=== PATIENT | male | born 1955 | race African-American/Black ===

== ENCOUNTER 2020-09-04 11:29 | Emergency (ER) | payer MEDICARE, MEDICAID, SELFPAY ==
--- NOTE | 2020-09-04 | XR_ITS ---
EXAMINATION: RIGHT FOOT AND ANKLE X-RAY CLINICAL INFORMATION: Pain and swelling COMPARISON: None TECHNIQUE: 3 views of the right foot and 3 views of the right ankle FINDINGS: Right foot: The bones are osteopenic. No fracture or dislocation is seen. There are mild degenerative changes of the first MTP joint and midfoot. There is soft tissue arterial calcification. There is a small plantar calcaneal spur. Right ankle: The bones are osteopenic. Bone alignment is normal. No fracture or dislocation is seen. The ankle mortise is normal. There is soft tissue arterial calcification. IMPRESSION: Osteopenia. 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 Small plantar calcaneal spur.
[2020-09-04 11:39] VITALS: BP 145/77; PULSE 73; RESP 16; TEMP 36.5; O2SAT 99; BMI 31.4
--- NOTE | 2020-09-04 12:18 | ED_ITS ---
HPI - Extremity Problem General Chief complaint: Extremity Injury, Lower Stated complaint: r ankle pain Time Seen by Provider: 09/04/20 12:12 Related Data Allergies Allergy/AdvReac Type Severity Reaction Status Date / Time oxycodone [OXYCODONE] Allergy Unknown UNKNOWN Unverified 08/18/20 19:40 Phenothiazines Allergy Unknown UNKNOWN Unverified 08/18/20 19:40 [PHENOTHIAZINES] tetracycline Allergy Unknown Unverified 05/11/20 00:00 tigecycline [TIGECYCLINE] Allergy Unknown UNKNOWN Unverified 08/18/20 19:40 Phenothiazine Allergy Unknown Uncoded 05/11/20 00:00 phenothiazine Allergy Unknown Uncoded 04/27/20 00:00 Review of Systems Review of Systems: Yes all other systems are reviewed and are negative Constitutional: Constitutional: Reports no additional constitutional complaints Eyes: Eyes: Reports no additional eye complaints ENT: Reports system reviewed and no additional complaints, except as documented Cardiovascular: Cardiovascular: Reports no additional cardiovascular complaints Respiratory: Respiratory: Reports no additional respiratory complaints Gastrointestinal: Gastrointestinal: Reports no additional gastrointestinal complaints Musculoskeletal: Musculoskeletal: Reports no additional musculoskeletal complaints Neurologic: Reports system reviewed and no additional complaints, except as documented and Reports Abnormal speech present Psychiatric: Psychiatric: Reports no additional psychiatric complaints Endocrine: Endocrine: Reports no additional endocrine complaints [facility]LY [facility], [facility] Past Medical History Medical History (Updated 09/04/20 @ 15:51 by Paul Silva MD) Diabetes mellitus, type 2 Social History Social History Alcohol intake: former Smoking Status: Former smoker Use of substances other than those prescribed or required for medical reasons: No Advance Directives: No Advance Directives Information Provided: No Physical Exam Vital Signs and I&O and Narrative: Vital Signs and I&O: Vital Signs Temp 98.1 F 09/04/20 15:41 Pulse 74 09/04/20 15:41 Resp 18 09/04/20 15:41 BP 128/70 09/04/20 15:41 Pulse Ox 99 09/04/20 11:39 Intake & Output 09/03/20 09/04/20 09/04/20 18:59 06:59 18:59 Weight 96.334 kg Body Mass Index 31.4 Const: General: cooperative Orientation/consciousness: oriented to person, oriented to place and oriented to time HENMT: Head: Yes normal to inspection Eyes: General: appearance normal, both eyes and all related structures Neck: Neck: Yes normal visual inspection Chest: Chest palpation & inspection: normal inspection of the chest and normal palpation of entire chest wall Cardio: Jugular venous distension: no JVD GI: Inspection: Yes normal to inspection Auscultation: normal bowel sounds Rectal Exam - Male: Yes deferred : General: Yes no CVA tenderness Back/Spine/Pelvis: Back: no CVA tenderness Skin: General skin exam: no rashes or lesions noted, elasticity normal and turgor normal Neuro: General: oriented to person, oriented to place and oriented to time Cognition (Neuro): normal cognition Speech: Abnormal speech present Gait exam (Neuro): Normal gait present Extrem: Other: Pre existing left hemiparesis due to old stroke, right ankle with slight swelling and mild tenderness but no deformity, no ecchymosis. Normal neurovascular exam. General: Yes normal to inspection and Yes normal exam except as noted Course Course Hospital Course: 65-year-old male brought in from a skilled nursing with the right foot/ankle pain with no trauma, patient is mostly bed / wheelchair bound secondary to old strokes, physical exam/radiographic exam is not indicated for acute injuries to the right foot / ankle. Patient appear comfortable. As patient's caregiver instructed to use Tylenol/ ibuprofen for pain otherwise follow-up with PCP. Discharge Plan Discharge Clinical Impression: Ankle sprain and strain Instructions: Ankle Sprain (ED) Referrals: Andrei Coulter PA-C [Primary Care Provider] - 2 days
[2020-09-04 15:06] VITALS: BP 160/88; PULSE 70; RESP 16
--- NOTE | 2020-09-04 15:17 | PC.NURSE ---
dispo reviewed w pt and custodial staff by provider. booking transport back to custodial.
[2020-09-04 15:41] VITALS: BP 128/70; PULSE 74; RESP 18; TEMP 36.7
== END 2020-09-04 15:59 ==
PROVIDERS: Emergency Provider Emergency Medicine; PCP Physician Assistant
DX: S93.401A Sprain of unspecified ligament of right ankle, initial encounter (principal); X58.XXXA Exposure to other specified factors, initial encounter; E11.9 Type 2 diabetes mellitus without complications; Y93.9 Activity, unspecified; Y92.129 Unspecified place in nursing home as the place of occurrence of the external cause; Y99.9 Unspecified external cause status
CPT/HCPCS: 73610; 73630; 99283

== ENCOUNTER 2020-09-13 11:25 | Emergency (ER) | payer MEDICARE, MEDICAID, SELFPAY ==
--- NOTE | 2020-09-13 11:32 | ED.PSYCH ---
HPI - Psych General Chief Complaint: Psychiatric Symptoms Stated Complaint: SECTION 12 BY MARSHAL PA Time Seen by Provider: 09/13/20 11:32 Source: patient and EMS Mode of arrival: EMS Limitations: no limitations History of Present Illness MD complaint: other (aggression at prison) Onset (ago): minute(s) Duration: resolved prior to arrival History of same: Yes Relieving factors: none Exacerbating factors: none Context: other (got angry with staff) Associated psychiatric symptoms: none Associated symptoms: denies other symptoms Treatments prior to arrival: placed on mental health hold (section 12 by Bautista) Related Data Previous Rx's Medication Instructions Recorded metformin 500 mg tablet,extended 500 mg PO BID 30 Days #60 tab 09/09/20 release 24 hr Allergies Allergy/AdvReac Type Severity Reaction Status Date / Time oxycodone [OXYCODONE] Allergy Unknown UNKNOWN Verified 09/13/20 11:50 tigecycline [TIGECYCLINE] Allergy Unknown UNKNOWN Verified 09/13/20 11:50 Phenothiazine Allergy Unknown Unknown Uncoded 09/13/20 11:50 Review of Systems Review of Systems: Constitutional : No Fever, No Chills ENT/Mouth : No Ear Pain, No Nasal Congestion, No sore throat Eyes: No Eye Pain, No Swelling, No Redness Cardiovascular : No Chest Pain, No SOB Respiratory : No Cough, No Sputum, No Dyspnea Gastrointestinal : No Nausea, No Vomiting, No Diarrhea, No Hematochezia, No Melena Genitourinary : No Dysuria, No Urinary Frequency, No Hematuria Musculoskeletal : No Myalgias Skin : No Skin Lesions, No rash Neuro : No Weakness, No Numbness, No Paresthesias, No Dizziness, No Headache Psych : positive Anxiety, positive Depression, no SI/HI Heme/Lymph: No Lymphadenopathy Endocrine : No Polyuria, No Polydipsia All other systems reviewed and are negative [facility] Past Medical History Medical History (Updated 09/13/20 @ 15:52 by Brooke Lin DO) CVA (cerebral vascular accident) Diabetes mellitus, type 2 GERD (gastroesophageal reflux disease) HTN (hypertension) Psychotic disorder Seizure Type 2 diabetes mellitus with diabetic polyneuropathy Social History Social History Alcohol intake: former Smoking Status: Former smoker Advance Directives: No Advance Directives Information Provided: No Physical Exam Vital Signs: Vital Signs: Vital Signs Temp Pulse Resp BP Pulse Ox 09/13/20 11:50 97.0 F 77 16 148/88 H 96 Body Mass Index 33.0 Appearance: Alert. Oriented X3. No acute distress. Eyes: Pupils equal, round and reactive to light. ENT: Pharynx normal. Neck: Normal inspection. Neck supple. CVS: Normal heart rate and rhythm. Pulses normal. Respiratory: No respiratory distress. Breath sounds normal. Abdomen: Soft and nontender. Skin: Skin warm and dry. Normal skin color. Normal skin turgor. Extremities: No lower extremity edema. No calf ttp Neuro: Oriented X 3. L sided hemiparesis No sensory deficit. Psych: calm, cooperative, no SI/HI Course Course Course Narrative: signed out to Dr. Lawler pending [facility] MDM - Psych MDM Narrative Medical decision making narrative: patient with aggression at prison, at this time, will need labs, [facility] consult, he is calm now and denies SI/HI Restraints Face to Face Assessment: Face to Face Assessment: Current Situation: After assessment of the patient, a review of the pertinent medical record and a discussion with nursing staff, I feel the patient requires a restrain intervention. Reaction To: [] Medical Condition: [] Behavioral State: [] Continued Need: [] Lab Data Result diagrams: 09/13/20 11:52 09/13/20 11:52 Labs: Lab Results 09/13/20 09/13/20 Range/Units 11:52 11:52 WBC 9.0 (4.8-10.8) X10*3/uL RBC 4.45 L (4.60-5.80) X10*6/uL Hgb 13.6 L (14.0-18.0) g/dl Hct 41.8 L (42-52) % MCV 93.9 (80-98) fL MCH 30.6 (27.0-33.0) pg MCHC 32.5 (31.0-36.0) g/dl RDW 13.2 (11.0-16.0) % Plt Count 237 (160-400) X10*3/uL MPV 9.7 (9.4-12.4) fL Immature Gran % (Auto) 0.6 H (0.0-0.4) % Neut % (Auto) 59.2 (45-73) % Lymph % (Auto) 28.7 (20-40) % [place] % (Auto) 8.3 (2-11) % Eos % (Auto) 2.9 (0-4) % Baso % (Auto) 0.3 (0-2) % Lymph # (Auto) 2.6 (1.2-4.9) X10*3/uL [place] # (Auto) 0.8 (0.1-1.2) X10*3/uL Eos # (Auto) 0.3 (0.0-0.4) X10*3/uL Baso # (Auto) 0.0 (0.0-0.2) X10*3/uL Abs Immat Gran (auto) 0.05 H (0.00-0.03) X10*3/uL Absolute Neuts (auto) 5.3 (2.0-8.3) X10*3/uL Absolute Nucleated RBC 0.000 (0.0-0.012) X10*3/uL Nucleated RBC % (auto) 0.0 (0.0-0.2) /100WBC Sodium 137 (135-145) mmol/L Potassium 4.4 (3.3-5.1) mmol/l Chloride 102 (96-108) mmol/L Carbon Dioxide 28 (22-29) mmol/L Anion Gap 11 L (12-20) BUN 15 (9-16) mg/dL Creatinine 0.67 (0.5-1.4) mg/dL Estim Creat Clear Calc 130.8 Estimated GFR > 60 Random Glucose 159 H (60-115) mg/dL Calcium 9.3 (8.4-10.2) mg/dL Total Bilirubin 0.3 (0.0-1.0) mg/dL Direct Bilirubin 0.2 (0.0-0.5) mg/dL AST 63 H (5-37) U/L ALT 90 H (0-40) U/L Alkaline Phosphatase 94 (39-117) U/L Total Protein 8.0 (6.5-8.0) g/dL Albumin 4.0 (3.5-5.0) g/dL Phenytoin 13.4 (10.0-20.0) ug/mL Discharge Plan Discharge Clinical Impression: Agitation Prescriptions: No Action metformin 500 mg tablet extended release 24 hr 500 mg PO BID 30 Days Qty: 60 RF: 3
[2020-09-13 11:39] VITALS: BP 145/81; PULSE 94; RESP 18; TEMP 36.4; O2SAT 96
[2020-09-13 11:50] VITALS: BP 148/88; PULSE 77; RESP 16; TEMP 36.1; O2SAT 96; BMI 33.0
[2020-09-13 11:55] LABS: MANUAL DIFF FLAG NO
[2020-09-13 11:57] LABS: Basophils Percent Auto 0.3 % (0-2); Eosinophils Absolute Auto 0.3 X10*3/uL (0.0-0.4); Eosinophils Percent Auto 2.9 % (0-4); Hematocrit 41.8 % (42-52); Hemoglobin 13.6 g/dl (14.0-18.0); Imm Gran Abs Auto 0.05 X10*3/uL (0.00-0.03); Imm Gran Pct Auto 0.6 % (0.0-0.4); Lymphocytes Absolute Auto 2.6 X10*3/uL (1.2-4.9); Lymphocytes Percent Auto 28.7 % (20-40); Mean Corpuscular HGB Conc 32.5 g/dl (31.0-36.0); Mean Corpuscular Hemoglobin 30.6 pg (27.0-33.0); Mean Corpuscular Volume 93.9 fL (80-98); Mean Platelet Volume 9.7 fL (9.4-12.4); Monocytes Absolute Auto 0.8 X10*3/uL (0.1-1.2); Monocytes Percent Auto 8.3 % (2-11); Neutrophils Absolute Auto 5.3 X10*3/uL (2.0-8.3); Neutrophils Percent Auto 59.2 % (45-73); Platelet Count 237 X10*3/uL (160-400); Red Blood Count 4.45 X10*6/uL (4.60-5.80); Red Cell Distribution Width 13.2 % (11.0-16.0)
[2020-09-13 12:21] LABS: Alanine Aminotransferase 90 U/L (0-40); Alkaline Phosphatase 94 U/L (39-117); Anion Gap 11 (12-20); Aspartate Amino Transferase 63 U/L (5-37); Bilirubin Direct 0.2 mg/dL (0.0-0.5); Bilirubin Total 0.3 mg/dL (0.0-1.0); Blood Urea Nitrogen 15 mg/dL (9-16); Calcium 9.3 mg/dL (8.4-10.2); Carbon Dioxide 28 mmol/L (22-29); Chloride 102 mmol/L (96-108); Creatinine Clr Calc Pharmacy 130.8; Estimated Glomerular Filt Rate > 60; Glucose Random 159 mg/dL (60-115); Potassium 4.4 mmol/l (3.3-5.1); Sodium 137 mmol/L (135-145)
[2020-09-13 12:57] LABS: Phenytoin Dilantin 13.4 ug/mL (10.0-20.0)
--- NOTE | 2020-09-13 19:47 | PC.NURSE ---
Addendum entered by Anastacia Crespo [facility] 09/13/20 21:01: N called and faxed by this insurance underwriter at 8pm, spoke with Greg to confirm receipt. No ETA at this time, likely that pt will be seen by clinician on third shift. Original Note: no fax was sent to [facility] regarding patient. care team to see patient
[2020-09-13 23:29] VITALS: BP 145/87; PULSE 89; RESP 16; TEMP 37.1; O2SAT 99
--- NOTE | 2020-09-13 23:30 | PC.NURSE ---
pt requested and given sandwich, tea, and gingerale. belongings secured in locker. pt is calm, cooperative, pleasant. denies si/hi. aware of section 12 bedsearch per n. denies complaints. med rec completed and md diallo aware.
[2020-09-14] VITALS (12 sets, daily range): BP systolic 132–162; BP diastolic 65–97; PULSE 60–105; RESP 16–20; TEMP 36–36.7; O2SAT 96–98
[2020-09-14] MEDS: levETIRAcetam 1,000 MG TABLET 1500 MG PO ×2 (10:51→21:00)
[2020-09-14] MEDS: Cyclobenzaprine HCl 5 MG TABLET PO (10:52)
[2020-09-14] MEDS: Spironolactone 25 MG TABLET PO (10:52)
[2020-09-14] MEDS: Milk of Magnesia 30 ML ORAL.SUSP PO (10:52)
[2020-09-14] MEDS: Metoprolol Succinate ER 100 MG TAB.ER.24H PO (10:53)
[2020-09-14] MEDS: lamoTRIgine 100 MG TABLET PO (10:53)
[2020-09-14] MEDS: Gabapentin 600 MG TABLET PO (10:53)
[2020-09-14] MEDS: Folic Acid 1 MG TABLET PO (10:53)
[2020-09-14] MEDS: metFORMIN HCl ER 500 MG TAB.ER.24H PO ×2 (11:01→21:00)
[2020-09-14] MEDS: ARIPiprazole 20 MG TABLET PO (11:02)
--- NOTE | 2020-09-14 14:04 | ECG_ITS ---
Test Reason : PSYCHIATRIC CONSULT Blood Pressure : / mmHG Vent. Rate : 077 BPM Atrial Rate : 077 BPM P-R Int : 228 ms QRS Dur : 076 ms QT Int : 384 ms P-R-T Axes : 058 025 062 degrees QTc Int : 434 ms Sinus rhythm with 1st degree A-V block Nonspecific ST abnormality Inferior leads Abnormal ECG When compared with ECG of 10-MAY-2020 11:42, Nonspecific ST abnormality is new Referred By: Brooke Lin Electronically Signed By:UMER ARVIZU MD
--- NOTE | 2020-09-14 14:04 | XR_ITS ---
EXAMINATION: XR CHEST CLINICAL INFORMATION: Medical clearance COMPARISON: Chest x-ray 03/17/2019 TECHNIQUE: Frontal view of the chest was obtained. Left lung apex is obscured by the patient's overlying hand. FINDINGS: Cardiac silhouette is at the upper limits of normal in size. There is no gross lobar consolidation. No pleural effusion or pneumothorax. Old healed left-sided rib fractures. IMPRESSION: No acute pulmonary pathology.
--- NOTE | 2020-09-14 14:24 | PC.NURSE ---
[facility] CURRENTLY AT BEDSIDE
[2020-09-14] MEDS: Amitriptyline HCl 25 MG TABLET PO (21:00)
[2020-09-15] VITALS: BP 133/74; PULSE 88; RESP 18; O2SAT 97
[2020-09-15 00:15] LABS: SARS COV2 PCR INHOUSE NEGATIVE (Negative)
[2020-09-15 02:00] VITALS: BP 131/84; PULSE 86; RESP 18; O2SAT 97
[2020-09-15 04:00] VITALS: BP 133/78; PULSE 86; RESP 18; O2SAT 97
[2020-09-15 06:39] VITALS: BP 159/86; PULSE 95; RESP 18; O2SAT 96
--- NOTE | 2020-09-15 06:49 | PC.NURSE ---
Pt cleaned up and clean linens applied to bed. pt denies any complaints at this time. Will continue to monitor pt.
--- NOTE | 2020-09-15 08:26 | PC.NURSE ---
This RN spoke w/Petrona from [facility]. Petrona provided fax # for wing for Covid results. Results faxed to attention Madhuri
--- NOTE | 2020-09-15 10:42 | PC.NURSE ---
report given to [facility]
== END 2020-09-15 11:35 ==
PROVIDERS: Physician Assistant; Emergency Provider Emergency Medicine; PCP Physician Assistant
DX: R45.1 Restlessness and agitation (principal); Z20.828 Contact with and (suspected) exposure to other viral communicable diseases; I10 Essential (primary) hypertension; E11.9 Type 2 diabetes mellitus without complications; F41.9 Anxiety disorder, unspecified; F31.9 Bipolar disorder, unspecified; F44.9 Dissociative and conversion disorder, unspecified; Z79.899 Other long term (current) drug therapy; Z79.4 Long term (current) use of insulin; Z79.84 Long term (current) use of oral hypoglycemic drugs
CPT/HCPCS: 36415; 71045; 80048; 80076; 80185; 85025; 87635; 93005; 99285

== ENCOUNTER → 2020-11-04 09:43 | Outpatient (BNVA) | payer MEDICARE, MEDICAID, SELFPAY | PROVIDERS: PCP Physician Assistant; Visit Provider Nurse Practitioner Gerontology | DX: E11.42 Type 2 diabetes mellitus with diabetic polyneuropathy (principal); I10 Essential (primary) hypertension | CPT/HCPCS: 82947; 99212 ==

== ENCOUNTER 2020-12-01 10:02 | Outpatient (REF) | payer MEDICARE, MEDICAID, SELFPAY ==
[2020-12-05 12:31] LABS: Alpha Fetoprotein 16.8 ng/mL (<6.1)
[2020-12-07 08:48] LABS: Hepatitis C Genotype 1a
== END 2020-12-01 10:03 | disposition home or self-care (01) ==
LOC: HO.LAB 10:02
PROVIDERS: PCP Physician Assistant; Visit Provider Internal Medicine Gastroenterology
DX: B18.2 Chronic viral hepatitis C (principal)
CPT/HCPCS: 82105; 87902

== ENCOUNTER 2020-12-17 11:15 | Inpatient (IN) | payer MEDICARE, MEDICAID, SELFPAY ==
[2020-12-17] VITALS (8 sets, daily range): BP systolic 115–159; BP diastolic 69–87; PULSE 90–111; RESP 15–20; TEMP 36.7–37.2; O2SAT 2–98; BMI 32.8
--- NOTE | 2020-12-17 | XR_ITS ---
EXAMINATION: XR CHEST CLINICAL INFORMATION: Check NG tube position. COMPARISON: Chest 12/17/2020 at 5:20 PM TECHNIQUE: Frontal view of the chest was obtained. FINDINGS: Tip of enteric tube is at the level of diaphragm/GE junction. Due to suboptimal exposure the tip of the catheter is not visualized the on the diaphragm. The lungs are expanded with patchy opacity seen in the right midlung similar to previous study. Heart size and pulmonary vascularity is normal. There are old healed left mid rib fractures. XR/XR chest 1V IMPRESSION: Tip of nasogastric tube is is likely at the GE junction. Recommend chest abdomen exam sent to the diaphragm to evaluate the tip. There is focal patchy opacity right midlung question infiltrate, unchanged to previous exam performed earlier at 5:20 PM
--- NOTE | 2020-12-17 | XR_ITS ---
EXAMINATION: XR CHEST CLINICAL INFORMATION: NG tube placement COMPARISON: Earlier exam same day TECHNIQUE: Portable 10:39 PM view of the chest was obtained. FINDINGS: Multifocal infiltrates again noted. NG tube tip overlies multiple leads but the tip appears to have advanced to at least the gastric body. No new findings otherwise. XR/XR chest 1V IMPRESSION: Limited imaging as above.
--- NOTE | 2020-12-17 11:45 | PC.NURSE ---
spoke with patients bottom worker in waiting rooms. he confirmed pt has been having n/v/d that began last night and again this morning. also reports pt abdomen has been increasing in size over past 6 months. pt seen pcp and [place] dr [place] [facility] unsure of pt diagnosis. pt waiting to be seen by ED
--- NOTE | 2020-12-17 12:00 | ED_ITS ---
HPI - Nausea/Vomiting/Diarrhea General Chief complaint: Nausea/Vomiting/Diarrhea Stated complaint: ABD PAIN W/NAUSEA AND VOMITING Time Seen by Provider: 12/17/20 11:48 History of Present Illness HPI Narrative: 65-year-old male with a history of chronic hepatitis, history of hypertension, presents today with having nausea vomiting diarrhea. Symptoms been ongoing for the last 2 days. Diarrhea is yellow in color. Patient also complaining of nausea vomiting unable to keep down fluids. Had had similar symptoms in the past. Would seem be more severe. Had a previous history of cholecystectomy. Had a previous history of colonoscopy. Patient unsure of the results. No cough and no congestion or upper respiratory symptoms. Also history of previous CVA in the past patient has weakness on the left side that is chronic. Arms greater than legs. Positive facial droop which is also chronic per patient. Related Data Home Medications Medication Instructions Recorded Confirmed aripiprazole [Abilify] 20 mg PO DAILY 09/13/20 12/05/20 artificial tears with lanolin 1 applic OPHTHALMIC (EYE) DAILY 09/13/20 12/05/20 [Artificial Tears] eucalyptus-peppermint oil [Ponaris] 1 applic INTRANASAL DAILY 09/13/20 12/05/20 folic acid 1 mg PO DAILY 09/13/20 12/05/20 guanfacine 2 mg PO DAILY 09/13/20 12/05/20 lamotrigine [Lamictal] 100 mg PO BID 09/13/20 12/05/20 levetiracetam 1,500 mg PO BID 09/13/20 12/05/20 phenytoin 200 mg PO BEDTIME 09/13/20 12/05/20 aluminum-mag hydroxide-simethicone 10 ml PO QID PRN 09/22/20 12/05/20 200 mg-200 mg-20 mg/5 mL oral susp lorazepam 2 mg tablet 2 mg PO ONCE PRN tab 09/22/20 12/05/20 metoprolol tartrate 100 mg tablet 100 mg PO BID 11/23/20 12/05/20 aspirin 81 mg tablet,delayed 81 mg PO DAILY 12/12/20 release spironolactone 25 mg tablet 25 mg PO DAILY 12/12/20 Previous Rx's Medication Instructions Recorded cyclobenzaprine 5 mg tablet 5 mg PO Q8H #84 tab 10/17/20 omeprazole 20 mg capsule,delayed 20 mg PO DAILY #28 cap 10/17/20 release blood sugar diagnostic #100 ea 11/04/20 dulaglutide 0.75 mg/0.5 mL 0.75 mg SUBCUT QWEEK #2 ml 11/04/20 subcutaneous pen injector insulin degludec 200 unit/mL (3 56 unit SUBCUT DAILY 30 Days #9 ml 11/04/20 mL) subcutaneous pen lancets 26 gauge #100 ea 11/04/20 metformin 500 mg tablet,extended 500 mg PO BID #60 tab 11/04/20 release 24 hr amitriptyline 25 mg tablet 25 mg PO BEDTIME #28 tab 11/14/20 magnesium oxide 400 mg (241.3 mg 400 mg PO QAM #28 tab 11/14/20 magnesium) tablet valsartan 320 0.5 tab PO DAILY 30 Days #15 tab 11/14/20 mg-hydrochlorothiazide 25 mg tablet aluminum-mag hydroxide-simethicone 15 ml PO Q4H PRN #355 ml 12/05/20 200 mg-200 mg-20 mg/5 mL oral susp gabapentin 600 mg tablet 600 mg PO TID 90 Days #270 tab 12/05/20 magnesium hydroxide 400 mg/5 mL 30 ml PO DAILY 90 Days #3000 ml 12/05/20 oral suspension pen needle, diabetic 32 gauge x #50 ea 12/05/20 phenytoin 50 mg chewable tablet 150 mg PO DAILY 90 Days #270 tab 12/05/20 aspirin 81 mg tablet,delayed 81 mg PO QAM #28 tab 12/12/20 release spironolactone 25 mg tablet 25 mg PO DAILY #28 tab 12/12/20 Allergies Allergy/AdvReac Type Severity Reaction Status Date / Time oxycodone [OXYCODONE] Allergy Unknown UNKNOWN Verified 12/05/20 09:43 Phenothiazines Allergy Unknown Unknown Verified 12/05/20 09:43 tetracycline Allergy Unknown Unknown Verified 12/05/20 09:43 tigecycline [TIGECYCLINE] Allergy Unknown UNKNOWN Verified 12/05/20 09:43 Review of Systems Review of Systems: Constitutional: No Weight loss, No Fever, No Chills, No Night Sweats, No Fatigue, No Malaise ENT/Mouth: No Hearing loss, No Ear Pain, No Nasal Congestion, No Sinus Pain, No Hoarseness, No sore throat, No Rhinorrhea, No Swallowing Difficulty Eyes: No Eye Pain, No Swelling, No Redness, No Foreign Body, No Discharge, No Vision Changes Cardiovascular: No Chest Pain, No SOB, No Dyspnea on Exertion, No Orthopnea, No Edema, No Palpitations Respiratory: No Cough, No Sputum, No Wheezing, No Smoke Exposure, No Dyspnea Gastrointestinal: Positive nausea, vomiting, diarrhea Genitourinary: no irregular bleeding, No Dysuria, No Urinary Frequency, No Hematuria, No Urinary Incontinence, No Urgency, No Flank Pain, No Urinary Flow Changes, No Hesitancy Musculoskeletal: No joint pain, No Myalgias, No Joint Swelling Skin: No Skin Lesions, No rash Neuro: No Weakness, No Numbness, No Paresthesias, No Loss of Consciousness, No Dizziness, No Headache Psych: No Anxiety/Panic, No Depression, No SI/HI/AH/VH, No Social Issues, Heme/Lymph: No Bruising, No Bleeding,No Lymphadenopathy Endocrine: No Polyuria, No Polydipsia, No Temperature Intolerance Yes all other systems are reviewed and are negative [facility] Past Medical History Medical History Abnormal colonoscopy Anxiety Bipolar disorder Conversion disorder CVA (cerebral vascular accident) Essential hypertension GERD (gastroesophageal reflux disease) HTN (hypertension) Psychotic disorder Seizure Type 2 diabetes mellitus with diabetic polyneuropathy Surgical History Hx of cholecystectomy Hx of colonoscopy Hx of surgical biopsy Family History Family History Sister Breast cancer in situ Social History Social History Alcohol intake: unknown Smoking Status: Unknown if ever smoked Smoked in Last 30 Days: No Use of substances other than those prescribed or required for medical reasons: No Advance Directives: No Advance Directives Information Provided: No Physical Exam Vital Signs: Vital Signs: Last Vital Signs Temp 98.3 F 12/17/20 16:00 Pulse 111 H 12/17/20 16:00 Resp 16 12/17/20 16:00 BP 153/83 H 12/17/20 16:00 Pulse Ox 2 L 12/17/20 16:00 Body Mass Index 32.8 Appearance: Alert. Oriented X3. No acute distress. Eyes: Pupils equal, round and reactive to light. ENT: Pharynx normal. Neck: Normal inspection. Neck supple. No lymph nodes noted. No crepitus CVS: Normal heart rate and rhythm. Pulses normal. Normal S1 and S2 Respiratory: No respiratory distress. Breath sounds normal. No Wheezing. No rales Abdomen: Soft and nontender. No rigidity. + distention. good BS x4 Skin: Skin warm and dry. Normal skin color. Normal skin turgor. Extremities: No lower extremity edema. Neurovascular intact to all extremities. No Lacerations. No Rash Neuro: Oriented X 3. No motor deficit. No sensory deficit. Moving all extermities. No slurred speech MDM - Nausea/Vomiting/Diarrhea MDM Narrative Medical decision making narrative: Question cause of patient's abdominal distension. White count was normal. Electrolytes unremarkable. Coronavirus test was negative. CT scan of the abdomen done. Distended loops of bowels all the way down to the colon. Question ileus versus colonic obstruction. Surgical consult was called. Currently in stable condition. Patient given symptomatic support here in the emergency department Lab Data Attestation: I reviewed the patient's lab results. Result diagrams: 12/17/20 12:36 12/17/20 12:32 Labs: Lab Results 12/17/20 12/17/20 12/17/20 Range/Units 12:23 12:32 12:33 WBC (4.8-10.8) X10*3/uL RBC (4.60-5.80) X10*6/uL Hgb (14.0-18.0) g/dl Hct (42-52) % MCV (80-98) fL MCH (27.0-33.0) pg MCHC (31.0-36.0) g/dl RDW (11.0-16.0) % Plt Count (160-400) X10*3/uL MPV (9.4-12.4) fL Immature Gran % (Auto) (0.0-0.4) % Neut % (Auto) (45-73) % Lymph % (Auto) (20-40) % [place] % (Auto) (2-11) % Eos % (Auto) (0-4) % Baso % (Auto) (0-2) % Lymph # (Auto) (1.2-4.9) X10*3/uL [place] # (Auto) (0.1-1.2) X10*3/uL Eos # (Auto) (0.0-0.4) X10*3/uL Baso # (Auto) (0.0-0.2) X10*3/uL Abs Immat Gran (auto) (0.00-0.03) X10*3/uL Absolute Neuts (auto) (2.0-8.3) X10*3/uL Absolute Nucleated RBC (0.0-0.012) X10*3/uL Nucleated RBC % (auto) (0.0-0.2) /100WBC PT 13.6 H (10.8-13.0) SEC INR 1.1 (0.9-1.1) Sodium 136 (135-145) mmol/L Potassium 4.4 (3.3-5.1) mmol/l Chloride 101 (96-108) mmol/L Carbon Dioxide 23 (22-29) mmol/L Anion Gap 16 (12-20) BUN 13 (9-16) mg/dL Creatinine 0.66 (0.5-1.4) mg/dL Estim Creat Clear Calc 132.4 Estimated GFR > 60 Random Glucose 146 H (60-115) mg/dL Calcium 8.5 D (8.4-10.2) mg/dL Total Bilirubin 0.4 (0.0-1.0) mg/dL Direct Bilirubin 0.4 (0.0-0.5) mg/dL AST 44 H (5-37) U/L ALT 54 H (0-40) U/L Alkaline Phosphatase 90 (39-117) U/L Total Protein 7.7 (6.5-8.0) g/dL Albumin 3.7 (3.5-5.0) g/dL Lipase 55 (8-78) U/L Phenytoin (10.0-20.0) ug/mL COVID-19 (SHANW) Negative (Negative) COVID-19 Clin Com See Note 12/17/20 12/17/20 Range/Units 12:35 12:36 WBC 7.9 (4.8-10.8) X10*3/uL RBC 4.60 (4.60-5.80) X10*6/uL Hgb 14.0 (14.0-18.0) g/dl Hct 43.8 (42-52) % MCV 95.2 (80-98) fL MCH 30.4 (27.0-33.0) pg MCHC 32.0 (31.0-36.0) g/dl RDW 12.5 (11.0-16.0) % Plt Count 168 D (160-400) X10*3/uL MPV 11.1 (9.4-12.4) fL Immature Gran % (Auto) 0.4 (0.0-0.4) % Neut % (Auto) 67.9 (45-73) % Lymph % (Auto) 22.3 (20-40) % [place] % (Auto) 7.7 (2-11) % Eos % (Auto) 1.4 (0-4) % Baso % (Auto) 0.3 (0-2) % Lymph # (Auto) 1.8 (1.2-4.9) X10*3/uL [place] # (Auto) 0.6 (0.1-1.2) X10*3/uL Eos # (Auto) 0.1 (0.0-0.4) X10*3/uL Baso # (Auto) 0.0 (0.0-0.2) X10*3/uL Abs Immat Gran (auto) 0.03 (0.00-0.03) X10*3/uL Absolute Neuts (auto) 5.4 (2.0-8.3) X10*3/uL Absolute Nucleated RBC 0.000 (0.0-0.012) X10*3/uL Nucleated RBC % (auto) 0.0 (0.0-0.2) /100WBC PT (10.8-13.0) SEC INR (0.9-1.1) Sodium (135-145) mmol/L Potassium (3.3-5.1) mmol/l Chloride (96-108) mmol/L Carbon Dioxide (22-29) mmol/L Anion Gap (12-20) BUN (9-16) mg/dL Creatinine (0.5-1.4) mg/dL Estim Creat Clear Calc Estimated GFR Random Glucose (60-115) mg/dL Calcium (8.4-10.2) mg/dL Total Bilirubin (0.0-1.0) mg/dL Direct Bilirubin (0.0-0.5) mg/dL AST (5-37) U/L ALT (0-40) U/L Alkaline Phosphatase (39-117) U/L Total Protein (6.5-8.0) g/dL Albumin (3.5-5.0) g/dL Lipase (8-78) U/L Phenytoin 17.1 (10.0-20.0) ug/mL COVID-19 (SHAWN) (Negative) COVID-19 Clin Com Discharge Plan Discharge Prescriptions: No Action cyclobenzaprine 5 mg tablet 5 mg PO Q8H Qty: 84 RF: 3 omeprazole 20 mg capsule,delayed release(DR/EC) 20 mg PO DAILY Qty: 28 RF: 3 valsartan-hydrochlorothiazide 320-25 mg tablet 0.5 tab PO DAILY 30 Days Qty: 15 RF: 6 magnesium oxide 400 mg (241.3 mg magnesium) tablet 400 mg PO QAM Qty: 28 RF: 5 amitriptyline 25 mg tablet 25 mg PO BEDTIME Qty: 28 RF: 5 metoprolol tartrate 100 mg tablet 100 mg PO BID RF: 0 magnesium hydroxide [Milk of Magnesia] 400 mg/5 mL suspension 30 ml PO DAILY 90 Days Qty: 3000 RF: 1 alum-mag hydroxide-simeth [Mi-Acid] 200-200-20 mg/5 mL suspension 15 ml PO Q4H PRN (Reason: for indigestion) Qty: 355 RF: 2 aspirin [Adult Aspirin Regimen] 81 mg tablet,delayed release (DR/EC) 81 mg PO DAILY RF: 0 spironolactone 25 mg tablet 25 mg PO DAILY RF: 0 spironolactone 25 mg tablet 25 mg PO DAILY Qty: 28 RF: 3 aspirin 81 mg tablet,delayed release (DR/EC) 81 mg PO QAM Qty: 28 RF: 3 aripiprazole [Abilify] 20 mg Tablet 20 mg PO DAILY RF: 0 folic acid 1 mg Tablet 1 mg PO DAILY RF: 0 guanfacine 2 mg Tablet 2 mg PO DAILY RF: 0 lamotrigine [Lamictal] 100 mg Tablet 100 mg PO BID RF: 0 Artificial Tears Ointment 1 applic OPHTHALMIC (EYE) DAILY RF: 0 levetiracetam 1,000 mg Tablet 1,500 mg PO BID RF: 0 phenytoin 50 mg Tablet,Chewable 200 mg PO BEDTIME RF: 0 Ponaris Solution 1 applic INTRANASAL DAILY RF: 0 lorazepam [Ativan] 2 mg tablet 2 mg PO ONCE PRN (Reason: Anxiety) RF: 0 alum-mag hydroxide-simeth [Maalox Advanced] 200-200-20 mg/5 mL suspension 10 ml PO QID PRNRF: 0 (DME) pen needle, diabetic [BD Ultra-Fine Helene Pen Needle] 32 gauge x / needle See Rx Instructions .ROUTE .MEDSUPPLY Qty: 50 RF: 3 phenytoin 50 mg tablet,chewable 150 mg PO DAILY 90 Days Qty: 270 RF: 1 gabapentin 600 mg tablet 600 mg PO TID 90 Days Qty: 270 RF: 2 (DME) ReliOn Prime Test Strips Strip See Rx Instructions .ROUTE .MEDSUPPLY Qty: 100 RF: 11 (DME) lancets [Safety Lancets] 26 gauge misc See Rx Instructions .ROUTE .MEDSUPPLY Qty: 100 RF: 11 Trulicity 0.75 mg/0.5 mL pen injector 0.75 mg SUBCUT QWEEK Qty: 2 RF: 3 Tresiba FlexTouch U-200 200 unit/mL (3 mL) insulin pen 56 unit subcut DAILY 30 Days Qty: 9 RF: 3 metformin 500 mg tablet extended release 24 hr 500 mg PO BID Qty: 60 RF: 3
--- NOTE | 2020-12-17 12:02 | XR_ITS ---
EXAMINATION: XR CHEST CLINICAL INFORMATION: Shortness of breath COMPARISON: 09/14/2020 TECHNIQUE: Frontal view of the chest was obtained. FINDINGS: Lungs are adequately expanded and clear. No evidence of pulmonary edema, consolidation or pleural effusion. Cardiac silhouette has normal size and contour. There are a few old, healed left rib fractures. XR/XR chest 1V IMPRESSION: No evidence of pneumonia. No acute abnormality compared to 09/14/2020.
--- NOTE | 2020-12-17 12:03 | CT_ITS ---
EXAMINATION: CT ABDOMEN AND PELVIS WITH CONTRAST CLINICAL INFORMATION: Abdominal pain, nausea vomiting and diarrhea previous CT scan and abdominal MRI December 2019 COMPARISON: None TECHNIQUE: Multidetector volumetric images were obtained from the superior aspect of the liver through the pubic symphysis following administration 85 mL of Omnipaque 350 intravenous contrast. Sagittal and coronal reformatted images were obtained on the technologist's workstation. Oral contrast: Yes This CT examination was performed using dose optimization techniques as appropriate, variously including the following: *Automated exposure control *Adjustment of mA and/or kV according to patient size (this includes techniques or standardized protocols for targeted exams where dose is matched to indication/reason for exam; i.e. extremities or head) *Use of iterative reconstruction technique DLP: 1024 mGy-cm FINDINGS: LUNG BASES: Evaluation of the lung bases is limited due to artifact from respiratory motion. There are small clustered nodules in the visualized right upper lobe seen on the earliest images. There are also small bilateral lower lobe peribronchial nodules or areas increased peribronchial attenuation. LIVER, GALLBLADDER, AND BILIARY TREE: The liver is normal in size, shape, and attenuation. There is a low-attenuation lesion in the medial segment of the left lobe that measures approximately 2.4 cm. This may be smaller than on prior exam December 2020 series 3 measured 2.6 x 3 cm. Portion of this area appears low attenuation and more cystic for example axial image 19 series 3. The liver is otherwise unremarkable. The gallbladder has been removed. PANCREAS: Unremarkable. SPLEEN: Unremarkable. ADRENAL GLANDS: Unremarkable. KIDNEYS AND URETERS: The kidneys are normal in size, shape, and attenuation. No hydronephrosis, hydroureter, or calculi seen. No perinephric stranding. BLADDER: Not optimally distended. GASTROINTESTINAL TRACT: The stomach is distended and filled with fluid. There are dilated fluid-filled loops of small and large bowel. Differential would include ileus and distal large bowel obstruction. The sigmoid colon appears collapsed axial image 84 series 3. No abnormal wall thickening or mass is seen. Long segment sigmoid colon stricture cannot be excluded and imaging follow-up is recommended. There is stool in the rectum. The appendix is unremarkable. ABDOMINAL WALL: There is a small umbilical hernia containing fat. LYMPH NODES: There is periportal and upper abdominal retroperitoneal shotty lymphadenopathy. No enlarged lymph nodes are seen. VASCULAR: Unremarkable. PELVIC VISCERA: Unremarkable. OSSEOUS STRUCTURES: There are degenerative changes of the spine and hip joints. CT/CT abdomen pelvis w con IMPRESSION: Dilated fluid-filled loops of small and large bowel. The stomach is also dilated and fluid-filled. Differential would include ileus and distal obstruction. The sigmoid colon is collapsed and it is difficult to exclude a stricture. No colon wall thickening or mass is seen. X-ray imaging follow-up recommended. Slight interval decrease in size in liver lesion in the left lobe of the liver. New small right upper and bilateral lower lobe peribronchial nodules and bronchial wall thickening. This probably represents an infectious/inflammatory process or airways disease.
[2020-12-17] MEDS: 0.9 % Sodium Chloride 1,000 ML 999 ML IV (12:29)
[2020-12-17] MEDS: ondansetron HCL 4 MG/2 ML VIAL IVPUSH (12:29)
[2020-12-17 12:41] LABS: MANUAL DIFF FLAG NO
[2020-12-17 12:42] LABS: COVID-19 Test Negative (Negative); IDNOW Serial# 9DD0AD1C
[2020-12-17 12:43] LABS: Basophils Percent Auto 0.3 % (0-2); Eosinophils Absolute Auto 0.1 X10*3/uL (0.0-0.4); Eosinophils Percent Auto 1.4 % (0-4); Hematocrit 43.8 % (42-52); Imm Gran Abs Auto 0.03 X10*3/uL (0.00-0.03); Imm Gran Pct Auto 0.4 % (0.0-0.4); Lymphocytes Absolute Auto 1.8 X10*3/uL (1.2-4.9); Lymphocytes Percent Auto 22.3 % (20-40); Mean Corpuscular Hemoglobin 30.4 pg (27.0-33.0); Mean Corpuscular Volume 95.2 fL (80-98); Mean Platelet Volume 11.1 fL (9.4-12.4); Monocytes Absolute Auto 0.6 X10*3/uL (0.1-1.2); Monocytes Percent Auto 7.7 % (2-11); Neutrophils Absolute Auto 5.4 X10*3/uL (2.0-8.3); Neutrophils Percent Auto 67.9 % (45-73); Platelet Count 168 X10*3/uL (160-400); Red Cell Distribution Width 12.5 % (11.0-16.0); White Blood Count 7.9 X10*3/uL (4.8-10.8)
[2020-12-17 12:50] LABS: INTERNATIONAL NORM RATIO 1.1 (0.9-1.1); Prothrombin Time 13.6 SEC (10.8-13.0)
[2020-12-17 13:04] LABS: Alanine Aminotransferase 54 U/L (0-40); Albumin Level 3.7 g/dL (3.5-5.0); Alkaline Phosphatase 90 U/L (39-117); Anion Gap 16 (12-20); Aspartate Amino Transferase 44 U/L (5-37); Bilirubin Direct 0.4 mg/dL (0.0-0.5); Bilirubin Total 0.4 mg/dL (0.0-1.0); Blood Urea Nitrogen 13 mg/dL (9-16); Calcium 8.5 mg/dL (8.4-10.2); Carbon Dioxide 23 mmol/L (22-29); Chloride 101 mmol/L (96-108); Creatinine Clr Calc Pharmacy 132.4; Estimated Glomerular Filt Rate > 60; Glucose Random 146 mg/dL (60-115); Lipase 55 U/L (8-78); Potassium 4.4 mmol/l (3.3-5.1); Sodium 136 mmol/L (135-145); Total Protein 7.7 g/dL (6.5-8.0)
[2020-12-17 13:10] LABS: Phenytoin Dilantin 17.1 ug/mL (10.0-20.0)
[2020-12-17] MEDS: iohexoL 350 MG/ML 100 ML INFUS..BTL IV (14:21)
--- NOTE | 2020-12-17 17:01 | P.HPGS_ITS ---
History of Present Illness History of Present Illness Date of Service: 12/17/20 Chief complaint: ABD PAIN W/NAUSEA AND VOMITING Narrative: Amari Bentley is a 65 year old male with a past medical history of bipolar disorder, CVA, type 2 diabetes mellitus, hypertension, GERD, hepatitis- C, who presented to the emergency room today with a 1 day history of nausea, vomiting and loose stool. He is not aware of having been in contact with anyone who has been ill. He does not report abdominal pain, fever or chills. He has been passing flatus. He reports that his abdomen has been distended for at least several months. CT scan of the abdomen and pelvis was obtained and showed dilated fluid-filled loops of large and small bowel. The stomach also appeared dilated. The sigmoid colon was collapsed, raising the possibility of stricture. There was no thickening of the bowel wall and no evidence of mass. Review of Systems Constitutional: Constitutional: Denies body ache(s), Denies chills and Denies fever(s) Eyes: Eyes: Denies change in vision and Denies requires corrective lenses ENT: Reports Normal hearing present Cardiovascular: Cardiovascular: Denies chest pain, Denies palpitations and Denies dyspnea Respiratory: Respiratory: Denies cough, Denies dyspnea and Denies wheezing Gastrointestinal: Gastrointestinal: Reports as per HPI and Denies hematochezia Genitourinary: Genitourinary: Denies dysuria Musculoskeletal: Comments: Left hemiparesis, left arm contractures Neurologic: Reports Normal hearing present Endocrine: Endocrine: Denies palpitations Hematologic/Lymphatic: Comments: No history of abnormal bleeding or blood clots Allergic/Immunologic: Allergic/Immunologic: Denies wheezing [facility] Past Medical History Medical History Abnormal colonoscopy Anxiety Bipolar disorder Conversion disorder CVA (cerebral vascular accident) Essential hypertension GERD (gastroesophageal reflux disease) HTN (hypertension) Psychotic disorder Seizure Type 2 diabetes mellitus with diabetic polyneuropathy Family History Family History Sister Breast cancer in situ Surgical History Surgical History Hx of cholecystectomy Hx of colonoscopy Hx of surgical biopsy Social History Social History Alcohol intake: unknown Smoking Status: Unknown if ever smoked Smoked in Last 30 Days: No Use of substances other than those prescribed or required for medical reasons: No Advance Directives: No Advance Directives Information Provided: No Meds Allergies Allergy/AdvReac Type Severity Reaction Status Date / Time oxycodone [OXYCODONE] Allergy Unknown UNKNOWN Verified 12/05/20 09:43 Phenothiazines Allergy Unknown Unknown Verified 12/05/20 09:43 tetracycline Allergy Unknown Unknown Verified 12/05/20 09:43 tigecycline [TIGECYCLINE] Allergy Unknown UNKNOWN Verified 12/05/20 09:43 Home Medications Medication Instructions Recorded Confirmed Type aripiprazole [Abilify] 20 mg PO DAILY 09/13/20 12/05/20 History artificial tears with lanolin 1 applic OPHTHALMIC (EYE) DAILY 09/13/20 12/05/20 History [Artificial Tears] eucalyptus-peppermint oil [Ponaris] 1 applic INTRANASAL DAILY 09/13/20 12/05/20 History folic acid 1 mg PO DAILY 09/13/20 12/05/20 History guanfacine 2 mg PO DAILY 09/13/20 12/05/20 History lamotrigine [Lamictal] 100 mg PO BID 09/13/20 12/05/20 History levetiracetam 1,500 mg PO BID 09/13/20 12/05/20 History phenytoin 200 mg PO BEDTIME 09/13/20 12/05/20 History aluminum-mag hydroxide-simethicone 10 ml PO QID PRN 09/22/20 12/05/20 History 200 mg-200 mg-20 mg/5 mL oral susp lorazepam 2 mg tablet 2 mg PO ONCE PRN tab 09/22/20 12/05/20 History metoprolol tartrate 100 mg tablet 100 mg PO BID 11/23/20 12/05/20 History aspirin 81 mg tablet,delayed 81 mg PO DAILY 12/12/20 History release spironolactone 25 mg tablet 25 mg PO DAILY 12/12/20 History Physical Exam Vital Signs: Vital Signs: Last Vital Signs Temp 98.3 F 12/17/20 16:00 Pulse 111 H 12/17/20 16:00 Resp 16 12/17/20 16:00 BP 153/83 H 12/17/20 16:00 Pulse Ox 2 L 12/17/20 16:00 Body Mass Index 32.8 Const: Other: Alert, cooperative, in no apparent distress HENMT: Head: Yes normocephalic and Yes atraumatic Neck: Neck: Yes normal visual inspection Resp: Effort & Inspection: normal respiratory effort Auscultation: clear to auscultation bilaterally Cardio: Rate: regular rate Rhythm: regular rhythm GI: Other: Distended, firm, nontender, bowel sounds active Neuro: Cranial nerves: Yes Normal hearing present Extrem: Other: Left arm contracture, mild chronic edema lower extremities, no tenderness Results Results Labs: Short CBC 12/17/20 Range/Units 12:36 WBC 7.9 (4.8-10.8) X10*3/uL Hgb 14.0 (14.0-18.0) g/dl Hct 43.8 (42-52) % Plt Count 168 D (160-400) X10*3/uL BMP 12/17/20 12:32 Sodium 136 Potassium 4.4 Chloride 101 Carbon Dioxide 23 BUN 13 Creatinine 0.66 Calcium 8.5 D Liver Function 12/17/20 Range/Units 12:32 Total Bilirubin 0.4 (0.0-1.0) mg/dL Direct Bilirubin 0.4 (0.0-0.5) mg/dL AST 44 H (5-37) U/L ALT 54 H (0-40) U/L Alkaline Phosphatase 90 (39-117) U/L Albumin 3.7 (3.5-5.0) g/dL Assessment and Plan (1) Type 2 diabetes mellitus with diabetic polyneuropathy: Qualifiers: Diabetes mellitus residential insulin use: without residential use Qualified Code(s): E11.42 - Type 2 diabetes mellitus with diabetic polyneuropathy Status: Acute Will follow point of care blood sugars and cover with sliding scale insulin. We will request hospitalist consultation for assistance with medical management. (2) Bipolar disorder: Qualifiers: Active/Remission status: currently active Current bipolar episode type: mixed Current episode severity: moderate Qualified Code(s): F31.62 - Bipolar disorder, current episode mixed, moderate Status: Acute He appears stable currently. Usual medications will be continued. (3) Seizure disorder: Status: Acute Continue usual medications. (4) Large bowel obstruction: Status: Acute 65-year-old male presenting with 1 day history of nausea, vomiting and loose stool and also it a few month history of abdominal distension as well as history of diabetes mellitus. CT findings are concerning for an evolving large bowel obstruction, possibly due to sigmoid stricture. The colon does not appear significantly dilated proximal to the area of sigmoid narrowing and it is possible that the CT finding represents active contraction of the bowel rather than a stricture. Findings may also be due to hypomotility of the stomach and small bowel. NG tube will be placed. He will be kept NPO and on IV fluids. Depending upon his clinical progress, further evaluation with Gastrografin enema or flexible sigmoidoscopy may be needed.
[2020-12-17] MEDS: Lactated Ringers 1,000 ML 125 ML IVCONT (17:43)
[2020-12-17 18:14] LABS: Glucose, Whole Blood 138 mg/dL (60-115)
[2020-12-17 20:36] LABS: Glucose, Whole Blood 127 mg/dL (60-115)
--- NOTE | 2020-12-17 21:16 | PC.NURSE ---
wants night meds even though npo status. contact made to pharmacy. anna marie can not be crushed.
[2020-12-17] MEDS: Famotidine/PF 20 MG/2 ML VIAL IVPUSH (21:43)
[2020-12-17] MEDS: Gabapentin 600 MG TABLET PO (21:43)
[2020-12-17] MEDS: Metoprolol Tartrate 100 MG TABLET PO (21:44)
[2020-12-17] MEDS: Phenytoin Chewable 50 MG TAB.CHEW 200 MG PO (21:44)
[2020-12-17] MEDS: lamoTRIgine 100 MG TABLET PO (21:44)
--- NOTE | 2020-12-17 21:57 | PC.NURSE ---
meds given. during bedchange patient removed ng tube.
--- NOTE | 2020-12-17 22:40 | PC.NURSE ---
size 16 fr. NG tube reinserted easily. pt tolerated well.
[2020-12-17] MEDS: Amitriptyline HCl 25 MG TABLET PO (22:58)
[2020-12-17 23:16] LABS: Glucose, Whole Blood 133 mg/dL (60-115)
[2020-12-18] VITALS (11 sets, daily range): BP systolic 120–162; BP diastolic 53–88; PULSE 79–98; RESP 14–20; TEMP 36.4–36.9; O2SAT 94–99
[2020-12-18] MEDS: Lactated Ringers 1,000 ML 125 ML IVCONT ×3 (02:02→16:14)
[2020-12-18 06:07] LABS: Glucose, Whole Blood 115 mg/dL (60-115)
[2020-12-18 06:24] LABS: Hematocrit 39.9 % (42-52); Hemoglobin 12.8 g/dl (14.0-18.0); Mean Corpuscular HGB Conc 32.1 g/dl (31.0-36.0); Mean Corpuscular Hemoglobin 30.5 pg (27.0-33.0); Mean Platelet Volume 11.2 fL (9.4-12.4); Platelet Count 172 X10*3/uL (160-400); Red Cell Distribution Width 12.4 % (11.0-16.0); White Blood Count 21.5 X10*3/uL (4.8-10.8)
[2020-12-18 07:29] LABS: Anion Gap 12 (12-20); Blood Urea Nitrogen 10 mg/dL (9-16); Calcium 8.1 mg/dL (8.4-10.2); Carbon Dioxide 29 mmol/L (22-29); Chloride 102 mmol/L (96-108); Creatinine Clr Calc Pharmacy 150.7; Estimated Glomerular Filt Rate > 60; Glucose Fasting 109 mg/dL (60-99); Potassium 3.5 mmol/l (3.3-5.1); Sodium 139 mmol/L (135-145)
[2020-12-18] MEDS: levETIRAcetam Oral Soln 500 MG/5 ML 1500 MG PO (10:58)
[2020-12-18] MEDS: Valsartan 320 MG TABLET PO (10:59)
[2020-12-18] MEDS: Metoprolol Tartrate 100 MG TABLET PO ×2 (11:02→21:40)
[2020-12-18] MEDS: lamoTRIgine 100 MG TABLET PO ×2 (11:03→21:41)
[2020-12-18] MEDS: Gabapentin 600 MG TABLET PO ×3 (11:03→21:41)
[2020-12-18] MEDS: Famotidine/PF 20 MG/2 ML VIAL IVPUSH ×2 (11:04→21:35)
[2020-12-18] MEDS: Piperacillin Sodium/Tazobactam 3.375 GM in 0.9 % Sodium Chloride 50 ML IV ×3 (11:04→22:08)
[2020-12-18] MEDS: Phenytoin Chewable 50 MG TAB.CHEW 150 MG PO (11:06)
[2020-12-18] MEDS: Artificial Tears 15 ML DROPS 1 DROP EYE-BOTH (11:06)
[2020-12-18 11:33] LABS: Glucose, Whole Blood 71 mg/dL (60-115)
--- NOTE | 2020-12-18 11:35 | PM.IMCN ---
History of Present Illness Data of Consult Service Date: 12/18/20 Requesting physician: Shima Romo Primary Care Provider: Unknown Physician HPI Reason for consult: Medical Management 65 year old man with multiple medical problems including HTN, DM, stroke was admitted by general surgery. Apparently he was given prune juice and he became ill with vomiting. In the ED, he was noted to have an elevated white blood cell count of 21.5, no fever. Abd CT showed, dilated fluid-filled loops of small and large bowel. Also, new small right upper and bilateral lower lobe peribronchial nodules and bronchial wall thickening. NGT was placed and he was started on Zosyn for aspiration pneumonia. Review of Systems Review of Systems: Denies any recent fever chills or decrease in appetite respiratory denies any shortness of breath coverage production cardiovascular is adjustment of any PND or edema gastrointestinal SEE HPI genitourinary denies any dysuria frequency or hematuria neuropsych chronic left sided weakness all other systems reviewed are negative ENT: Reports Normal hearing present Neurologic: Reports Normal hearing present [facility] Medical History Abnormal colonoscopy Anxiety Bipolar disorder Conversion disorder CVA (cerebral vascular accident) Essential hypertension GERD (gastroesophageal reflux disease) HTN (hypertension) Psychotic disorder Seizure Type 2 diabetes mellitus with diabetic polyneuropathy Family History Sister Breast cancer in situ Surgical History Hx of cholecystectomy Hx of colonoscopy Hx of surgical biopsy Social History Alcohol intake: unknown Smoking Status: Unknown if ever smoked Smoked in Last 30 Days: No Use of substances other than those prescribed or required for medical reasons: No Advance Directives: No Advance Directives Information Provided: No Meds Allergies Allergy/AdvReac Type Severity Reaction Status Date / Time oxycodone [OXYCODONE] Allergy Unknown UNKNOWN Verified 12/05/20 09:43 Phenothiazines Allergy Unknown Unknown Verified 12/05/20 09:43 tetracycline Allergy Unknown Unknown Verified 12/05/20 09:43 tigecycline [TIGECYCLINE] Allergy Unknown UNKNOWN Verified 12/05/20 09:43 Home Medications Medication Instructions Recorded Confirmed Type aripiprazole [Abilify] 20 mg PO DAILY 09/13/20 12/05/20 History artificial tears with lanolin 1 applic OPHTHALMIC (EYE) DAILY 09/13/20 12/17/20 History [Artificial Tears] eucalyptus-peppermint oil [Ponaris] 1 applic INTRANASAL DAILY 09/13/20 12/05/20 History folic acid 1 mg PO BEDTIME 09/13/20 12/17/20 History guanfacine 2 mg PO DAILY 09/13/20 12/17/20 History lamotrigine [Lamictal] 100 mg PO BID 09/13/20 12/17/20 History levetiracetam 1,500 mg PO BID 09/13/20 12/17/20 History phenytoin 200 mg PO BEDTIME 09/13/20 12/17/20 History aluminum-mag hydroxide-simethicone 10 ml PO QID PRN 09/22/20 12/05/20 History 200 mg-200 mg-20 mg/5 mL oral susp lorazepam 2 mg tablet 2 mg PO PRN tab 09/22/20 12/05/20 History metoprolol tartrate 100 mg tablet 100 mg PO BID 11/23/20 12/17/20 History aspirin 81 mg tablet,delayed 81 mg PO DAILY 12/12/20 History release spironolactone 25 mg tablet 25 mg PO DAILY 12/12/20 History ketoconazole 1 appl TOPICAL DAILY PRN 12/17/20 12/17/20 History lamotrigine 150 mg PO DAILY 12/17/20 12/17/20 History Physical Exam Vital Signs and Narrative: Vital Signs: Last Vital Signs Temp 98.2 F 12/17/20 22:30 Pulse 96 12/18/20 11:02 Resp 18 12/18/20 07:54 BP 155/81 H 12/18/20 11:02 Pulse Ox 98 12/18/20 07:54 Body Mass Index 32.8 Appearing in no acute distress head is normocephalic atraumatic eyes pupils are PERRLA sclera is anicteric mouth throat mucous membranes are intact and moist lung sounds scattered rhonchi heart regular rate rhythm, clear S1, S2 positive bowel sounds, abdomen is soft, nontender neuro left sided paraplegia Neuro: Cranial nerves: Yes Normal hearing present Results Labs CBC and Chem 7: 12/18/20 05:59 12/18/20 05:59 Labs: Laboratory Results - last 24 hr 12/17/20 12/17/20 12/17/20 12:23 12:32 12:33 MCV MCH MCHC RDW Plt Count MPV Immature Gran % (Auto) Neut % (Auto) Lymph % (Auto) [place] % (Auto) Eos % (Auto) Baso % (Auto) Lymph # (Auto) [place] # (Auto) Eos # (Auto) Baso # (Auto) Abs Immat Gran (auto) Absolute Neuts (auto) Absolute Nucleated RBC Nucleated RBC % (auto) PT 13.6 H INR 1.1 Anion Gap 16 Estim Creat Clear Calc 132.4 Estimated GFR > 60 POC Glucose Random Glucose 146 H Fasting Glucose Calcium 8.5 D Total Bilirubin 0.4 Direct Bilirubin 0.4 AST 44 H ALT 54 H Alkaline Phosphatase 90 Total Protein 7.7 Albumin 3.7 Lipase 55 Phenytoin COVID-19 (SHAWN) Negative COVID-Vyykn Com See Note 12/17/20 12/17/20 12/17/20 12:35 12:36 18:07 MCV 95.2 MCH 30.4 MCHC 32.0 RDW 12.5 Plt Count 168 D MPV 11.1 Immature Gran % (Auto) 0.4 Neut % (Auto) 67.9 Lymph % (Auto) 22.3 [place] % (Auto) 7.7 Eos % (Auto) 1.4 Baso % (Auto) 0.3 Lymph # (Auto) 1.8 [place] # (Auto) 0.6 Eos # (Auto) 0.1 Baso # (Auto) 0.0 Abs Immat Gran (auto) 0.03 Absolute Neuts (auto) 5.4 Absolute Nucleated RBC 0.000 Nucleated RBC % (auto) 0.0 PT INR Anion Gap Estim Creat Clear Calc Estimated GFR POC Glucose 138 H Random Glucose Fasting Glucose Calcium Total Bilirubin Direct Bilirubin AST ALT Alkaline Phosphatase Total Protein Albumin Lipase Phenytoin 17.1 COVID-19 (SHAWN) COVID-Buzz Referrals 12/17/20 12/17/20 12/18/20 20:32 23:11 05:59 MCV 95.0 MCH 30.5 MCHC 32.1 RDW 12.4 Plt Count 172 MPV 11.2 Immature Gran % (Auto) Neut % (Auto) Lymph % (Auto) [place] % (Auto) Eos % (Auto) Baso % (Auto) Lymph # (Auto) [place] # (Auto) Eos # (Auto) Baso # (Auto) Abs Immat Gran (auto) Absolute Neuts (auto) Absolute Nucleated RBC 0.000 Nucleated RBC % (auto) 0.0 PT INR Anion Gap Estim Creat Clear Calc Estimated GFR POC Glucose 127 H 133 H Random Glucose Fasting Glucose Calcium Total Bilirubin Direct Bilirubin AST ALT Alkaline Phosphatase Total Protein Albumin Lipase Phenytoin COVID-19 (SHAWN) COVID-19 Clin Com 12/18/20 12/18/20 12/18/20 05:59 06:04 11:28 MCV MCH MCHC RDW Plt Count MPV Immature Gran % (Auto) Neut % (Auto) Lymph % (Auto) [place] % (Auto) Eos % (Auto) Baso % (Auto) Lymph # (Auto) [place] # (Auto) Eos # (Auto) Baso # (Auto) Abs Immat Gran (auto) Absolute Neuts (auto) Absolute Nucleated RBC Nucleated RBC % (auto) PT INR Anion Gap 12 Estim Creat Clear Calc 150.7 Estimated GFR > 60 POC Glucose 115 71 Random Glucose Fasting Glucose 109 H Calcium 8.1 L Total Bilirubin Direct Bilirubin AST ALT Alkaline Phosphatase Total Protein Albumin Lipase Phenytoin COVID-19 (SHAWN) COVID-19 Clin Com Imaging Radiologist's Impressions: Impressions Chest X-Ray 12/17/20 00:00 IMPRESSION: Tip of nasogastric tube is is likely at the GE junction. Recommend chest abdomen exam sent to the diaphragm to evaluate the tip. There is focal patchy opacity right midlung question infiltrate, unchanged to previous exam performed earlier at 5:20 PM Chest X-Ray 12/17/20 00:00 IMPRESSION: Limited imaging as above. Chest X-Ray 12/17/20 12:02 IMPRESSION: No evidence of pneumonia. No acute abnormality compared to 09/14/2020. Abdomen/Pelvis CT 12/17/20 12:03 IMPRESSION: Dilated fluid-filled loops of small and large bowel. The stomach is also dilated and fluid-filled. Differential would include ileus and distal obstruction. The sigmoid colon is collapsed and it is difficult to exclude a stricture. No colon wall thickening or mass is seen. X-ray imaging follow-up recommended. Slight interval decrease in size in liver lesion in the left lobe of the liver. New small right upper and bilateral lower lobe peribronchial nodules and bronchial wall thickening. This probably represents an infectious/inflammatory process or airways disease. Assessment and Plan (1) Large bowel obstruction: Status: Acute (2) Seizure disorder: Status: Acute (3) Aspiration pneumonia: Status: Acute 65 year old man admitted with SBO. He also has multiple other medical problems. SBO. Management as per general surgical team. NGT, NPO Seizure disorder. Seizure precautions. Continue seizure medications, change Keppra to IV. Diabetes. Sliding scale, NPO HTN. Stable. Bipolar. Continue home medications. DVT prophylaxis with mechanical compression boots Discussed with Dr. Chen Full code
--- NOTE | 2020-12-18 11:56 | P.PNGS_ITS ---
Subjective Subjective Date of Service: 12/18/20 Interval history: Resting quietly. Offers no complaint. Denies shortness of breath or abdominal pain. Does report a new cough. Physical Exam Vital Signs: Vital Signs: Last Vital Signs Temp 98.2 F 12/17/20 22:30 Pulse 96 12/18/20 11:02 Resp 18 12/18/20 07:54 BP 155/81 H 12/18/20 11:02 Pulse Ox 98 12/18/20 07:54 Body Mass Index 32.8 Laboratory Results - last 24 hr 12/17/20 12/17/20 12/17/20 12:23 12:32 12:33 WBC RBC Hgb Hct MCV MCH MCHC RDW Plt Count MPV Immature Gran % (A uto) Neut % (Auto) Lymph % (Auto) [place] % (Auto) Eos % (Auto) Baso % (Auto) Lymph # (Auto) [place] # (Auto) Eos # (Auto) Baso # (Auto) Abs Immat Gran (au to) Absolute Neuts (au to) Absolute Nucleated RBC Nucleated RBC % (a uto) PT 13.6 H INR 1.1 Sodium 136 Potassium 4.4 Chloride 101 Carbon Dioxide 23 Anion Gap 16 BUN 13 Creatinine 0.66 Estim Creat Clear Calc 132.4 Estimated GFR > 60 POC Glucose Random Glucose 146 H Fasting Glucose Calcium 8.5 D Total Bilirubin 0.4 Direct Bilirubin 0.4 AST 44 H ALT 54 H Alkaline Phosphata se 90 Total Protein 7.7 Albumin 3.7 Lipase 55 Phenytoin COVID-19 (SHAWN) Negative COVID-19 Clin Com See Note 12/17/20 12/17/20 12/17/20 12:35 12:36 18:07 WBC 7.9 RBC 4.60 Hgb 14.0 Hct 43.8 MCV 95.2 MCH 30.4 MCHC 32.0 RDW 12.5 Plt Count 168 D MPV 11.1 Immature Gran % (A uto) 0.4 Neut % (Auto) 67.9 Lymph % (Auto) 22.3 [place] % (Auto) 7.7 Eos % (Auto) 1.4 Baso % (Auto) 0.3 Lymph # (Auto) 1.8 [place] # (Auto) 0.6 Eos # (Auto) 0.1 Baso # (Auto) 0.0 Abs Immat Gran (au to) 0.03 Absolute Neuts (au to) 5.4 Absolute Nucleated RBC 0.000 Nucleated RBC % (a uto) 0.0 PT INR Sodium Potassium Chloride Carbon Dioxide Anion Gap BUN Creatinine Estim Creat Clear Calc Estimated GFR POC Glucose 138 H Random Glucose Fasting Glucose Calcium Total Bilirubin Direct Bilirubin AST ALT Alkaline Phosphata se Total Protein Albumin Lipase Phenytoin 17.1 COVID-19 (SHAWN) COVID-19 Clin Com 12/17/20 12/17/20 12/18/20 20:32 23:11 05:59 WBC 21.5 H RBC 4.20 L Hgb 12.8 L Hct 39.9 L MCV 95.0 MCH 30.5 MCHC 32.1 RDW 12.4 Plt Count 172 MPV 11.2 Immature Gran % (A uto) Neut % (Auto) Lymph % (Auto) [place] % (Auto) Eos % (Auto) Baso % (Auto) Lymph # (Auto) [place] # (Auto) Eos # (Auto) Baso # (Auto) Abs Immat Gran (au to) Absolute Neuts (au to) Absolute Nucleated RBC 0.000 Nucleated RBC % (a uto) 0.0 PT INR Sodium Potassium Chloride Carbon Dioxide Anion Gap BUN Creatinine Estim Creat Clear Calc Estimated GFR POC Glucose 127 H 133 H Random Glucose Fasting Glucose Calcium Total Bilirubin Direct Bilirubin AST ALT Alkaline Phosphata se Total Protein Albumin Lipase Phenytoin COVID-19 (SHAWN) COVID-19 Clin Com 12/18/20 12/18/20 12/18/20 05:59 06:04 11:28 WBC RBC Hgb Hct MCV MCH MCHC RDW Plt Count MPV Immature Gran % (A uto) Neut % (Auto) Lymph % (Auto) [place] % (Auto) Eos % (Auto) Baso % (Auto) Lymph # (Auto) [place] # (Auto) Eos # (Auto) Baso # (Auto) Abs Immat Gran (au to) Absolute Neuts (au to) Absolute Nucleated RBC Nucleated RBC % (a uto) PT INR Sodium 139 Potassium 3.5 D Chloride 102 Carbon Dioxide 29 Anion Gap 12 BUN 10 Creatinine 0.58 Estim Creat Clear Calc 150.7 Estimated GFR > 60 POC Glucose 115 71 Random Glucose Fasting Glucose 109 H Calcium 8.1 L Total Bilirubin Direct Bilirubin AST ALT Alkaline Phosphata se Total Protein Albumin Lipase Phenytoin COVID-19 (SHAWN) COVID-19 Clin Com Chest x-ray 12/17/2019 taken to confirm NG tube placement demonstrates patchy infiltrates. NG tube position appears adequate Const: General: cooperative, comfortable and no acute distress Resp: Effort & Inspection: normal respiratory effort Auscultation: clear to auscultation bilaterally Cardio: Rate: regular rate Rhythm: regular rhythm GI: Other: Distended, somewhat firm but slightly improved from yesterday, nontender, hypoactive bowel sounds Skin: Other: Normal color, warm and dry Progress Note: A&P Fall Risk Details Current Medications: Assessment and plan: Large bowel obstruction versus intestinal dysmotility: Combination of history and imaging studies suggest a large bowel obstruction, possibly secondary to stricture. Flexible sigmoidoscopy is planned for further evaluation. I discussed this with him and reviewed the technique of the procedure and risks including but not limited to increased distension, perforation and bleeding. It will not be possible to complete a prep, but the area of the stricture appears to be quite low, involving the sigmoid to the upper rectum. Pneumonia: Patchy infiltrates seen on post NG tube insertion film. The patient is asymptomatic other than a cough, but white blood count is elevated. Zosyn added. Awaiting assessment from hospitalist service. Seizure disorder: On routine medication regimen Diabetes mellitus: Q.6 our blood sugars with sliding scale insulin coverage Bipolar Disorder: Continue usual medication regimen. Current Medications Generic Name Dose Route Start Last Admin Trade Name Freq PRN Reason Stop Dose Admin Acetaminophen 650 mg 12/17/20 18:15 Acetaminophen 325 Mg Tablet PO Q6H PRN Fever Amitriptyline HCl 25 mg 12/17/20 21:00 12/17/20 22:58 Amitriptyline Hcl 25 Mg Tablet PO 25 mg BEDTIME JESSICA Administration Artificial Tears 1 drop 12/18/20 09:00 12/18/20 11:06 Artificial Tears 15 Ml Drops EYE-BOTH 1 drop DAILY JESSICA Administration Famotidine 20 mg 12/17/20 21:00 12/18/20 11:04 Famotidine/Pf 20 Mg/2 Ml Vial IVPUSH 20 mg BID JESSICA Administration Gabapentin 600 mg 12/17/20 21:00 12/18/20 11:03 Gabapentin 600 Mg Tablet PO 600 mg TID JESSICA Administration Lactated Ringer's 1,000 mls @ 125 mls/hr 12/17/20 17:00 12/18/20 10:58 Lr IVCONT 125 mls/hr .Q8H JESSICA Administration Piperacillin Sod/Tazobactam 50 mls @ 100 mls/hr 12/18/20 09:00 12/18/20 11:04 Sod 3.375 gm/ Sodium Chloride IV 100 mls/hr Q6H JESSICA Administration Insulin Human Lispro 0 unit 12/17/20 17:34 12/18/20 06:16 Insulin Lispro 100 Unit/Ml 3 Ml Vial SUBCUT Not Given Q6H [facility] Protocol Lamotrigine 100 mg 12/17/20 21:00 12/18/20 11:03 Lamotrigine 100 Mg Tablet PO 100 mg BID JESSICA Administration Lamotrigine 150 mg 12/18/20 09:00 Lamotrigine 100 Mg Tablet PO DAILY JESSICA Levetiracetam 1,500 mg 12/18/20 09:00 12/18/20 10:58 Levetiracetam Oral Soln 500 Mg/5 Ml PO 1,500 mg BID JESSICA Administration Lorazepam 1 mg 12/17/20 17:34 Lorazepam 2 Mg/Ml Vial IVPUSH BID PRN Anxiety Metoprolol Tartrate 100 mg 12/17/20 21:00 12/18/20 11:02 Metoprolol Tartrate 100 Mg Tablet PO 100 mg BID [facility] Administration Protocol Non-Formulary Medication 2 mg 12/18/20 09:00 Guanfacine PO DAILY [facility] Ondansetron HCl 4 mg 12/17/20 18:15 Ondansetron Hcl 4 Mg/2 Ml Vial IVPUSH Q8H PRN Nausea Phenytoin 200 mg 12/17/20 21:00 12/17/20 21:44 Phenytoin Chewable 50 Mg Tab.Chew PO 200 mg BEDTIME JESSICA Administration Phenytoin 150 mg 12/18/20 09:00 12/18/20 11:06 Phenytoin Chewable 50 Mg Tab.Chew PO 150 mg DAILY JESSICA Administration Valsartan 320 mg 12/18/20 09:00 12/18/20 10:59 Valsartan 320 Mg Tablet PO 320 mg DAILY JESSICA Administration Protocol Time Spent With Patient Time: Total time spent is greater than 50% in coordination of care (as documented) at patient's floor/unit and/or counseling patient: Time with patient: 15 - 24 minutes
--- NOTE | 2020-12-18 15:35 | PM.EVENT ---
Event Note Date of Service: 12/19/20 Event Note: This patient is seen and examined with APC. Lab imaging reviewed. Physical exam and assessment and plan coordinated in APCs consult note, Physical exam: Cvs: rrr, [id number] , no murmur res: clear to auscultation ,no rhonchii or wheezing abd: no rebound or guarding ,nt, bs present. ext pulses present , no cyanosis neuro: axo3 , nonfocal. Agree with the plan in addition: Patient seen and examined: Patient came with ileus/obstruction ? Question of pneumonia on chest x-ray probable aspiration wbc 21k does not meet sepsis criteria Continue Zosyn Will continue to monitor Ileus/obstruction:Large bowel obstruction versus intestinal dysmotility: Management as per surgery Diabetes?: NPO due to above Fingersticks with coverage, avoid coverage below 200 mg/dL
[2020-12-18 16:04] LABS: Alanine Aminotransferase 40 U/L (0-40); Albumin Level 3.3 g/dL (3.5-5.0); Alkaline Phosphatase 81 U/L (39-117); Aspartate Amino Transferase 36 U/L (5-37); Bilirubin Direct 0.6 mg/dL (0.0-0.5); Bilirubin Total 0.6 mg/dL (0.0-1.0); Total Protein 6.8 g/dL (6.5-8.0)
[2020-12-18 16:10] LABS: Estimated Average Glucose 143 mg/dL; Hemoglobin A1c % 6.6 %
[2020-12-18 17:44] LABS: Glucose, Whole Blood 75 mg/dL (60-115)
[2020-12-18 20:45] LABS: Glucose, Whole Blood 82 mg/dL (60-115)
[2020-12-18] MEDS: levETIRAcetam in NaCl (iso-os) 1,500 MG/100 ML PIGGYBACK 400 MG IV (21:32)
[2020-12-18] MEDS: Phenytoin Chewable 50 MG TAB.CHEW 200 MG PO (21:39)
[2020-12-18] MEDS: Amitriptyline HCl 25 MG TABLET PO (21:41)
[2020-12-19] VITALS (12 sets, daily range): BP systolic 123–177; BP diastolic 65–86; PULSE 80–95; RESP 12–20; TEMP 35.8–36.8; O2SAT 97–100; BMI 32.8
--- NOTE | 2020-12-19 | ECG_ITS ---
Test Reason : TWAVE Blood Pressure : / mmHG Vent. Rate : 074 BPM Atrial Rate : 074 BPM P-R Int : 208 ms QRS Dur : 082 ms QT Int : 388 ms P-R-T Axes : 069 038 057 degrees QTc Int : 430 ms Normal sinus rhythm Normal ECG When compared with ECG of 14-SEP-2020 15:52, No significant change was found Referred By: Teddy Mcpherson Electronically Signed By:JUNIOR LI
[2020-12-19 00:18] LABS: Glucose, Whole Blood 87 mg/dL (60-115)
[2020-12-19] MEDS: Lactated Ringers 1,000 ML 125 ML IVCONT ×2 (01:06→09:07)
[2020-12-19] MEDS: Piperacillin Sodium/Tazobactam 3.375 GM in 0.9 % Sodium Chloride 50 ML IV ×3 (03:04→16:26)
[2020-12-19 05:38] LABS: Glucose, Whole Blood 97 mg/dL (60-115)
[2020-12-19] MEDS: Famotidine/PF 20 MG/2 ML VIAL IVPUSH (09:06)
[2020-12-19] MEDS: levETIRAcetam in NaCl (iso-os) 1,500 MG/100 ML PIGGYBACK 400 MG IV ×2 (09:06→23:38)
[2020-12-19] MEDS: Gabapentin 600 MG TABLET PO ×3 (09:06→22:08)
[2020-12-19] MEDS: Phenytoin Chewable 50 MG TAB.CHEW 150 MG PO (09:06)
[2020-12-19] MEDS: Metoprolol Tartrate 100 MG TABLET PO ×2 (09:06→22:01)
[2020-12-19] MEDS: lamoTRIgine 100 MG TABLET PO (09:07)
[2020-12-19] MEDS: Valsartan 320 MG TABLET PO (09:08)
[2020-12-19 09:24] LABS: Basophils Percent Auto 0.1 % (0-2); Eosinophils Absolute Auto 0.2 X10*3/uL (0.0-0.4); Hematocrit 37.9 % (42-52); Hemoglobin 12.5 g/dl (14.0-18.0); Imm Gran Abs Auto 0.04 X10*3/uL (0.00-0.03); Imm Gran Pct Auto 0.3 % (0.0-0.4); Lymphocytes Percent Auto 17.3 % (20-40); MANUAL DIFF FLAG NO; Mean Corpuscular Hemoglobin 31.1 pg (27.0-33.0); Mean Corpuscular Volume 94.3 fL (80-98); Mean Platelet Volume 10.4 fL (9.4-12.4); Monocytes Absolute Auto 1.1 X10*3/uL (0.1-1.2); Monocytes Percent Auto 9.1 % (2-11); Neutrophils Absolute Auto 8.2 X10*3/uL (2.0-8.3); Neutrophils Percent Auto 71.2 % (45-73); Platelet Count 155 X10*3/uL (160-400); Red Blood Count 4.02 X10*6/uL (4.60-5.80); Red Cell Distribution Width 12.3 % (11.0-16.0); White Blood Count 11.5 X10*3/uL (4.8-10.8)
[2020-12-19] MEDS: Artificial Tears 15 ML DROPS 1 DROP EYE-BOTH (09:57)
[2020-12-19 11:29] LABS: Glucose, Whole Blood 68 mg/dL (60-115)
[2020-12-19] MEDS: Sodium Phosphate,Mono-Dibasic 133 ML ENEMA PR (11:32)
[2020-12-19] MEDS: Dextrose 5 % and 0.9 % NaCl 1,000 ML 80 ML IVCONT (11:44)
--- NOTE | 2020-12-19 12:12 | P.CONAN_ITS ---
Documented by User: Emilee Gupta 12/19/20 12:14 [facility] Past Medical History Medical History Abnormal colonoscopy Anxiety Bipolar disorder Conversion disorder CVA (cerebral vascular accident) Essential hypertension GERD (gastroesophageal reflux disease) HTN (hypertension) Psychotic disorder Seizure Type 2 diabetes mellitus with diabetic polyneuropathy Family History Family History Sister Breast cancer in situ Surgical History Surgical History Hx of cholecystectomy Hx of colonoscopy Hx of surgical biopsy Social History Social History Household Members: Other Housing: Other Housing Other:: care home Do you presently have visiting nurse or other home services: Yes Alcohol intake: unknown Smoking Status: Never smoker Smoked in Last 30 Days: No Use of substances other than those prescribed or required for medical reasons: Yes Have you been hit, kicked, punched, or otherwise hurt by someone within the past year? If so, by whom?: No Do you feel safe in your current relationship?: Yes Is there a partner from a previous relationship who is making you feel unsafe now?: No Are you made to feel afraid or neglected: No Advance Directives: No Advance Directives Information Provided: No Do you have thoughts of harming others: None Do you have a plan to hurt others: No Plan Recently lost weight without trying: No service: No Current occupational status: disabled Meds Allergies Allergy/AdvReac Type Severity Reaction Status Date / Time oxycodone [OXYCODONE] Allergy Unknown UNKNOWN Verified 12/05/20 09:43 Phenothiazines Allergy Unknown Unknown Verified 12/05/20 09:43 tetracycline Allergy Unknown Unknown Verified 12/05/20 09:43 tigecycline [TIGECYCLINE] Allergy Unknown UNKNOWN Verified 12/05/20 09:43 Home Medications Medication Instructions Recorded Confirmed Type artificial tears with lanolin 1 applic OPHTHALMIC (EYE) DAILY 09/13/20 12/17/20 History [Artificial Tears] eucalyptus-peppermint oil [Ponaris] 1 applic INTRANASAL BID 09/13/20 12/19/20 History folic acid 1 mg PO BEDTIME 09/13/20 12/17/20 History guanfacine 2 mg PO DAILY 09/13/20 12/17/20 History lamotrigine [Lamictal] 100 mg PO DAILY 09/13/20 12/19/20 History levetiracetam 1,500 mg PO BID 09/13/20 12/17/20 History phenytoin 200 mg PO BEDTIME 09/13/20 12/17/20 History lorazepam 2 mg tablet 2 mg PO DAILY PRN tab 09/22/20 12/19/20 History metoprolol tartrate 100 mg tablet 100 mg PO BID 11/23/20 12/17/20 History aspirin 81 mg tablet,delayed 81 mg PO DAILY 12/12/20 12/19/20 History release ketoconazole 1 appl TOPICAL DAILY PRN 12/17/20 12/17/20 History lamotrigine 150 mg PO BEDTIME 12/17/20 12/19/20 History alum-mag hydroxide-simeth [Maalox] 30 ml PO TID 12/19/20 12/19/20 History naproxen 500 mg PO BID PRN 12/19/20 12/19/20 History risperidone [Risperdal] 1.5 mg PO DAILY 12/19/20 12/19/20 History Exam Exam Date and Time: December 19, 2020 1212 Height,Weight and Vital Signs: Height 5 ft 9 in Weight 101 kg Last Vital Signs Temp 96.6 F L 12/19/20 07:29 Pulse 80 12/19/20 07:29 Resp 18 12/19/20 07:29 BP 177/86 H 12/19/20 07:29 Pulse Ox 98 12/19/20 07:29 Pertinent Lab Results Pertinent Lab Results: Laboratory Tests 12/17/20 12/17/20 12/17/20 12:23 12:32 12:33 WBC RBC Hgb Hct MCV MCH MCHC RDW Plt Count MPV Immature Gran % (Auto) Neut % (Auto) Lymph % (Auto) [place] % (Auto) Eos % (Auto) Baso % (Auto) Lymph # (Auto) [place] # (Auto) Eos # (Auto) Baso # (Auto) Abs Immat Gran (auto) Absolute Neuts (auto) Absolute Nucleated RBC Nucleated RBC % (auto) PT 13.6 H INR 1.1 Sodium 136 Potassium 4.4 Chloride 101 Carbon Dioxide 23 Anion Gap 16 BUN 13 Creatinine 0.66 Estim Creat Clear Calc 132.4 Estimated GFR > 60 POC Glucose Random Glucose 146 H Fasting Glucose Estimat Average Glucose Hemoglobin A1c % Calcium 8.5 D Total Bilirubin 0.4 Direct Bilirubin 0.4 AST 44 H ALT 54 H Alkaline Phosphatase 90 Total Protein 7.7 Albumin 3.7 Lipase 55 Phenytoin COVID-19 (SHAWN) Negative COVID-19 Clin Com See Note 12/17/20 12/17/20 12/17/20 12:35 12:36 18:07 WBC 7.9 RBC 4.60 Hgb 14.0 Hct 43.8 MCV 95.2 MCH 30.4 MCHC 32.0 RDW 12.5 Plt Count 168 D MPV 11.1 Immature Gran % (Auto) 0.4 Neut % (Auto) 67.9 Lymph % (Auto) 22.3 [place] % (Auto) 7.7 Eos % (Auto) 1.4 Baso % (Auto) 0.3 Lymph # (Auto) 1.8 [place] # (Auto) 0.6 Eos # (Auto) 0.1 Baso # (Auto) 0.0 Abs Immat Gran (auto) 0.03 Absolute Neuts (auto) 5.4 Absolute Nucleated RBC 0.000 Nucleated RBC % (auto) 0.0 PT INR Sodium Potassium Chloride Carbon Dioxide Anion Gap BUN Creatinine Estim Creat Clear Calc Estimated GFR POC Glucose 138 H Random Glucose Fasting Glucose Estimat Average Glucose Hemoglobin A1c % Calcium Total Bilirubin Direct Bilirubin AST ALT Alkaline Phosphatase Total Protein Albumin Lipase Phenytoin 17.1 COVID-19 (SHAWN) COVID-19 Clin Com 12/17/20 12/17/20 12/18/20 20:32 23:11 05:59 WBC 21.5 H RBC 4.20 L Hgb 12.8 L Hct 39.9 L MCV 95.0 MCH 30.5 MCHC 32.1 RDW 12.4 Plt Count 172 MPV 11.2 Immature Gran % (Auto) Neut % (Auto) Lymph % (Auto) [place] % (Auto) Eos % (Auto) Baso % (Auto) Lymph # (Auto) [place] # (Auto) Eos # (Auto) Baso # (Auto) Abs Immat Gran (auto) Absolute Neuts (auto) Absolute Nucleated RBC 0.000 Nucleated RBC % (auto) 0.0 PT INR Sodium Potassium Chloride Carbon Dioxide Anion Gap BUN Creatinine Estim Creat Clear Calc Estimated GFR POC Glucose 127 H 133 H Random Glucose Fasting Glucose Estimat Average Glucose Hemoglobin A1c % Calcium Total Bilirubin Direct Bilirubin AST ALT Alkaline Phosphatase Total Protein Albumin Lipase Phenytoin COVID-19 (SHAWN) COVID-19 [employer] 12/18/20 12/18/20 12/18/20 05:59 05:59 06:04 WBC RBC Hgb Hct MCV MCH MCHC RDW Plt Count MPV Immature Gran % (Auto) Neut % (Auto) Lymph % (Auto) [place] % (Auto) Eos % (Auto) Baso % (Auto) Lymph # (Auto) [place] # (Auto) Eos # (Auto) Baso # (Auto) Abs Immat Gran (auto) Absolute Neuts (auto) Absolute Nucleated RBC Nucleated RBC % (auto) PT INR Sodium 139 Potassium 3.5 D Chloride 102 Carbon Dioxide 29 Anion Gap 12 BUN 10 Creatinine 0.58 Estim Creat Clear Calc 150.7 Estimated GFR > 60 POC Glucose 115 Random Glucose Fasting Glucose 109 H Estimat Average Glucose 143 Hemoglobin A1c % 6.6 Calcium 8.1 L Total Bilirubin 0.6 Direct Bilirubin 0.6 H AST 36 ALT 40 Alkaline Phosphatase 81 Total Protein 6.8 Albumin 3.3 L Lipase Phenytoin COVID-19 (SHAWN) COVID-19 [employer] 12/18/20 12/18/20 12/18/20 11:28 17:38 20:41 WBC RBC Hgb Hct MCV MCH MCHC RDW Plt Count MPV Immature Gran % (Auto) Neut % (Auto) Lymph % (Auto) [place] % (Auto) Eos % (Auto) Baso % (Auto) Lymph # (Auto) [place] # (Auto) Eos # (Auto) Baso # (Auto) Abs Immat Gran (auto) Absolute Neuts (auto) Absolute Nucleated RBC Nucleated RBC % (auto) PT INR Sodium Potassium Chloride Carbon Dioxide Anion Gap BUN Creatinine Estim Creat Clear Calc Estimated GFR POC Glucose 71 75 82 Random Glucose Fasting Glucose Estimat Average Glucose Hemoglobin A1c % Calcium Total Bilirubin Direct Bilirubin AST ALT Alkaline Phosphatase Total Protein Albumin Lipase Phenytoin COVID-19 (SHAWN) COVID-19 [facility] 12/19/20 12/19/20 12/19/20 00:14 05:32 09:11 WBC 11.5 H RBC 4.02 L Hgb 12.5 L Hct 37.9 L MCV 94.3 MCH 31.1 MCHC 33.0 RDW 12.3 Plt Count 155 L MPV 10.4 Immature Gran % (Auto) 0.3 Neut % (Auto) 71.2 Lymph % (Auto) 17.3 L [place] % (Auto) 9.1 Eos % (Auto) 2.0 Baso % (Auto) 0.1 Lymph # (Auto) 2.0 [place] # (Auto) 1.1 Eos # (Auto) 0.2 Baso # (Auto) 0.0 Abs Immat Gran (auto) 0.04 H Absolute Neuts (auto) 8.2 Absolute Nucleated RBC 0.000 Nucleated RBC % (auto) 0.0 PT INR Sodium Potassium Chloride Carbon Dioxide Anion Gap BUN Creatinine Estim Creat Clear Calc Estimated GFR POC Glucose 87 97 Random Glucose Fasting Glucose Estimat Average Glucose Hemoglobin A1c % Calcium Total Bilirubin Direct Bilirubin AST ALT Alkaline Phosphatase Total Protein Albumin Lipase Phenytoin COVID-19 (SHAWN) COVID-19 [employer] 12/19/20 11:18 WBC RBC Hgb Hct MCV MCH MCHC RDW Plt Count MPV Immature Gran % (Auto) Neut % (Auto) Lymph % (Auto) [place] % (Auto) Eos % (Auto) Baso % (Auto) Lymph # (Auto) [place] # (Auto) Eos # (Auto) Baso # (Auto) Abs Immat Gran (auto) Absolute Neuts (auto) Absolute Nucleated RBC Nucleated RBC % (auto) PT INR Sodium Potassium Chloride Carbon Dioxide Anion Gap BUN Creatinine Estim Creat Clear Calc Estimated GFR POC Glucose 68 Random Glucose Fasting Glucose Estimat Average Glucose Hemoglobin A1c % Calcium Total Bilirubin Direct Bilirubin AST ALT Alkaline Phosphatase Total Protein Albumin Lipase Phenytoin COVID-19 (SHAWN) COVID-19 [employer] Documented by User: Teddy Mcpherson MD 12/19/20 13:34 HPI - Anesthesia Eval Consult details Narrative: 65 M p/f flex sig; N/V past 48 hours, distended abdomen with dilated bowel loops on imaging PMFSH Past Medical History Medical History Abnormal colonoscopy Anxiety Bipolar disorder Conversion disorder CVA (cerebral vascular accident) Essential hypertension GERD (gastroesophageal reflux disease) HTN (hypertension) Psychotic disorder Seizure Type 2 diabetes mellitus with diabetic polyneuropathy Family History Family History Sister Breast cancer in situ Surgical History Surgical History Hx of cholecystectomy Hx of colonoscopy Hx of surgical biopsy Social History Social History Household Members: Other Housing: Other Housing Other:: care home Do you presently have visiting nurse or other home services: Yes Alcohol intake: unknown Smoking Status: Never smoker Smoked in Last 30 Days: No Use of substances other than those prescribed or required for medical reasons: Yes Have you been hit, kicked, punched, or otherwise hurt by someone within the past year? If so, by whom?: No Do you feel safe in your current relationship?: Yes Is there a partner from a previous relationship who is making you feel unsafe now?: No Are you made to feel afraid or neglected: No Advance Directives: No Advance Directives Information Provided: No Do you have thoughts of harming others: None Do you have a plan to hurt others: No Plan Recently lost weight without trying: No service: No Current occupational status: disabled Meds Allergies Allergy/AdvReac Type Severity Reaction Status Date / Time oxycodone [OXYCODONE] Allergy Unknown UNKNOWN Verified 12/05/20 09:43 Phenothiazines Allergy Unknown Unknown Verified 12/05/20 09:43 tetracycline Allergy Unknown Unknown Verified 12/05/20 09:43 tigecycline [TIGECYCLINE] Allergy Unknown UNKNOWN Verified 12/05/20 09:43 Home Medications Medication Instructions Recorded Confirmed Type artificial tears with lanolin 1 applic OPHTHALMIC (EYE) DAILY 09/13/20 12/17/20 History [Artificial Tears] eucalyptus-peppermint oil [Ponaris] 1 applic INTRANASAL BID 09/13/20 12/19/20 History folic acid 1 mg PO BEDTIME 09/13/20 12/17/20 History guanfacine 2 mg PO DAILY 09/13/20 12/17/20 History lamotrigine [Lamictal] 100 mg PO DAILY 09/13/20 12/19/20 History levetiracetam 1,500 mg PO BID 09/13/20 12/17/20 History phenytoin 200 mg PO BEDTIME 09/13/20 12/17/20 History lorazepam 2 mg tablet 2 mg PO DAILY PRN tab 09/22/20 12/19/20 History metoprolol tartrate 100 mg tablet 100 mg PO BID 11/23/20 12/17/20 History aspirin 81 mg tablet,delayed 81 mg PO DAILY 12/12/20 12/19/20 History release ketoconazole 1 appl TOPICAL DAILY PRN 12/17/20 12/17/20 History lamotrigine 150 mg PO BEDTIME 12/17/20 12/19/20 History alum-mag hydroxide-simeth [Maalox] 30 ml PO TID 12/19/20 12/19/20 History naproxen 500 mg PO BID PRN 12/19/20 12/19/20 History risperidone [Risperdal] 1.5 mg PO DAILY 12/19/20 12/19/20 History Assessment and Plan Assessment Anesthesia Assessment: Anesthesia Plan Discussed (GETA due to risk of aspiration; avoid succs given hx of CVA) and Chart Reviewed Final Anesthetic Review NPO: Yes ASA Class: III Final Preanesthetic Review: No Changes in Pt Med Stat, Meds/Allgs Chart Reviewed, Consent Obtained/Reviewed, Anes Risks/Benef Reviewed and DNR Form (If Appl.) Patient Risk: High Procedure Risk: Low Anesthetic Plan Anesthetic Plan: GA Disposition: Standard PACU
[2020-12-19 12:21] LABS: Glucose, Whole Blood 65 mg/dL (60-115)
--- NOTE | 2020-12-19 12:39 | MHC.SHP ---
Pre-Procedural Eval Section A The patient is an INPATIENT: Yes Section B Chief Complaint: possible large bowel obstruction Allergies: Allergies Allergy/AdvReac Type Severity Reaction Status Date / Time oxycodone [OXYCODONE] Allergy Unknown UNKNOWN Verified 12/05/20 09:43 Phenothiazines Allergy Unknown Unknown Verified 12/05/20 09:43 tetracycline Allergy Unknown Unknown Verified 12/05/20 09:43 tigecycline [TIGECYCLINE] Allergy Unknown UNKNOWN Verified 12/05/20 09:43 Plan I have reviewed the history and physical and performed a pertinent physical examination on my patient. No changes have occurred unless specified.
[2020-12-19 13:00] LABS: Glucose, Whole Blood 73 mg/dL (60-115)
--- NOTE | 2020-12-19 13:11 | PC.NURSE ---
Anesthesia ordered EKG as monitor was showing inverted P & T waves. No newer EKG for comparision. Dr Mcpherson ordered, EKG had and found to be normal sinus rhythm
--- NOTE | 2020-12-19 13:53 | P.OP_ITS ---
Operative Note Operative Note Date of Service: 12/19/20 Narrative: Preoperative diagnosis: Possible sigmoid stricture Postoperative diagnosis: Normal sigmoid colon Procedure: Incomplete colonoscopy Anesthesia: General endotracheal Specimens: None Estimated blood loss: None Indications: This is a 65-year-old male with a six-month history of increasing abdominal distension who presented to the emergency department with a 1 day history of nausea vomiting and loose stool. CT scan of the abdomen and pelvis suggested the possibility of a stricture of the sigmoid colon. Flexible sigmoidoscopy was planned for further evaluation. Because of the abdominal distention and possible stricture, oral prep was not undertaken. Procedure in detail: With the patient in left lateral decubitus position after induction of adequate general anesthesia, time-out procedure was performed. Rectal examination revealed soft brown liquid stool in the rectal ampulla. No abnormalities were noted. The flexible pediatric colonoscope was introduced and was gradually advanced into the proximal descending colon. There was a moderate amount of solid and thick liquid stool present. Adequate visualization could not be obtained to advance the scope beyond the 70 cm level in the descending colon. The scope was slowly withdrawn, visualizing mucosal surfaces as possible. No abnormalities were noted. There was no evidence of stricture up to the 70 cm level, which was well past the areas of possible abnormality identified on CT scan. Because of the ongoing presence of abdominal distension, an NG tube was reinserted. He was transferred to the postanesthesia care unit in stable condi tion.
--- NOTE | 2020-12-19 14:13 | MHC.CM.PN ---
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 hX(ANXIETY BIPOLAR CVA PSYCHOSIS HE HAS A RONI LIFT AT THE [facility], AND AND A W DISCHARGE PLAN -RETURN BACK TO HIS GROUP [facility] FOR QD NURSING FOR INSULIN INJECTION AND [facility]CHI[facility]RIST And thearpist transportation [facility] pcp vicky rodas next of kin is his sister debi and friend danica (both listed under contactsHEECHAIR, HE REQUIRES SOME ASSISTANCE WITH HIS ADLS , HE IS INCONTINENT OF URINE AND STOOL AT TIMES AND WHERE BRIEFS OTHER TIMES HE REQUESTS TO GO TO THE [facility], HE CAN STAND PIVOT IF THE RONI LIFT IS NOT AVAILABLE HE REPORTS HE IS FOLLOWED BY A PSYCHIATRIST AND THERAPIST AT [facility], HE HAS [facility] FOR NURSING QD FOR INSULIN INJECTIONS AND HOME PHYSICAL THERAPY 1-2 X WEEKLY
--- NOTE | 2020-12-19 15:29 | P.PNIM_ITS ---
Subjective Subjective Date of Service: 12/20/20 Interval History: pneumonia , seizure dis , hypoglycemia -not symptomatic. Review of Systems Patient says somewhat abdominal discomfort still present. Denies any and interval seizure episode Says somewhat nauseous but no vomiting Physical Exam Vital Signs: Vital Signs: Last Vital Signs Temp 97.4 F 12/19/20 14:02 Pulse 89 12/19/20 14:32 Resp 18 12/19/20 14:32 BP 126/69 12/19/20 14:32 Pulse Ox 98 12/19/20 14:32 Body Mass Index 32.8 Physical exam: Constitutional: Not in acute distress Cvs: rrr, [id number] , no murmur res: clear to auscultation ,no rhonchii or wheezing abd: no rebound or guarding ,distended , bs -hypoactive. ext pulses present , no cyanosis neuro: axo3 , nonfocal. Objective Data Current Medications Generic Name Dose Route Start Last Admin Trade Name Freq PRN Reason Stop Dose Admin Acetaminophen 650 mg 12/17/20 18:15 Acetaminophen 325 Mg Tablet PO Q6H PRN Fever Amitriptyline HCl 25 mg 12/17/20 21:00 12/18/20 21:41 Amitriptyline Hcl 25 Mg Tablet PO 25 mg BEDTIME JESSICA Administration Artificial Tears 1 drop 12/18/20 09:00 12/19/20 09:57 Artificial Tears 15 Ml Drops EYE-BOTH 1 drop DAILY JESSICA Administration Famotidine 20 mg 12/17/20 21:00 12/19/20 09:06 Famotidine/Pf 20 Mg/2 Ml Vial IVPUSH 20 mg BID JESSICA Administration Gabapentin 600 mg 12/17/20 21:00 12/19/20 09:06 Gabapentin 600 Mg Tablet PO 600 mg TID JESSICA Administration Lactated Ringer's 1,000 mls @ 125 mls/hr 12/17/20 17:00 12/19/20 09:07 Lr IVCONT 125 mls/hr .Q8H JESSICA Administration Piperacillin Sod/Tazobactam 50 mls @ 100 mls/hr 12/18/20 09:00 12/19/20 10:30 Sod 3.375 gm/ Sodium Chloride IV Infused Q6H JESSICA Infusion Levetiracetam 1,500 mg in 100 mls @ 400 mls/hr 12/18/20 21:00 12/19/20 09:25 Keppra IV Infused BID [facility] Infusion Dextrose/Sodium Chloride 1,000 mls @ 80 mls/hr 12/19/20 11:45 12/19/20 11:44 D5ns IVCONT 80 mls/hr .[id number] [facility] Administration Lactated Ringer's 1,000 mls @ 100 mls/hr 12/19/20 12:15 Lr IVCONT .Q10H [facility] Insulin Human Lispro 0 unit 12/17/20 17:34 12/19/20 11:45 Insulin Lispro 100 Unit/Ml 3 Ml Vial SUBCUT Not Given Q6H [facility] Protocol Lamotrigine 150 mg 12/19/20 21:00 Lamotrigine 100 Mg Tablet PO BEDTIME [facility] Lamotrigine 100 mg 12/20/20 09:00 Lamotrigine 100 Mg Tablet PO DAILY [facility] Lorazepam 1 mg 12/17/20 17:34 Lorazepam 2 Mg/Ml Vial IVPUSH BID PRN Anxiety Metoprolol Tartrate 100 mg 12/17/20 21:00 12/19/20 09:06 Metoprolol Tartrate 100 Mg Tablet PO 100 mg BID [facility] Administration Protocol Multi-Ingred Medicated Throat [place] 1 spray 12/18/20 18:45 12/19/20 09:57 Throat [place], Medicated 20 Ml Bottle MUCOUS MEM 1 spray Q2H PRN Administration Sore Throat Non-Formulary Medication 2 mg 12/18/20 09:00 Guanfacine PO DAILY [facility] Ondansetron HCl 4 mg 12/17/20 18:15 Ondansetron Hcl 4 Mg/2 Ml Vial IVPUSH Q8H PRN Nausea Phenytoin 200 mg 12/17/20 21:00 12/18/20 21:39 Phenytoin Chewable 50 Mg Tab.Chew PO 200 mg BEDTIME [facility] Administration Phenytoin 150 mg 12/18/20 09:00 12/19/20 09:06 Phenytoin Chewable 50 Mg Tab.Chew PO 150 mg DAILY [facility] Administration Risperidone 1.5 mg 12/20/20 09:00 Risperidone 0.5 Mg Tablet PO DAILY [facility] Sodium Biphosphate/Sodium Phosphate 133 ml 12/19/20 10:15 12/19/20 11:32 Sodium Phosphate,[place]ennett-Dibasic 133 Ml Enema [place] 133 ml ONCE JESSICA Administration Valsartan 320 mg 12/18/20 09:00 12/19/20 09:08 Valsartan 320 Mg Tablet PO 320 mg DAILY JESSICA Administration Protocol Labs CBC & Chem 7: 12/19/20 09:11 12/18/20 05:59 Assessment and Plan (1) Large bowel obstruction: Status: Acute (2) Aspiration pneumonia: Status: Acute Assessment and Plan: 1.Large bowel obstruction versus intestinal dysmotility: ? secondary to stricture. As per surgery- Flexible sigmoidoscopy is planned for further evaluation. 2.Pneumonia: Patchy infiltrates seen on post NG tube insertion film. The patient is asymptomatic other than a cough, but white blood count is elevated. Continue Zosyn 3.Seizure disorder: On routine medication regimen 4.Diabetes mellitus: fs running low Asymptomatic Will add D5 NS, monitor fingersticks closely Q.6 our blood sugars with sliding scale insulin coverage
--- NOTE | 2020-12-19 16:01 | P.PNGS_ITS ---
Subjective Subjective Date of Service: 12/19/20 Interval history: He pulled his NG tube out earlier today, prior to colonoscopy. No complaints of abdominal pain or nausea. Continues with productive cough. Passing flatus. He reports that he had a bowel movement yesterday. NG tube was reinserted at the time of his procedure, but was not in appropriate position in the PACU and was removed. There was no evidence of sigmoid obstruction on partial colonoscopy. Physical Exam Vital Signs: Vital Signs: Last Vital Signs Temp 96.8 F 12/19/20 15:33 Pulse 82 12/19/20 15:33 Resp 20 12/19/20 15:33 BP 155/67 H 12/19/20 15:33 Pulse Ox 100 12/19/20 15:33 Body Mass Index 32.8 Const: Other: Alert, appears comfortable Resp: Effort & Inspection: normal respiratory effort Auscultation: clear to auscultation bilaterally Cardio: Rate: regular rate Rhythm: regular rhythm GI: Other: Round, semi firm - improved from the time of admission, nontender, bowel sounds active Skin: Other: Normal color, warm and dry Progress Note: A&P Assessment and plan (1) Aspiration pneumonia: Status: Acute Assessment and Plan: On Zosyn. White blood count has improved. (2) Gastrointestinal dysmotility: Status: Acute Assessment and Plan: Admitted with nausea, vomiting and loose stool, which may have been due to gastroenteritis. He has a six-month history of increasing abdominal distension. CT scan on admission suggested the possibility of a stricturing lesion of the sigmoid colon, but a partial colonoscopy through descending colon, done today without prep, revealed no evidence of stricture or mass lesion through descending colon. Etiology of increasing distension is unclear. He has a history of diabetes mellitus and may have some degree of intestinal dysmotility. We will request GI evaluation. Begin clear liquid diet. Fall Risk Details Current Medications: Current Medications Generic Name Dose Route Start Last Admin Trade Name Freq PRN Reason Stop Dose Admin Acetaminophen 650 mg 12/17/20 18:15 Acetaminophen 325 Mg Tablet PO Q6H PRN Fever Amitriptyline HCl 25 mg 12/17/20 21:00 12/18/20 21:41 Amitriptyline Hcl 25 Mg Tablet PO 25 mg BEDTIME JESSICA Administration Artificial Tears 1 drop 12/18/20 09:00 12/19/20 09:57 Artificial Tears 15 Ml Drops EYE-BOTH 1 drop DAILY JESSICA Administration Famotidine 20 mg 12/17/20 21:00 12/19/20 09:06 Famotidine/Pf 20 Mg/2 Ml Vial IVPUSH 20 mg BID JESSICA Administration Gabapentin 600 mg 12/17/20 21:00 12/19/20 09:06 Gabapentin 600 Mg Tablet PO 600 mg TID [facility] Administration Piperacillin Sod/Tazobactam 50 mls @ 100 mls/hr 12/18/20 09:00 12/19/20 10:30 Sod 3.375 gm/ Sodium Chloride IV Infused Q6H JESSICA Infusion Levetiracetam 1,500 mg in 100 mls @ 400 mls/hr 12/18/20 21:00 12/19/20 09:25 Keppra IV Infused BID [facility] Infusion Dextrose/Sodium Chloride 1,000 mls @ 80 mls/hr 12/19/20 11:45 12/19/20 11:44 D5ns IVCONT 80 mls/hr .[id number] [facility] Administration Lactated Ringer's 1,000 mls @ 100 mls/hr 12/19/20 12:15 Lr IVCONT .Q10H [facility] Insulin Human Lispro 0 unit 12/17/20 17:34 12/19/20 11:45 Insulin Lispro 100 Unit/Ml 3 Ml Vial SUBCUT Not Given Q6H [facility] Protocol Lamotrigine 150 mg 12/19/20 21:00 Lamotrigine 100 Mg Tablet PO BEDTIME [facility] Lamotrigine 100 mg 12/20/20 09:00 Lamotrigine 100 Mg Tablet PO DAILY [facility] Lorazepam 1 mg 12/17/20 17:34 Lorazepam 2 Mg/Ml Vial IVPUSH BID PRN Anxiety Metoprolol Tartrate 100 mg 12/17/20 21:00 12/19/20 09:06 Metoprolol Tartrate 100 Mg Tablet PO 100 mg BID [facility] Administration Protocol Multi-Ingred Medicated Throat [place] 1 spray 12/18/20 18:45 12/19/20 09:57 Throat [place], Medicated 20 Ml Bottle MUCOUS MEM 1 spray Q2H PRN Administration Sore Throat Non-Formulary Medication 2 mg 12/18/20 09:00 Guanfacine PO DAILY [facility] Ondansetron HCl 4 mg 12/17/20 18:15 Ondansetron Hcl 4 Mg/2 Ml Vial IVPUSH Q8H PRN Nausea Phenytoin 200 mg 12/17/20 21:00 12/18/20 21:39 Phenytoin Chewable 50 Mg Tab.Chew PO 200 mg BEDTIME JESSICA Administration Phenytoin 150 mg 12/18/20 09:00 12/19/20 09:06 Phenytoin Chewable 50 Mg Tab.Chew PO 150 mg DAILY JESSICA Administration Risperidone 1.5 mg 12/20/20 09:00 Risperidone 0.5 Mg Tablet PO DAILY JESSICA Valsartan 320 mg 12/18/20 09:00 12/19/20 09:08 Valsartan 320 Mg Tablet PO 320 mg DAILY JESSICA Administration Protocol Time Spent With Patient Time: Total time spent is greater than 50% in coordination of care (as documented) at patient's floor/unit and/or counseling patient: Time with patient: 15 - 24 minutes
[2020-12-19 18:21] LABS: Glucose, Whole Blood 118 mg/dL (60-115)
[2020-12-19] MEDS: Amitriptyline HCl 25 MG TABLET PO (22:08)
[2020-12-19] MEDS: lamoTRIgine 100 MG TABLET 150 MG PO (22:08)
[2020-12-19] MEDS: Phenytoin Chewable 50 MG TAB.CHEW 200 MG PO (22:33)
[2020-12-20] VITALS (7 sets, daily range): BP systolic 136–159; BP diastolic 60–82; PULSE 74–85; RESP 16–20; TEMP 36.2–36.9; O2SAT 95–98
--- NOTE | 2020-12-20 | XR_ITS ---
EXAMINATION: XR ABDOMEN KUB CLINICAL INDICATION: FU of gastric and small bowel dilation COMPARISON: CT scan abdomen pelvis 12/17/2020 TECHNIQUE: AP view of the abdomen. FINDINGS: Gas remains present from stomach through the distal rectum but the volume of gas has diminished since exam of 12/17/2020. The distention of small bowel loops and stomach has diminished in particular since the prior exam. The bowel pattern is nonobstructive. Moderate volume of stool in the lower pelvis. No radiopaque urinary calculus. There is no free air. Surgical clips right upper quadrant of abdomen. XR/XR KUB IMPRESSION: Decreased gaseous distention of bowel loops since prior study 12/17/2020. Nonobstructive bowel pattern.
[2020-12-20] MEDS: Piperacillin Sodium/Tazobactam 3.375 GM in 0.9 % Sodium Chloride 50 ML IV ×5 (00:11→22:16)
[2020-12-20 00:15] LABS: Glucose, Whole Blood 203 mg/dL (60-115)
[2020-12-20] MEDS: Insulin Lispro 100 UNIT/ML 3 ML VIAL SUBCUT ×3 (00:24→17:01)
[2020-12-20 06:06] LABS: Glucose, Whole Blood 134 mg/dL (60-115)
[2020-12-20] MEDS: Dextrose 5 % and 0.9 % NaCl 1,000 ML 80 ML IVCONT (06:43)
--- NOTE | 2020-12-20 07:13 | P.CNGI_ITS ---
History of Present Illness Data of Consult Service Date: 12/20/20 Requesting physician: Shima Romo Primary Care Provider: Unknown Physician HPI Reason for consult: Nausea, vomiting and diarrhea with abdominal distension and bloating 65 YM presented to [facility] ED on 12/17/20 with abdominal pain, n, v and diarrhea: 65-year-old male with a history of chronic hepatitis, history of hypertension, presents today with having nausea vomiting diarrhea. Symptoms been ongoing for the last 2 days. Diarrhea is yellow in color. Patient also complaining of nausea vomiting unable to keep down fluids. Had had similar symptoms in the past. Would seem be more severe. Had a previous history of cholecystectomy. Had a previous history of colonoscopy. Patient unsure of the results. No cough and no congestion or upper respiratory symptoms. Pt has a history of previous CVA in the past patient has weakness on the left side that is chronic. Arms greater than legs. 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 The stomach is also dilated and fluid-filled. Differential would include ileus and distal obstruction. The sigmoid colon is collapsed and it is difficult to exclude a stricture. No colon wall thickening or mass is seen. X-ray imaging follow-up recommended. Slight interval decrease in size in liver lesion in the left lobe of the liver. New small right upper and bilateral lower lobe peribronchial nodules and bronchial wall thickening. This probably represents an infectious/inflammatory process or airways disease. TODAY'S VISIT: Pt is known to me from past GI clinic visits for FU of chronic hepatitis C with cirrhosis. He complains of increasing abdominal distension with bloating followed by nausea, vomiting and diarrhea. He is on IV antibiotics for pneumonia. Notes improvement in abdominal pain and bloating. He has been tolerating a clear liquid diet today. he admits to having BMs and passing gas. Denies recent black stools or rectal bleeding. Patient denies known family history of colon polyps, colon cancer or other GI malignancies. Father with terminal cancer (? lungs) at age 67 - was a smoker. PAST EGD/COLONOSCOPY 11/2019 EGD showed gastritis with prominent gastric folds. Biopsies showed reactive gastropathy with mild chronic inactive inflammation and no Helicobacter pylori. Biopsies from distal esophagus showed squamous epithelium with moderate reactive changes suggestive of chronic reflux. 08/2019 patient was scheduled for a colonoscopy which was aborted due to poor prep PAST GI HISTORY BY REVIEW OF MEDICAL RECORDS: Last GI visit in 07/2020 Telemedicine visit for this 65 YM for FU of CONSTIPATION, COLON CANCER SCREENING AND POSITIVE HEPATITIS C ANTIBODY. 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 LABS IN [facility]: 07/18/20 DO WBC 11.8, H&H OF 13.741.9, PLATELET 243, INR 1.1 NORMAL CHEM PANEL, ELEVATED LFTS WITH AST OF 61, ALT 90, ALKALINE PHOSPHATASE 122, ALBUMIN 3.9 HEPATITIS SEROLOGIES WERE CONSISTENT WITH RECOVERY AND IMMUNITY TO HEPATITIS-B HEPATITIS-C ANTIBODY WAS POSITIVE, HEPATITIS-C RNA WAS 610, 000 IU PER ML, HCV RNA PCR LOG 5.79 IU PER ML, GENOTYPE 1a, NEELAM SCREEN WAS NEGATIVE Liver fibrosis score of 0.82, liver fibrosis stage F4, necroinflammatory score 0.54, CRP 1.35 Stool fit test was negative. IMAGING STUDIES: 05/05/20 ABDOMINAL ULTRASOUND SHOWED: Heterogeneous liver echotexture. 2.2 x 1.2 x 2.1 cm focal lesion in the central left lobe of the liver. This was not appreciated on previous ultrasound disc November 2019. Comparison with the CT and MRI is difficult but lesion does not appear appreciably changed in size. Follow-up MRI of the liver is recommended. Limited visualization of the pancreas and aorta. 12/17/19 ABDOMINAL MRI SHOWED: IMPRESSION: 3 cm area of decreased signal in the lateral segment of the left lobe of the liver seen on T1-weighted sequences only corresponding to lesion seen on CT scan. This does not have enhancement characteristic of hepatocellular carcinoma and biopsy is recommended. Distended stomach filled with food. This is similar to previous CT scan 12/08/2019 possible bezoar should be considered. 11/23/19 abdominal ultrasound with elastography showed: 1. There is generalized increase in hepatic echotexture, consistent with fatty infiltration or hepatocellular disease. Please correlate clinically. No focal hepatic mass or intrahepatic biliary dilatation is seen. 2. Elastography: Liver elastography measurements are consistent with a moderate risk for clinically significant liver fibrosis (METAVIR Stage F2-F3). 3. A mildly prominent peripancreatic lymph node could be more fully evaluated with CT, if clinically indicated. The pancreas proper shows an unremarkable ultrasound appearance. 4. The gallbladder is surgically absent Assessments 1. Chronic hepatitis C without hepatic coma - B18.2 (Primary) 2. Cirrhosis of liver without ascites, unspecified hepatic cirrhosis type - K74.60 3. Chronic constipation - K59.09 65 Y AA male with CVAx 4 with residual gait deformity, left emile paresis and contracture, Seizure disodrder, Type 2 diabetes, General anxiety, hypertension, bipolar, fecal and uriniary incontinence, constipation, lactose intolerant seen for FU of positive Hep C antibody. Course and treatment of hepatitis C was reviewed with the patient. He was given patient handout on hepatitis-C from up-to-date during his past visit. Hepatitis C treatment was placed on hold due to detection of liver lesion in the left lobe on abdominal CT scan and confirmed on MRI. Biopsy of the lesion was performed and was negative for malignancy. Chronic hepatitis C complicated by cirrhosis without hepatic coma - liver fibro sis test revealed liver fibrosis score of 0.82 and liver fibrosis stage of F4. Pt finished Hepatitis C treatment with Harvoni x 12 weeks on 04/22/20. Repeat labs revealed recurrent hepatitis C likely due to relapse of previous infection post treatment. I will recheck hepatitis-C genotype, alpha-fetoprotein and abdominal ultrasound prior to retreatment. 08/11/19 Pt had a failed attempt at colonoscopy due to poor prep. Difficult to prep patient due to underlying CVA with decreased mobility. Option of checking a stool FIT tests and scheduling a colonoscopy only if FIT test is positive. Patient prefered to schedule a FIT test which was negative. Treatment 1. Chronic hepatitis C without hepatic coma LAB: ALPHA-FETOPROTEIN,TUMOR MARKER LAB: HEPATITIS C GENOTYPE IMAGING: US ABD Review of Systems Constitutional: Constitutional: Denies fever(s), Denies headache(s), Reports weight gain and Reports weight loss Eyes: Eyes: Denies eye discharge and Denies irritation ENT: Reports Normal hearing present, Denies dysphagia and Denies headache(s) Cardiovascular: Cardiovascular: Denies chest pain, Denies leg edema and Denies dyspnea on exertion Respiratory: Respiratory: Reports chest congestion, Reports cough and Denies dyspnea on exertion Gastrointestinal: Gastrointestinal: Reports abdominal pain, Reports bloating, Denies change in bowel habits, Denies dysphagia, Denies heartburn, Reports diarrhea, Reports nausea and Reports vomiting Genitourinary: Genitourinary: Denies dysuria Musculoskeletal: Musculoskeletal: Denies back pain and Denies arthralgias Integumentary/Breasts: Skin/Breast: Denies pruritus, Denies rash and Denies ja undice Neurologic: Reports Normal hearing present, Denies headache(s) and Reports focal weakness (Left-sided weakness due to past CVA) Psychiatric: Psychiatric: Reports anxiety, Reports depression and Denies panic attacks Endocrine: Endocrine: Denies cold intolerance, Denies flushing and Denies heat intolerance PMFSH Past Medical History Medical History Abnormal colonoscopy Anxiety Bipolar disorder Conversion disorder CVA (cerebral vascular accident) Essential hypertension GERD (gastroesophageal reflux disease) HTN (hypertension) Psychotic disorder Seizure Type 2 diabetes mellitus with diabetic polyneuropathy Family History Family History Sister Breast cancer in situ Surgical History Surgical History Hx of cholecystectomy Hx of colonoscopy Hx of surgical biopsy Social History Social History Household Members: Other Housing: Other Alcohol intake: unknown Smoking Status: Never smoker service: No Current occupational status: disabled Meds Allergies Allergy/AdvReac Type Severity Reaction Status Date / Time oxycodone [OXYCODONE] Allergy Unknown UNKNOWN Verified 12/05/20 09:43 Phenothiazines Allergy Unknown Unknown Verified 12/05/20 09:43 tetracycline Allergy Unknown Unknown Verified 12/05/20 09:43 tigecycline [TIGECYCLINE] Allergy Unknown UNKNOWN Verified 12/05/20 09:43 Home Medications Medication Instructions Recorded Confirmed Type Ponaris 1 applic INTRANASAL BID 09/13/20 12/19/20 History artificial tears with lanolin 1 applic OPHTHALMIC (EYE) DAILY 09/13/20 12/17/20 History folic acid 1 mg PO BEDTIME 09/13/20 12/17/20 History guanfacine 2 mg PO DAILY 09/13/20 12/17/20 History lamotrigine [Lamictal] 100 mg PO DAILY 09/13/20 12/19/20 History levetiracetam 1,500 mg PO BID 09/13/20 12/17/20 History phenytoin 200 mg PO BEDTIME 09/13/20 12/17/20 History lorazepam 2 mg tablet 2 mg PO DAILY PRN tab 09/22/20 12/19/20 History metoprolol tartrate 100 mg tablet 100 mg PO BID 11/23/20 12/17/20 History aspirin 81 mg tablet,delayed 81 mg PO DAILY 12/12/20 12/19/20 History release ketoconazole 1 appl TOPICAL DAILY PRN 12/17/20 12/17/20 History lamotrigine 150 mg PO BEDTIME 12/17/20 12/19/20 History alum-mag hydroxide-simeth 30 ml PO TID 12/19/20 12/19/20 History naproxen 500 mg PO BID PRN 12/19/20 12/19/20 History risperidone [Risperdal] 1.5 mg PO DAILY 12/19/20 12/19/20 History Physical Exam Vital Signs: Vital Signs: Last Vital Signs Temp 98.3 F 12/20/20 04:00 Pulse 83 12/20/20 04:00 Resp 16 12/20/20 04:00 BP 136/74 12/20/20 04:00 Pulse Ox 98 12/20/20 04:00 Body Mass Index 32.8 Const: General: comfortable and no acute distress Nutritional Appearance: average body habitus and obese Orientation/consciousness: patient oriented x3 Limitations: no limitations HENMT: Head: Yes normal to inspection Ears: hearing grossly normal bilaterally Mouth: Normal oral and palatal mucosa present Eyes: Sclerae: sclerae normal Pupils: Equal, round and reactive pupils pres ent Neck: Neck: Yes normal visual inspection Chest: Chest palpation & inspection: normal inspection of the chest Resp: Effort & Inspection: normal respiratory effort Auscultation: clear to auscultation bilaterally Cardio: Palpation: normal PMI Rate: regular rate Rhythm: regular rhythm Heart sounds: S1 normal heart sound present, S2 normal heart sound present and no murmurs GI: Inspection: Yes distended Palpation (GI): Soft to palpation, nontender and No hepatosplenomegaly present Auscultation: normal bowel sounds Rectal Exam - Male: Yes deferred Skin: General skin exam: no rashes or lesions noted Neuro: General: patient oriented x3, gait normal and moves all extremities Cranial nerves: Yes Equal, round and reactive pupils present and Yes Normal hearing present Extrem: General: Yes edema (Bilateral pitting edema over both lower extremities) Psych: Appearance: grossly normal Mental Status: mental status grossly norm al Results Labs CBC & Chem 7: 12/21/20 06:08 12/21/20 06:08 Labs: Short CBC 12/19/20 Range/Units 09:11 WBC 11.5 H (4.8-10.8) X10*3/uL Hgb 12.5 L (14.0-18.0) g/dl Hct 37.9 L (42-52) % Plt Count 155 L (160-400) X10*3/uL Assessment and Plan (1) Nausea and vomiting: Problem details: Admitted with nausea vomiting and diarrhea. Resolved. Status: Acute (2) Abdominal distension (gaseous): Problem details: History of enlarging abdomen, likely secondary to weight gain Status: Acute (3) Chronic active hepatitis C: Status: Acute (4) Constipation: Qualifiers: Constipation type: other constipation type Qualified Code(s): K59.09 - Other constipation Status: Acute 65 Y male with CVAx 4 with residual gait deformity, left emile paresis and contracture, Seizure disodrder, Type 2 diabetes, General anxiety, hypertension, bipolar, fecal and uriniary incontinence, constipation, lactose intolerant hospitalized with nausea, vomiting , diarrhea and abdominal distension. Patient was diagnosed with pneumonia and is being treated with antibiotics. I suspect his GI symptoms are likely associated with pneumonia - legionella pn eumonia can be associated with nausea, vomiting and diarrhea. Nausea and vomiting has resolved and he is tolerating a clear liquid diet which is being advanced. Pt is followed in GI for positive Hep C antibody. Chronic hepatitis C complicated by cirrhosis without hepatic coma - liver fibrosis test revealed liver fibrosis score of 0.82 and liver fibrosis stage of F4. Pt also had a liver lesion in the left lobe on abdominal CT scan and confirmed on MRI. Biopsy of the lesion was performed and was negative for malignancy. Pt finished Hepatitis C treatment with Harvoni x 12 weeks on 04/22/20. Repeat labs revealed recurrent hepatitis C likely due to relapse of previous infection post treatment. He will be retreated in the near future. 08/11/19 Pt had a failed attempt at colonoscopy due to poor prep. Difficult to prep patient due to underlying CVA with decreased mobility. Option of checking a stool FIT tests and scheduling a colonoscopy only if FIT test is positive. Patient prefered to schedule a FIT test which was negative. RECOMMENDATIONS: 1. Repeat KUB today - if it shows improvement, diet can be advanced and if he tolerates it, pt can be discharged once pneumonia is treated. 2. If he develops recurrent nausea, vomiting with abdominal distension, he can be prepped with Dulcolax and Miralax and I will schedule him for an EGD and Colonoscopy. Pt is scheduled for a follow-up appointment on 01/05/2021 for follow-up of hepatitis-C and cirrhosis.
--- NOTE | 2020-12-20 08:06 | PM.PNGS ---
Subjective Subjective Date of Service: 12/20/20 Interval history: Alert. Denies abdominal pain, nausea and vomiting. Tolerating clear liquids. He reports that he is coughing up bloody phlegm. He was intubated for the incomplete colonoscopy yesterday and also had an NG tube inserted during the procedure. Physical Exam Vital Signs: Vital Signs: Last Vital Signs Temp 97.6 F 12/20/20 07:53 Pulse 83 12/20/20 07:53 Resp 18 12/20/20 07:53 BP 136/75 12/20/20 07:53 Pulse Ox 98 12/20/20 07:53 Body Mass Index 32.8 Const: Other: Alert, appears comfortable Resp: Effort & Inspection: normal respiratory effort Auscultation: wheezes (Right apex) Cardio: Rate: regular rate Rhythm: regular rhythm GI: Other: Somewhat more distended, semi firm, nontender, active bowel sounds Skin: Other: Normal color, warm and dry Progress Note: A&P Assessment and plan (1) Gastrointestinal dysmotility: Status: Acute Assessment and Plan: Admitted with six-month history of increasing abdominal distension, new onset of nausea vomiting and loose stool and CT findings suggestive of sigmoid stricture. Incomplete colonoscopy done through left colon yesterday. There was no evidence of stricture or mass lesion. Etiology of nausea vomiting and loose stool may have been a viral gastroenteritis, but he had a distended stomach as well as mildly distended small bowel on his admission CT scan. These findings, along with the history of slowly he worsening abdominal distension over 6 month. Raise question regarding intestinal dysmotility. GI consultation pending. Tolerating clear liquids. Will advance to diabetic diet. Continue sliding scale coverage. Resume metformin once he is tolerating solid diet. (2) Aspiration pneumonia: Status: Acute Assessment and Plan: Initial chest x-ray did not reveal infiltrates, but he gives a history of cough pre dating admission and chest x-rays following NG tube insertion showed patchy infiltrates raising question of aspiration pneumonia. On Zosyn. White blood count has improved. Fall Risk Details Current Medications: Current Medications Generic Name Dose Route Start Last Admin Trade Name Freq PRN Reason Stop Dose Admin Acetaminophen 650 mg 12/17/20 18:15 Acetaminophen 325 Mg Tablet PO Q6H PRN Fever Amitriptyline HCl 25 mg 12/17/20 21:00 12/19/20 22:08 Amitriptyline Hcl 25 Mg Tablet PO 25 mg BEDTIME JESSICA Administration Artificial Tears 1 drop 12/18/20 09:00 12/19/20 09:57 Artificial Tears 15 Ml Drops EYE-BOTH 1 drop DAILY JESSICA Administration Famotidine 20 mg 12/17/20 21:00 12/19/20 23:26 Famotidine/Pf 20 Mg/2 Ml Vial IVPUSH Not Given BID JESSICA Gabapentin 600 mg 12/17/20 21:00 12/19/20 22:08 Gabapentin 600 Mg Tablet PO 600 mg TID JESSICA Administration Levetiracetam 1,500 mg in 100 mls @ 400 mls/hr 12/18/20 21:00 12/20/20 00:12 Keppra IV Infused BID JESSICA Infusion Dextrose/Sodium Chloride 1,000 mls @ 80 mls/hr 12/19/20 11:45 12/20/20 06:43 D5ns IVCONT 80 mls/hr .[id number] JESSICA Administration Lactated Ringer's 1,000 mls @ 100 mls/hr 12/19/20 12:15 12/19/20 23:26 Lr IVCONT Not Given .Q10H JESSICA Piperacillin Sod/Tazobactam 50 mls @ 100 mls/hr 12/20/20 06:00 12/20/20 06:44 Sod 3.375 gm/ Sodium Chloride IV Infused Q6H JESSICA Infusion Insulin Human Lispro 0 unit 12/17/20 17:34 12/20/20 06:29 Insulin Lispro 100 Unit/Ml 3 Ml Vial SUBCUT Not Given Q6H [facility] Protocol Lamotrigine 150 mg 12/19/20 21:00 12/19/20 22:08 Lamotrigine 100 Mg Tablet PO 150 mg BEDTIME JESSICA Administration Lamotrigine 100 mg 12/20/20 09:00 Lamotrigine 100 Mg Tablet PO DAILY JESSICA Lorazepam 1 mg 12/17/20 17:34 Lorazepam 2 Mg/Ml Vial IVPUSH BID PRN Anxiety Metoprolol Tartrate 100 mg 12/17/20 21:00 12/19/20 22:01 Metoprolol Tartrate 100 Mg Tablet PO 100 mg BID JESSICA Administration Protocol Multi-Ingred Medicated Throat [place] 1 spray 12/18/20 18:45 12/19/20 09:57 Throat [place], Medicated 20 Ml Bottle MUCOUS MEM 1 spray Q2H PRN Administration Sore Throat Non-Formulary Medication 2 mg 12/18/20 09:00 Guanfacine PO DAILY JESSICA Ondansetron HCl 4 mg 12/17/20 18:15 Ondansetron Hcl 4 Mg/2 Ml Vial IVPUSH Q8H PRN Nausea Phenytoin 200 mg 12/17/20 21:00 12/19/20 22:33 Phenytoin Chewable 50 Mg Tab.Chew PO 200 mg BEDTIME JESSICA Administration Phenytoin 150 mg 12/18/20 09:00 12/19/20 09:06 Phenytoin Chewable 50 Mg Tab.Chew PO 150 mg DAILY JESSICA Administration Risperidone 1.5 mg 12/20/20 09:00 Risperidone 0.5 Mg Tablet PO DAILY JESSICA Valsartan 320 mg 12/18/20 09:00 12/19/20 09:08 Valsartan 320 Mg Tablet PO 320 mg DAILY JESSICA Administration Protocol Time Spent With Patient Time: Total time spent is greater than 50% in coordination of care (as documented) at patient's floor/unit and/or counseling patient: Time with patient: 15 - 24 minutes
[2020-12-20] MEDS: levETIRAcetam in NaCl (iso-os) 1,500 MG/100 ML PIGGYBACK 400 MG IV (09:50)
[2020-12-20] MEDS: Famotidine/PF 20 MG/2 ML VIAL IVPUSH ×2 (09:51→22:15)
[2020-12-20] MEDS: Gabapentin 600 MG TABLET PO ×3 (09:57→22:12)
[2020-12-20] MEDS: Valsartan 320 MG TABLET PO (09:57)
[2020-12-20] MEDS: Metoprolol Tartrate 100 MG TABLET PO ×2 (09:58→22:12)
[2020-12-20] MEDS: Phenytoin Chewable 50 MG TAB.CHEW 150 MG PO (09:58)
[2020-12-20] MEDS: lamoTRIgine 100 MG TABLET PO (09:58)
[2020-12-20] MEDS: risperiDONE 0.5 MG TABLET 1.5 MG PO (09:58)
[2020-12-20] MEDS: Lactated Ringers 1,000 ML 100 ML IVCONT (09:59)
[2020-12-20] MEDS: Artificial Tears 15 ML DROPS 1 DROP EYE-BOTH (09:59)
[2020-12-20 12:07] LABS: Glucose, Whole Blood 252 mg/dL (60-115)
--- NOTE | 2020-12-20 13:45 | HO.PM.IMPN ---
Subjective Subjective Date of Service: 12/21/20 Interval History: pneumonia Review of Systems Patient denies any shortness of breath or fever or chills or abdominal pain. Says his passing gases Physical Exam Vital Signs: Vital Signs: Last Vital Signs Temp 97.2 F 12/20/20 11:51 Pulse 85 12/20/20 11:51 Resp 18 12/20/20 11:51 BP 159/82 H 12/20/20 11:51 Pulse Ox 96 12/20/20 11:51 Body Mass Index 32.8 Physical exam: Constitutional: Not in acute distress. Cvs: rrr, [id number] , no murmur res: grossly good air entry, no rales or wheezing. abd: no rebound or guarding ,somewhat distended,bs present. ext pulses present , no cyanosis neuro: axo3 , nonfocal. Objective Data Current Medications Generic Name Dose Route Start Last Admin Trade Name Freq PRN Reason Stop Dose Admin Acetaminophen 650 mg 12/17/20 18:15 Acetaminophen 325 Mg Tablet PO Q6H PRN Fever Amitriptyline HCl 25 mg 12/17/20 21:00 12/19/20 22:08 Amitriptyline Hcl 25 Mg Tablet PO 25 mg BEDTIME JESSICA Administration Artificial Tears 1 drop 12/18/20 09:00 12/20/20 09:59 Artificial Tears 15 Ml Drops EYE-BOTH 1 drop DAILY JESSICA Administration Famotidine 20 mg 12/17/20 21:00 12/20/20 09:51 Famotidine/Pf 20 Mg/2 Ml Vial IVPUSH 20 mg BID JESSICA Administration Gabapentin 600 mg 12/17/20 21:00 12/20/20 09:57 Gabapentin 600 Mg Tablet PO 600 mg TID JESSICA Administration Piperacillin Sod/Tazobactam 50 mls @ 100 mls/hr 12/20/20 06:00 12/20/20 11:56 Sod 3.375 gm/ Sodium Chloride IV 100 mls/hr Q6H JESSICA Administration Insulin Human Lispro 0 unit 12/17/20 17:34 12/20/20 11:56 Insulin Lispro 100 Unit/Ml 3 Ml Vial SUBCUT 6 unit Q6H JESSICA Administration Protocol Lamotrigine 150 mg 12/19/20 21:00 12/19/20 22:08 Lamotrigine 100 Mg Tablet PO 150 mg BEDTIME JESSICA Administration Lamotrigine 100 mg 12/20/20 09:00 12/20/20 09:58 Lamotrigine 100 Mg Tablet PO 100 mg DAILY JESSICA Administration Levetiracetam 1,500 mg 12/20/20 21:00 Levetiracetam 500 Mg Tablet PO BID JESSICA Lorazepam 1 mg 12/17/20 17:34 Lorazepam 2 Mg/Ml Vial IVPUSH BID PRN Anxiety Metoprolol Tartrate 100 mg 12/17/20 21:00 12/20/20 09:58 Metoprolol Tartrate 100 Mg Tablet PO 100 mg BID JESSICA Administration Protocol Multi-Ingred Medicated Throat [place] 1 spray 12/18/20 18:45 12/19/20 09:57 Throat [place], Medicated 20 Ml Bottle MUCOUS MEM 1 spray Q2H PRN Administration Sore Throat Non-Formulary Medication 2 mg 12/18/20 09:00 Guanfacine PO DAILY JESSICA Ondansetron HCl 4 mg 12/17/20 18:15 Ondansetron Hcl 4 Mg/2 Ml Vial IVPUSH Q8H PRN Nausea Phenytoin 200 mg 12/17/20 21:00 12/19/20 22:33 Phenytoin Chewable 50 Mg Tab.Chew PO 200 mg BEDTIME JESSICA Administration Phenytoin 150 mg 12/18/20 09:00 12/20/20 09:58 Phenytoin Chewable 50 Mg Tab.Chew PO 150 mg DAILY JESSICA Administration Risperidone 1.5 mg 12/20/20 09:00 12/20/20 09:58 Risperidone 0.5 Mg Tablet PO 1.5 mg DAILY JESSICA Administration Valsartan 320 mg 12/18/20 09:00 12/20/20 09:57 Valsartan 320 Mg Tablet PO 320 mg DAILY JESSICA Administration Protocol Labs CBC & Chem 7: 12/21/20 06:08 12/21/20 06:08 Assessment and Plan (1) Gastrointestinal dysmotility: Status: Acute (2) Seizure disorder: Status: Acute (3) Type 2 diabetes mellitus with diabetic polyneuropathy: Status: Acute (4) Large bowel obstruction: Status: Acute (5) Aspiration pneumonia: Problem details: Improving with treatment. Will complete a course of antibiotics, Augmentin 875 mg b.i.d. for 5 days, on outpatient basis Status: Acute Assessment and Plan: 1.Large bowel obstruction versus intestinal dysmotility: ? secondary to stricture. As per surgery- Flexible sigmoidoscopy is planned for further evaluation. intially nausea, vomiting and loose stool and CT findings suggestive of sigmoid stricture. Incomplete colonoscopy done through left colon yesterday- There was no evidence of stricture or mass lesion. further management as per surgery. Tolerating clear liquids. Will advance to diabetic diet. Gi eval pending 2.Pneumonia: Patchy infiltrates seen on post NG tube insertion film. The patient is asymptomatic other than a cough, but white blood count is elevated. Continue Zosyn 3.Seizure disorder: On routine medication regimen 4.Diabetes mellitus: fs improving dc fluids since he is on clear liquids.
--- NOTE | 2020-12-20 14:59 | HO.POSTANES ---
Post Anesthesia Evaluation Post Anesthesia Evaluation Vital Signs: Vital Signs Temp Pulse Resp BP Pulse Ox 12/20/20 11:51 97.2 F 85 18 159/82 H 96 12/20/20 07:53 97.6 F 83 18 136/75 98 12/20/20 04:00 98.3 F 83 16 136/74 98 Anesthesia: General Mental Status: Awake Pain Control: Satisfactory Nausea/Vomiting: None Hydration: Adequate Anesthesia-Related Issues: No Anes. Related Issues
[2020-12-20 16:37] LABS: Glucose, Whole Blood 213 mg/dL (60-115)
[2020-12-20 21:30] LABS: Glucose, Whole Blood 112 mg/dL (60-115)
[2020-12-20] MEDS: levETIRAcetam 500 MG TABLET 1500 MG PO (22:10)
[2020-12-20] MEDS: Amitriptyline HCl 25 MG TABLET PO (22:12)
[2020-12-20] MEDS: Phenytoin Chewable 50 MG TAB.CHEW 200 MG PO (22:13)
[2020-12-20] MEDS: lamoTRIgine 100 MG TABLET 150 MG PO (22:14)
[2020-12-21] VITALS (7 sets, daily range): BP systolic 147–172; BP diastolic 68–86; PULSE 74–87; RESP 16–20; TEMP 35.9–36.7; O2SAT 94–95
[2020-12-21] MEDS: Piperacillin Sodium/Tazobactam 3.375 GM in 0.9 % Sodium Chloride 50 ML IV (05:49)
[2020-12-21 06:41] LABS: Hematocrit 36.3 % (42-52); Hemoglobin 11.5 g/dl (14.0-18.0); Mean Corpuscular HGB Conc 31.7 g/dl (31.0-36.0); Mean Corpuscular Hemoglobin 29.8 pg (27.0-33.0); Mean Platelet Volume 10.7 fL (9.4-12.4); Platelet Count 200 X10*3/uL (160-400); Red Blood Count 3.86 X10*6/uL (4.60-5.80); Red Cell Distribution Width 12.1 % (11.0-16.0); White Blood Count 8.1 X10*3/uL (4.8-10.8)
[2020-12-21 07:21] LABS: Anion Gap 9 (12-20); Blood Urea Nitrogen 5 mg/dL (9-16); Calcium 7.9 mg/dL (8.4-10.2); Carbon Dioxide 28 mmol/L (22-29); Chloride 104 mmol/L (96-108); Creatinine Clr Calc Pharmacy 138.7; Estimated Glomerular Filt Rate > 60; Glucose Fasting 147 mg/dL (60-99); Potassium 3.8 mmol/l (3.3-5.1); Sodium 137 mmol/L (135-145)
[2020-12-21 07:43] LABS: Glucose, Whole Blood 173 mg/dL (60-115)
[2020-12-21] MEDS: Valsartan 320 MG TABLET PO (08:40)
[2020-12-21] MEDS: levETIRAcetam 500 MG TABLET 1500 MG PO ×2 (08:40→21:52)
[2020-12-21] MEDS: Gabapentin 600 MG TABLET PO ×3 (08:41→21:53)
[2020-12-21] MEDS: Phenytoin Chewable 50 MG TAB.CHEW 150 MG PO (08:41)
[2020-12-21] MEDS: lamoTRIgine 100 MG TABLET PO (08:41)
[2020-12-21] MEDS: Metoprolol Tartrate 100 MG TABLET PO ×2 (08:41→21:53)
[2020-12-21] MEDS: risperiDONE 0.5 MG TABLET 1.5 MG PO (08:41)
[2020-12-21] MEDS: Artificial Tears 15 ML DROPS 1 DROP EYE-BOTH (08:42)
[2020-12-21] MEDS: Famotidine/PF 20 MG/2 ML VIAL IVPUSH (08:44)
[2020-12-21 11:26] LABS: Glucose, Whole Blood 189 mg/dL (60-115)
--- NOTE | 2020-12-21 11:42 | P.PNGS_ITS ---
Subjective Subjective Date of Service: 12/21/20 Interval history: Feels well. Tolerating solid diet. Reports that he had a bowel movement yesterday and also today. No abdominal pain. Physical Exam Vital Signs: Vital Signs: Last Vital Signs Temp 97.6 F 12/21/20 07:47 Pulse 74 12/21/20 07:47 Resp 16 12/21/20 07:47 BP 147/69 H 12/21/20 07:47 Pulse Ox 94 12/21/20 07:47 Body Mass Index 32.8 Const: General: cooperative, comfortable and alert Resp: Effort & Inspection: normal respiratory effort Auscultation: clear to auscultation bilaterally Cardio: Rate: regular rate Rhythm: regular rhythm GI: Other: Round, nontender, slightly distended, bowel sounds active Skin: Other: Normal color, warm and dry Progress Note: A&P Assessment and plan (1) Nausea and vomiting: Status: Acute Assessment and Plan: Admitted with nausea vomiting and diarrhea as well as CT finding concerning for possible sigmoid stricture. No evidence of sigmoid stricture on partial colonoscopy. Symptoms have resolved and likely were related to gastroenteritis. He is tolerating solid food. Anticipate discharge in next 24 hours. (2) Abdominal distension (gaseous): Status: Acute Assessment and Plan: Chronic, but did somewhat improved from the time of admission. (3) Aspiration pneumonia: Status: Acute Assessment and Plan: Resolving. White blood count has declined to normal. Oxygen saturation is normal. On Zosyn. Anticipate discharge on Augmentin to complete course of antibiotics. Fall Risk Details Current Medications: Current Medications Generic Name Dose Route Start Last Admin Trade Name Johannq PRN Reason Stop Dose Admin Acetaminophen 650 mg 12/17/20 18:15 Acetaminophen 325 Mg Tablet PO Q6H PRN Fever Amitriptyline HCl 25 mg 12/17/20 21:00 12/20/20 22:12 Amitriptyline Hcl 25 Mg Tablet PO 25 mg BEDTIME JESSICA Administration Artificial Tears 1 drop 12/18/20 09:00 12/21/20 08:42 Artificial Tears 15 Ml Drops EYE-BOTH 1 drop DAILY JESSICA Administration Gabapentin 600 mg 12/17/20 21:00 12/21/20 08:41 Gabapentin 600 Mg Tablet PO 600 mg TID JESSICA Administration Piperacillin Sod/Tazobactam 50 mls @ 100 mls/hr 12/20/20 06:00 12/21/20 06:38 Sod 3.375 gm/ Sodium Chloride IV Infused Q6H EJSSICA Infusion Insulin Human Lispro 0 unit 12/20/20 16:30 12/21/20 08:42 Insulin Lispro 100 Unit/Ml 3 Ml Vial SUBCUT Not Given QIDACHS [facility] Protocol Lamotrigine 150 mg 12/19/20 21:00 12/20/20 22:14 Lamotrigine 100 Mg Tablet PO 150 mg BEDTIME JESSICA Administration Lamotrigine 100 mg 12/20/20 09:00 12/21/20 08:41 Lamotrigine 100 Mg Tablet PO 100 mg DAILY JESSICA Administration Levetiracetam 1,500 mg 12/20/20 21:00 12/21/20 08:40 Levetiracetam 500 Mg Tablet PO 1,500 mg BID JESSICA Administration Lorazepam 1 mg 12/17/20 17:34 Lorazepam 2 Mg/Ml Vial IVPUSH BID PRN Anxiety Metoprolol Tartrate 100 mg 12/17/20 21:00 12/21/20 08:41 Metoprolol Tartrate 100 Mg Tablet PO 100 mg BID [facility] Administration Protocol Multi-Ingred Medicated Throat [place] 1 spray 12/18/20 18:45 12/19/20 09:57 Throat [place], Medicated 20 Ml Bottle MUCOUS MEM 1 spray Q2H PRN Administration Sore Throat Non-Formulary Medication 2 mg 12/18/20 09:00 Guanfacine PO DAILY [facility] Ondansetron HCl 4 mg 12/17/20 18:15 Ondansetron Hcl 4 Mg/2 Ml Vial IVPUSH Q8H PRN Nausea Phenytoin 200 mg 12/17/20 21:00 12/20/20 22:13 Phenytoin Chewable 50 Mg Tab.Chew PO 200 mg BEDTIME JESSICA Administration Phenytoin 150 mg 12/18/20 09:00 12/21/20 08:41 Phenytoin Chewable 50 Mg Tab.Chew PO 150 mg DAILY JESSICA Administration Risperidone 1.5 mg 12/20/20 09:00 12/21/20 08:41 Risperidone 0.5 Mg Tablet PO 1.5 mg DAILY JESSICA Administration Valsartan 320 mg 12/18/20 09:00 12/21/20 08:40 Valsartan 320 Mg Tablet PO 320 mg DAILY JESSICA Administration Protocol Time Spent With Patient Time: Total time spent is greater than 50% in coordination of care (as documented) at patient's floor/unit and/or counseling patient: Time with patient: 15 - 24 minutes
--- NOTE | 2020-12-21 12:12 | P.DS_ITS ---
DS: Providers Provider Date of Service: 12/21/20 Date of admission: 12/17/20 17:34 Primary care physician: Unknown Physician Consults: 12/17/20 18:15 Consult to Hospitalist Routine Consulting Provider: Hospitalist Reason for consultation: Medical management diabetes, hypertension, seizure disorder, bipolar Has provider been notified: No 12/19/20 15:54 Consult to Gastroenterology Routine Consulting Provider: [facility] Reason for consultation: Known to you, eval GI dysmotility Has provider been notified: No DS: Diagnosis Discharge Diagnosis (1) Nausea and vomiting: Status: Acute Problem details: Admitted with nausea vomiting and diarrhea. Resolved. (2) Abdominal distension (gaseous): Status: Acute Problem details: History of enlarging abdomen, likely secondary to weight gain (3) Aspiration pneumonia: Status: Acute Problem details: Improving with treatment. Will complete a course of antibiotics, Augmentin 875 mg b.i.d. for 5 days, on outpatient basis DS: Medications Discharge Medications Home Medications: Home Medications Medication Instructions Recorded Confirmed artificial tears with lanolin 1 applic OPHTHALMIC (EYE) DAILY 09/13/20 12/17/20 [Artificial Tears] eucalyptus-peppermint oil [Ponaris] 1 applic INTRANASAL BID 09/13/20 12/19/20 folic acid 1 mg PO BEDTIME 09/13/20 12/17/20 guanfacine 2 mg PO DAILY 09/13/20 12/17/20 lamotrigine [Lamictal] 100 mg PO DAILY 09/13/20 12/19/20 levetiracetam 1,500 mg PO BID 09/13/20 12/17/20 phenytoin 200 mg PO BEDTIME 09/13/20 12/17/20 lorazepam 2 mg tablet 2 mg PO DAILY PRN tab 09/22/20 12/19/20 metoprolol tartrate 100 mg tablet 100 mg PO BID 11/23/20 12/17/20 aspirin 81 mg tablet,delayed 81 mg PO DAILY 12/12/20 12/19/20 release ketoconazole 1 appl TOPICAL DAILY PRN 12/17/20 12/17/20 lamotrigine 150 mg PO BEDTIME 12/17/20 12/19/20 alum-mag hydroxide-simeth [Maalox] 30 ml PO TID 12/19/20 12/19/20 naproxen 500 mg PO BID PRN 12/19/20 12/19/20 risperidone [Risperdal] 1.5 mg PO DAILY 12/19/20 12/19/20 Previous Rx's Medication Instructions Recorded cyclobenzaprine 5 mg tablet 5 mg PO Q8H #84 tab 10/17/20 omeprazole 20 mg capsule,delayed 20 mg PO DAILY #28 cap 10/17/20 release blood sugar diagnostic #100 ea 11/04/20 dulaglutide 0.75 mg/0.5 mL 0.75 mg SUBCUT QWEEK #2 ml 11/04/20 subcutaneous pen injector insulin degludec 200 unit/mL (3 56 unit SUBCUT DAILY 30 Days #9 ml 11/04/20 mL) subcutaneous pen lancets 26 gauge #100 ea 11/04/20 metformin 500 mg tablet,extended 500 mg PO BID #60 tab 11/04/20 release 24 hr amitriptyline 25 mg tablet 25 mg PO BEDTIME #28 tab 11/14/20 magnesium oxide 400 mg (241.3 mg 400 mg PO QAM #28 tab 11/14/20 magnesium) tablet valsartan 320 0.5 tab PO DAILY 30 Days #15 tab 11/14/20 mg-hydrochlorothiazide 25 mg tablet gabapentin 600 mg tablet 600 mg PO TID 90 Days #270 tab 12/05/20 magnesium hydroxide 400 mg/5 mL 30 ml PO DAILY 90 Days #3000 ml 12/05/20 oral suspension pen needle, diabetic 32 gauge x #50 ea 12/05/20 phenytoin 50 mg chewable tablet 150 mg PO DAILY 90 Days #270 tab 12/05/20 spironolactone 25 mg tablet 25 mg PO DAILY #28 tab 12/12/20 DS: Summary Hospital Course Hospital Course: This is a 65-year-old male with a past history of diabetes mellitus, bipolar disorder, CVA with left hemiparesis, conversion disorder, GERD, seizure disorder, hypertension and anxiety, who presented to the emergency department with a 1 day history of nausea vomiting and diarrhea. He also had an approximately 6 month history of increasing abdominal distension. Workup in the emergency department included a CT scan of the abdomen and pelvis that showed a dilated stomach and mildly dilated small bowel. There was a possibility of a stricturing lesion in the sigmoid colon. On examination, he was alert. Lungs were clear to auscultation. Heart was regular in rate and rhythm. Abdomen was round and somewhat firm. Bowel sounds were active. There was no tenderness. White blood count was normal. He was admitted and kept NPO and on IV fluids. An NG tube was inserted. His initial chest x-ray have been clear. Follow-up chest x-ray obtained to check NG tube position revealed scattered infiltrates and aspiration pneumonia was suspected. He was started on Zosyn. Hospitalist consultation was obtained for assistance with medical management and he was followed by the Hospitalist Service throughout the admission. Partial colonoscopy was performed on 12/19/2019 to evaluate for the possible presence of sigmoid stricture. Bowel prep was not undertaken because of the question of obstruction. There was no evidence of stricture. Colonoscopy was carried out through the left colon. No abnormalities were identified though the examination was limited due to the absence of bowel prep. Gastroenterology consultation was requested for further evaluation because of the reported history of increasing abdominal distension and the presence of dilated bowel on his admission CT scan. He is an established patient of [facility] and was seen by Dr. Austin, who felt that part of his problem might be related to chronic constipation. Review of the old record also indicated that he has gained approximately 30 lb over the past year, which may be contributing to his abdominal enlargement. He was placed on a clear liquid diet on 12/19/2019 and was advanced to a solid diet the following day. He tolerated this well and was ready for transfer back to his [facility] on 12/21/2020. White blood count, which was normal on admission, page to 21,000 on the ollowing day, but had declined back to normal on the day of discharge. Routine follow-up with general surgery is not needed. He should follow-up with his primary care provider regarding the history of aspiration pneumonia. He will complete a course of antibiotics with Augmentin 875 mg p.o. b.i.d. for 5 days. He will resume his usual home medications. Time Spent with Patient Time attestation: Total time spent providing and/or coordinating discharge services: Discharge coordination time: Greater than 30 minutes Physical Exam Vital Signs: Vital Signs: Last Vital Signs Temp 97.6 F 12/21/20 07:47 Pulse 74 12/21/20 07:47 Resp 16 12/21/20 07:47 BP 147/69 H 12/21/20 07:47 Pulse Ox 94 01/20/21 07:47 Body Mass Index 32.8 Const: Other: Alert, cooperative, in no distress Orientation/consciousness: patient oriented x3 HENMT: Head: Yes normocephalic and Yes atraumatic Resp: Effort & Inspection: normal respiratory effort Auscultation: clear to auscultation bilaterally Cardio: Rate: regular rate Rhythm: regular rhythm GI: Other: Round, slightly firm, bowel sounds active, no tenderness Skin: Other: Normal color, warm and dry Neuro: General: patient oriented x3 Extrem: Other: Left upper extremity contractures DS: Data Data Completed and Pending Labs on day of discharge: Laboratory Tests 12/17/20 12/17/20 12/17/20 12:23 12:32 12:33 WBC RBC Hgb Hct MCV MCH MCHC RDW Plt Count MPV Immature Gran % (Auto) Neut % (Auto) Lymph % (Auto) Boundary % (Auto) Eos % (Auto) Baso % (Auto) Lymph # (Auto) Boundary # (Auto) Eos # (Auto) Baso # (Auto) Abs Immat Gran (auto) Absolute Neuts (auto) Absolute Nucleated RBC Nucleated RBC % (auto) PT 13.6 H INR 1.1 Sodium 136 Potassium 4.4 Chloride 101 Carbon Dioxide 23 Anion Gap 16 BUN 13 Creatinine 0.66 Estim Creat Clear Calc 132.4 Estimated GFR > 60 POC Glucose Random Glucose 146 H Fasting Glucose Estimat Average Glucose Hemoglobin A1c % Calcium 8.5 D Total Bilirubin 0.4 Direct Bilirubin 0.4 AST 44 H ALT 54 H Alkaline Phosphatase 90 Total Protein 7.7 Albumin 3.7 Lipase 55 Phenytoin COVID-19 (SHAWN) Negative COVID-19 Clin Com See Note 12/17/20 12/17/20 12/17/20 12:35 12:36 18:07 WBC 7.9 RBC 4.60 Hgb 14.0 Hct 43.8 MCV 95.2 MCH 30.4 MCHC 32.0 RDW 12.5 Plt Count 168 D MPV 11.1 Immature Gran % (Auto) 0.4 Neut % (Auto) 67.9 Lymph % (Auto) 22.3 Boundary % (Auto) 7.7 Eos % (Auto) 1.4 Baso % (Auto) 0.3 Lymph # (Auto) 1.8 Boundary # (Auto) 0.6 Eos # (Auto) 0.1 Baso # (Auto) 0.0 Abs Immat Gran (auto) 0.03 Absolute Neuts (auto) 5.4 Absolute Nucleated RBC 0.000 Nucleated RBC % (auto) 0.0 PT INR Sodium Potassium Chloride Carbon Dioxide Anion Gap BUN Creatinine Estim Creat Clear Calc Estimated GFR POC Glucose 138 H Random Glucose Fasting Glucose Estimat Average Glucose Hemoglobin A1c % Calcium Total Bilirubin Direct Bilirubin AST ALT Alkaline Phosphatase Total Protein Albumin Lipase Phenytoin 17.1 COVID-19 (SHAWN) COVID-19 Best Bid Com 12/17/20 12/17/20 12/18/20 20:32 23:11 05:59 WBC 21.5 H RBC 4.20 L Hgb 12.8 L Hct 39.9 L MCV 95.0 MCH 30.5 MCHC 32.1 RDW 12.4 Plt Count 172 MPV 11.2 Immature Gran % (Auto) Neut % (Auto) Lymph % (Auto) Boundary % (Auto) Eos % (Auto) Baso % (Auto) Lymph # (Auto) Boundary # (Auto) Eos # (Auto) Baso # (Auto) Abs Immat Gran (auto) Absolute Neuts (auto) Absolute Nucleated RBC 0.000 Nucleated RBC % (auto) 0.0 PT INR Sodium Potassium Chloride Carbon Dioxide Anion Gap BUN Creatinine Estim Creat Clear Calc Estimated GFR POC Glucose 127 H 133 H Random Glucose Fasting Glucose Estimat Average Glucose Hemoglobin A1c % Calcium Total Bilirubin Direct Bilirubin AST ALT Alkaline Phosphatase Total Protein Albumin Lipase Phenytoin COVID-19 (SHAWN) COVID-19 Ahandyhand 12/18/20 12/18/20 12/18/20 05:59 05:59 06:04 WBC RBC Hgb Hct MCV MCH MCHC RDW Plt Count MPV Immature Gran % (Auto) Neut % (Auto) Lymph % (Auto) Boundary % (Auto) Eos % (Auto) Baso % (Auto) Lymph # (Auto) Boundary # (Auto) Eos # (Auto) Baso # (Auto) Abs Immat Gran (auto) Absolute Neuts (auto) Absolute Nucleated RBC Nucleated RBC % (auto) PT INR Sodium 139 Potassium 3.5 D Chloride 102 Carbon Dioxide 29 Anion Gap 12 BUN 10 Creatinine 0.58 Estim Creat Clear Calc 150.7 Estimated GFR > 60 POC Glucose 115 Random Glucose Fasting Glucose 109 H Estimat Average Glucose 143 Hemoglobin A1c % 6.6 Calcium 8.1 L Total Bilirubin 0.6 Direct Bilirubin 0.6 H AST 36 ALT 40 Alkaline Phosphatase 81 Total Protein 6.8 Albumin 3.3 L Lipase Phenytoin COVID-19 (SHAWN) COVID-19 Ahandyhand 12/18/20 12/18/20 12/18/20 11:28 17:38 20:41 WBC RBC Hgb Hct MCV MCH MCHC RDW Plt Count MPV Immature Gran % (Auto) Neut % (Auto) Lymph % (Auto) Boundary % (Auto) Eos % (Auto) Baso % (Auto) Lymph # (Auto) Boundary # (Auto) Eos # (Auto) Baso # (Auto) Abs Immat Gran (auto) Absolute Neuts (auto) Absolute Nucleated RBC Nucleated RBC % (auto) PT INR Sodium Potassium Chloride Carbon Dioxide Anion Gap BUN Creatinine Estim Creat Clear Calc Estimated GFR POC Glucose 71 75 82 Random Glucose Fasting Glucose Estimat Average Glucose Hemoglobin A1c % Calcium Total Bilirubin Direct Bilirubin AST ALT Alkaline Phosphatase Total Protein Albumin Lipase Phenytoin COVID-19 (SHAWN) COVID-19 Ahandyhand 12/19/20 12/19/20 12/19/20 00:14 05:32 09:11 WBC 11.5 H RBC 4.02 L Hgb 12.5 L Hct 37.9 L MCV 94.3 MCH 31.1 MCHC 33.0 RDW 12.3 Plt Count 155 L MPV 10.4 Immature Gran % (Auto) 0.3 Neut % (Auto) 71.2 Lymph % (Auto) 17.3 L Boundary % (Auto) 9.1 Eos % (Auto) 2.0 Baso % (Auto) 0.1 Lymph # (Auto) 2.0 Boundary # (Auto) 1.1 Eos # (Auto) 0.2 Baso # (Auto) 0.0 Abs Immat Gran (auto) 0.04 H Absolute Neuts (auto) 8.2 Absolute Nucleated RBC 0.000 Nucleated RBC % (auto) 0.0 PT INR Sodium Potassium Chloride Carbon Dioxide Anion Gap BUN Creatinine Estim Creat Clear Calc Estimated GFR POC Glucose 87 97 Random Glucose Fasting Glucose Estimat Average Glucose Hemoglobin A1c % Calcium Total Bilirubin Direct Bilirubin AST ALT Alkaline Phosphatase Total Protein Albumin Lipase Phenytoin COVID-19 (SHAWN) COVID-19 Ahandyhand 12/19/20 12/19/20 12/19/20 11:18 12:18 12:57 WBC RBC Hgb Hct MCV MCH MCHC RDW Plt Count MPV Immature Gran % (Auto) Neut % (Auto) Lymph % (Auto) Boundary % (Auto) Eos % (Auto) Baso % (Auto) Lymph # (Auto) Boundary # (Auto) Eos # (Auto) Baso # (Auto) Abs Immat Gran (auto) Absolute Neuts (auto) Absolute Nucleated RBC Nucleated RBC % (auto) PT INR Sodium Potassium Chloride Carbon Dioxide Anion Gap BUN Creatinine Estim Creat Clear Calc Estimated GFR POC Glucose 68 65 73 Random Glucose Fasting Glucose Estimat Average Glucose Hemoglobin A1c % Calcium Total Bilirubin Direct Bilirubin AST ALT Alkaline Phosphatase Total Protein Albumin Lipase Phenytoin COVID-19 (SHAWN) COVID-19 Clin Com 12/19/20 12/20/20 12/20/20 16:56 00:10 05:54 WBC RBC Hgb Hct MCV MCH MCHC RDW Plt Count MPV Immature Gran % (Auto) Neut % (Auto) Lymph % (Auto) Boundary % (Auto) Eos % (Auto) Baso % (Auto) Lymph # (Auto) Boundary # (Auto) Eos # (Auto) Baso # (Auto) Abs Immat Gran (auto) Absolute Neuts (auto) Absolute Nucleated RBC Nucleated RBC % (auto) PT INR Sodium Potassium Chloride Carbon Dioxide Anion Gap BUN Creatinine Estim Creat Clear Calc Estimated GFR POC Glucose 118 H 203 H 134 H Random Glucose Fasting Glucose Estimat Average Glucose Hemoglobin A1c % Calcium Total Bilirubin Direct Bilirubin AST ALT Alkaline Phosphatase Total Protein Albumin Lipase Phenytoin COVID-19 (SHAWN) COVID-19 Clin Com 12/20/20 12/20/20 12/20/20 11:50 16:33 21:06 WBC RBC Hgb Hct MCV MCH MCHC RDW Plt Count MPV Immature Gran % (Auto) Neut % (Auto) Lymph % (Auto) Boundary % (Auto) Eos % (Auto) Baso % (Auto) Lymph # (Auto) Boundary # (Auto) Eos # (Auto) Baso # (Auto) Abs Immat Gran (auto) Absolute Neuts (auto) Absolute Nucleated RBC Nucleated RBC % (auto) PT INR Sodium Potassium Chloride Carbon Dioxide Anion Gap BUN Creatinine Estim Creat Clear Calc Estimated GFR POC Glucose 252 H 213 H 112 Random Glucose Fasting Glucose Estimat Average Glucose Hemoglobin A1c % Calcium Total Bilirubin Direct Bilirubin AST ALT Alkaline Phosphatase Total Protein Albumin Lipase Phenytoin COVID-19 (SHAWN) COVID-19 Ahandyhand 12/21/20 12/21/20 12/21/20 06:08 06:08 07:28 WBC 8.1 RBC 3.86 L Hgb 11.5 L Hct 36.3 L MCV 94.0 MCH 29.8 MCHC 31.7 RDW 12.1 Plt Count 200 D MPV 10.7 Immature Gran % (Auto) Neut % (Auto) Lymph % (Auto) Boundary % (Auto) Eos % (Auto) Baso % (Auto) Lymph # (Auto) Boundary # (Auto) Eos # (Auto) Baso # (Auto) Abs Immat Gran (auto) Absolute Neuts (auto) Absolute Nucleated RBC 0.000 Nucleated RBC % (auto) 0.0 PT INR Sodium 137 Potassium 3.8 Chloride 104 Carbon Dioxide 28 Anion Gap 9 L BUN 5 L Creatinine 0.63 Estim Creat Clear Calc 138.7 Estimated GFR > 60 POC Glucose 173 H Random Glucose Fasting Glucose 147 H Estimat Average Glucose Hemoglobin A1c % Calcium 7.9 L Total Bilirubin Direct Bilirubin AST ALT Alkaline Phosphatase Total Protein Albumin Lipase Phenytoin COVID-19 (SHAWN) COVID-19 Ahandyhand 12/21/20 11:21 WBC RBC Hgb Hct MCV MCH MCHC RDW Plt Count MPV Immature Gran % (Auto) Neut % (Auto) Lymph % (Auto) Boundary % (Auto) Eos % (Auto) Baso % (Auto) Lymph # (Auto) Boundary # (Auto) Eos # (Auto) Baso # (Auto) Abs Immat Gran (auto) Absolute Neuts (auto) Absolute Nucleated RBC Nucleated RBC % (auto) PT INR Sodium Potassium Chloride Carbon Dioxide Anion Gap BUN Creatinine Estim Creat Clear Calc Estimated GFR POC Glucose 189 H Random Glucose Fasting Glucose Estimat Average Glucose Hemoglobin A1c % Calcium Total Bilirubin Direct Bilirubin AST ALT Alkaline Phosphatase Total Protein Albumin Lipase Phenytoin COVID-19 (SHAWN) COVID-19 Best Bid Com Discharge Plan Discharge Patient Disposition: Home Health Service Referrals: Nicole [Outside] Shima Romo MD [Physician] - (prn follow up) Physician,Unknown [Primary Care Provider] - Discharge Medications: New amoxicillin-pot clavulanate [Augmentin] 875-125 mg tablet 1 tab PO Q12H Qty: 10 RF: 0 Continued cyclobenzaprine 5 mg tablet 5 mg PO Q8H Qty: 84 RF: 3 omeprazole 20 mg capsule,delayed release(DR/EC) 20 mg PO DAILY Qty: 28 RF: 3 valsartan-hydrochlorothiazide 320-25 mg tablet 0.5 tab PO DAILY 30 Days Qty: 15 RF: 6 magnesium oxide 400 mg (241.3 mg magnesium) tablet 400 mg PO QAM Qty: 28 RF: 5 amitriptyline 25 mg tablet 25 mg PO BEDTIME Qty: 28 RF: 5 metoprolol tartrate 100 mg tablet 100 mg PO BID RF: 0 magnesium hydroxide [Milk of Magnesia] 400 mg/5 mL suspension 30 ml PO DAILY 90 Days Qty: 3000 RF: 1 aspirin [Adult Aspirin Regimen] 81 mg tablet,delayed release (DR/EC) 81 mg PO DAILY RF: 0 spironolactone 25 mg tablet 25 mg PO DAILY Qty: 28 RF: 3 folic acid 1 mg Tablet 1 mg PO BEDTIME RF: 0 guanfacine 2 mg Tablet 2 mg PO DAILY RF: 0 lamotrigine [Lamictal] 100 mg Tablet 100 mg PO DAILY RF: 0 artificial tears with lanolin Ointment 1 applic OPHTHALMIC (EYE) DAILY RF: 0 levetiracetam 1,000 mg Tablet 1,500 mg PO BID RF: 0 phenytoin 50 mg Tablet,Chewable 200 mg PO BEDTIME RF: 0 Ponaris Solution 1 applic INTRANASAL BID RF: 0 lorazepam [Ativan] 2 mg tablet 2 mg PO DAILY PRN (Reason: Anxiety) RF: 0 lamotrigine 150 mg Tablet 150 mg PO BEDTIME RF: 0 ketoconazole 2 % Cream 1 appl TOPICAL DAILY PRN (Reason: rash ) RF: 0 alum-mag hydroxide-simeth 200-200-20 mg/5 mL Suspension 30 ml PO TID RF: 0 naproxen 500 mg Tablet 500 mg PO BID PRN (Reason: Pain (Scale Score 4-6)) RF: 0 risperidone [Risperdal] 0.5 mg Tablet 1.5 mg PO DAILY RF: 0 (DME) pen needle, diabetic [BD Ultra-Fine Helene Pen Needle] 32 gauge x 5/32 needle See Rx Instructions .ROUTE .MEDSUPPLY Qty: 50 RF: 3 phenytoin 50 mg tablet,chewable 150 mg PO DAILY 90 Days Qty: 270 RF: 1 gabapentin 600 mg tablet 600 mg PO TID 90 Days Qty: 270 RF: 2 (DME) ReliOn Prime Test Strips Strip See Rx Instructions .ROUTE .MEDSUPPLY Qty: 100 RF: 11 (DME) lancets [Safety Lancets] 26 gauge misc See Rx Instructions .ROUTE .MEDSUPPLY Qty: 100 RF: 11 Trulicity 0.75 mg/0.5 mL pen injector 0.75 mg SUBCUT QWEEK Qty: 2 RF: 3 Tresiba FlexTouch U-200 200 unit/mL (3 mL) insulin pen 56 unit subcut DAILY 30 Days Qty: 9 RF: 3 metformin 500 mg tablet extended release 24 hr 500 mg PO BID Qty: 60 RF: 3 Discharge Orders: Discharge Order (Routine); Ordered 12/21/20 Ordered By: Shima Romo Diet: diabetic diet Activity on Discharge: As tolerated Patient Instructions: Pneumonia (DC) Stand Alone Forms: Patient Portal Discharge page Care Plan Goals: Resolution of pneumonia, return to usual activities Health Concerns: Aspiration pneumonia, diabetes mellitus type 2, seizure disorder, bipolar disorder, hypertension, history of CVA with left hemiparesis Plan of Treatment: Antibiotics, continue usual medication regimen
[2020-12-21] MEDS: Omeprazole 20 MG CAPSULE.DR PO (12:48)
[2020-12-21] MEDS: Spironolactone 25 MG TABLET PO (12:48)
[2020-12-21] MEDS: Amoxicillin/Potassium Clav 875 MG TABLET PO (12:48)
--- NOTE | 2020-12-21 13:04 | MHC.CM.PN ---
spoke c hugo at [facility] - ph: [phone], pt will dc tomorrow p am dose of po abx. this is d/t [facility] using a pharmacy in [place] that cannot deliver new meds until 12 noon tomorrow. pt will use van for [place] to [place] tomorrow am. is aware of this situation. cm to cont. to follow.
--- NOTE | 2020-12-21 13:53 | HO.PM.IMPN ---
Subjective Subjective Date of Service: 12/21/20 Interval History: Pneumonia Review of Systems Seems to be feeling better, denies any chest or shortness of breath Said he had passed bowel movement yesterday Physical Exam Vital Signs: Vital Signs: Last Vital Signs Temp 97.5 F 12/21/20 12:00 Pulse 78 12/21/20 12:00 Resp 20 12/21/20 12:00 BP 161/83 H 12/21/20 12:00 Pulse Ox 95 12/21/20 12:00 Body Mass Index 32.8 Physical exam: Constitutional: Not in acute distress. Cvs: rrr, [id number] , no murmur res: grossly good air entry, no rales or wheezing. abd: no rebound or guarding ,slightly firm,bs present. ext pulses present , no cyanosis neuro: axo3 , nonfocal. Objective Data Current Medications Generic Name Dose Route Start Last Admin Trade Name Freq PRN Reason Stop Dose Admin Acetaminophen 650 mg 12/17/20 18:15 Acetaminophen 325 Mg Tablet PO Q6H PRN Fever Amitriptyline HCl 25 mg 12/17/20 21:00 12/20/20 22:12 Amitriptyline Hcl 25 Mg Tablet PO 25 mg BEDTIME JESSICA Administration Amoxicillin/Clavulanate Potassium 875 mg 12/22/20 01:00 Amoxicillin/Potassium Clav 875 Mg Tablet PO Q12H JESSICA Artificial Tears 1 drop 12/18/20 09:00 12/21/20 08:42 Artificial Tears 15 Ml Drops EYE-BOTH 1 drop DAILY JESSICA Administration Gabapentin 600 mg 12/17/20 21:00 12/21/20 08:41 Gabapentin 600 Mg Tablet PO 600 mg TID JESSICA Administration Insulin Human Lispro 0 unit 12/20/20 16:30 12/21/20 11:52 Insulin Lispro 100 Unit/Ml 3 Ml Vial SUBCUT Not Given QIDACHS [facility] Protocol Lamotrigine 150 mg 12/19/20 21:00 12/20/20 22:14 Lamotrigine 100 Mg Tablet PO 150 mg BEDTIME JESSICA Administration Lamotrigine 100 mg 12/20/20 09:00 12/21/20 08:41 Lamotrigine 100 Mg Tablet PO 100 mg DAILY JESSICA Administration Levetiracetam 1,500 mg 12/20/20 21:00 12/21/20 08:40 Levetiracetam 500 Mg Tablet PO 1,500 mg BID JESSICA Administration Lorazepam 1 mg 12/17/20 17:34 Lorazepam 2 Mg/Ml Vial IVPUSH BID PRN Anxiety Metformin HCl 500 mg 12/21/20 21:00 Metformin Hcl Er 500 Mg Tab.Er.24h PO BID JESSICA Metoprolol Tartrate 100 mg 12/17/20 21:00 12/21/20 08:41 Metoprolol Tartrate 100 Mg Tablet PO 100 mg BID JESSICA Administration Protocol Multi-Ingred Medicated Throat [place] 1 spray 12/18/20 18:45 12/19/20 09:57 Throat [place], Medicated 20 Ml Bottle MUCOUS MEM 1 spray Q2H PRN Administration Sore Throat Non-Formulary Medication 2 mg 12/18/20 09:00 Guanfacine PO DAILY JESSICA Omeprazole 20 mg 12/21/20 11:45 12/21/20 12:48 Omeprazole 20 Mg Capsule.Dr PO 20 mg DAILY JESSICA Administration Ondansetron HCl 4 mg 12/17/20 18:15 Ondansetron Hcl 4 Mg/2 Ml Vial IVPUSH Q8H PRN Nausea Phenytoin 200 mg 12/17/20 21:00 12/20/20 22:13 Phenytoin Chewable 50 Mg Tab.Chew PO 200 mg BEDTIME JESSICA Administration Phenytoin 150 mg 12/18/20 09:00 12/21/20 08:41 Phenytoin Chewable 50 Mg Tab.Chew PO 150 mg DAILY JESSICA Administration Risperidone 1.5 mg 12/20/20 09:00 12/21/20 08:41 Risperidone 0.5 Mg Tablet PO 1.5 mg DAILY JESSICA Administration Spironolactone 25 mg 12/21/20 11:45 12/21/20 12:48 Spironolactone 25 Mg Tablet PO 25 mg DAILY JESSICA Administration Protocol Valsartan 320 mg 12/18/20 09:00 12/21/20 08:40 Valsartan 320 Mg Tablet PO 320 mg DAILY [facility] Administration Protocol Labs CBC & Chem 7: 12/21/20 06:08 12/21/20 06:08 Assessment and Plan (1) Gastrointestinal dysmotility: Status: Acute (2) Seizure disorder: Status: Acute (3) Type 2 diabetes mellitus with diabetic polyneuropathy: Status: Acute (4) Large bowel obstruction: Status: Acute (5) Aspiration pneumonia: Problem details: Improving with treatment. Will complete a course of antibiotics, Augmentin 875 mg b.i.d. for 5 days, on outpatient basis Status: Acute Assessment and Plan: 1.Large bowel obstruction versus intestinal dysmotility: ? secondary to stricture. As per surgery- Flexible sigmoidoscopy is planned for further evaluation. intially nausea, vomiting and loose stool and CT findings suggestive of sigmoid stricture. Incomplete colonoscopy done through left colon - There was no evidence of stricture or mass lesion. further management as per surgery and GI. advance to diabetic diet. 2.Pneumonia: Patchy infiltrates seen on post NG tube insertion film. The patient is asymptomatic other than a cough, but white blood count is elevated. White count normalized, no fever Continue Zosyn-may switched to Augmentin upon discharge. 3.Seizure disorder: On routine medication regimen 4.Diabetes mellitus: fs improving continue fs with sliding scale coverage. Will sign off now please call us for any questions.
[2020-12-21 16:15] LABS: Glucose, Whole Blood 127 mg/dL (60-115)
[2020-12-21 20:33] LABS: Glucose, Whole Blood 197 mg/dL (60-115)
[2020-12-21] MEDS: Amitriptyline HCl 25 MG TABLET PO (21:51)
[2020-12-21] MEDS: lamoTRIgine 100 MG TABLET 150 MG PO (21:51)
[2020-12-21] MEDS: Phenytoin Chewable 50 MG TAB.CHEW 200 MG PO (21:51)
[2020-12-21] MEDS: metFORMIN HCl ER 500 MG TAB.ER.24H PO (21:53)
[2020-12-22] VITALS (7 sets, daily range): BP systolic 127–162; BP diastolic 62–75; PULSE 60–74; RESP 18–20; TEMP 36.6–36.8; O2SAT 95–100
[2020-12-22] MEDS: Amoxicillin/Potassium Clav 875 MG TABLET PO ×2 (01:07→12:48)
[2020-12-22 07:36] LABS: Glucose, Whole Blood 155 mg/dL (60-115)
--- NOTE | 2020-12-22 08:51 | PM.PNGS ---
Subjective Subjective Date of Service: 12/22/20 Interval history: Feels well generally. Still has a productive cough. No shortness of breath. No abdominal pain. Tolerating solid diet. Passing flatus today. Last bowel movement yesterday. Physical Exam Vital Signs: Vital Signs: Last Vital Signs Temp 97.9 F 12/22/20 08:00 Pulse 72 12/22/20 08:00 Resp 18 12/22/20 08:00 BP 140/62 H 12/22/20 08:00 Pulse Ox 96 12/22/20 08:00 Body Mass Index 32.8 Const: General: comfortable and alert GI: Other: Round, somewhat firm, active bowel sounds, no tenderness Progress Note: A&P Assessment and plan (1) Nausea and vomiting: Problem details: Admitted with nausea vomiting and diarrhea. Resolved. Status: Acute Assessment and Plan: Continue diabetic diet (2) Abdominal distension (gaseous): Problem details: History of enlarging abdomen, likely secondary to weight gain Status: Acute Assessment and Plan: Monitor at home. Follow-up with Gastroenterology if worsening. (3) Aspiration pneumonia: Problem details: Improving with treatment. Will complete a course of antibiotics, Augmentin 875 mg b.i.d. for 5 days, on outpatient basis Status: Acute Assessment and Plan: Discharge home today. Fall Risk Details Current Medications: Current Medications Generic Name Dose Route Start Last Admin Trade Name Freq PRN Reason Stop Dose Admin Acetaminophen 650 mg 12/17/20 18:15 Acetaminophen 325 Mg Tablet PO Q6H PRN Fever Amitriptyline HCl 25 mg 12/17/20 21:00 12/21/20 21:51 Amitriptyline Hcl 25 Mg Tablet PO 25 mg BEDTIME JESSICA Administration Amoxicillin/Clavulanate Potassium 875 mg 12/22/20 01:00 12/22/20 01:07 Amoxicillin/Potassium Clav 875 Mg Tablet PO 875 mg Q12H JESSCIA Administration Artificial Tears 1 drop 12/18/20 09:00 12/21/20 08:42 Artificial Tears 15 Ml Drops EYE-BOTH 1 drop DAILY JESSICA Administration Gabapentin 600 mg 12/17/20 21:00 12/21/20 21:53 Gabapentin 600 Mg Tablet PO 600 mg TID JESSICA Administration Insulin Human Lispro 0 unit 12/20/20 16:30 12/22/20 08:00 Insulin Lispro 100 Unit/Ml 3 Ml Vial SUBCUT Not Given QIDACHS [facility] Protocol Lamotrigine 150 mg 12/19/20 21:00 12/21/20 21:51 Lamotrigine 100 Mg Tablet PO 150 mg BEDTIME JESSICA Administration Lamotrigine 100 mg 12/20/20 09:00 12/21/20 08:41 Lamotrigine 100 Mg Tablet PO 100 mg DAILY JESSICA Administration Levetiracetam 1,500 mg 12/20/20 21:00 12/21/20 21:52 Levetiracetam 500 Mg Tablet PO 1,500 mg BID JESSICA Administration Lorazepam 1 mg 12/17/20 17:34 Lorazepam 2 Mg/Ml Vial IVPUSH BID PRN Anxiety Metformin HCl 500 mg 12/21/20 21:00 12/21/20 21:53 Metformin Hcl Er 500 Mg Tab.Er.24h PO 500 mg BID JESSICA Administration Metoprolol Tartrate 100 mg 12/17/20 21:00 12/21/20 21:53 Metoprolol Tartrate 100 Mg Tablet PO 100 mg BID [facility] Administration Protocol Multi-Ingred Medicated Throat [place] 1 spray 12/18/20 18:45 12/19/20 09:57 Throat [place], Medicated 20 Ml Bottle MUCOUS MEM 1 spray Q2H PRN Administration Sore Throat Non-Formulary Medication 2 mg 12/18/20 09:00 Guanfacine PO DAILY [facility] Omeprazole 20 mg 12/21/20 11:45 12/21/20 12:48 Omeprazole 20 Mg Capsule.Dr PO 20 mg DAILY JESSICA Administration Ondansetron HCl 4 mg 12/17/20 18:15 Ondansetron Hcl 4 Mg/2 Ml Vial IVPUSH Q8H PRN Nausea Phenytoin 200 mg 12/17/20 21:00 12/21/20 21:51 Phenytoin Chewable 50 Mg Tab.Chew PO 200 mg BEDTIME JESSICA Administration Phenytoin 150 mg 12/18/20 09:00 12/21/20 08:41 Phenytoin Chewable 50 Mg Tab.Chew PO 150 mg DAILY JESSICA Administration Risperidone 1.5 mg 12/20/20 09:00 12/21/20 08:41 Risperidone 0.5 Mg Tablet PO 1.5 mg DAILY JESSICA Administration Spironolactone 25 mg 12/21/20 11:45 12/21/20 12:48 Spironolactone 25 Mg Tablet PO 25 mg DAILY JESSICA Administration Protocol Valsartan 320 mg 12/18/20 09:00 12/21/20 08:40 Valsartan 320 Mg Tablet PO 320 mg DAILY JESSICA Administration Protocol Time Spent With Patient Time: Total time spent is greater than 50% in coordination of care (as documented) at patient's floor/unit and/or counseling patient: Time with patient: less than 15 minutes
[2020-12-22] MEDS: risperiDONE 0.5 MG TABLET 1.5 MG PO (09:01)
[2020-12-22] MEDS: levETIRAcetam 500 MG TABLET 1500 MG PO (09:01)
[2020-12-22] MEDS: metFORMIN HCl ER 500 MG TAB.ER.24H PO (09:02)
[2020-12-22] MEDS: Valsartan 320 MG TABLET PO (09:02)
[2020-12-22] MEDS: Metoprolol Tartrate 100 MG TABLET PO (09:02)
[2020-12-22] MEDS: lamoTRIgine 100 MG TABLET PO (09:02)
[2020-12-22] MEDS: Omeprazole 20 MG CAPSULE.DR PO (09:02)
[2020-12-22] MEDS: Phenytoin Chewable 50 MG TAB.CHEW 150 MG PO (09:02)
[2020-12-22] MEDS: Gabapentin 600 MG TABLET PO (09:03)
[2020-12-22] MEDS: Spironolactone 25 MG TABLET PO (09:03)
[2020-12-22] MEDS: Artificial Tears 15 ML DROPS 1 DROP EYE-BOTH (09:03)
--- NOTE | 2020-12-22 10:07 | MHC.CM.PN ---
Addendum entered by Keke Chase 12/22/20 10:51: [facility] NOTIFIED, AND DC SUMMARY SENT TO THEM, VIA [employer] Original Note: PT BEING DISCHARGED BACK TO [facility] TODAY WITH RESUMPTION OF [facility]. [facility] CONTACTED CHRISTIANO ([phone]) DIRECTOR OF [facility] WHO REPORTED BEING AWARE OF DC. HE REPORTS THEY WILL NEED PROVIDER ORDER FORMS SIGNED BY MD RETURNED TO THE [facility] ALONG WITH PTS DC SUMMARY. [facility] HAS ORDER FORMS AND WILL INFORM MD. PT WILL BE TRANSPORTED [facility] AT 1100 HOURS.
[2020-12-22 11:23] LABS: Glucose, Whole Blood 174 mg/dL (60-115)
== END 2020-12-22 13:57 | disposition home health service (06) | DRG 178 ==
LOC: HO.ED 16:37 → HO.EDOVER 17:39 → HO.S3 12-18 20:00
PROVIDERS: Internal Medicine; Physician Assistant Surgical; Admitting Provider Surgery; Emergency Provider Emergency Medicine Emergency Medical Services; PCP Physician Assistant; Visit Provider Surgery
PROC: 0DJD8ZZ Inspection of Lower Intestinal Tract, Via Natural or Artificial Opening Endoscopic (ICD-10-PCS; CPT 45330; principal; 2020-12-19 13:00)
DX: J69.0 Pneumonitis due to inhalation of food and vomit (principal); F31.62 Bipolar disorder, current episode mixed, moderate; I69.954 Hemiplegia and hemiparesis following unspecified cerebrovascular disease affecting left non-dominant side; E11.42 Type 2 diabetes mellitus with diabetic polyneuropathy; E11.649 Type 2 diabetes mellitus with hypoglycemia without coma; B18.2 Chronic viral hepatitis C; K59.09 Other constipation; G40.909 Epilepsy, unspecified, not intractable, without status epilepticus; Z20.822 Contact with and (suspected) exposure to COVID-19; Z88.5 Allergy status to narcotic agent; Z79.4 Long term (current) use of insulin; Z79.82 Long term (current) use of aspirin; Z79.899 Other long term (current) drug therapy
CPT/HCPCS: 36415; 71045; 74018; 74177; 80048; 80076; 80185; 82947; 83036; 83690; 85025; 85027; 85610; 87635; 93005; 96361; 96374; 99285; J1100; J1953; J2250; J2405; J2543; J3010; Q9967

== ENCOUNTER → 2021-01-05 14:46 | Outpatient (BNVA) | payer MEDICARE, MEDICAID, SELFPAY | PROVIDERS: PCP Physician Assistant; Visit Provider Internal Medicine Gastroenterology | CPT/HCPCS: 99212 ==

== ENCOUNTER 2021-01-23 19:34 | Outpatient (REF) | payer MEDICARE, MEDICAID, SELFPAY | END 2021-01-23 19:35 | disposition home or self-care (01) | LOC: HO.LNP 19:34 | PROVIDERS: Visit Provider Physician Assistant | DX: J02.9 Acute pharyngitis, unspecified (principal) | CPT/HCPCS: 87071 ==

== ENCOUNTER 2021-01-27 10:42 | Day surgery (SDC) | payer MEDICARE, MEDICAID, SELFPAY ==
[2021-01-24 09:55] VITALS: BMI 31.0
--- NOTE | 2021-01-25 15:07 | HO.ANESPROP2 ---
Documented by User: Anastacia Garcia 01/25/21 15:14 HPI - Anesthesia Eval Consult details Narrative: 65yo M for Upper Endoscopy and Colonoscopy s/p flex sig with GA-ETT with glidescope d/t risk of aspiration... (pt was admitted with n/v/abd distention x 48hrs, stricture was r/o) [facility] Active Problems Active Problems: All Active Problems (Updated 01/24/21 @ 09:55 by Raya Pack) Chronic active hepatitis C (Acute) Annual physical exam (Acute) Constipation (Acute) Seizure disorder (Acute) Obstructive sleep apnea (Acute) Aspiration pneumonia (Acute) Incontinence of urine (Acute) CVA (cerebral vascular accident) (Acute) Balance disorder (Acute) Abdominal bloating (Acute) Dysphagia (Acute) Contracture of muscle, left forearm (Acute) Esophageal thrush (Acute) ROSALINE (generalized anxiety disorder) (Acute) Pharyngitis (Acute) Type 2 diabetes mellitus with diabetic polyneuropathy (Acute) Essential hypertension (Acute) Bipolar disorder (Acute) Past Medical History Medical History (Updated 01/25/21 @ 15:14 by Anastacia Garcia) Abnormal colonoscopy Anxiety Arm pain, left Bipolar disorder Chronic active hepatitis C Conversion disorder CVA (cerebral vascular accident) Dysphagia Essential hypertension GERD (gastroesophageal reflux disease) HTN (hypertension) Obstructive sleep apnea Psychotic disorder Seizure Type 2 diabetes mellitus with diabetic polyneuropathy Family History Family History Sister Breast cancer in situ Surgical History Surgical History Hx of cholecystectomy Hx of colonoscopy Hx of surgical biopsy Social History Social History Household Members: Other Housing: Other Housing Other:: Skilled Nursing Are you a primary care provider to a significant other at home: No Alcohol intake: never Smoking Status: Unknown if ever smoked Use of substances other than those prescribed or required for medical reasons: Unknown Advance Directives: No Advance Directives Information Provided: No Advance Directives on File: No service: No Current occupational status: disabled Meds Allergies Allergy/AdvReac Type Severity Reaction Status Date / Time oxycodone [OXYCODONE] Allergy Unknown UNKNOWN Verified 01/23/21 14:39 Phenothiazines Allergy Unknown Unknown Verified 01/23/21 14:39 tetracycline Allergy Unknown Unknown Verified 01/23/21 14:39 tigecycline [TIGECYCLINE] Allergy Unknown UNKNOWN Verified 01/23/21 14:39 Home Medications Medication Instructions Recorded Confirmed Last Taken Type [place] 1 applic INTRANASAL BID 09/13/20 01/24/21 Unknown History artificial tears with lanolin 1 applic OPHTHALMIC (EYE) DAILY 09/13/20 01/24/21 Unknown History folic acid 1 mg PO BEDTIME 09/13/20 01/24/21 Unknown History guanfacine 2 mg PO DAILY 09/13/20 01/24/21 Unknown History lamotrigine [Lamictal] 100 mg PO DAILY@0730 09/13/20 01/23/21 Unknown History phenytoin 200 mg PO BEDTIME 09/13/20 01/24/21 Unknown History metoprolol tartrate 100 mg tablet 100 mg PO BID 11/23/20 01/24/21 Unknown History aspirin 81 mg tablet,delayed 81 mg PO DAILY 12/12/20 01/24/21 Unknown History release ketoconazole 1 appl TOPICAL DAILY PRN 12/17/20 01/24/21 Unknown History lamotrigine 150 mg PO BEDTIME 12/17/20 01/24/21 Unknown History alum-mag hydroxide-simeth 30 ml PO TID 12/19/20 01/24/21 Unknown History naproxen 500 mg PO BID PRN 12/19/20 01/24/21 Unknown History risperidone [Risperdal] 2 mg PO BID 12/19/20 01/24/21 Unknown History levetiracetam 1,000 mg tablet 1,500 mg PO BID 01/05/21 01/24/21 Unknown History lorazepam 2 mg tablet 2 mg PO DAILY tab 01/23/21 01/24/21 Unknown History phenytoin 150 mg PO DAILY@0730 01/24/21 01/24/21 Unknown History Exam Exam Date and Time: January 25, 2021 1507 Height,Weight and Vital Signs: Height 5 ft 9 in Weight 95.254 kg Pertinent Lab Results Pertinent Lab Results: Laboratory Tests 12/21/20 12/21/20 06:08 06:08 WBC 8.1 Hgb 11.5 L Hct 36.3 L Plt Count 200 D Sodium 137 Potassium 3.8 Chloride 104 Carbon Dioxide 28 BUN 5 L Creatinine 0.63 Narrative Narrative: EKG 12/2020 Normal sinus rhythm Normal ECG When compared with ECG of 14-SEP-2020 15:52, No significant change was found Assessment and Plan Assessment Anesthesia Assessment: Chart Reviewed Documented by User: Shannan Dc 01/27/21 12:11 [facility] Past Medical History Medical History (Updated 01/25/21 @ 15:14 by Anastacia Garcia) Abnormal colonoscopy Anxiety Arm pain, left Bipolar disorder Chronic active hepatitis C Conversion disorder CVA (cerebral vascular accident) Dysphagia Essential hypertension GERD (gastroesophageal reflux disease) HTN (hypertension) Obstructive sleep apnea Psychotic disorder Seizure Type 2 diabetes mellitus with diabetic polyneuropathy Family History Family History Sister Breast cancer in situ Surgical History Surgical History Hx of cholecystectomy Hx of colonoscopy Hx of surgical biopsy Social History Social History Household Members: Other Housing: Other Housing Other:: Skilled Nursing Are you a primary care provider to a significant other at home: No Alcohol intake: never Smoking Status: Unknown if ever smoked Use of substances other than those prescribed or required for medical reasons: Unknown Advance Directives: No Advance Directives Information Provided: No Advance Directives on File: No service: No Current occupational status: disabled Meds Allergies Allergy/AdvReac Type Severity Reaction Status Date / Time oxycodone [OXYCODONE] Allergy Unknown UNKNOWN Verified 01/23/21 14:39 Phenothiazines Allergy Unknown Unknown Verified 01/23/21 14:39 tetracycline Allergy Unknown Unknown Verified 01/23/21 14:39 tigecycline [TIGECYCLINE] Allergy Unknown UNKNOWN Verified 01/23/21 14:39 Home Medications Medication Instructions Recorded Confirmed Last Taken Type [place] 1 applic INTRANASAL BID 09/13/20 01/24/21 Unknown History artificial tears with lanolin 1 applic OPHTHALMIC (EYE) DAILY 09/13/20 01/24/21 Unknown History folic acid 1 mg PO BEDTIME 09/13/20 01/24/21 Unknown History guanfacine 2 mg PO DAILY 09/13/20 01/24/21 Unknown History lamotrigine [Lamictal] 100 mg PO DAILY@0730 09/13/20 01/23/21 Unknown History phenytoin 200 mg PO BEDTIME 09/13/20 01/24/21 Unknown History metoprolol tartrate 100 mg tablet 100 mg PO BID 11/23/20 01/24/21 Unknown History aspirin 81 mg tablet,delayed 81 mg PO DAILY 12/12/20 01/24/21 Unknown History release ketoconazole 1 appl TOPICAL DAILY PRN 12/17/20 01/24/21 Unknown History lamotrigine 150 mg PO BEDTIME 12/17/20 01/24/21 Unknown History alum-mag hydroxide-simeth 30 ml PO TID 12/19/20 01/24/21 Unknown History naproxen 500 mg PO BID PRN 12/19/20 01/24/21 Unknown History risperidone [Risperdal] 2 mg PO BID 12/19/20 01/24/21 Unknown History levetiracetam 1,000 mg tablet 1,500 mg PO BID 01/05/21 01/24/21 Unknown History lorazepam 2 mg tablet 2 mg PO DAILY tab 01/23/21 01/24/21 Unknown History phenytoin 150 mg PO DAILY@0730 01/24/21 01/24/21 Unknown History Exam Airway Mallampati Class: II (Caps lateral) TM Dist: >3cm Neck ROM: Full Heart: RRR Lungs: CTA BL Assessment and Plan Assessment Anesthesia Assessment: Anesthesia Plan Discussed and Chart Reviewed Final Anesthetic Review NPO: Yes (Sip water with medicine) ASA Class: III Final Preanesthetic Review: No Changes in Pt Med Stat and Consent Obtained/Reviewed Patient Risk: Intermediate Procedure Risk: Intermediate Anesthetic Plan Anesthetic Plan: MAC: Disposition: Standard PACU
--- NOTE | 2021-01-27 11:29 | W.PM.OPN ---
Operative Note Operative Note Date of Service: 01/27/21 Narrative: Pre-op diagnosis: Colon cancer screening, abdominal bloating, chronic constipation, anemia Post-op diagnosis: Gastritis, poor colon prep Procedure: FLEXIBLE TRANSORAL UPPER GASTROINTESTINAL ENDOSCOPY WITH BIOPSIES AND FLEXIBLE SIGMOIDOSCOPY TILL SIGMOID COLON UPPER ENDOSCOPY Consent: Indications for the procedure and potential complications of bleeding, perforation, reaction to medications and missed diagnosis were discussed with the patient and informed consent was obtained. Instrument: Olympus GIF H 190 mid size upper endoscope Monitoring: Vital signs and clinical assessment, continuous EKG monitoring, Pulse oximetry, Carbon Dioxide monitoring and blood pressure monitoring were done throughout the procedure. Procedure: The patient was placed in the left lateral decubitis position and pre-procedure medications were administered and a bite block was placed. The endoscope was inserted into the mouth and advanced under direct vision to the third part of duodenum. A careful inspection was made as the upper endoscope was withdrawn including a retroflexed examination of the proximal stomach; Findings and interventions are described below. Findings: Larynx: Normal Esophagus: Tortuous esophagus with increased tertiary contractions without stricture or ring. GE junction at 40 cms.. No esophagitis or Dumont's. Stomach: Prominent gastric folds - biopsied. Moderate diffuse gastric erythema. Biopsies were obtained. Grade 2 flap valve on retroflexed examination of the cardia. Duodenum: Normal bulb and descending duodenum. Biopsies were obtained from 3rd part of duodenum to check for celiac sprue Intervention: Biopsies as noted above FLEXIBLE SIGMOIDOSCOPY PROCEDURE NOTE Consent: Indications for the procedure and potential complications of bleeding, perforation, reaction to medications and missed diagnosis were discussed with the patient and informed consent was obtained. Instrument: Olympus PCF H 190 L variable stiffness pediatric colonoscope Monitoring: Vital signs and clinical assessment, intermittent blood pressure monitoring, continuous EKG monitoring, Pulse oximetry and Carbon Dioxide monitoring were done throughout the procedure. Procedure: The patient was placed in the left lateral decubitis position and pre-procedure medications were administered. After a digital rectal examination of the ano-rectum, the video colonoscope was inserted into the rectum and advanced through the colon to 50 cms into the sigmoid colon. It was not possible to advance further due to poor prep and stool blocking the lumen. The colonoscope was slowly withdrawn and procedure was discontinued. Findings and interventions are described below. Procedure Difficulty: : Without difficulty Findings: Sigmoid Colon: Limited evaluation due to poor prep. Rectum: Limited evaluation due to poor prep. Ano-rectum: Digital rectal exam was normal Colon preparation: Poor Impression and Post Procedure Diagnosis: Endoscopy Findings: ESOPHAGUS: Tortuous esophagus with increased tertiary contractions without stricture or ring. GE junction at 40 cms.. No esophagitis or Dumont's. STOMACH: Prominent gastric folds - biopsied. Moderate diffuse gastric erythema. Biopsies were obtained. DUODENUM: Normal - biopsied to check for celiac sprue. Flexible sigmoidoscopy Findings: Limited evaluation due to poor prep - procedure was discontinued. Plan: Await pathology results Patient has an appointment on 02/13/21 in the [facility] with Carmen Austin M.D. Schedule repeat colonoscopy with 2 day prep and Miralax + dulcolax twice daily for 1 week before colonoscopy. Above findings were reviewed with the patient and Gastritis handout was given in the discharge area Surgeon: Carmen Austin MD Anesthesia: MAC (Dr Andrade & Dr Mcpherson) Estimated blood loss (mL): 0 Pathology: other (A. Small bowel, B. Gastric antrum, C. Gastric folds) Condition: stable Disposition: PACU
--- NOTE | 2021-01-27 11:30 | MHC.SHP ---
Pre-Procedural Eval Section A The patient is an INPATIENT: No The History & Physical has been completed within 30 days and I have reviewed it.: Yes Section B Chief Complaint: constipation,hep c Details of Present Illness: colon cancer screening, abdominal bloating, anemia Relevant Family History (Specify if Yes): No Relevant Social History: None Present Medications: see Short Stay Collaborative assessment Medical History: Significant History (Abnormal colonoscopy Anxiety Bipolar disorder Conversion disorder CVA (cerebral vascular accident) Essential hypertension GERD (gastroesophageal reflux disease) HTN (hypertension) Psychotic disorder Seizure Type 2 diabetes mellitus with diabetic polyneuropathy) History of Previous Operations: Relevant previous surgery/procedure and date(s) (Hx of cholecystectomy Hx of colonoscopy Hx of surgical biopsy) Allergies: Allergies Allergy/AdvReac Type Severity Reaction Status Date / Time oxycodone [OXYCODONE] Allergy Unknown UNKNOWN Verified 01/23/21 14:39 Phenothiazines Allergy Unknown Unknown Verified 01/23/21 14:39 tetracycline Allergy Unknown Unknown Verified 01/23/21 14:39 tigecycline [TIGECYCLINE] Allergy Unknown UNKNOWN Verified 01/23/21 14:39 Review of Systems Sugical H&P ROS: Negative: Cardiovascular and Respiratory and Yes, Specify: Neurological (status post CVA) and Gastrointestinal (abdominal bloating) Exam Surgical H&P Exam: Normal: Heart, Normal: Lungs and Normal: Extremities and Significant Findings: Abdomen (distended) Plan Diagnosis/Plan: Unchanged I have reviewed the history and physical and performed a pertinent physical examination on my patient. No changes have occurred unless specified.
[2021-01-27 11:54] LABS: Glucose, Whole Blood 75 mg/dL (60-115)
[2021-01-27 11:56] VITALS: BP 133/82; PULSE 66; RESP 18; TEMP 36.6; O2SAT 98
[2021-01-27] MEDS: Dextrose 5 % 500 ML 10 ML IV (12:13)
[2021-01-27] MEDS: Lactated Ringers 1,000 ML 50 ML IV (12:13)
--- NOTE | 2021-01-27 12:14 | PC.NURSE ---
RN called shelter to verify morning meds taken this AM. Per Evelia, from the shelter, he had all morning medications that were sent over on the paperwork which included his seizure medications around 0800. Evelia also reported patient only had jello throughout the day, no solid foods and that hes with staff 24/06 . Patient A/Ox3 but reported he had full meals yesterday which included chicken sandwich, toast w/ eggs, onion rings. Staff denied giving him anything other than food.
[2021-01-27 12:50] VITALS: BP 122/80; PULSE 64; RESP 16; TEMP 36.3; O2SAT 99
[2021-01-27 12:50] LABS: Glucose, Whole Blood 95 mg/dL (60-115)
--- NOTE | 2021-01-27 12:53 | PC.NURSE ---
POC [address] DR[address] YATES AWARE
[2021-01-27 13:05] VITALS: BP 131/84; PULSE 64; RESP 16; TEMP 36.1; O2SAT 99
== END 2021-01-27 13:50 | disposition home or self-care (01) ==
PROVIDERS: Visit Provider Internal Medicine Gastroenterology
PROC: (CPT 43239; principal; 2021-01-27 12:30)
DX: Z12.11 Encounter for screening for malignant neoplasm of colon (principal); K59.00 Constipation, unspecified; D64.9 Anemia, unspecified; K21.9 Gastro-esophageal reflux disease without esophagitis; K29.50 Unspecified chronic gastritis without bleeding; B18.2 Chronic viral hepatitis C; F31.9 Bipolar disorder, unspecified; G47.33 Obstructive sleep apnea (adult) (pediatric); F44.9 Dissociative and conversion disorder, unspecified; I69.954 Hemiplegia and hemiparesis following unspecified cerebrovascular disease affecting left non-dominant side; I10 Essential (primary) hypertension; E11.42 Type 2 diabetes mellitus with diabetic polyneuropathy; Z79.4 Long term (current) use of insulin; Z79.82 Long term (current) use of aspirin; Z79.899 Other long term (current) drug therapy; Z90.49 Acquired absence of other specified parts of digestive tract; Z88.1 Allergy status to other antibiotic agents; Z88.8 Allergy status to other drugs, medicaments and biological substances
CPT/HCPCS: 43239; G0104; 82947; 88305; 88342

== ENCOUNTER → 2021-02-06 10:42 | Outpatient (BNVA) | payer MEDICARE, MEDICAID, SELFPAY | PROVIDERS: Visit Provider Nurse Practitioner Gerontology | DX: E11.42 Type 2 diabetes mellitus with diabetic polyneuropathy (principal); I10 Essential (primary) hypertension; R60.9 Edema, unspecified; Z79.4 Long term (current) use of insulin; Z71.3 Dietary counseling and surveillance | CPT/HCPCS: 82947; 99212 ==

== ENCOUNTER → 2021-03-13 09:12 | Outpatient (BNVA) | payer MEDICARE, MEDICAID, SELFPAY | PROVIDERS: PCP Physician Assistant; Visit Provider Internal Medicine Gastroenterology | DX: Z13.89 Encounter for screening for other disorder (principal) | CPT/HCPCS: Q3014 ==

== ENCOUNTER 2021-04-06 18:10 | Inpatient (IN) | payer MEDICARE, MEDICAID, SELFPAY ==
--- NOTE | ~2021-04-06 | CT_ITS ---
EXAMINATION: CT ABDOMEN AND PELVIS WITHOUT CONTRAST CLINICAL INFORMATION: Bacteremia. COMPARISON: None TECHNIQUE: Multidetector volumetric imaging was performed from the superior aspect of the liver through the pubic symphysis. Sagittal and coronal reformatted images were obtained on the technologist's workstation. This CT examination was performed using dose optimization techniques as appropriate, variously including the following: *Automated exposure control *Adjustment of mA and/or kV according to patient size (this includes techniques or standardized protocols for targeted exams where dose is matched to indication/reason for exam; i.e. extremities or head) *Use of iterative reconstruction technique DLP: 1017 mGy-cm FINDINGS: LINES AND TUBES: None. LOWER THORAX: Lung bases are clear. Heart is normal in size. No pericardial effusion or thickening. HEPATOBILIARY: Liver is mildly increased in size measuring up to 19 cm craniocaudal. Hepatic attenuation less than 40 Hounsfield units suggesting steatotic changes. No focal hepatic lesions. Lesion in the left lobe of the liver seen on prior 12/17/2020 examination is poorly characterized in the absence of intravenous contrast administration. The gallbladder is surgically absent. No intrahepatic or extra hepatic biliary ductal dilation. SPLEEN: Normal. PANCREAS: Pancreatic parenchyma is normal in attenuation. Main pancreatic duct is normal in caliber. Mild peripancreatic stranding. ADRENALS: Normal. KIDNEYS/URETERS: Kidneys are normal. Ureters are normal throughout their course. No renal, ureteral, or urinary bladder calculi. BLADDER: Normal. PELVIC ORGANS: Prostate seminal vesicles are normal in caliber. GI TRACT: No dilated or thick walled loops of bowel. The appendix is nonvisualized. PERITONEUM/RETROPERITONEUM AND MESENTERY: No intraperitoneal free air or fluid. Nonspecific upper abdominal mesenteric stranding most notable around the pancreas. The pancreatic parenchyma is normal in appearance. LYMPH NODES: Mildly enlarged peripancreatic lymph node measuring up to 1.4 cm (3:25). Smaller nonenlarged peripancreatic lymph nodes are appreciated. Findings are unchanged relative to 12/17/2020 exam. VESSELS: Normal in caliber. BONES AND SOFT TISSUES: No aggressive osseous lesions. CT/CT abdomen pelvis wo con IMPRESSION: No CT explanation for bacteremia. No intra-abdominal collection. No acute small or large bowel pathology. Nonspecific, mildly enlarged peripancreatic lymph nodes, unchanged. Cholecystectomy.
--- NOTE | ~2021-04-06 | XR_ITS ---
EXAMINATION: XR ABDOMEN KUB CLINICAL INDICATION: Fecal impaction COMPARISON: KUB 12/20/2020 TECHNIQUE: AP view of the abdomen. FINDINGS: A large amount of stool is present throughout the colon, significantly more than was seen at the time of the prior 12/20/2020 study The bowel gas pattern is otherwise normal with no evidence of ileus or obstruction. No unusual soft tissue calcifications are noted. The bones are unremarkable. Surgical clips are noted in the gallbladder fossa. XR/XR KUB IMPRESSION: Large stool burden throughout the colon.
[2021-04-06 18:19] VITALS: BP 146/70; BP 156/87; PULSE 110; PULSE 118; RESP 18; TEMP 38.8; O2SAT 94; O2SAT 98; BMI 27.3
--- NOTE | 2021-04-06 18:33 | ED_ITS ---
HPI - Abdominal Pain General Chief Complaint: Abdominal Pain Stated Complaint: abd pain Time Seen by Provider: 04/06/21 18:33 Source: patient Mode of arrival: EMS Limitations: no limitations History of Present Illness HPI narrative: Patient's history of CVA bed-bound from snf came for constipation for last few days did move his bowels today also noticed right leg is swollen more than usual with redness no nausea no vomiting no significant abdominal pain Pertinent past history: constipation Related Data Home Medications Medication Instructions Recorded Confirmed Ponaris 1 applic INTRANASAL BID 09/13/20 03/13/21 artificial tears with lanolin 1 applic OPHTHALMIC (EYE) DAILY 09/13/20 03/13/21 guanfacine 2 mg PO DAILY 09/13/20 03/13/21 lamotrigine [Lamictal] 100 mg PO DAILY@0730 09/13/20 03/13/21 ketoconazole 1 appl TOPICAL DAILY PRN 12/17/20 03/13/21 lamotrigine 150 mg PO BEDTIME 12/17/20 03/13/21 alum-mag hydroxide-simeth 30 ml PO TID 12/19/20 03/13/21 naproxen 500 mg PO BID PRN 12/19/20 03/13/21 levetiracetam 1,000 mg tablet 1,500 mg PO BID 01/05/21 03/13/21 phenytoin 150 mg PO DAILY@0730 01/24/21 03/13/21 valsartan 320 1 tab PO DAILY tab 02/06/21 03/13/21 mg-hydrochlorothiazide 25 mg tablet dextrose 40 % oral gel 15 g PO Q15M PRN 02/15/21 03/13/21 Previous Rx's Medication Instructions Recorded blood sugar diagnostic #100 ea 11/04/20 lancets 26 gauge #100 ea 11/04/20 gabapentin 600 mg tablet 600 mg PO TID 90 Days #270 tab 12/05/20 magnesium hydroxide 400 mg/5 mL 30 ml PO DAILY 90 Days #3000 ml 12/05/20 oral suspension guaifenesin 600 mg tablet, 600 mg PO BID PRN 7 Days #14 tab 12/28/20 extended release 12 hr miscellaneous medical supply 1 ea MISCELLANEOUS ONCE 90 Days #1 12/28/20 ea polyethylene glycol 3350 17 17 g PO BID 30 Days #1020 g 01/05/21 gram/dose oral powder polyethylene glycol 3350 17 17 g PO BID 7 Days #238 g 01/22/21 gram/dose oral powder baclofen 10 mg tablet 10 mg PO BEDTIME PRN 14 Days #14 01/23/21 tab nystatin 100,000 unit/mL oral 3 ml PO DAILY PRN 14 Days #60 ml 01/23/21 suspension bacitracin zinc 500 unit/gram 1 appl TOPICAL DAILY #28.35 g 02/06/21 topical ointment dulaglutide 0.75 mg/0.5 mL 0.75 mg SUBCUT QWEEK #2 ml 02/06/21 subcutaneous pen injector insulin degludec 200 unit/mL (3 46 unit SUBCUT DAILY 30 Days #9 ml 02/06/21 mL) subcutaneous pen lancets 28 gauge #100 ea 02/06/21 omeprazole 20 mg capsule,delayed 20 mg PO DAILY #28 cap 02/06/21 release dextrose 40 % oral gel 15 g PO DIRECTED #112.5 g 02/16/21 aspirin 81 mg tablet,delayed 81 mg PO DAILY 90 Days #90 tab 02/22/21 release blood sugar diagnostic #100 ea 02/22/21 blood-glucose meter #1 ea 02/22/21 cyclobenzaprine 5 mg tablet 5 mg PO Q8H #84 tab 02/22/21 folic acid 1 mg tablet 1 mg PO BEDTIME 90 Days #90 tab 02/22/21 lancets 28 gauge #100 ea 02/22/21 metoprolol tartrate 100 mg tablet 100 mg PO BID 90 Days #180 tab 02/22/21 miscellaneous medical supply 1 ea MISCELLANEOUS DAILY 99 Days 02/22/21 #1 ea spironolactone 25 mg tablet 25 mg PO DAILY 90 Days #90 tab 02/22/21 metformin 500 mg tablet,extended 500 mg PO BID #60 tab 03/06/21 release 24 hr pen needle, diabetic 32 gauge x #50 ea 03/30/21 amitriptyline 25 mg tablet 25 mg PO BEDTIME #28 tab 04/05/21 eucalyptus-peppermint oil in a 1 appl INTRANASAL BID-TID PRN 30 04/05/21 nasal solution Days #30 ml latex gloves #100 ea 04/05/21 loratadine 10 mg capsule 10 mg PO DAILY 30 Days #30 cap 04/05/21 magnesium oxide 400 mg (241.3 mg 400 mg PO QAM #28 tab 04/05/21 magnesium) tablet miscellaneous medical supply 1 ea MISCELLANEOUS .5x 30 Days 04/05/21 #200 ea miscellaneous medical supply 1 ea MISCELLANEOUS DAILY 99 Days 04/05/21 #1000 ea lorazepam 1 mg tablet 1 mg PO Q6H 28 Days #112 tab 04/06/21 lorazepam 2 mg tablet 2 mg PO DAILY 30 Days #30 tab 04/06/21 Allergies Allergy/AdvReac Type Severity Reaction Status Date / Time oxycodone [OXYCODONE] Allergy Unknown UNKNOWN Verified 04/05/21 10:02 Phenothiazines Allergy Unknown Unknown Verified 04/05/21 10:02 tetracycline Allergy Unknown Unknown Verified 04/05/21 10:02 tigecycline [TIGECYCLINE] Allergy Unknown UNKNOWN Verified 04/05/21 10:02 Review of Systems Review of Systems Constitutional : No Weight loss, No Fever, No Chills ENT/Mouth : No sore throat, No Rhinorrhea Eyes: No Eye Pain, No Swelling Cardiovascular : No Chest Pain, no palpitations Respiratory : No Cough, No Sputum, no shortness of breath Gastrointestinal : no Nausea, No Vomiting, No Diarrhea, No abdominal Pain, no black stools Genitourinary : No Dysuria, No Urinary Frequency Musculoskeletal : No joint pain, No Myalgias, No Joint Swelling Skin : No Skin Lesions, No rash Neuro : No Weakness, No Numbness, No Dizziness, No Headache Psych : No Anxiety/Panic, No Depression Heme/Lymph: No Bruising, No Lymphadenopathy Endocrine : No Polyuria, No Polydipsia All other systems reviewed and are negative Physical Exam Vital Signs: Vital Signs: Last Vital Signs Temp 102.8 F H 04/06/21 22:03 Pulse 121 H 04/06/21 22:03 Resp 22 H 04/06/21 22:03 BP 158/80 H 04/06/21 22:03 Pulse Ox 94 04/06/21 22:03 Body Mass Index 27.3 Appearance: Alert. Oriented X3. No acute distress. Febrile to touch Eyes: PERRLA, No Nystagmus ENT: Pharynx normal. Oral Mucosa moist Neck: Normal inspection. Neck supple. CVS: Normal heart rate and rhythm. Pulses normal. Respiratory: No respiratory distress. Equal air entry bilateral, no wheezing/rales/rhonchi Abdomen: Gaseous distension, nontender. Bowel sounds are present, no mass palpable, no CVA tenderness Rectal: Soft brown stool nontender Skin: Skin warm and dry. Normal skin color. Normal skin turgor. Extremities: Bilateral lower extremity edema. Erythema of the right leg from the foot all the way to mid agee, No calf tenderness Neuro: Oriented X 3. Left hemiparesis with contractures of L upper extremity. No sensory deficit.No cerebellar signs , cranial nerves II-XII intact MDM - Abdominal Pain MDM Narrative Medical decision making narrative: Patient with chronic constipation rectal exam revealed only soft stool and patient had bowel movement today KUB x-ray showed increased burden of stool but no obstruction. Patient also has and fever of 102 in the ER with right leg increased swelling with erythema suggestive of cellulitis will give him IV Vanco and Zosyn patient is septic but not in severe sepsis Lab Data Attestation: I reviewed the patient's lab results. Result diagrams: 04/06/21 20:42 04/06/21 20:42 Labs: Lab Results 04/06/21 04/06/21 04/06/21 Range/Units 20:42 20:42 20:42 WBC 15.4 H (4.8-10.8) X10*3/uL RBC 4.05 L (4.60-5.80) X10*6/uL Hgb 12.3 L (14.0-18.0) g/dl Hct 37.7 L (42-52) % MCV 93.1 (80-98) fL MCH 30.4 (27.0-33.0) pg MCHC 32.6 (31.0-36.0) g/dl RDW 12.9 (11.0-16.0) % Plt Count 196 (160-400) X10*3/uL MPV 10.0 (9.4-12.4) fL Immature Gran % (Auto) 0.7 H (0.0-0.4) % Neut % (Auto) 67.7 (45-73) % Lymph % (Auto) 18.4 L (20-40) % [place] % (Auto) 12.4 H (2-11) % Eos % (Auto) 0.7 (0-4) % Baso % (Auto) 0.1 (0-2) % Lymph # (Auto) 2.8 (1.2-4.9) X10*3/uL [place] # (Auto) 1.9 H (0.1-1.2) X10*3/uL Eos # (Auto) 0.1 (0.0-0.4) X10*3/uL Baso # (Auto) 0.0 (0.0-0.2) X10*3/uL Abs Immat Gran (auto) 0.10 H (0.00-0.03) X10*3/uL Absolute Neuts (auto) 10.4 H (2.0-8.3) X10*3/uL Absolute Nucleated RBC 0.000 (0.0-0.012) X10*3/uL Nucleated RBC % (auto) 0.0 (0.0-0.2) /100WBC Smear Tech's Comments VERIFIED Sodium 133 L (135-145) mmol/L Potassium 4.5 (3.3-5.1) mmol/L Chloride 98 (96-108) mmol/L Carbon Dioxide 24 (22-29) mmol/L Anion Gap 16 (12-20) BUN 14 D (9-16) mg/dL Creatinine 0.75 (0.5-1.4) mg/dL Estim Creat Clear Calc 96.2 Estimated GFR > 60 POC Glucose (60-115) mg/dL Random Glucose 283 H D (60-115) mg/dL Lactic Acid 1.9 (0.5-2.0) mmol/L Calcium 8.6 D (8.4-10.2) mg/dL Total Bilirubin 0.7 (0.0-1.0) mg/dL Direct Bilirubin 0.3 (0.0-0.5) mg/dL AST 35 (5-37) U/L ALT 41 H (0-40) U/L Alkaline Phosphatase 94 (39-117) U/L B-Natriuretic Peptide (<100) pg/mL Total Protein 7.9 (6.5-8.0) g/dL Albumin 3.5 (3.5-5.0) g/dL Phenytoin 15.1 (10.0-20.0) ug/mL COVID-19 (SHAWN) (Negative) COVID-19 Clin Com 04/06/21 04/06/2104/06/21 Range/Units 20:42 20:42 22:00 WBC (4.8-10.8) X10*3/uL RBC (4.60-5.80) X10*6/uL Hgb (14.0-18.0) g/dl Hct (42-52) % MCV (80-98) fL MCH (27.0-33.0) pg MCHC (31.0-36.0) g/dl RDW (11.0-16.0) % Plt Count (160-400) X10*3/uL MPV (9.4-12.4) fL Immature Gran % (Auto) (0.0-0.4) % Neut % (Auto) (45-73) % Lymph % (Auto) (20-40) % [place] % (Auto) (2-11) % Eos % (Auto) (0-4) % Baso % (Auto) (0-2) % Lymph # (Auto) (1.2-4.9) X10*3/uL [place] # (Auto) (0.1-1.2) X10*3/uL Eos # (Auto) (0.0-0.4) X10*3/uL Baso # (Auto) (0.0-0.2) X10*3/uL Abs Immat Gran (auto) (0.00-0.03) X10*3/uL Absolute Neuts (auto) (2.0-8.3) X10*3/uL Absolute Nucleated RBC (0.0-0.012) X10*3/uL Nucleated RBC % (auto) (0.0-0.2) /100WBC Smear Tech's Comments Sodium (135-145) mmol/L Potassium (3.3-5.1) mmol/L Chloride (96-108) mmol/L Carbon Dioxide (22-29) mmol/L Anion Gap (12-20) BUN (9-16) mg/dL Creatinine (0.5-1.4) mg/dL Estim Creat Clear Calc Estimated GFR POC Glucose 204 H (60-115) mg/dL Random Glucose (60-115) mg/dL Lactic Acid (0.5-2.0) mmol/L Calcium (8.4-10.2) mg/dL Total Bilirubin (0.0-1.0) mg/dL Direct Bilirubin (0.0-0.5) mg/dL AST (5-37) U/L ALT (0-40) U/L Alkaline Phosphatase (39-117) U/L B-Natriuretic Peptide 29 (<100) pg/mL Total Protein (6.5-8.0) g/dL Albumin (3.5-5.0) g/dL Phenytoin (10.0-20.0) ug/mL COVID-19 (SHAWN) Negative (Negative) COVID-19 Clin Com See Note Discharge Plan Discharge Clinical Impression: Cellulitis of leg, right Constipation Qualifiers: Constipation type: chronic idiopathic constipation Qualified Code(s): K59.04 - Chronic idiopathic constipation Patient Disposition: Admitted As Inpatient [facility] Past Medical History Medical History Abnormal colonoscopy Anxiety Arm pain, left Bipolar disorder Chronic active hepatitis C Conversion disorder CVA (cerebral vascular accident) Dysphagia Essential hypertension GERD (gastroesophageal reflux disease) HTN (hypertension) Obstructive sleep apnea Psychotic disorder Seizure Type 2 diabetes mellitus with diabetic polyneuropathy Surgical History Hx of cholecystectomy Hx of colonoscopy Hx of surgical biopsy Family History Family History Sister Breast cancer in situ Social History Social History Household Members: Other Household Members Other:: Residential Home Housing: Other Alcohol intake: unknown Smoking Status: Unknown if ever smoked Use of substances other than those prescribed or required for medical reasons: No Advance Directives: No Advance Directives Information Provided: Yes service: No Current occupational status: disabled
[2021-04-06 20:07] VITALS: BP 152/73; PULSE 118; RESP 16; TEMP 39.2; O2SAT 95
[2021-04-06] MEDS: bisacodyL 5 MG TABLET.DR 10 MG PO (20:49)
[2021-04-06] MEDS: Piperacillin Sodium/Tazobactam 3.375 GM in 0.9 % Sodium Chloride 50 ML IV (20:49)
[2021-04-06] MEDS: 0.9 % Sodium Chloride 1,000 ML 999 ML IVCONT (20:49)
[2021-04-06] MEDS: Milk of Magnesia 30 ML ORAL.SUSP PO (20:49)
[2021-04-06 20:51] LABS: Basophils Percent Auto 0.1 % (0-2); Eosinophils Absolute Auto 0.1 X10*3/uL (0.0-0.4); Eosinophils Percent Auto 0.7 % (0-4); Hematocrit 37.7 % (42-52); Hemoglobin 12.3 g/dl (14.0-18.0); Imm Gran Pct Auto 0.7 % (0.0-0.4); Lymphocytes Absolute Auto 2.8 X10*3/uL (1.2-4.9); Lymphocytes Percent Auto 18.4 % (20-40); MANUAL DIFF FLAG SCAN; Mean Corpuscular HGB Conc 32.6 g/dl (31.0-36.0); Mean Corpuscular Hemoglobin 30.4 pg (27.0-33.0); Mean Corpuscular Volume 93.1 fL (80-98); Monocytes Absolute Auto 1.9 X10*3/uL (0.1-1.2); Monocytes Percent Auto 12.4 % (2-11); Neutrophils Absolute Auto 10.4 X10*3/uL (2.0-8.3); Neutrophils Percent Auto 67.7 % (45-73); Platelet Count 196 X10*3/uL (160-400); Red Blood Count 4.05 X10*6/uL (4.60-5.80); Red Cell Distribution Width 12.9 % (11.0-16.0); SCAN SMEAR FLAG 1; White Blood Count 15.4 X10*3/uL (4.8-10.8)
[2021-04-06 21:06] LABS: COVID-19 Test Negative (Negative)
[2021-04-06 21:15] LABS: Lactic Acid 1.9 mmol/L (0.5-2.0)
[2021-04-06 21:16] LABS: SLIDE REVIEW VERIFIED
[2021-04-06 21:24] LABS: Alanine Aminotransferase 41 U/L (0-40); Albumin Level 3.5 g/dL (3.5-5.0); Alkaline Phosphatase 94 U/L (39-117); Anion Gap 16 (12-20); Aspartate Amino Transferase 35 U/L (5-37); Bilirubin Direct 0.3 mg/dL (0.0-0.5); Bilirubin Total 0.7 mg/dL (0.0-1.0); Blood Urea Nitrogen 14 mg/dL (9-16); Calcium 8.6 mg/dL (8.4-10.2); Carbon Dioxide 24 mmol/L (22-29); Chloride 98 mmol/L (96-108); Creatinine Clr Calc Pharmacy 96.2; Estimated Glomerular Filt Rate > 60; Glucose Random 283 mg/dL (60-115); Potassium 4.5 mmol/L (3.3-5.1); Sodium 133 mmol/L (135-145); Total Protein 7.9 g/dL (6.5-8.0)
[2021-04-06 21:57] VITALS: TEMP 39.3
[2021-04-06] MEDS: Acetaminophen 325 MG TABLET 650 MG PO (21:58)
[2021-04-06 22:03] VITALS: BP 158/80; PULSE 121; RESP 22; TEMP 39.3; O2SAT 94
[2021-04-06 22:03] LABS: Glucose, Whole Blood 204 mg/dL (60-115)
[2021-04-06] MEDS: vancomycin HCL 1,000 MG in 0.9 % Sodium Chloride 250 ML 270 MG IV (22:27)
[2021-04-06 23:55] LABS: Phenytoin Dilantin 15.1 ug/mL (10.0-20.0)
[2021-04-06 23:56] LABS: B Type Natriuretic Peptide 29 pg/mL (<100)
[2021-04-07] VITALS (15 sets, daily range): BP systolic 116–179; BP diastolic 67–86; PULSE 90–135; RESP 16–20; TEMP 36.6–39.5; O2SAT 94–96; BMI 35.5
--- NOTE | 2021-04-07 | ECG_ITS ---
Test Reason : EVAL RHY ST VS A RVR Blood Pressure : / mmHG Vent. Rate : 129 BPM Atrial Rate : 129 BPM P-R Int : 172 ms QRS Dur : 084 ms QT Int : 286 ms P-R-T Axes : 054 032 065 degrees QTc Int : 418 ms Sinus tachycardia Nonspecific T wave abnormality Abnormal ECG When compared with ECG of 19-DEC-2020 12:54, Vent. rate has increased BY 55 BPM Nonspecific T wave abnormality now evident in Anterior leads Referred By: Eleanor Morelos Electronically Signed By:JNUIOR LI
[2021-04-07] MEDS: Heparin Sodium,Porcine 5,000 UNIT/ML VIAL 5000 UNIT SUBCUT ×2 (02:20→12:07)
[2021-04-07] MEDS: cefTRIAXone sodium 1 GM in 0.9 % Sodium Chloride 50 ML IV (02:20)
[2021-04-07] MEDS: polyethylene glycoL 3350 17 GM POWD.PACK PO ×2 (02:20→07:41)
[2021-04-07] MEDS: 0.9 % Sodium Chloride Flush 3 ML SYRINGE IVFLUSH ×3 (02:21→14:34)
[2021-04-07 05:23] LABS: Eosinophils Absolute Auto 0.1 X10*3/uL (0.0-0.4); Eosinophils Percent Auto 0.5 % (0-4); Imm Gran Abs Auto 0.08 X10*3/uL (0.00-0.03); Imm Gran Pct Auto 0.5 % (0.0-0.4); MANUAL DIFF FLAG SCAN; PLT CLUMP 1; Red Blood Count 3.91 X10*6/uL (4.60-5.80); SCAN SMEAR FLAG 1
[2021-04-07 05:25] LABS: Basophils Percent Auto 0.2 % (0-2); Hematocrit 38.1 % (42-52); Hemoglobin 11.9 g/dl (14.0-18.0); Lymphocytes Absolute Auto 2.3 X10*3/uL (1.2-4.9); Mean Corpuscular HGB Conc 31.2 g/dl (31.0-36.0); Mean Corpuscular Hemoglobin 30.4 pg (27.0-33.0); Mean Corpuscular Volume 97.4 fL (80-98); Mean Platelet Volume 10.4 fL (9.4-12.4); Monocytes Absolute Auto 2.7 X10*3/uL (0.1-1.2); Monocytes Percent Auto 17.6 % (2-11); Neutrophils Absolute Auto 10.1 X10*3/uL (2.0-8.3); Neutrophils Percent Auto 66.2 % (45-73); Platelet Count 148 X10*3/uL (160-400); Red Cell Distribution Width 13.2 % (11.0-16.0); White Blood Count 15.2 X10*3/uL (4.8-10.8)
[2021-04-07 05:50] LABS: Anion Gap 18 (12-20); Blood Urea Nitrogen 12 mg/dL (9-16); Calcium 8.3 mg/dL (8.4-10.2); Carbon Dioxide 21 mmol/L (22-29); Chloride 100 mmol/L (96-108); Creatinine Clr Calc Pharmacy 103.6; Estimated Glomerular Filt Rate > 60; Glucose Random 264 mg/dL (60-115); Potassium 4.5 mmol/L (3.3-5.1); Sodium 134 mmol/L (135-145)
[2021-04-07 05:52] LABS: SLIDE REVIEW VERIFIED
--- NOTE | 2021-04-07 06:33 | P.HPHOSP_ITS ---
History of Present Illness Date of Service: 04/06/21 Chief Complaint: Lower extremity swelling, redness and pain this is a 65-year-old male with extensive past medical history including CVA x4, chronic active hep C, bipolar disorder, HTN, seizure disorder, type 2 diabetes who presents to the hospital with complaints of lower extremity swelling, and pain as well as constipation x1 day. Patient reports that he has abdominal pain diffuse, has not moved his bowels in few days but had a bowel movement today prior to coming to the ED from longterm. He also complaints of chronically swollen lower extremity as well as redness soreness of his left lower leg around the ankle. Denies any fever or chills, no chest pain, no shortness of breath, no cough or sputum production, no nausea or vomiting, no urinary symptoms. No weakness numbness or tingling that is new. No headache or change in vision. On arrival vitals are significant for temp of 101.8?, heart rate of 118, respiratory rate of 18, blood pressure 146/70, satting 94% on room air Lab significant for WBC count of 15.4, hemoglobin of 12.3, sodium of 133, potassium 4.5, COVID-19 negative, CMP unremarkable. BNP of 29. KUB x-ray shows a large amount of stool present throughout the colon, no evidence of ileus or obstruction. Past medical history as below and confirmed with patient Review of Systems Review of Systems: Yes all other systems are reviewed and are negative [facility] Medical History Abnormal colonoscopy Anxiety Arm pain, left Bipolar disorder Chronic active hepatitis C Conversion disorder CVA (cerebral vascular accident) Dysphagia Essential hypertension GERD (gastroesophageal reflux disease) HTN (hypertension) Obstructive sleep apnea Psychotic disorder Seizure Type 2 diabetes mellitus with diabetic polyneuropathy Family History Sister Breast cancer in situ Surgical History Hx of cholecystectomy Hx of colonoscopy Hx of surgical biopsy Social History Household Members: Other Household Members Other:: [facility]ci Housing: Other Housing Other:: [facility]ci Unable to assess alcohol history related to: Refusing to respond Alcohol intake: unknown Smoking Status: Unknown if ever smoked Use of substances other than those prescribed or required for medical reasons: No Advance Directives: No Advance Directives Information Provided: Yes Do you have thoughts of harming others: None Do you have a plan to hurt others: No Plan Nutrition Risks: No Nutritional Risk service: No Current occupational status: disabled Meds Allergies Allergy/AdvReac Type Severity Reaction Status Date / Time oxycodone [OXYCODONE] Allergy Unknown UNKNOWN Verified 04/05/21 10:02 Phenothiazines Allergy Unknown Unknown Verified 04/05/21 10:02 tetracycline Allergy Unknown Unknown Verified 04/05/21 10:02 tigecycline [TIGECYCLINE] Allergy Unknown UNKNOWN Verified 04/05/21 10:02 Active Medications: Current Medications Generic Name Dose Route Start Last Admin Trade Name Freq PRN Reason Stop Dose Admin Acetaminophen 650 mg 04/06/21 23:52 Acetaminophen 325 Mg Tablet PO Q6H PRN Pain, Mild (Pain Scale 1-3) Docusate Sodium 100 mg 04/06/21 23:52 Docusate Sodium 100 Mg Capsule PO DAILY PRN Constipation Heparin Sodium (Porcine) 5,000 unit 04/07/21 01:00 04/07/21 02:20 Heparin Sodium,Porcine 5,000 Unit/Ml Vial SUBCUT 5,000 unit Q12H JESSICA Administration Vancomycin HCl 750 mg/ Sodium 265 mls @ 265 mls/hr 04/07/21 10:00 Chloride IV Q12H JESSICA Ceftriaxone Sodium 1 gm/ 50 mls @ 100 mls/hr 04/07/21 01:00 04/07/21 02:40 Sodium Chloride IV Infused Q24H JESSICA Infusion Magnesium Hydroxide 30 ml 04/07/21 09:00 Milk Of Magnesia 30 Ml Oral.Susp PO DAILY JESSICA Ondansetron HCl 4 mg 04/06/21 23:52 Ondansetron Hcl 4 Mg/2 Ml Vial IVPUSH Q8H PRN Nausea and Vomiting Pharmacy Consult 1 each 04/06/21 20:30 Consult Rx Vancomycin Dosing MISCELLANE DAILY PRN Consult order Polyethylene Glycol 17 gm 04/06/21 23:52 04/07/21 02:20 Polyethylene Glycol 3350 17 Gm Powd.Pack PO 17 gm DAILY JESSICA Administration Sodium Chloride 3 ml 04/07/21 00:00 04/07/21 02:21 0.9 % Sodium Chloride Flush 3 Ml Syringe [facility] Administration Home Medications Medication Instructions Recorded Confirmed Last Taken Type Ponaris 1 applic INTRANASAL BID 09/13/20 03/13/21 Unknown History artificial tears with lanolin 1 applic OPHTHALMIC (EYE) DAILY 09/13/20 03/13/21 Unknown History guanfacine 2 mg PO DAILY 09/13/20 03/13/21 Unknown History lamotrigine [Lamictal] 100 mg PO DAILY@0730 09/13/20 03/13/21 Unknown History ketoconazole 1 appl TOPICAL DAILY PRN 12/17/20 03/13/21 Unknown History lamotrigine 150 mg PO BEDTIME 12/17/20 03/13/21 Unknown History alum-mag hydroxide-simeth 30 ml PO TID 12/19/20 03/13/21 Unknown History naproxen 500 mg PO BID PRN 12/19/20 03/13/21 Unknown History levetiracetam 1,000 mg tablet 1,500 mg PO BID 01/05/21 03/13/21 Unknown History phenytoin 150 mg PO DAILY@0730 01/24/21 03/13/21 Unknown History valsartan 320 1 tab PO DAILY tab 02/06/21 03/13/21 Unknown History mg-hydrochlorothiazide 25 mg tablet dextrose 40 % oral gel 15 g PO Q15M PRN 02/15/21 03/13/21 Unknown History Physical Exam Vital Signs and Narrative: Vital Signs: Last Vital Signs Temp 99.6 F 04/07/21 04:00 Pulse 118 H 04/07/21 04:00 Resp 16 04/07/21 04:00 BP 172/81 H 04/07/21 04:00 Pulse Ox 96 04/07/21 04:00 Body Mass Index 35.5 Const: General: cooperative and no acute distress Orientation/consciousness: patient oriented x3 Eyes: General: appearance normal, both eyes and all related structures Resp: Effort & Inspection: normal respiratory effort and able to speak in complete sentences Cardio: Rate: regular rate Rhythm: regular rhythm GI: Palpation (GI): Soft to palpation Auscultation: normal bowel sounds Skin: General skin exam: no rashes or lesions noted Neuro: General: patient oriented x3 Cognition (Neuro): normal cognition Extrem: Other: Erythema, tenderness, warmth of right lower extremity around the ankle up to the middle of the agee Bilateral nonpitting swelling General: Yes normal to inspection Results Labs CBC and Chem 7: 04/07/21 04:58 04/07/21 04:58 Labs: Laboratory Results - last 24 hr 04/06/21 04/06/21 04/06/21 20:42 20:42 20:42 MCV 93.1 MCH 30.4 MCHC 32.6 RDW 12.9 Plt Count 196 MPV 10.0 Immature Gran % (Auto) 0.7 H Neut % (Auto) 67.7 Lymph % (Auto) 18.4 L [place] % (Auto) 12.4 H Eos % (Auto) 0.7 Baso % (Auto) 0.1 Lymph # (Auto) 2.8 [place] # (Auto) 1.9 H Eos # (Auto) 0.1 Baso # (Auto) 0.0 Abs Immat Gran (auto) 0.10 H Absolute Neuts (auto) 10.4 H Absolute Nucleated RBC 0.000 Nucleated RBC % (auto) 0.0 Smear Tech's Comments VERIFIED Anion Gap 16 Estim Creat Clear Calc 96.2 Estimated GFR > 60 POC Glucose Random Glucose 283 H D Lactic Acid 1.9 Calcium 8.6 D Total Bilirubin 0.7 Direct Bilirubin 0.3 AST 35 ALT 41 H Alkaline Phosphatase 94 B-Natriuretic Peptide Total Protein 7.9 Albumin 3.5 Phenytoin 15.1 COVID-19 (SHAWN) COVID-[employer] 04/06/21 04/06/21 04/06/21 20:42 20:42 22:00 MCV MCH MCHC RDW Plt Count MPV Immature Gran % (Auto) Neut % (Auto) Lymph % (Auto) [place] % (Auto) Eos % (Auto) Baso % (Auto) Lymph # (Auto) [place] # (Auto) Eos # (Auto) Baso # (Auto) Abs Immat Gran (auto) Absolute Neuts (auto) Absolute Nucleated RBC Nucleated RBC % (auto) Smear Tech's Comments Anion Gap Estim Creat Clear Calc Estimated GFR POC Glucose 204 H Random Glucose Lactic Acid Calcium Total Bilirubin Direct Bilirubin AST ALT Alkaline Phosphatase B-Natriuretic Peptide 29 Total Protein Albumin Phenytoin COVID-19 (SHAWN) Negative COVID-19 Clin Com See Note 04/07/21 04/07/21 04:58 04:58 MCV 97.4 MCH 30.4 MCHC 31.2 RDW 13.2 Plt Count 148 L MPV 10.4 Immature Gran % (Auto) 0.5 H Neut % (Auto) 66.2 Lymph % (Auto) 15.0 L [place] % (Auto) 17.6 H Eos % (Auto) 0.5 Baso % (Auto) 0.2 Lymph # (Auto) 2.3 [place] # (Auto) 2.7 H Eos # (Auto) 0.1 Baso # (Auto) 0.0 Abs Immat Gran (auto) 0.08 H Absolute Neuts (auto) 10.1 H Absolute Nucleated RBC 0.000 Nucleated RBC % (auto) 0.0 Smear Tech's Comments VERIFIED Anion Gap 18 Estim Creat Clear Calc 103.6 Estimated GFR > 60 POC Glucose Random Glucose 264 H Lactic Acid Calcium 8.3 L Total Bilirubin Direct Bilirubin AST ALT Alkaline Phosphatase B-Natriuretic Peptide Total Protein Albumin Phenytoin COVID-19 (SHAWN) COVID-19 Clin Com Imaging Radiologist's Impressions: Impressions KUB X-Ray 04/06/21 19:06 IMPRESSION: Large stool burden throughout the colon. Assessment and Plan (1) Cellulitis of leg, right: Status: Acute (2) Constipation: Qualifiers: Constipation type: chronic idiopathic constipation Qualified Code(s): K59.04 - Chronic idiopathic constipation Status: Acute (3) Sepsis: Status: Acute This is a 65-year-old male with past medical history of diabetes, HTN, among others who presents to the hospital with lower extremity erythema and pain as well as constipation # sepsis - meets sepsis criteria with leukocytosis, febrile, tachycardia - most likely secondary to cellulitis - treated with IV fluid - lactic acid normal - follow cultures # cellulitis of right leg - erythema, tenderness, warmth, and edema - has fever, leukocytosis - will start him on ceftriaxone - follow cultures # constipation - severely constipated on KUB - was started on bowel management including MiraLax, milk of magnesia, as well as Colace - if not successful, consider enema vs lactulose # diabetes - hold oral anti hyperglycemics - continue home insulin - low-dose sliding scale insulin - diabetic diet # hypertension -stable - continue spironolactone, valsartan # history of CVA - continue aspirin rest of meds still need to be reviewed by phrmacy will resume once reviewed and reconciled DVT ppx: Heparin subq
[2021-04-07 07:12] LABS: Glucose, Whole Blood 231 mg/dL (60-115)
[2021-04-07] MEDS: Insulin Lispro 100 UNIT/ML 3 ML VIAL SUBCUT ×4 (07:40→21:13)
[2021-04-07] MEDS: Milk of Magnesia 30 ML ORAL.SUSP PO (07:41)
[2021-04-07] MEDS: Docusate Sodium 100 MG CAPSULE PO ×2 (07:41→21:17)
[2021-04-07] MEDS: vancomycin HCL 750 MG in 0.9 % Sodium Chloride 250 ML 265 MG IV ×2 (09:05→21:24)
--- NOTE | 2021-04-07 11:03 | MHC.CM.PN ---
met with pt who is from [facility] ,called and spoke with pts special programs director who explins that the [facility] provides 24/7 care and that thery do have nursing for residents whn needed ,pt is w/c bound he will requires transportation when dcd ,contact [facility] [phone] whe pt is dcd
[2021-04-07 11:34] LABS: Glucose, Whole Blood 272 mg/dL (60-115)
[2021-04-07] MEDS: Cyclobenzaprine HCl 5 MG TABLET PO ×2 (12:07→18:05)
[2021-04-07] MEDS: Valsartan 320 MG TABLET PO (12:07)
[2021-04-07] MEDS: levETIRAcetam 500 MG TABLET 1500 MG PO ×2 (12:07→21:16)
[2021-04-07] MEDS: LORazepam 0.5 MG TABLET PO ×2 (12:08→21:16)
[2021-04-07] MEDS: Sennosides 8.6 MG TABLET 17.2 MG PO ×2 (12:08→21:17)
[2021-04-07] MEDS: Spironolactone 25 MG TABLET PO (12:08)
[2021-04-07] MEDS: Omeprazole 20 MG CAPSULE.DR PO (12:10)
[2021-04-07] MEDS: risperiDONE 2 MG TABLET PO ×2 (12:10→21:17)
[2021-04-07] MEDS: Metoprolol Tartrate 100 MG TABLET PO ×2 (12:10→21:15)
[2021-04-07] MEDS: Gabapentin 600 MG TABLET PO ×3 (12:10→21:15)
[2021-04-07] MEDS: lamoTRIgine 100 MG TABLET PO (12:10)
[2021-04-07] MEDS: Magnesium Oxide 400 MG TABLET PO (12:10)
[2021-04-07] MEDS: Insulin Glargine,Hum.rec.anlog 100 UNIT/ML 10 ML VIAL 40 UNIT SUBCUT (12:11)
[2021-04-07] MEDS: Phenytoin Chewable 50 MG TAB.CHEW 200 MG PO (13:47)
[2021-04-07] MEDS: cefEPime HCl 1 GM in 0.9 % Sodium Chloride 50 ML IV ×2 (13:55→21:14)
--- NOTE | 2021-04-07 14:40 | P.PNIM_ITS ---
Subjective Subjective Date of Service: 04/07/21 Interval History: the patient was seen and evaluated this morning Laying in bed, feels comfortable overall but noticed to be in sinus tachycardia Left lower extremity swollen warm Reporting chills but denies any chest pain or shortness of breath No reported other overnight events. Systemic review: No fever, chills or weakness No chest pain, does not feel any palpitation No shortness of breath or coughing No abdominal pain, nausea or vomiting No urinary symptoms Left lower extremity rash and swelling Physical Exam Vital Signs: Vital Signs: Last Vital Signs Temp 98.8 F 04/07/21 11:32 Pulse 135 H 04/07/21 12:10 Resp 20 04/07/21 11:32 BP 179/86 H 04/07/21 12:10 Pulse Ox 95 04/07/21 11:32 Body Mass Index 35.5 Const: Other: Constitutional : Alert, oriented, not in distress Neck : Normal inspection, Supple Cardiovascular : RRR, S1 S2, tachycardia, bilateral trace to +1 lower extremity edema Respiratory : Good bilateral air entry, no crackles, wheezes or rhonchi Gastrointestinal: soft, lax, Normal bowel sounds, Non tender Skin : Warm/Dry, left lower extremity around the ankle swelling and erythema wit h hotness with no tenderness Neurological : Alert & oriented x3, No focal deficit Objective Data Current Medications Generic Name Dose Route Start Last Admin Trade Name Freq PRN Reason Stop Dose Admin Acetaminophen 650 mg 04/06/21 23:52 Acetaminophen 325 Mg Tablet PO Q6H PRN Pain, Mild (Pain Scale 1-3) Amitriptyline HCl 25 mg 04/07/21 21:00 Amitriptyline Hcl 25 Mg Tablet PO BEDTIME REPLACED BY [facility] Aspirin 81 mg 04/08/21 09:00 Aspirin Enteric Coated 81 Mg Tablet. PO DAILY REPLACED BY [facility] Clotrimazole 1 appl 04/07/21 11:15 Clotrimazole 1 % Cream 15 Gm Tube TOPICAL BID REPLACED BY [facility] Protocol Cyclobenzaprine HCl 5 mg 04/07/21 11:00 04/07/21 12:07 Cyclobenzaprine Hcl 5 Mg Tablet PO 5 mg Q8H REPLACED BY [facility] Administration Docusate Sodium 100 mg 04/07/21 09:00 04/07/21 07:41 Docusate Sodium 100 Mg Capsule PO 100 mg BID REPLACED BY [facility] Administration Folic Acid 1 mg 04/07/21 21:00 Folic Acid 1 Mg Tablet PO BEDTIME JESSICA Gabapentin 600 mg 04/07/21 11:05 04/07/21 14:33 Gabapentin 600 Mg Tablet PO 600 mg TID JESSICA Administration Heparin Sodium (Porcine) 5,000 unit 04/07/21 01:00 04/07/21 12:07 Heparin Sodium,Porcine 5,000 Unit/Ml Vial SUBCUT 5,000 unit Q12H JESSICA Administration Vancomycin HCl 750 mg/ Sodium 265 mls @ 265 mls/hr 04/07/21 10:00 04/07/21 10:16 Chloride IV Infused Q12H JESSICA Infusion Cefepime HCl 1 gm/ Sodium 50 mls @ 100 mls/hr 04/07/21 12:00 04/07/21 14:26 Chloride IV Infused Q8H JESSICA Infusion Insulin Glargine 40 unit 04/07/21 11:00 04/07/21 12:11 Insulin Glargine,Hum.Rec.Anlog 100 Unit/Ml 10 Ml Vial SUBCUT 40 unit DAILY JESSICA Administration Insulin Human Lispro 0 unit 04/07/21 07:30 04/07/21 12:11 Insulin Lispro 100 Unit/Ml 3 Ml Vial SUBCUT 6 unit QIDACHS REPLACED BY [facility] Administration Protocol Lamotrigine 100 mg 04/07/21 11:05 04/07/21 12:10 Lamotrigine 100 Mg Tablet PO 100 mg DAILY@0730 JESSICA Administration Lamotrigine 150 mg 04/07/21 21:00 Lamotrigine 25 Mg Tablet PO BEDTIME JESSICA Levetiracetam 1,500 mg 04/07/21 11:15 04/07/21 12:07 Levetiracetam 500 Mg Tablet PO 1,500 mg BID JESSICA Administration Lorazepam 0.5 mg 04/07/21 11:15 04/07/21 12:08 Lorazepam 0.5 Mg Tablet PO 0.5 mg BID JESSICA Administration Lorazepam 1 mg 04/07/21 11:00 Lorazepam 1 Mg Tablet PO TID PRN anxiety/restlessness Magnesium Hydroxide 30 ml 04/07/21 09:00 04/07/21 07:41 Milk Of Magnesia 30 Ml Oral.Susp PO 30 ml DAILY JESSICA Administration Magnesium Hydroxide 30 ml 04/07/21 11:15 04/07/21 12:12 Milk Of Magnesia 30 Ml Oral.Susp PO Not Given DAILY REPLACED BY [facility] Magnesium Oxide 400 mg 04/07/21 11:00 04/07/21 12:10 Magnesium Oxide 400 Mg Tablet PO 400 mg DAILY JESSICA Administration Metoprolol Tartrate 100 mg 04/07/21 11:05 04/07/21 12:10 Metoprolol Tartrate 100 Mg Tablet PO 100 mg BID JESSICA Administration Protocol Naproxen 500 mg 04/07/21 10:54 Naproxen 500 Mg Tablet PO BID PRN Pain (Scale Score 4-6) Omeprazole 20 mg 04/07/21 11:15 04/07/21 12:10 Omeprazole 20 Mg Capsule.Dr PO 20 mg DAILY JESSICA Administration Ondansetron HCl 4 mg 04/06/21 23:52 Ondansetron Hcl 4 Mg/2 Ml Vial IVPUSH Q8H PRN Nausea and Vomiting Pharmacy Consult 1 each 04/06/21 20:30 Consult Rx Vancomycin Dosing MISCELLANE DAILY PRN Consult order Pharmacy Consult 1 each 04/07/21 10:44 Consult Rx Perform Med Rec MISCELLANE ONCE PRN Consult order Phenytoin 200 mg 04/07/21 11:00 04/07/21 13:47 Phenytoin Chewable 50 Mg Tab.Chew PO 200 mg DAILY JESSICA Administration Phenytoin 150 mg 04/07/21 11:00 04/07/21 13:44 Phenytoin Chewable 50 Mg Tab.Chew PO Not Given DAILY@0730 REPLACED BY [facility] Polyethylene Glycol 17 gm 04/06/21 23:52 04/07/21 07:41 Polyethylene Glycol 3350 17 Gm Powd.Pack PO 17 gm DAILY JESSICA Administration Risperidone 2 mg 04/07/21 11:15 04/07/21 12:10 Risperidone 2 Mg Tablet PO 2 mg BID JESSICA Administration Senna 17.2 mg 04/07/21 11:10 04/07/21 12:08 Sennosides 8.6 Mg Tablet PO 17.2 mg BID JESSICA Administration Sodium Chloride 3 ml 04/07/21 00:00 04/07/21 14:34 0.9 % Sodium Chloride Flush 3 Ml Syringe IVFLUSH 3 ml QSHIFT JESSICA Administration Spironolactone 25 mg 04/07/21 11:15 04/07/21 12:08 Spironolactone 25 Mg Tablet PO 25 mg DAILY JESSICA Administration Protocol Valsartan 320 mg 04/07/21 11:05 04/07/21 12:07 Valsartan 320 Mg Tablet PO 320 mg DAILY JESSICA Administration Protocol Labs CBC & Chem 7: 04/07/21 04:58 04/07/21 04:58 Microbiology Microbiology Results: Microbiology 04/06/21 20:42 Blood - Venous Blood Culture - Preliminary Assessment and Plan (1) Cellulitis of leg, right: Status: Acute (2) Constipation: Status: Acute (3) Sepsis: Status: Acute Assessment and Plan: This is a 65-year-old male with past medical history of diabetes, HTN, among others who presents to the hospital with lower extremity erythema and pain as well as constipation sepsis Gram-negative bacteremia Secondary to cellulitis Pending final sensitivity of blood cultures, growing GNR Keep on IV fluid Continue broad-spectrum antibiotic of vancomycin and cefepime pending final sensitivity constipation severely constipated on KUB Continue MiraLax, milk of magnesia, as well as Colace To try enema Start senna Hyperglycemia secondary to diabetes hold oral anti hyperglycemics Start Lantus 40 units SSI diabetic diet Uncontrolled hypertension Sinus tachycardia Secondary to stress from infection and bacteremia Check EKG Continue metoprolol of continue spironolactone, valsartan history of CVA continue aspirin DVT ppx: Heparin subq
[2021-04-07] MEDS: Acetaminophen 325 MG TABLET 650 MG PO (15:16)
[2021-04-07] MEDS: Lactated Ringers 1,000 ML 80 ML IVCONT (15:16)
[2021-04-07 16:15] LABS: Glucose, Whole Blood 263 mg/dL (60-115)
[2021-04-07] MEDS: Clotrimazole 1 % Cream 15 GM TUBE 1 APPL TOPICAL ×2 (16:30→21:24)
--- NOTE | 2021-04-07 18:17 | PC.NURSE ---
Med list obtained and sent to pharmacy to verify meds. Meds verified and given around 1200. Patient constipated this AM; finally had large, soft BM around 1500, without needing to give ordered tap water/SSE. Patient had a temp of 101.4 around 1600, tylenol given. 20 minutes later, temp 103.1. An hour later, temp 101.3. An hour after that, temp 99.6. MD aware. Ordered toradol held at this time. Patient's HR sustained in the 120s-130s, EKG done. MD aware, states likely due to bactremia. Patient stable, reports feeling better since having large BM and fever breaking. Will pass to oncoming nurse.
[2021-04-07 21:00] LABS: Glucose, Whole Blood 264 mg/dL (60-115)
[2021-04-07] MEDS: lamoTRIgine 25 MG TABLET 150 MG PO (21:14)
[2021-04-07] MEDS: Amitriptyline HCl 25 MG TABLET PO (21:16)
[2021-04-07] MEDS: Folic Acid 1 MG TABLET PO (21:16)
[2021-04-07] MEDS: ondansetron HCL 4 MG/2 ML VIAL IVPUSH (21:26)
[2021-04-08] VITALS (7 sets, daily range): BP systolic 102–160; BP diastolic 58–74; PULSE 76–109; RESP 15–18; TEMP 36.1–37.1; O2SAT 93–95; BMI 35.8
--- NOTE | 2021-04-08 | ECG_ITS ---
Test Reason : CP Blood Pressure : / mmHG Vent. Rate : 081 BPM Atrial Rate : 081 BPM P-R Int : 214 ms QRS Dur : 082 ms QT Int : 374 ms P-R-T Axes : 062 014 033 degrees QTc Int : 434 ms Sinus rhythm with 1st degree A-V block ST elevation, consider early repolarization Borderline ECG When compared to the previous EKG of nonspecific T wave changes are not present Referred By: Eleanor Morelos Electronically Signed By:Hal Lindsey
[2021-04-08] MEDS: NaPROXEN 500 MG TABLET PO ×2 (00:17→16:12)
[2021-04-08] MEDS: Heparin Sodium,Porcine 5,000 UNIT/ML VIAL 5000 UNIT SUBCUT ×3 (00:18→20:27)
[2021-04-08] MEDS: Cyclobenzaprine HCl 5 MG TABLET PO ×3 (03:31→18:10)
[2021-04-08] MEDS: Lactated Ringers 1,000 ML 80 ML IVCONT (03:31)
[2021-04-08] MEDS: cefEPime HCl 1 GM in 0.9 % Sodium Chloride 50 ML IV ×3 (04:56→20:16)
[2021-04-08 06:47] LABS: Hemoglobin 10.7 g/dl (14.0-18.0); Mean Corpuscular HGB Conc 32.4 g/dl (31.0-36.0); Mean Corpuscular Hemoglobin 30.4 pg (27.0-33.0); Mean Corpuscular Volume 93.8 fL (80-98); Mean Platelet Volume 10.2 fL (9.4-12.4); Platelet Count 173 X10*3/uL (160-400); Red Blood Count 3.52 X10*6/uL (4.60-5.80); Red Cell Distribution Width 12.9 % (11.0-16.0); White Blood Count 13.4 X10*3/uL (4.8-10.8)
[2021-04-08 07:03] LABS: Alanine Aminotransferase 36 U/L (0-40); Albumin Level 2.9 g/dL (3.5-5.0); Alkaline Phosphatase 71 U/L (39-117); Anion Gap 9 (12-20); Aspartate Amino Transferase 34 U/L (5-37); Bilirubin Direct 0.5 mg/dL (0.0-0.5); Bilirubin Total 0.5 mg/dL (0.0-1.0); Blood Urea Nitrogen 15 mg/dL (9-16); Calcium 8.1 mg/dL (8.4-10.2); Carbon Dioxide 27 mmol/L (22-29); Chloride 102 mmol/L (96-108); Creatinine Clr Calc Pharmacy 116.3; Estimated Glomerular Filt Rate > 60; Glucose Random 179 mg/dL (60-115); Potassium 4.3 mmol/L (3.3-5.1); Sodium 134 mmol/L (135-145); Total Protein 6.3 g/dL (6.5-8.0)
[2021-04-08 07:14] LABS: Glucose, Whole Blood 183 mg/dL (60-115)
[2021-04-08] MEDS: Insulin Lispro 100 UNIT/ML 3 ML VIAL SUBCUT ×4 (08:16→20:26)
[2021-04-08] MEDS: Valsartan 320 MG TABLET PO (08:17)
[2021-04-08] MEDS: Aspirin Enteric Coated 81 MG TABLET.DR PO (08:17)
[2021-04-08] MEDS: Magnesium Oxide 400 MG TABLET PO (08:17)
[2021-04-08] MEDS: Milk of Magnesia 30 ML ORAL.SUSP PO (08:17)
[2021-04-08] MEDS: Insulin Glargine,Hum.rec.anlog 100 UNIT/ML 10 ML VIAL 40 UNIT SUBCUT (08:17)
[2021-04-08] MEDS: Spironolactone 25 MG TABLET PO (08:17)
[2021-04-08] MEDS: polyethylene glycoL 3350 17 GM POWD.PACK PO (08:17)
[2021-04-08] MEDS: Sennosides 8.6 MG TABLET 17.2 MG PO ×2 (08:17→20:20)
[2021-04-08] MEDS: risperiDONE 2 MG TABLET PO ×2 (08:18→20:20)
[2021-04-08] MEDS: levETIRAcetam 500 MG TABLET 1500 MG PO ×2 (08:18→20:19)
[2021-04-08] MEDS: Phenytoin Chewable 50 MG TAB.CHEW 150 MG PO (08:18)
[2021-04-08] MEDS: Docusate Sodium 100 MG CAPSULE PO ×2 (08:18→20:20)
[2021-04-08] MEDS: lamoTRIgine 100 MG TABLET PO (08:18)
[2021-04-08] MEDS: LORazepam 0.5 MG TABLET PO ×2 (08:18→20:21)
[2021-04-08] MEDS: Omeprazole 20 MG CAPSULE.DR PO (08:18)
[2021-04-08] MEDS: Metoprolol Tartrate 100 MG TABLET PO ×2 (08:19→20:21)
[2021-04-08] MEDS: Gabapentin 600 MG TABLET PO ×3 (08:19→20:20)
[2021-04-08 09:27] LABS: Vancomycin Trough 4.2 mcg/mL (10.0-20.0)
[2021-04-08] MEDS: Clotrimazole 1 % Cream 15 GM TUBE 1 APPL TOPICAL ×2 (10:24→20:31)
[2021-04-08] MEDS: vancomycin HCL 1,250 MG in 0.9 % Sodium Chloride 250 ML 166.67 MG IV ×2 (11:20→20:30)
[2021-04-08 11:23] LABS: Glucose, Whole Blood 219 mg/dL (60-115)
[2021-04-08] MEDS: LORazepam 1 MG TABLET PO (11:23)
--- NOTE | 2021-04-08 13:12 | HO.PM.IMPN ---
Subjective Subjective Date of Service: 04/08/21 Interval History: the patient was seen and evaluated this morning Laying in bed, feels comfortable overall as tachycardia and fever resolved Left lower extremity swollen warm Reporting chills but denies any chest pain or shortness of breath No reported other overnight events. Systemic review: No fever, chills or weakness No chest pain, does not feel any palpitation No shortness of breath or coughing No abdominal pain, nausea or vomiting No urinary symptoms Left lower extremity rash and swelling Physical Exam Vital Signs: Vital Signs: Last Vital Signs Temp 97.4 F 04/08/21 11:28 Pulse 78 04/08/21 11:28 Resp 18 04/08/21 11:28 BP 110/58 L 04/08/21 11:28 Pulse Ox 95 04/08/21 11:28 Body Mass Index 35.8 Const: Other: Constitutional : Alert, oriented, not in distress Neck : Normal inspection, Supple Cardiovascular : RRR, S1 S2, tachycardia, bilateral +1 lower extremity edema Respiratory : Good bilateral air entry, no crackles, wheezes or rhonchi Gastrointestinal: soft, lax, Normal bowel sounds, Non tender Skin : Warm/Dry, left lower extremity around the ankle swelling and erythema with hotness with no tenderness Neurological : Alert & oriented x3, No focal deficit Objective Data Current Medications Generic Name Dose Route Start Last Admin Trade Name Johannq PRN Reason Stop Dose Admin Acetaminophen 650 mg 04/06/21 23:52 04/07/21 15:16 Acetaminophen 325 Mg Tablet PO 650 mg Q6H PRN Administration Pain, Mild (Pain Scale 1-3) Amitriptyline HCl 25 mg 04/07/21 21:00 04/07/21 21:16 Amitriptyline Hcl 25 Mg Tablet PO 25 mg BEDTIME JESSICA Administration Aspirin 81 mg 04/08/21 09:00 04/08/21 08:17 Aspirin Enteric Coated 81 Mg Tablet. PO 81 mg DAILY JESSICA Administration Clotrimazole 1 appl 04/07/21 11:15 04/08/21 10:24 Clotrimazole 1 % Cream 15 Gm Tube TOPICAL 1 appl BID JESSICA Administration Protocol Cyclobenzaprine HCl 5 mg 04/07/21 11:00 04/08/21 11:23 Cyclobenzaprine Hcl 5 Mg Tablet PO 5 mg Q8H JESSICA Administration Docusate Sodium 100 mg 04/07/21 09:00 04/08/21 08:18 Docusate Sodium 100 Mg Capsule PO 100 mg BID JESSICA Administration Folic Acid 1 mg 04/07/21 21:00 04/07/21 21:16 Folic Acid 1 Mg Tablet PO 1 mg BEDTIME JESSICA Administration Gabapentin 600 mg 04/07/21 11:05 04/08/21 08:19 Gabapentin 600 Mg Tablet PO 600 mg TID JESSICA Administration Heparin Sodium (Porcine) 5,000 unit 04/07/21 01:00 04/08/21 13:00 Heparin Sodium,Porcine 5,000 Unit/Ml Vial SUBCUT 5,000 unit Q12H JESSICA Administration Cefepime HCl 1 gm/ Sodium 50 mls @ 100 mls/hr 04/07/21 12:00 04/08/21 13:00 Chloride IV 100 mls/hr Q8H JESSICA Administration Vancomycin HCl 1,250 mg/ 250 mls @ 166.667 mls/hr 04/08/21 10:00 04/08/21 12:55 Sodium Chloride IV Infused Q12H JESSICA Infusion Insulin Glargine 40 unit 04/07/21 11:00 04/08/21 08:17 Insulin Glargine,Hum.Rec.Anlog 100 Unit/Ml 10 Ml Vial SUBCUT 40 unit DAILY JESSICA Administration Insulin Human Lispro 0 unit 04/07/21 07:30 04/08/21 11:23 Insulin Lispro 100 Unit/Ml 3 Ml Vial SUBCUT 4 unit QIDACHS JESSICA Administration Protocol Lamotrigine 100 mg 04/07/21 11:05 04/08/21 08:18 Lamotrigine 100 Mg Tablet PO 100 mg DAILY@0730 JESSICA Administration Lamotrigine 150 mg 04/07/21 21:00 04/07/21 21:14 Lamotrigine 25 Mg Tablet PO 150 mg BEDTIME JESSICA Administration Levetiracetam 1,500 mg 04/07/21 11:15 04/08/21 08:18 Levetiracetam 500 Mg Tablet PO 1,500 mg BID JESSICA Administration Lorazepam 0.5 mg 04/07/21 11:15 04/08/21 08:18 Lorazepam 0.5 Mg Tablet PO 0.5 mg BID JESSICA Administration Lorazepam 1 mg 04/07/21 11:00 04/08/21 11:23 Lorazepam 1 Mg Tablet PO 1 mg TID PRN Administration anxiety/restlessness Magnesium Hydroxide 30 ml 04/07/21 11:15 04/08/21 10:25 Milk Of Magnesia 30 Ml Oral.Susp PO Not Given DAILY JESSICA Magnesium Oxide 400 mg 04/07/21 11:00 04/08/21 08:17 Magnesium Oxide 400 Mg Tablet PO 400 mg DAILY JESSICA Administration Metoprolol Tartrate 100 mg 04/07/21 11:05 04/08/21 08:19 Metoprolol Tartrate 100 Mg Tablet PO 100 mg BID JESSICA Administration Protocol Naproxen 500 mg 04/07/21 10:54 04/08/21 00:17 Naproxen 500 Mg Tablet PO 500 mg BID PRN Administration Pain (Scale Score 4-6) Omeprazole 20 mg 04/07/21 11:15 04/08/21 08:18 Omeprazole 20 Mg Capsule.Dr PO 20 mg DAILY JESSICA Administration Ondansetron HCl 4 mg 04/06/21 23:52 04/07/21 21:26 Ondansetron Hcl 4 Mg/2 Ml Vial IVPUSH 4 mg Q8H PRN Administration Nausea and Vomiting Pharmacy Consult 1 each 04/06/21 20:30 Consult Rx Vancomycin Dosing MISCELLANE DAILY PRN Consult order Pharmacy Consult 1 each 04/07/21 10:44 Consult Rx Perform Med Rec MISCELLANE ONCE PRN Consult order Phenytoin 150 mg 04/07/21 11:00 04/08/21 08:18 Phenytoin Chewable 50 Mg Tab.Chew PO 150 mg DAILY@0730 JESSICA Administration Phenytoin 200 mg 04/08/21 21:00 Phenytoin Chewable 50 Mg Tab.Chew PO BEDTIME [facility] Polyethylene Glycol 17 gm 04/06/21 23:52 04/08/21 08:17 Polyethylene Glycol 3350 17 Gm Powd.Pack PO 17 gm DAILY JESSICA Administration Risperidone 2 mg 04/07/21 11:15 04/08/21 08:18 Risperidone 2 Mg Tablet PO 2 mg BID JESSICA Administration Senna 17.2 mg 04/07/21 11:10 04/08/21 08:17 Sennosides 8.6 Mg Tablet PO 17.2 mg BID JESSICA Administration Sodium Chloride 3 ml 04/07/21 00:00 04/08/21 10:24 0.9 % Sodium Chloride Flush 3 Ml Syringe IVFLUSH Not Given QSHIFT [facility] Spironolactone 25 mg 04/07/21 11:15 04/08/21 08:17 Spironolactone 25 Mg Tablet PO 25 mg DAILY JESSICA Administration Protocol Valsartan 320 mg 04/07/21 11:05 04/08/21 08:17 Valsartan 320 Mg Tablet PO 320 mg DAILY JESSICA Administration Protocol Labs CBC & Chem 7: 04/08/21 05:59 04/08/21 05:59 Microbiology Microbiology Results: Microbiology 04/06/21 20:42 Blood - Venous Blood Culture - Preliminary Gram negative wilbert 04/06/21 20:46 Blood - Venous Blood Culture - Preliminary No growth after 24 hours. Assessment and Plan (1) Cellulitis of leg, right: Status: Acute (2) Constipation: Status: Acute (3) Sepsis: Status: Acute Assessment and Plan: This is a 65-year-old male with past medical history of diabetes, HTN, among others who presents to the hospital with lower extremity erythema and pain as well as constipation sepsis Gram-negative bacteremia Secondary to cellulitis Pending final sensitivity of blood cultures, growing GNR DC IV fluid Continue broad-spectrum antibiotic of vancomycin and cefepime pending final sensitivity Fluid overload To give IV Lasix Monitor intake and output constipation severely constipated on KUB Continue MiraLax, milk of magnesia, as well as Colace Continue senna Had a good bowel movement overnight Hyperglycemia secondary to diabetes hold oral anti hyperglycemics Increase Lantus to 45 units SSI diabetic diet Uncontrolled hypertension Sinus tachycardia Better controlled today Secondary to stress from infection and bacteremia Check EKG Continue metoprolol of continue spironolactone, valsartan history of CVA continue aspirin DVT ppx: Heparin subq
[2021-04-08] MEDS: Furosemide 20 MG/2 ML VIAL IVPUSH (15:17)
[2021-04-08] MEDS: 0.9 % Sodium Chloride Flush 3 ML SYRINGE IVFLUSH ×2 (16:09→20:27)
[2021-04-08 16:25] LABS: Glucose, Whole Blood 193 mg/dL (60-115)
[2021-04-08 20:11] LABS: Glucose, Whole Blood 214 mg/dL (60-115)
[2021-04-08] MEDS: Phenytoin Chewable 50 MG TAB.CHEW 200 MG PO (20:17)
[2021-04-08] MEDS: lamoTRIgine 25 MG TABLET 150 MG PO (20:18)
[2021-04-08] MEDS: Folic Acid 1 MG TABLET PO (20:19)
[2021-04-08] MEDS: Amitriptyline HCl 25 MG TABLET PO (20:20)
[2021-04-08] MEDS: Acetaminophen 325 MG TABLET 650 MG PO (20:23)
--- NOTE | 2021-04-08 22:27 | P.CNID_ITS ---
History of Present Illness Data of Consult Service Date: 04/08/21 Requesting physician: Eleanor Morelos Primary Care Provider: Andrei Coulter PA-C HPI Reason for consult: bacteremia He presents to hospital with weakness and redness RLE He has swelling right leg for two day He has no dysuria Review of Systems Review of Systems: Yes all other systems are reviewed and are negative PMFSH Past Medical History Medical History Abnormal colonoscopy Anxiety Arm pain, left Bipolar disorder Chronic active hepatitis C Conversion disorder CVA (cerebral vascular accident) Dysphagia Essential hypertension GERD (gastroesophageal reflux disease) HTN (hypertension) Obstructive sleep apnea Psychotic disorder Seizure Type 2 diabetes mellitus with diabetic polyneuropathy Family History Family History Sister Breast cancer in situ Family history: reviewed and not pertinent Surgical History Surgical History Hx of cholecystectomy Hx of colonoscopy Hx of surgical biopsy Social History Social History Household Members: Other Household Members Other:: long term Housing: Other Housing Other:: long term Unable to assess alcohol history related to: Refusing to respond Alcohol intake: unknown Smoking Status: Unknown if ever smoked Use of substances other than those prescribed or required for medical reasons: No Currently Displaying Signs/Symptoms of Drug Intoxication Withdrawal: No Advance Directives: No Advance Directives Information Provided: Yes Do you have thoughts of harming others: None Do you have a plan to hurt others: No Plan Nutrition Risks: No Nutritional Risk service: No Current occupational status: disabled Meds Allergies Allergy/AdvReac Type Severity Reaction Status Date / Time oxycodone [OXYCODONE] Allergy Unknown UNKNOWN Verified 04/05/21 10:02 Phenothiazines Allergy Unknown Unknown Verified 04/05/21 10:02 tetracycline Allergy Unknown Unknown Verified 04/05/21 10:02 tigecycline [TIGECYCLINE] Allergy Unknown UNKNOWN Verified 04/05/21 10:02 Active Medications: Current Medications Generic Name Dose Route Start Last Admin Trade Name Freq PRN Reason Stop Dose Admin Acetaminophen 650 mg 04/06/21 23:52 05/08/21 20:23 Acetaminophen 325 Mg Tablet PO 650 mg Q6H PRN Administration Pain, Mild (Pain Scale 1-3) Amitriptyline HCl 25 mg 04/07/21 21:00 04/08/21 20:20 Amitriptyline Hcl 25 Mg Tablet PO 25 mg BEDTIME JESSICA Administration Aspirin 81 mg 04/08/21 09:00 04/08/21 08:17 Aspirin Enteric Coated 81 Mg Tablet.Dr PO 81 mg DAILY JESSICA Administration Clotrimazole 1 appl 04/07/21 11:15 04/08/21 20:31 Clotrimazole 1 % Cream 15 Gm Tube TOPICAL 1 appl BID [facility] Administration Protocol Cyclobenzaprine HCl 5 mg 04/07/21 11:00 04/08/21 18:10 Cyclobenzaprine Hcl 5 Mg Tablet PO 5 mg Q8H JESSICA Administration Docusate Sodium 100 mg 04/07/21 09:00 04/08/21 20:20 Docusate Sodium 100 Mg Capsule PO 100 mg BID JESSICA Administration Folic Acid 1 mg 04/07/21 21:00 04/08/21 20:19 Folic Acid 1 Mg Tablet PO 1 mg BEDTIME JESSICA Administration Gabapentin 600 mg 04/07/21 11:05 04/08/21 20:20 Gabapentin 600 Mg Tablet PO 600 mg TID [facility] Administration Heparin Sodium (Porcine) 5,000 unit 04/07/21 01:00 04/08/21 20:27 Heparin Sodium,Porcine 5,000 Unit/Ml Vial SUBCUT 5,000 unit Q12H JESSICA Administration Cefepime HCl 1 gm/ Sodium 50 mls @ 100 mls/hr 04/07/21 12:00 04/08/21 21:06 Chloride IV Infused Q8H [facility] Infusion Insulin Glargine 45 unit 04/09/21 09:00 Insulin Glargine,Hum.Rec.Anlog 100 Unit/Ml 10 Ml Vial SUBCUT DAILY [facility] Insulin Human Lispro 0 unit 04/07/21 07:30 04/08/21 20:26 Insulin Lispro 100 Unit/Ml 3 Ml Vial SUBCUT 4 unit QIDACHS [facility] Administration Protocol Lamotrigine 100 mg 04/07/21 11:05 04/08/21 08:18 Lamotrigine 100 Mg Tablet PO 100 mg DAILY@0730 [facility] Administration Lamotrigine 150 mg 04/07/21 21:00 05/08/21 20:18 Lamotrigine 25 Mg Tablet PO 150 mg BEDTIME JESSICA Administration Levetiracetam 1,500 mg 04/07/21 11:15 04/08/21 20:19 Levetiracetam 500 Mg Tablet PO 1,500 mg BID JESSICA Administration Lorazepam 0.5 mg 04/07/21 11:15 04/08/21 20:21 Lorazepam 0.5 Mg Tablet PO 0.5 mg BID JESSICA Administration Lorazepam 1 mg 04/07/21 11:00 04/08/21 11:23 Lorazepam 1 Mg Tablet PO 1 mg TID PRN Administration anxiety/restlessness Magnesium Hydroxide 30 ml 04/07/21 11:15 04/08/21 10:25 Milk Of Magnesia 30 Ml Oral.Susp PO Not Given DAILY JESSICA Magnesium Oxide 400 mg 04/07/21 11:00 04/08/21 08:17 Magnesium Oxide 400 Mg Tablet PO 400 mg DAILY JESSICA Administration Metoprolol Tartrate 100 mg 04/07/21 11:05 04/08/21 20:21 Metoprolol Tartrate 100 Mg Tablet PO 100 mg BID JESSICA Administration Protocol Naproxen 500 mg 04/07/21 10:54 04/08/21 16:12 Naproxen 500 Mg Tablet PO 500 mg BID PRN Administration Pain (Scale Score 4-6) Omeprazole 20 mg 04/07/21 11:15 04/08/21 08:18 Omeprazole 20 Mg Capsule.Dr PO 20 mg DAILY JESSICA Administration Ondansetron HCl 4 mg 04/06/21 23:52 04/07/21 21:26 Ondansetron Hcl 4 Mg/2 Ml Vial IVPUSH 4 mg Q8H PRN Administration Nausea and Vomiting Pharmacy Consult 1 each 04/06/21 20:30 Consult Rx Vancomycin Dosing MISCELLANE DAILY PRN Consult order Pharmacy Consult 1 each 04/07/21 10:44 Consult Rx Perform Med Rec MISCELLANE ONCE PRN Consult order Phenytoin 150 mg 04/07/21 11:00 04/08/21 08:18 Phenytoin Chewable 50 Mg Tab.Chew PO 150 mg DAILY@0730 JESSICA Administration Phenytoin 200 mg 04/08/21 21:00 04/08/21 20:17 Phenytoin Chewable 50 Mg Tab.Chew PO 200 mg BEDTIME JESSICA Administration Polyethylene Glycol 17 gm 04/06/21 23:52 04/08/21 08:17 Polyethylene Glycol 3350 17 Gm Powd.Pack PO 17 gm DAILY JESSICA Administration Risperidone 2 mg 04/07/21 11:15 04/08/21 20:20 Risperidone 2 Mg Tablet PO 2 mg BID JESSICA Administration Senna 17.2 mg 04/07/21 11:10 04/08/21 20:20 Sennosides 8.6 Mg Tablet PO 17.2 mg BID JESSICA Administration Sodium Chloride 3 ml 04/07/21 00:00 04/08/21 20:27 0.9 % Sodium Chloride Flush 3 Ml Syringe IVFLUSH 3 ml QSHIFT JESSICA Administration Spironolactone 25 mg 04/07/21 11:15 04/08/21 08:17 Spironolactone 25 Mg Tablet PO 25 mg DAILY [facility] Administration Protocol Valsartan 320 mg 04/07/21 11:05 04/08/21 08:17 Valsartan 320 Mg Tablet PO 320 mg DAILY [facility] Administration Protocol Home Medications Medication Instructions Recorded Confirmed Last Taken Type Ponaris 3 applic INTRANASAL BID 09/13/20 04/07/21 Unknown History artificial tears with lanolin 2 applic OPHTHALMIC (EYE) DAILY 09/13/20 04/07/21 Unknown History guanfacine 2 mg PO DAILY 09/13/20 04/07/21 Unknown History lamotrigine [Lamictal] 100 mg PO DAILY@72909/13/20 04/07/21 Unknown History ketoconazole 1 appl TOPICAL DAILY PRN 12/17/20 04/07/21 Unknown History lamotrigine 150 mg PO BEDTIME 12/17/20 04/07/21 Unknown History alum-mag hydroxide-simeth 30 ml PO Q4H PRN 12/19/20 04/07/21 Unknown History naproxen 500 mg PO BID PRN 12/19/20 04/07/21 Unknown History levetiracetam 1,000 mg tablet 1,500 mg PO BID 01/05/21 04/07/21 Unknown History phenytoin 150 mg PO DAILY@0730 01/24/21 04/07/21 Unknown History valsartan 320 1 tab PO DAILY tab 02/06/21 04/07/21 Unknown History mg-hydrochlorothiazide 25 mg tablet dulaglutide [Trulicity] 0.75 mg SUBCUT TU@0904/07/21 04/07/21 Unknown History insulin degludec [Tresiba 56 unit SUBCUT DAILY 04/07/21 04/07/21 Unknown History FlexTouch U-200] lorazepam 0.5 mg PO BID 04/07/21 04/07/21 Unknown History lorazepam 1 mg PO TID 04/07/21 04/07/21 Unknown History phenytoin 200 mg PO DAILY 04/07/21 04/07/21 Unknown History risperidone [Risperdal] 2 mg PO BID 04/07/21 04/07/21 Unknown History Physical Exam Vital Signs: Vital Signs: Last Vital Signs Temp 98.8 F 04/08/21 19:13 Pulse 80 04/08/21 20:21 Resp 15 04/08/21 19:13 BP 130/74 04/08/21 20:21 Pulse Ox 95 04/08/21 19:13 Body Mass Index 35.8 Const: General: cooperative HENMT: Head: Yes normal to inspection Mouth: Normal oral and palatal mucosa present Eyes: General: appearance normal, both eyes and all related structures Resp: Effort & Inspection: normal respiratory effort Cardio: Rate: regular rate Rhythm: regular rhythm GI: Palpation (GI): Soft to palpation and nontender Skin: General skin exam: no rashes or lesions noted Results Labs CBC & Chem 7: 04/08/21 05:59 04/08/21 05:59 Labs: Short CBC 04/08/21 Range/Units 05:59 WBC 13.4 H (4.8-10.8) X10*3/uL Hgb 10.7 L (14.0-18.0) g/dl Hct 33.0 L (42-52) % Plt Count 173 (160-400) X10*3/uL BMP 04/08/21 05:59 Sodium 134 L Potassium 4.3 Chloride 102 Carbon Dioxide 27 BUN 15 Creatinine 0.76 Calcium 8.1 L Liver Function 04/08/21 Range/Units 05:59 Total Bilirubin 0.5 (0.0-1.0) mg/dL Direct Bilirubin 0.5 (0.0-0.5) mg/dL AST 34 (5-37) U/L ALT 36 (0-40) U/L Alkaline Phosphatase 71 D (39-117) U/L Albumin 2.9 L (3.5-5.0) g/dL Microbiology Microbiology Results: Microbiology 04/06/21 20:42 Blood - Venous Blood Culture - Preliminary Gram negative wilbert 04/06/21 20:46 Blood - Venous Blood Culture - Preliminary No growth after 24 hours. Assessment and Plan (1) Sepsis: Problem details: Gram negative bacteremia usually due to urinary or abdominal infection but there is no findings on CT scan He has cellulitis,less likely cause of bacteremia Status: Acute Continue Cefepime for now,duration to be determined Await blood culture Elevate leg (2) Cellulitis of leg, right: Status: Acute
[2021-04-09] VITALS (7 sets, daily range): BP systolic 112–134; BP diastolic 58–78; PULSE 73–95; RESP 15–20; TEMP 36.6–36.9; O2SAT 94–98; BMI 35.7
[2021-04-09] MEDS: cefEPime HCl 1 GM in 0.9 % Sodium Chloride 50 ML IV (03:16)
[2021-04-09] MEDS: Cyclobenzaprine HCl 5 MG TABLET PO ×3 (03:19→20:35)
[2021-04-09 07:20] LABS: Hematocrit 34.1 % (42-52); Mean Corpuscular HGB Conc 32.3 g/dl (31.0-36.0); Mean Corpuscular Hemoglobin 30.1 pg (27.0-33.0); Mean Corpuscular Volume 93.4 fL (80-98); Mean Platelet Volume 10.4 fL (9.4-12.4); Platelet Count 176 X10*3/uL (160-400); Red Blood Count 3.65 X10*6/uL (4.60-5.80); White Blood Count 8.5 X10*3/uL (4.8-10.8)
[2021-04-09 07:25] LABS: Glucose, Whole Blood 222 mg/dL (60-115)
[2021-04-09 07:47] LABS: Anion Gap 11 (12-20); Blood Urea Nitrogen 18 mg/dL (9-16); Carbon Dioxide 26 mmol/L (22-29); Chloride 105 mmol/L (96-108); Creatinine Clr Calc Pharmacy 119.4; Estimated Glomerular Filt Rate > 60; Glucose Random 194 mg/dL (60-115); Potassium 4.8 mmol/L (3.3-5.1); Sodium 137 mmol/L (135-145)
[2021-04-09] MEDS: Milk of Magnesia 30 ML ORAL.SUSP PO (07:49)
[2021-04-09] MEDS: Sennosides 8.6 MG TABLET 17.2 MG PO ×2 (07:49→20:35)
[2021-04-09] MEDS: polyethylene glycoL 3350 17 GM POWD.PACK PO (07:49)
[2021-04-09] MEDS: Aspirin Enteric Coated 81 MG TABLET.DR PO (07:50)
[2021-04-09] MEDS: Phenytoin Chewable 50 MG TAB.CHEW 150 MG PO (07:50)
[2021-04-09] MEDS: Metoprolol Tartrate 100 MG TABLET PO ×2 (07:50→20:34)
[2021-04-09] MEDS: levETIRAcetam 500 MG TABLET 1500 MG PO ×2 (07:50→20:36)
[2021-04-09] MEDS: Magnesium Oxide 400 MG TABLET PO (07:50)
[2021-04-09] MEDS: Omeprazole 20 MG CAPSULE.DR PO (07:50)
[2021-04-09] MEDS: Gabapentin 600 MG TABLET PO ×3 (07:50→20:37)
[2021-04-09] MEDS: Valsartan 320 MG TABLET PO (07:51)
[2021-04-09] MEDS: Spironolactone 25 MG TABLET PO (07:51)
[2021-04-09] MEDS: lamoTRIgine 100 MG TABLET PO (07:51)
[2021-04-09] MEDS: Insulin Glargine,Hum.rec.anlog 100 UNIT/ML 10 ML VIAL 45 UNIT SUBCUT (07:51)
[2021-04-09] MEDS: 0.9 % Sodium Chloride Flush 3 ML SYRINGE IVFLUSH ×2 (07:51→15:41)
[2021-04-09] MEDS: risperiDONE 2 MG TABLET PO ×2 (07:51→20:37)
[2021-04-09] MEDS: LORazepam 0.5 MG TABLET PO ×2 (07:52→20:35)
[2021-04-09] MEDS: Insulin Lispro 100 UNIT/ML 3 ML VIAL SUBCUT ×4 (07:52→20:38)
[2021-04-09] MEDS: Docusate Sodium 100 MG CAPSULE PO ×2 (07:52→20:37)
[2021-04-09] MEDS: Clotrimazole 1 % Cream 15 GM TUBE 1 APPL TOPICAL ×2 (07:52→20:44)
[2021-04-09] MEDS: Furosemide 20 MG/2 ML VIAL IVPUSH ×2 (10:03→12:24)
[2021-04-09] MEDS: levoFLOXacin/D5W 750 MG/150 ML PIGGYBACK 100 MG IV (10:08)
[2021-04-09 11:41] LABS: Glucose, Whole Blood 238 mg/dL (60-115)
[2021-04-09] MEDS: Heparin Sodium,Porcine 5,000 UNIT/ML VIAL 5000 UNIT SUBCUT (12:24)
--- NOTE | 2021-04-09 13:46 | HO.PM.IMPN ---
Subjective Subjective Date of Service: 04/09/21 Interval History: the patient was seen and evaluated this morning Laying in bed, feels comfortable overall as tachycardia and fever resolved Left lower extremity swollen but warmth and erythema medically significantly Reporting chills but denies any chest pain or shortness of breath No reported other overnight events. Systemic review: No fever, chills or weakness No chest pain, does not feel any palpitation No shortness of breath or coughing No abdominal pain, nausea or vomiting No urinary symptoms Left lower extremity rash and swelling Physical Exam Vital Signs: Vital Signs: Last Vital Signs Temp 98.0 F 04/09/21 11:44 Pulse 73 04/09/21 11:44 Resp 20 04/09/21 11:44 BP 112/68 04/09/21 11:44 Pulse Ox 95 04/09/21 11:44 Body Mass Index 35.7 Const: Other: Constitutional : Alert, oriented, not in distress Neck : Normal inspection, Supple Cardiovascular : RRR, S1 S2, tachycardia, bilateral +1 lower extremity edema Respiratory : Good bilateral air entry, no crackles, wheezes or rhonchi Gastrointestinal: soft, lax, Normal bowel sounds, Non tender Skin : Warm/Dry, left lower extremity around the ankle swelling but warmth and erythema resolving with no tenderness Neurological : Alert & oriented x3, No focal deficit Objective Data Current Medications Generic Name Dose Route Start Last Admin Trade Name Freq PRN Reason Stop Dose Admin Acetaminophen 650 mg 04/06/21 23:52 04/08/21 20:23 Acetaminophen 325 Mg Tablet PO 650 mg Q6H PRN Administration Pain, Mild (Pain Scale 1-3) Amitriptyline HCl 25 mg 04/07/21 21:00 04/08/21 20:20 Amitriptyline Hcl 25 Mg Tablet PO 25 mg BEDTIME JESSICA Administration Aspirin 81 mg 04/08/21 09:00 04/09/21 07:50 Aspirin Enteric Coated 81 Mg Tablet. PO 81 mg DAILY JESSICA Administration Clotrimazole 1 appl 04/07/21 11:15 04/09/21 07:52 Clotrimazole 1 % Cream 15 Gm Tube TOPICAL 1 appl BID JESSICA Administration Protocol Cyclobenzaprine HCl 5 mg 04/07/21 11:00 04/09/21 10:03 Cyclobenzaprine Hcl 5 Mg Tablet PO 5 mg Q8H JESSICA Administration Docusate Sodium 100 mg 04/07/21 09:00 04/09/21 07:52 Docusate Sodium 100 Mg Capsule PO 100 mg BID JESSICA Administration Folic Acid 1 mg 04/07/21 21:00 04/08/21 20:19 Folic Acid 1 Mg Tablet PO 1 mg BEDTIME JESSICA Administration Furosemide 40 mg 04/09/21 18:00 Furosemide 40 Mg/4 Ml Vial IVPUSH BID@0900,1800 [facility] Protocol Gabapentin 600 mg 04/07/21 11:05 04/09/21 07:50 Gabapentin 600 Mg Tablet PO 600 mg TID JESSICA Administration Heparin Sodium (Porcine) 5,000 unit 04/07/21 01:00 04/09/21 12:24 Heparin Sodium,Porcine 5,000 Unit/Ml Vial SUBCUT 5,000 unit Q12H JESSICA Administration Levofloxacin 750 mg in 150 mls @ 100 mls/hr 04/09/21 09:00 04/09/21 11:44 Levaquin IV Infused Q24H [facility]ESSICA Infusion Insulin Glargine 45 unit 04/09/21 09:00 04/09/21 07:51 Insulin Glargine,Hum.Rec.Anlog 100 Unit/Ml 10 Ml Vial SUBCUT 45 unit DAILY JESSICA Administration Insulin Human Lispro 0 unit 04/07/21 07:30 04/09/21 12:24 Insulin Lispro 100 Unit/Ml 3 Ml Vial SUBCUT 4 unit QIDACHS JESSICA Administration Protocol Lamotrigine 100 mg 04/07/21 11:05 04/09/21 07:51 Lamotrigine 100 Mg Tablet PO 100 mg DAILY@0730 JESSICA Administration Lamotrigine 150 mg 04/07/21 21:00 04/08/21 20:18 Lamotrigine 25 Mg Tablet PO 150 mg BEDTIME JESSICA Administration Levetiracetam 1,500 mg 04/07/21 11:15 04/09/21 07:50 Levetiracetam 500 Mg Tablet PO 1,500 mg BID JESSICA Administration Lorazepam 0.5 mg 04/07/21 11:15 04/09/21 07:52 Lorazepam 0.5 Mg Tablet PO 0.5 mg BID JESSICA Administration Lorazepam 1 mg 04/07/21 11:00 04/08/21 11:23 Lorazepam 1 Mg Tablet PO 1 mg TID PRN Administration anxiety/restlessness Magnesium Hydroxide 30 ml 04/07/21 11:15 04/09/21 07:49 Milk Of Magnesia 30 Ml Oral.Susp PO 30 ml DAILY JESSICA Administration Magnesium Oxide 400 mg 04/07/21 11:00 04/09/21 07:50 Magnesium Oxide 400 Mg Tablet PO 400 mg DAILY JESSICA Administration Metoprolol Tartrate 100 mg 04/07/21 11:05 04/09/21 07:50 Metoprolol Tartrate 100 Mg Tablet PO 100 mg BID JESSICA Administration Protocol Naproxen 500 mg 04/07/21 10:54 04/08/21 16:12 Naproxen 500 Mg Tablet PO 500 mg BID PRN Administration Pain (Scale Score 4-6) Omeprazole 20 mg 04/07/21 11:15 04/09/21 07:50 Omeprazole 20 Mg Capsule.Dr PO 20 mg DAILY JESSICA Administration Ondansetron HCl 4 mg 04/06/21 23:52 04/07/21 21:26 Ondansetron Hcl 4 Mg/2 Ml Vial IVPUSH 4 mg Q8H PRN Administration Nausea and Vomiting Pharmacy Consult 1 each 04/06/21 20:30 Consult Rx Vancomycin Dosing MISCELLANE DAILY PRN Consult order Pharmacy Consult 1 each 04/07/21 10:44 Consult Rx Perform Med Rec MISCELLANE ONCE PRN Consult order Phenytoin 150 mg 04/07/21 11:00 04/09/21 07:50 Phenytoin Chewable 50 Mg Tab.Chew PO 150 mg DAILY@0730 JESSICA Administration Phenytoin 200 mg 04/08/21 21:00 04/08/21 20:17 Phenytoin Chewable 50 Mg Tab.Chew PO 200 mg BEDTIME JESSICA Administration Polyethylene Glycol 17 gm 04/06/21 23:52 04/09/21 07:49 Polyethylene Glycol 3350 17 Gm Powd.Pack PO 17 gm DAILY JESSICA Administration Risperidone 2 mg 04/07/21 11:15 04/09/21 07:51 Risperidone 2 Mg Tablet PO 2 mg BID JESSICA Administration Senna 17.2 mg 04/07/21 11:10 04/09/21 07:49 Sennosides 8.6 Mg Tablet PO 17.2 mg BID JESSICA Administration Sodium Chloride 3 ml 04/07/21 00:00 04/09/21 07:51 0.9 % Sodium Chloride Flush 3 Ml Syringe IVFLUSH 3 ml QSHIFT JESSICA Administration Sodium Chloride 1 spray 04/09/21 13:35 Sodium Chloride 0.65 % Nasal 44 Ml Sprbtl NOSTRIL-B Q1H PRN Nasal Congestion Spironolactone 25 mg 04/07/21 11:15 04/09/21 07:51 Spironolactone 25 Mg Tablet PO 25 mg DAILY JESSICA Administration Protocol Valsartan 320 mg 04/07/21 11:05 04/09/21 07:51 Valsartan 320 Mg Tablet PO 320 mg DAILY JESSICA Administration Protocol Labs CBC & Chem 7: 04/09/21 05:45 04/09/21 05:45 Microbiology Microbiology Results: Microbiology 04/06/21 20:42 Blood - Venous Blood Culture - Final Escherichia coli 04/06/21 20:46 Blood - Venous Blood Culture - Preliminary No growth after 48 hours. Assessment and Plan (1) Cellulitis of leg, right: Status: Acute (2) Constipation: Status: Acute (3) Sepsis: Status: Acute Assessment and Plan: This is a 65-year-old male with past medical history of diabetes, HTN, among others who presents to the hospital with lower extremity erythema and pain as well as constipation sepsis E coli bacteremia Secondary to UTI? cellulitis? Sensitive E coli in blood culture DC IV fluid Change antibiotic to IV Levaquin Fluid overload Secondary to chronic venous disease in extremities To check an echo and BNP Increase IV Lasix to 40 b.i.d. Negative a agee Monitor intake and output constipation severely constipated on KUB Continue MiraLax, milk of magnesia, as well as Colace Continue senna Had a good bowel movement overnight Hyperglycemia secondary to diabetes hold oral anti hyperglycemics Increase Lantus to 45 units SSI diabetic diet Uncontrolled hypertension Sinus tachycardia Better controlled today Secondary to stress from infection and bacteremia Continue metoprolol of continue spironolactone, valsartan history of CVA continue aspirin DVT ppx: Heparin subq
[2021-04-09] MEDS: Sodium Chloride 0.65 % Nasal 44 ML SPRBTL 1 SPRAY NOSTRIL-B (14:38)
[2021-04-09] MEDS: NaPROXEN 500 MG TABLET PO (15:43)
[2021-04-09 16:09] LABS: Glucose, Whole Blood 175 mg/dL (60-115)
[2021-04-09] MEDS: Furosemide 40 MG/4 ML VIAL IVPUSH (17:06)
[2021-04-09 20:30] LABS: Glucose, Whole Blood 233 mg/dL (60-115)
[2021-04-09] MEDS: Folic Acid 1 MG TABLET PO (20:35)
[2021-04-09] MEDS: lamoTRIgine 25 MG TABLET 150 MG PO (20:35)
[2021-04-09] MEDS: Amitriptyline HCl 25 MG TABLET PO (20:35)
[2021-04-09] MEDS: Phenytoin Chewable 50 MG TAB.CHEW 200 MG PO (20:37)
[2021-04-10] VITALS (9 sets, daily range): BP systolic 109–137; BP diastolic 64–81; PULSE 76–86; RESP 18–19; TEMP 36.2–36.9; O2SAT 95–97; BMI 35.4
[2021-04-10] MEDS: Heparin Sodium,Porcine 5,000 UNIT/ML VIAL 5000 UNIT SUBCUT ×2 (00:28→11:48)
[2021-04-10] MEDS: 0.9 % Sodium Chloride Flush 3 ML SYRINGE IVFLUSH ×3 (00:29→16:35)
[2021-04-10] MEDS: Cyclobenzaprine HCl 5 MG TABLET PO ×3 (02:37→18:26)
[2021-04-10 05:41] LABS: Anion Gap 13 (12-20); Blood Urea Nitrogen 16 mg/dL (9-16); Calcium 8.5 mg/dL (8.4-10.2); Carbon Dioxide 28 mmol/L (22-29); Chloride 99 mmol/L (96-108); Estimated Glomerular Filt Rate > 60; Glucose Random 248 mg/dL (60-115); Potassium 4.7 mmol/L (3.3-5.1); Sodium 135 mmol/L (135-145)
[2021-04-10 05:44] LABS: B Type Natriuretic Peptide 21 pg/mL (<100)
--- NOTE | 2021-04-10 07:15 | CA_ITS ---
Transthoracic Echocardiogram Patient (Last, First, Middle): Amari Bentley, Gender: Male Date of : 1955 Age: 65 Procedure Date: 04/10/2021 Procedure Type: Transthoracic Echocardiogram Location: [facility] [place] Height: 172.72 cm Weight: 105.69 kg BSA: 2.18 m2 Heart Rate: bpm BP: 137 / 70 mmHg Eligibility Supervisor: Referring MD: Eleanor Morelos MD Symptoms: Fluid overload for eval Study Quality: Good ECG Rhythm: Sinus Conclusions: - Normal left ventricular size and systolic function. - E/E prime ratio is between 8 and 15 consistent with indeterminate filling pressures. - Normal right ventricular cavity size and systolic function. - No significant valvular or pericardial pathology. Findings Left Ventricle Normal left ventricular size and systolic function. There is mildly increased left ventricular wall thickness. The visually estimated ejection fraction is between 60-65%. There is no evidence of regional wall motion abnormalities. Abnormal diastolic function is noted. Spectral Doppler is indicative of an impaired relaxation filling pattern. E/E prime ratio is between 8 and 15 consistent with indeterminate filling pressures. Right Ventricle Normal right ventricular cavity size and systolic function. Atria The left atrium is normal in size. Aortic Valve Normal aortic valve structure and function. There is no aortic valve stenosis. There is no aortic valve regurgitation. Mitral Valve Normal mitral valve structure and function. There is no mitral valve regurgitation. There is no mitral valve stenosis. Pulmonic Valve The pulmonic valve is likely normal. Tricuspid Valve Normal tricuspid valve structure and function. There is no tricuspid valve regurgitation. Normal right atrial pressure. There is no evidence of pulmonary hypertension. Great Vessels The pulmonary artery was not well visualized. There is mild dilatation of the ascending aorta. Venous The inferior vena cava is normal in size and collapses greater than 50% with inspiration. Pericardium/Pleural There is no evidence of pericardial effusion. Prior Study Comparison No prior study available for comparison. Measurements 2D Linear Measurements IVSd: 1.17 0.6-0.9/0.6-1.0 cm LVIDd: 4.17 3.9-5.3/4.2-5.9 cm LVIDd Index: 1.91 2.4-3.2/2.2-3.1 cm/m2 LVIDs: 2.50 2.0-3.6 cm LVPWd: 1.13 0.7-1.1 cm Ao Root: 3.50 2.1-3.5 cm LA Diam: 3.50 2.7-3.8/3.0-4.0 cm LAIDs Index: 1.61 1.5-2.3 cm/m2 LV Mass: 206.26 67-162/88-224 g LV Mass Index: 94.62 43-95/49-115 g/m2 LVOT Diam: 2.30 3.0+(-)1.3 cm Mitral Valve MV VTI: 0.32 MV Pk Abhishek: 0.93 MV Mn Abhishek: 0.61 MV Pk Grad: 3.00 MV Mn Grad: 2.00 MV Pk E: 0.83 MV PK A: 0.96 MV Decel Time: 185.00 E/A: 0.90 E'Lateral: 7.06 E'Medial: 6.96 E/E' Med: 12.00 E/E' Lat: 11.80 PHT: 54.00 MVA PHT: 4.07 MVA Continuity: 2.59 Decel [place]: 4.51 Aortic Valve AoV Pk Abhishek: 1.37 AoV Mn Abhishek: 0.92 AoV VTI: 0.29 AoV Pk Grad: 8.00 Aov Mn Grad: 4.00 TAO Cont.VTI: 2.90 LVOT LVOT Pk Abhishek: 0.95 LVOT Mn Abhishek: 0.60 LVOT VTI: 0.20 LVOT Pk Grad: 4.00 LVOT Mn Grad: 2.00 LVOT Diam: 2.30 LVOT Area: 4.15 Diastolic Function MV Pk E: 0.83 MV Pk A: 0.96 E/A: 0.90 E'Medial: 6.96 E/E' Med: 12.00 E' Laterial: 7.06 E/E' Lat: 11.80 Tricuspid Valve TR Pk Abhishek: 1.90 TR Pk Grad: 14.00 RA Press: 3.00 RVSP: 17.00 Great Vessels Aorta Ao Root-2D: 3.50 2.0-3.7 cm Ao Asc: 3.90 2.1-3.4 cm Pulmonary Valve PV Pk Abhishek: 0.72 Peak PV Grad: 2.00 Updated in Other Vendor System with Status of Final Hal Lindsey MD electronically signed on 04/10/2021 2:38:22 PM with status of Final
[2021-04-10 07:27] LABS: Glucose, Whole Blood 247 mg/dL (60-115)
[2021-04-10] MEDS: Insulin Glargine,Hum.rec.anlog 100 UNIT/ML 10 ML VIAL 45 UNIT SUBCUT (08:32)
[2021-04-10] MEDS: Insulin Lispro 100 UNIT/ML 3 ML VIAL SUBCUT ×3 (08:33→16:35)
[2021-04-10] MEDS: polyethylene glycoL 3350 17 GM POWD.PACK PO (08:33)
[2021-04-10] MEDS: levoFLOXacin/D5W 750 MG/150 ML PIGGYBACK 100 MG IV (08:34)
[2021-04-10] MEDS: lamoTRIgine 100 MG TABLET PO (08:35)
[2021-04-10] MEDS: risperiDONE 2 MG TABLET PO ×2 (08:35→21:47)
[2021-04-10] MEDS: Milk of Magnesia 30 ML ORAL.SUSP PO (08:35)
[2021-04-10] MEDS: Gabapentin 600 MG TABLET PO ×3 (08:35→21:41)
[2021-04-10] MEDS: Furosemide 40 MG/4 ML VIAL IVPUSH ×2 (08:35→16:36)
[2021-04-10] MEDS: Aspirin Enteric Coated 81 MG TABLET.DR PO (08:35)
[2021-04-10] MEDS: levETIRAcetam 500 MG TABLET 1500 MG PO ×2 (08:36→21:43)
[2021-04-10] MEDS: Valsartan 320 MG TABLET PO (08:37)
[2021-04-10] MEDS: Sennosides 8.6 MG TABLET 17.2 MG PO ×2 (08:37→21:46)
[2021-04-10] MEDS: LORazepam 0.5 MG TABLET PO ×2 (08:37→21:44)
[2021-04-10] MEDS: Phenytoin Chewable 50 MG TAB.CHEW 150 MG PO (08:37)
[2021-04-10] MEDS: Metoprolol Tartrate 100 MG TABLET PO ×2 (08:37→21:47)
[2021-04-10] MEDS: Omeprazole 20 MG CAPSULE.DR PO (08:38)
[2021-04-10] MEDS: Clotrimazole 1 % Cream 15 GM TUBE 1 APPL TOPICAL ×2 (08:38→21:53)
[2021-04-10] MEDS: Docusate Sodium 100 MG CAPSULE PO ×2 (08:38→21:43)
[2021-04-10] MEDS: Magnesium Oxide 400 MG TABLET PO (08:38)
[2021-04-10] MEDS: Spironolactone 25 MG TABLET PO (08:58)
[2021-04-10 11:27] LABS: Glucose, Whole Blood 256 mg/dL (60-115)
--- NOTE | 2021-04-10 14:23 | MHC.CM.PN ---
per rounds possible dc saturday pt still, has fluid overload
--- NOTE | 2021-04-10 16:05 | HO.PM.IMPN ---
Subjective Subjective Date of Service: 04/10/21 Interval History: the patient was seen and evaluated this morning Laying in bed, feels comfortable today, swelling has improved and lower extremity pain improved Left lower extremity swollen but warmth and erythema medically significantly Reporting chills but denies any chest pain or shortness of breath No reported other overnight events. Systemic review: No fever, chills or weakness No chest pain, does not feel any palpitation No shortness of breath or coughing No abdominal pain, nausea or vomiting No urinary symptoms Left lower extremity rash and swelling Physical Exam Vital Signs: Vital Signs: Last Vital Signs Temp 97.2 F 04/10/21 15:11 Pulse 76 04/10/21 15:11 Resp 18 04/10/21 15:11 BP 117/70 04/10/21 15:11 Pulse Ox 96 04/10/21 15:11 Body Mass Index 35.4 Const: Other: Constitutional : Alert, oriented, not in distress Neck : Normal inspection, Supple Cardiovascular : RRR, S1 S2, tachycardia, bilateral +1 lower extremity edema Respiratory : Good bilateral air entry, no crackles, wheezes or rhonchi Gastrointestinal: soft, lax, Normal bowel sounds, Non tender Skin : Warm/Dry, left lower extremity around the ankle swelling but warmth and erythema resolving with no tenderness Neurological : Alert & oriented x3, No focal deficit Objective Data Current Medications Generic Name Dose Route Start Last Admin Trade Name Freq PRN Reason Stop Dose Admin Acetaminophen 650 mg 04/06/21 23:52 04/08/21 20:23 Acetaminophen 325 Mg Tablet PO 650 mg Q6H PRN Administration Pain, Mild (Pain Scale 1-3) Amitriptyline HCl 25 mg 04/07/21 21:00 04/09/21 20:35 Amitriptyline Hcl 25 Mg Tablet PO 25 mg BEDTIME JESSICA Administration Aspirin 81 mg 04/08/21 09:00 04/10/21 08:35 Aspirin Enteric Coated 81 Mg Tablet. PO 81 mg DAILY JESSIAC Administration Clotrimazole 1 appl 04/07/21 11:15 04/10/21 08:38 Clotrimazole 1 % Cream 15 Gm Tube TOPICAL 1 appl BID JESSICA Administration Protocol Cyclobenzaprine HCl 5 mg 04/07/21 11:00 04/10/21 11:49 Cyclobenzaprine Hcl 5 Mg Tablet PO 5 mg Q8H JESSICA Administration Docusate Sodium 100 mg 04/07/21 09:00 04/10/21 08:38 Docusate Sodium 100 Mg Capsule PO 100 mg BID JESSICA Administration Folic Acid 1 mg 04/07/21 21:00 04/09/21 20:35 Folic Acid 1 Mg Tablet PO 1 mg BEDTIME JESSICA Administration Furosemide 40 mg 04/09/21 18:00 04/10/21 08:35 Furosemide 40 Mg/4 Ml Vial IVPUSH 40 mg BID@0900,1800 JESSICA Administration Protocol Gabapentin 600 mg 04/07/21 11:05 04/10/21 08:35 Gabapentin 600 Mg Tablet PO 600 mg TID JESSICA Administration Heparin Sodium (Porcine) 5,000 unit 04/07/21 01:00 04/10/21 11:48 Heparin Sodium,Porcine 5,000 Unit/Ml Vial SUBCUT 5,000 unit Q12H JESSICA Administration Levofloxacin 750 mg in 150 mls @ 100 mls/hr 04/09/21 09:00 04/10/21 10:08 Levaquin IV Infused Q24H JESSICA Infusion Insulin Glargine 45 unit 04/09/21 09:00 04/10/21 08:32 Insulin Glargine,Hum.Rec.Anlog 100 Unit/Ml 10 Ml Vial SUBCUT 45 unit DAILY JESSICA Administration Insulin Human Lispro 0 unit 04/07/21 07:30 04/10/21 11:49 Insulin Lispro 100 Unit/Ml 3 Ml Vial SUBCUT 6 unit QIDACHS [facility] Administration Protocol Lamotrigine 100 mg 04/07/21 11:05 04/10/21 08:35 Lamotrigine 100 Mg Tablet PO 100 mg DAILY@0730 JESSICA Administration Lamotrigine 150 mg 04/07/21 21:00 04/09/21 20:35 Lamotrigine 25 Mg Tablet PO 150 mg BEDTIME JESSICA Administration Levetiracetam 1,500 mg 04/07/21 11:15 04/10/21 08:36 Levetiracetam 500 Mg Tablet PO 1,500 mg BID JESSICA Administration Lorazepam 0.5 mg 04/07/21 11:15 04/10/21 08:37 Lorazepam 0.5 Mg Tablet PO 0.5 mg BID JESSICA Administration Lorazepam 1 mg 04/07/21 11:00 04/08/21 11:23 Lorazepam 1 Mg Tablet PO 1 mg TID PRN Administration anxiety/restlessness Magnesium Hydroxide 30 ml 04/07/21 11:15 04/10/21 08:35 Milk Of Magnesia 30 Ml Oral.Susp PO 30 ml DAILY JESSICA Administration Magnesium Oxide 400 mg 04/07/21 11:00 04/10/21 08:38 Magnesium Oxide 400 Mg Tablet PO 400 mg DAILY JESSICA Administration Metoprolol Tartrate 100 mg 04/07/21 11:05 04/10/21 08:37 Metoprolol Tartrate 100 Mg Tablet PO 100 mg BID JESSICA Administration Protocol Naproxen 500 mg 04/07/21 10:54 04/09/21 15:43 Naproxen 500 Mg Tablet PO 500 mg BID PRN Administration Pain (Scale Score 4-6) Omeprazole 20 mg 04/07/21 11:15 04/10/21 08:38 Omeprazole 20 Mg Capsule.Dr PO 20 mg DAILY JESSICA Administration Ondansetron HCl 4 mg 04/06/21 23:52 04/07/21 21:26 Ondansetron Hcl 4 Mg/2 Ml Vial IVPUSH 4 mg Q8H PRN Administration Nausea and Vomiting Pharmacy Consult 1 each 04/06/21 20:30 Consult Rx Vancomycin Dosing MISCELLANE DAILY PRN Consult order Pharmacy Consult 1 each 04/07/21 10:44 Consult Rx Perform Med Rec MISCELLANE ONCE PRN Consult order Phenytoin 150 mg 04/07/21 11:00 04/10/21 08:37 Phenytoin Chewable 50 Mg Tab.Chew PO 150 mg DAILY@0730 JESSICA Administration Phenytoin 200 mg 04/08/21 21:00 04/09/21 20:37 Phenytoin Chewable 50 Mg Tab.Chew PO 200 mg BEDTIME JESSICA Administration Polyethylene Glycol 17 gm 04/06/21 23:52 04/10/21 08:33 Polyethylene Glycol 3350 17 Gm Powd.Pack PO 17 gm DAILY JESSICA Administration Risperidone 2 mg 04/07/21 11:15 04/10/21 08:35 Risperidone 2 Mg Tablet PO 2 mg BID JESSICA Administration Senna 17.2 mg 04/07/21 11:10 04/10/21 08:37 Sennosides 8.6 Mg Tablet PO 17.2 mg BID JESSICA Administration Sodium Chloride 3 ml 04/07/21 00:00 04/10/21 08:38 0.9 % Sodium Chloride Flush 3 Ml Syringe IVFLUSH 3 ml QSHIFT JESSICA Administration Sodium Chloride 1 spray 04/09/21 13:35 04/09/21 14:38 Sodium Chloride 0.65 % Nasal 44 Ml Sprbtl NOSTRIL-B 1 spray Q1H PRN Administration Nasal Congestion Spironolactone 25 mg 04/07/21 11:15 04/10/21 08:58 Spironolactone 25 Mg Tablet PO 25 mg DAILY JESSICA Administration Protocol Valsartan 320 mg 04/07/21 11:05 04/10/21 08:37 Valsartan 320 Mg Tablet PO 320 mg DAILY JESSICA Administration Protocol Labs CBC & Chem 7: 04/09/21 05:45 04/10/21 04:25 Microbiology Microbiology Results: Microbiology 04/06/21 20:42 Blood - Venous Blood Culture - Final Escherichia coli 04/06/21 20:46 Blood - Venous Blood Culture - Preliminary No growth after 48 hours. Assessment and Plan (1) Cellulitis of leg, right: Status: Acute (2) Constipation: Status: Acute (3) Sepsis: Status: Acute Assessment and Plan: This is a 65-year-old male with past medical history of diabetes, HTN, among others who presents to the hospital with lower extremity erythema and pain as well as constipation sepsis E coli bacteremia Secondary to UTI? cellulitis? Sensitive E coli in blood culture DC IV fluid Change antibiotic to IV Levaquin, to discharge on total of 10 days of p.o. Levaquin Fluid overload Secondary to chronic venous disease in extremities and her nutritional status Normal BNP Echo showing within normal ejection fraction of 60 65% IV Lasix to 40 b.i.d Monitor intake and output constipation severely constipated on KUB Continue MiraLax, milk of magnesia, as well as Colace Continue senna Had a good bowel movement overnight Hyperglycemia secondary to diabetes hold oral anti hyperglycemics Increase Lantus to 45 units SSI diabetic diet Uncontrolled hypertension Sinus tachycardia Better controlled today Secondary to stress from infection and bacteremia Continue metoprolol of continue spironolactone, valsartan history of CVA continue aspirin DVT ppx: Heparin subq
[2021-04-10 16:17] LABS: Glucose, Whole Blood 187 mg/dL (60-115)
[2021-04-10 20:32] LABS: Glucose, Whole Blood 98 mg/dL (60-115)
[2021-04-10] MEDS: lamoTRIgine 25 MG TABLET 150 MG PO (21:39)
[2021-04-10] MEDS: Amitriptyline HCl 25 MG TABLET PO (21:43)
[2021-04-10] MEDS: Folic Acid 1 MG TABLET PO (21:44)
[2021-04-10] MEDS: Phenytoin Chewable 50 MG TAB.CHEW 200 MG PO (21:46)
[2021-04-11] MEDS: Heparin Sodium,Porcine 5,000 UNIT/ML VIAL 5000 UNIT SUBCUT ×2 (00:02→13:21)
[2021-04-11] MEDS: 0.9 % Sodium Chloride Flush 3 ML SYRINGE IVFLUSH ×3 (00:03→13:21)
[2021-04-11 03:48] VITALS: BP 131/75; PULSE 81; RESP 18; TEMP 36.7; O2SAT 97
[2021-04-11] MEDS: Cyclobenzaprine HCl 5 MG TABLET PO ×2 (03:53→11:02)
[2021-04-11 05:28] LABS: Anion Gap 15 (12-20); Blood Urea Nitrogen 22 mg/dL (9-16); Calcium 8.5 mg/dL (8.4-10.2); Carbon Dioxide 27 mmol/L (22-29); Chloride 96 mmol/L (96-108); Creatinine Clr Calc Pharmacy 118.9; Estimated Glomerular Filt Rate > 60; Glucose Random 176 mg/dL (60-115); Potassium 4.6 mmol/L (3.3-5.1); Sodium 133 mmol/L (135-145)
[2021-04-11 06:00] VITALS: BMI 34.4
[2021-04-11 07:10] LABS: Glucose, Whole Blood 173 mg/dL (60-115)
[2021-04-11 07:46] VITALS: BP 119/68; PULSE 81; RESP 18; TEMP 36.5; O2SAT 95
[2021-04-11] MEDS: Insulin Glargine,Hum.rec.anlog 100 UNIT/ML 10 ML VIAL 45 UNIT SUBCUT (08:24)
[2021-04-11] MEDS: Insulin Lispro 100 UNIT/ML 3 ML VIAL SUBCUT (08:24)
[2021-04-11] MEDS: Furosemide 40 MG/4 ML VIAL IVPUSH (08:24)
[2021-04-11] MEDS: polyethylene glycoL 3350 17 GM POWD.PACK PO (08:25)
[2021-04-11] MEDS: Milk of Magnesia 30 ML ORAL.SUSP PO (08:25)
[2021-04-11] MEDS: levoFLOXacin/D5W 750 MG/150 ML PIGGYBACK 100 MG IV (08:25)
[2021-04-11 08:26] VITALS: BP 119/68; PULSE 81
[2021-04-11] MEDS: Phenytoin Chewable 50 MG TAB.CHEW 150 MG PO (08:26)
[2021-04-11] MEDS: Sennosides 8.6 MG TABLET 17.2 MG PO (08:26)
[2021-04-11] MEDS: Valsartan 320 MG TABLET PO (08:26)
[2021-04-11 08:27] VITALS: BP 119/68; PULSE 81
[2021-04-11] MEDS: Magnesium Oxide 400 MG TABLET PO (08:27)
[2021-04-11] MEDS: Metoprolol Tartrate 100 MG TABLET PO (08:27)
[2021-04-11] MEDS: Gabapentin 600 MG TABLET PO ×2 (08:27→13:20)
[2021-04-11] MEDS: Aspirin Enteric Coated 81 MG TABLET.DR PO (08:27)
[2021-04-11] MEDS: LORazepam 0.5 MG TABLET PO (08:27)
[2021-04-11] MEDS: Spironolactone 25 MG TABLET PO (08:27)
[2021-04-11] MEDS: Omeprazole 20 MG CAPSULE.DR PO (08:27)
[2021-04-11] MEDS: lamoTRIgine 100 MG TABLET PO (08:27)
[2021-04-11] MEDS: risperiDONE 2 MG TABLET PO (08:27)
[2021-04-11] MEDS: Docusate Sodium 100 MG CAPSULE PO (08:27)
[2021-04-11] MEDS: levETIRAcetam 500 MG TABLET 1500 MG PO (08:27)
[2021-04-11] MEDS: Clotrimazole 1 % Cream 15 GM TUBE 1 APPL TOPICAL (08:28)
[2021-04-11 11:07] LABS: Glucose, Whole Blood 145 mg/dL (60-115)
[2021-04-11 11:28] VITALS: BP 113/67; PULSE 82; RESP 17; TEMP 36.4; O2SAT 94
[2021-04-11] MEDS: NaPROXEN 500 MG TABLET PO (13:21)
[2021-04-11 15:05] VITALS: BP 120/63; PULSE 71; RESP 18; TEMP 36.6; O2SAT 95
--- NOTE | 2021-04-11 15:10 | MHC.CM.PN ---
pt to be dcd today at 5:00 by [facility] contacted skilled nursing spoke with ricardo to confirm arrangements
[2021-04-11 16:14] LABS: Glucose, Whole Blood 197 mg/dL (60-115)
--- NOTE | 2021-04-11 16:14 | PM.DS ---
DS: Providers Provider Date of Service: 04/12/21 Date of admission: 04/06/21 23:29 Primary care physician: Andrei Coulter PA-C Consults: 04/08/21 07:50 Consult to Infectious Diseases Routine Consulting Provider: Linn Schulz Reason for consultation: GNR Bacteremia for your eval. DS: Diagnosis Discharge Diagnosis (1) Cellulitis of leg, right: Status: Acute (2) Constipation: Status: Acute (3) Sepsis: Status: Acute DS: Medications Discharge Medications Home Medications: Home Medications Medication Instructions Recorded Confirmed Ponaris 3 applic INTRANASAL BID 09/13/20 04/07/21 artificial tears with lanolin 2 applic OPHTHALMIC (EYE) DAILY 09/13/20 04/07/21 guanfacine 2 mg PO DAILY 09/13/20 04/07/21 lamotrigine [Lamictal] 100 mg PO DAILY@0730 09/13/20 04/07/21 ketoconazole 1 appl TOPICAL DAILY PRN 12/17/20 04/07/21 lamotrigine 150 mg PO BEDTIME 12/17/20 04/07/21 alum-mag hydroxide-simeth 30 ml PO Q4H PRN 12/19/20 04/07/21 naproxen 500 mg PO BID PRN 12/19/20 04/07/21 levetiracetam 1,000 mg tablet 1,500 mg PO BID 01/05/21 04/07/21 phenytoin 150 mg PO DAILY@0730 01/24/21 04/07/21 valsartan 320 1 tab PO DAILY tab 02/06/21 04/07/21 mg-hydrochlorothiazide 25 mg tablet Tresiba FlexTouch U-200 56 unit SUBCUT DAILY 04/07/21 04/07/21 Trulicity 0.75 mg SUBCUT TU@0900 04/07/21 04/07/21 lorazepam 0.5 mg PO BID 04/07/21 04/07/21 lorazepam 1 mg PO TID 04/07/21 04/07/21 phenytoin 200 mg PO DAILY 04/07/21 04/07/21 risperidone [Risperdal] 2 mg PO BID 04/07/21 04/07/21 Previous Rx's Medication Instructions Recorded blood sugar diagnostic #100 ea 11/04/20 lancets 26 gauge #100 ea 11/04/20 gabapentin 600 mg tablet 600 mg PO TID 90 Days #270 tab 12/05/20 magnesium hydroxide 400 mg/5 mL 30 ml PO DAILY 90 Days #3000 ml 12/05/20 oral suspension miscellaneous medical supply 1 ea MISCELLANEOUS ONCE 90 Days #1 12/28/20 ea lancets 28 gauge #100 ea 02/06/21 omeprazole 20 mg capsule,delayed 20 mg PO DAILY #28 cap 02/06/21 release dextrose 40 % oral gel 15 g PO DIRECTED #112.5 g 02/16/21 aspirin 81 mg tablet,delayed 81 mg PO DAILY 90 Days #90 tab 02/22/21 release blood sugar diagnostic #100 ea 02/22/21 blood-glucose meter #1 ea 02/22/21 cyclobenzaprine 5 mg tablet 5 mg PO Q8H #84 tab 02/22/21 folic acid 1 mg tablet 1 mg PO BEDTIME 90 Days #90 tab 02/22/21 lancets 28 gauge #100 ea 02/22/21 metoprolol tartrate 100 mg tablet 100 mg PO BID 90 Days #180 tab 02/22/21 miscellaneous medical supply 1 ea MISCELLANEOUS DAILY 99 Days 02/22/21 #1 ea spironolactone 25 mg tablet 25 mg PO DAILY 90 Days #90 tab 02/22/21 metformin 500 mg tablet,extended 500 mg PO BID #60 tab 03/06/21 release 24 hr pen needle, diabetic 32 gauge x #50 ea 03/30/21 amitriptyline 25 mg tablet 25 mg PO BEDTIME #28 tab 04/05/21 latex gloves #100 ea 04/05/21 loratadine 10 mg capsule 10 mg PO DAILY 30 Days #30 cap 04/05/21 magnesium oxide 400 mg (241.3 mg 400 mg PO QAM #28 tab 04/05/21 magnesium) tablet miscellaneous medical supply 1 ea MISCELLANEOUS .5x 30 Days 04/05/21 #200 ea miscellaneous medical supply 1 ea MISCELLANEOUS DAILY 99 Days 04/05/21 #1000 ea levofloxacin 750 mg PO DAILY 7 Days #7 tab 04/11/21 DS: Summary Hospital Course Hospital Course: Date of admission 04/06/21 Chief Complaint: Lower extremity swelling, redness and pain this is a 65-year-old male with extensive past medical history including CVA x4, chronic active hep C, bipolar disorder, HTN, seizure disorder, type 2 diabetes who presents to the hospital with complaints of lower extremity swelling, and pain as well as constipation x1 day. Patient reports that he has abdominal pain diffuse, has not moved his bowels in few days but had a bowel movement today prior to coming to the ED from senior care. He also complaints of chronically swollen lower extremity as well as redness soreness of his left lower leg around the ankle. Denies any fever or chills, no chest pain, no shortness of breath, no cough or sputum production, no nausea or vomiting, no urinary symptoms. No weakness numbness or tingling that is new. No headache or change in vision. On arrival vitals are significant for temp of 101.8?, heart rate of 118, respiratory rate of 18, blood pressure 146/70, satting 94% on room air Lab significant for WBC count of 15.4, hemoglobin of 12.3, sodium of 133, potassium 4.5, COVID-19 negative, CMP unremarkable. BNP of 29. KUB x-ray shows a large amount of stool present throughout the colon, no evidence of ileus or obstruction. Hospital course: 65-year-old male with past medical history of diabetes, HTN, among others who presents to the hospital with lower extremity erythema and pain as well as constipation sepsis from UTI and Cellulitis, Urine culture grew E. coli sensitive to levaquin. He has been treated with Levaquin IV and will be changed to oral Levaquin 750 daily for 10, has 7 more days to go. Fluid overload Secondary to chronic venous disease in extremities Echo was done with normal systolic functin and BNP is normal , he was given IV Lasix but at this point there is no indication for diuretics constipation---Treated with Miralax, MoM and colace with good result. Adding Miralax PRN at discharge Hyperglycemia secondary to diabetes--to increase prior medication. Oral medication were on hold in hospital while Lantus was increase but will resume prior home medications Hypertension--he had fluctuation in blood pressure but is presently better and will continue his usual medication including Aldactone, Valsartan, Metoprolol. history of CVA continue aspirin Time Spent with Patient Time attestation: Total time spent providing and/or coordinating discharge services: Discharge coordination time: Greater than 30 minutes Physical Exam Vital Signs: Vital Signs: Last Vital Signs Temp 97.8 F 04/11/21 15:05 Pulse 71 04/11/21 15:05 Resp 18 04/11/21 15:05 BP 120/63 04/11/21 15:05 Pulse Ox 95 04/11/21 15:05 Body Mass Index 34.4 Constitutional Awake and Alert, No apparent distress Neck Supple, No lymphadenopathy Cardiovascular RRR, No M/R/G, S1 S2, No S3 S4, No pedal edema Respiratory Lungs clear, No respiratory distress Gastrointestinal Non tender, Non-distended Skin No rash Neurological Alert & oriented x3 Psychological Appropriate affect DS: Data Data Completed and Pending Completed studies during hospitalization [Text1]: Procedures Inspection of Lower Intestinal Tract, Via Natural or Artificial Opening Endoscopic (12/17/20) Labs on day of discharge: Laboratory Results - last 24 hr 04/10/21 04/10/21 04/11/21 16:09 20:24 04:06 Sodium 133 L Potassium 4.6 Chloride 96 Carbon Dioxide 27 Anion Gap 15 BUN 22 H Creatinine 0.74 Estim Creat Clear Calc 118.9 Estimated GFR > 60 POC Glucose 187 H 98 Random Glucose 176 H Calcium 8.5 04/11/21 04/11/21 04/11/21 07:04 11:04 16:08 Sodium Potassium Chloride Carbon Dioxide Anion Gap BUN Creatinine Estim Creat Clear Calc Estimated GFR POC Glucose 173 H 145 H 197 H Random Glucose Calcium Preliminary micro results at discharge 04/06/21 20:46 Blood Culture - Preliminary Blood - Venous No growth after 48 hours. Discharge Plan Discharge Anticipated Discharge Date/Time: 04/11/21 14:58 Patient Disposition: Xfer SNF Discharge Diagnosis: Cellulitis Referrals: skilled nursing service net [Other] - 1 Week Andrei Coulter PA-C [Primary Care Provider] - 1 Week Discharge Medications: New levofloxacin 750 mg tablet 750 mg PO DAILY 7 Days Qty: 7 RF: 0 polyethylene glycol 3350 [Miralax] 17 gram powder in packet 17 g PO DAILY Qty: 30 RF: 0 Continued magnesium hydroxide [Milk of Magnesia] 400 mg/5 mL suspension 30 ml PO DAILY 90 Days Qty: 3000 RF: 1 omeprazole 20 mg capsule,delayed release(DR/EC) 20 mg PO DAILY Qty: 28 RF: 6 dextrose [Glutose-15] 40 % gel 15 g PO DIRECTED Qty: 112.5 RF: 6 metformin 500 mg tablet extended release 24 hr 500 mg PO BID Qty: 60 RF: 3 (DME) pen needle, diabetic [BD Ultra-Fine Helene Pen Needle] 32 gauge x 5/32 needle See Rx Instructions .ROUTE .MEDSUPPLY Qty: 50 RF: 1 guanfacine 2 mg Tablet 2 mg PO DAILY RF: 0 lamotrigine [Lamictal] 100 mg Tablet 100 mg PO DAILY@0730 RF: 0 artificial tears with lanolin Ointment 2 applic OPHTHALMIC (EYE) DAILY RF: 0 Ponaris Solution 3 applic INTRANASAL BID RF: 0 levetiracetam 1,000 mg tablet 1,500 mg PO BID RF: 0 lamotrigine 150 mg Tablet 150 mg PO BEDTIME RF: 0 ketoconazole 2 % Cream 1 appl TOPICAL DAILY PRN (Reason: rash ) RF: 0 alum-mag hydroxide-simeth 200-200-20 mg/5 mL Suspension 30 ml PO Q4H PRN (Reason: Heartburn) RF: 0 naproxen 500 mg Tablet 500 mg PO BID PRN (Reason: Pain (Scale Score 4-6)) RF: 0 phenytoin 50 mg tablet,chewable 150 mg PO DAILY@0730 RF: 0 phenytoin 50 mg Tablet,Chewable 200 mg PO DAILY RF: 0 risperidone [Risperdal] 2 mg Tablet 2 mg PO BID RF: 0 lorazepam 0.5 mg Tablet 0.5 mg PO BID RF: 0 lorazepam 1 mg tablet 1 mg PO TID RF: 0 Tresiba FlexTouch U-200 200 unit/mL (3 mL) insulin pen 56 unit subcut DAILY RF: 0 Trulicity 0.75 mg/0.5 mL pen injector 0.75 mg SUBCUT TU@0900 RF: 0 miscellaneous medical supply Misc 1 ea miscellaneous DAILY 99 Days Qty: 1 RF: 0 aspirin [Adult Aspirin Regimen] 81 mg tablet,delayed release (DR/EC) 81 mg PO DAILY 90 Days Qty: 90 RF: 2 (DME) FreeStyle Lite Strips Strip See Rx Instructions .ROUTE .MEDSUPPLY Qty: 100 RF: 11 (DME) blood-glucose meter [FreeStyle [place] Lite] Kit See Rx Instructions .ROUTE .MEDSUPPLY Qty: 1 RF: 0 (DME) lancets [FreeStyle Lancets] 28 gauge misc See Rx Instructions .ROUTE .MEDSUPPLY Qty: 100 RF: 3 cyclobenzaprine 5 mg tablet 5 mg PO Q8H Qty: 84 RF: 3 folic acid 1 mg tablet 1 mg PO BEDTIME 90 Days Qty: 90 RF: 2 metoprolol tartrate 100 mg tablet 100 mg PO BID 90 Days Qty: 180 RF: 2 spironolactone 25 mg tablet 25 mg PO DAILY 90 Days Qty: 90 RF: 2 gabapentin 600 mg tablet 600 mg PO TID 90 Days Qty: 270 RF: 2 amitriptyline 25 mg tablet 25 mg PO BEDTIME Qty: 28 RF: 5 (DME) latex gloves [Latex Gloves, Large] Misc See Rx Instructions .ROUTE .MEDSUPPLY Qty: 100 RF: 3 miscellaneous medical supply Misc 1 ea miscellaneous .5x 30 Days Qty: 200 RF: 3 miscellaneous medical supply Misc 1 ea miscellaneous DAILY 99 Days Qty: 1000 RF: 3 magnesium oxide 400 mg (241.3 mg magnesium) tablet 400 mg PO QAM Qty: 28 RF: 5 loratadine 10 mg capsule 10 mg PO DAILY 30 Days Qty: 30 RF: 5 miscellaneous medical supply Misc 1 ea miscellaneous ONCE 90 Days Qty: 1 RF: 0 (DME) ReliOn Prime Test Strips Strip See Rx Instructions .ROUTE .MEDSUPPLY Qty: 100 RF: 11 (DME) lancets [Safety Lancets] 26 gauge misc See Rx Instructions .ROUTE .MEDSUPPLY Qty: 100 RF: 11 valsartan-hydrochlorothiazide 320-25 mg tablet 1 tab PO DAILY RF: 0 (DME) lancets [FreeStyle Lancets] 28 gauge misc See Rx Instructions .ROUTE .MEDSUPPLY Qty: 100 RF: 11 Discharge Orders: Discharge Order (Routine); Ordered 04/11/21 Ordered By: Rg Kim Diet: advance to usual diet Activity on Discharge: As tolerated Stand Alone Forms: Patient Portal Discharge page Print Language: Liberian Care Plan Goals: Resolution of Cellulitis Health Concerns: Cellulitis Plan of Treatment: Take Levaquin as directed and follow up with your Doctor in a week Assessment: See above Discharge Date/Time: 04/11/21 16:55
== END 2021-04-11 16:55 | disposition skilled nursing facility (03) | DRG 872 ==
LOC: HO.ED 22:22 → HO.IMC 23:41
PROVIDERS: Student in an Organized Health Care Education/Training Program; Admitting Provider Internal Medicine; Emergency Provider Internal Medicine; PCP Physician Assistant; Visit Provider Internal Medicine
DX: A41.51 Sepsis due to Escherichia coli [E. coli] (principal); L03.115 Cellulitis of right lower limb; N39.0 Urinary tract infection, site not specified; G40.909 Epilepsy, unspecified, not intractable, without status epilepticus; K21.9 Gastro-esophageal reflux disease without esophagitis; E11.65 Type 2 diabetes mellitus with hyperglycemia; I10 Essential (primary) hypertension; E11.42 Type 2 diabetes mellitus with diabetic polyneuropathy; K59.04 Chronic idiopathic constipation; F31.9 Bipolar disorder, unspecified; B18.2 Chronic viral hepatitis C; Z20.822 Contact with and (suspected) exposure to COVID-19; Z86.73 Personal history of transient ischemic attack (TIA), and cerebral infarction without residual deficits; Z88.5 Allergy status to narcotic agent; Z79.4 Long term (current) use of insulin; Z79.899 Other long term (current) drug therapy
CPT/HCPCS: 36415; 74018; 74176; 80048; 80076; 80185; 80202; 82947; 83605; 83880; 85025; 85027; 87040; 87077; 87186; 87205; 87635; 93005; 93306; 96365; 96368; 99285; J0692; J0696; J1940; J1956; J2405; J2543; J3370

== ENCOUNTER → 2021-04-21 10:51 | Outpatient (BNVA) | payer MEDICARE, MEDICAID, SELFPAY | PROVIDERS: PCP Physician Assistant; Visit Provider Nurse Practitioner Gerontology | DX: E11.42 Type 2 diabetes mellitus with diabetic polyneuropathy (principal); I10 Essential (primary) hypertension | CPT/HCPCS: 82947; 99212 ==

== ENCOUNTER 2021-04-21 14:24 | Emergency (ER) | payer MEDICARE, MEDICAID, SELFPAY ==
--- NOTE | ~2021-04-21 | XR_ITS ---
EXAMINATION: XR CHEST CLINICAL INFORMATION: Dizziness COMPARISON: Previous chest x-ray most recent December 2020 TECHNIQUE: 2 views of the chest were obtained. FINDINGS: The cardiac and mediastinal contours are stable. There is slight elevation of the right hemidiaphragm similar to previous exams. The lungs are clear. There is no pleural effusion or pneumothorax. There are old left posterior lateral rib fractures. Bony structures are otherwise unremarkable. XR/XR chest 2V IMPRESSION: No evidence for acute disease in the chest.
--- NOTE | ~2021-04-21 | CT_ITS ---
EXAMINATION: CT ANGIOGRAM OF THE HEAD CT ANGIOGRAM OF THE NECK CLINICAL INFORMATION: Dizziness. COMPARISON: There are no prior studies available for comparison. TECHNIQUE: A noncontrast axial CT scan of the head was obtained. Test bolus series followed by intravenous administration 85 mL of Omnipaque 350. Helical imaging was performed in the axial plane from the mediastinum to the skull vertex. The degree of stenosis is based off NASCET criteria. The data was processed at the cytotechnologist workstation for generation of MIP images. Three-dimensional volume rendered reformatted images were also generated at an offline 3-D workstation. This CT examination was performed using dose optimization techniques as appropriate, variously including the following: *Automated exposure control *Adjustment of mA and/or kV according to patient size (this includes techniques or standardized protocols for targeted exams where dose is matched to indication/reason for exam; i.e. extremities or head) *Use of iterative reconstruction technique DLP: 2312 mGy-cm. FINDINGS: CT Head: There is no evidence of acute intracranial hemorrhage or territorial infarction. No abnormal mass-effect or midline shift is seen. Reynoso to white matter differentiation is well preserved. No extra-axial fluid collections are identified. There is no abnormal enhancement. There is commensurate prominence of the ventricles and sulci consistent with diffuse volume loss, including the cerebellar hemispheres. There is a large area of low attenuation consistent with gliosis in the right parietal region with extensive ex-vacuo dilatation of the posterior body and trigone of the right lateral ventricle. There are also areas of low-attenuation in the inferior frontal lobes bilaterally. These areas of low-attenuation are most consistent sequelae of prior ischemia or trauma. The osseous structures and soft tissues are normal. The mastoid air cells are well-aerated. There is mucosal thickening in the bilateral anterior ethmoid and in the right maxillary, sphenoid and frontal sinuses. CTA Neck: There is a classic configuration of the arch of the aorta. The great vessels of the neck appear widely patent; there is beam hardening artifact from the patient's hand and contrast in the venous structures which degrades evaluation of the proximal great vessels of the neck. The subclavian arteries appear normal bilaterally. The common carotid arteries have normal caliber. Imaging of the level of the bifurcations is slightly degraded by patient swallowing motion artifact. There is a minimal amount of atheromatous calcification at the right carotid bifurcation. The internal carotid arteries in the neck bilaterally have uniform and normal caliber. The origins of both vertebral arteries are well seen and appear normal. Both vertebral arteries are widely patent and demonstrate good opacification throughout their cervical course. The vertebral arteries are codominant. Nonvascular: There is mild atelectasis in the lungs posteriorly. The thyroid gland appears normal. There is no cervical lymphadenopathy. There is reversal of the normal cervical lordosis, and there are spondylitic changes in the mid and lower cervical spine. CTA Head: There are mild atheromatous calcifications of the cavernous and supraclinoid internal carotid arteries bilaterally. The internal carotid termini appear normal. The middle and anterior cerebral arteries bilaterally demonstrate normal caliber with no evidence of focal stenosis, aneurysm or vascular malformation. There is normal arborization of the middle cerebral artery branches. The anterior communicating artery is normal. In the posterior circulation, the vertebral arteries are codominant. The vertebral arteries intradurally have uniform caliber. The basilar artery appears normal. The posterior cerebral arteries have normal caliber. The venous sinuses opacify normally. CT/CT angio head neck IMPRESSION: CT head and neck: 1. There are extensive areas of gliosis in the bifrontal lobes inferiorly and in the right parietal region consistent sequelae of chronic insult, which may be ischemic or posttraumatic. There is ex-vacuo dilatation of the posterior body and trigone of the right lateral ventricle. Overall, the ventricles and sulci are commensurately prominent consistent with diffuse volume loss, including the cerebellar hemisphere. 2. There are no acute bleeds or infarcts. No masses are demonstrated. There is no abnormal enhancement. 3. There are no acute findings in the cervical spinal or in the neck. CTA neck: 1. There are mild atheromatous calcification of the right carotid bifurcation. The carotid and vertebral arteries are patent throughout the neck bilaterally. 2. Intracranially there are no focal stenoses, aneurysms or vascular malformations.
[2021-04-21 14:39] VITALS: BP 110/64; PULSE 83; RESP 14; TEMP 36.6; O2SAT 100; BMI 31.3
--- NOTE | 2021-04-21 14:56 | ECG_ITS ---
Test Reason : FALL Blood Pressure : / mmHG Vent. Rate : 077 BPM Atrial Rate : 077 BPM P-R Int : 270 ms QRS Dur : 080 ms QT Int : 372 ms P-R-T Axes : 045 009 034 degrees QTc Int : 420 ms Sinus rhythm with 1st degree A-V block Otherwise normal ECG When compared with ECG of 08-APR-2021 16:03, No significant change was found Referred By: Sparkle Jones Electronically Signed By:RITU DOSHI MD
[2021-04-21 15:24] LABS: MANUAL DIFF FLAG NO
[2021-04-21 15:27] LABS: Basophils Absolute Auto 0.1 X10*3/uL (0.0-0.2); Basophils Percent Auto 0.5 % (0-2); Eosinophils Absolute Auto 0.5 X10*3/uL (0.0-0.4); Eosinophils Percent Auto 3.5 % (0-4); Hematocrit 37.8 % (42-52); Hemoglobin 12.2 g/dl (14.0-18.0); Imm Gran Abs Auto 0.14 X10*3/uL (0.00-0.03); Imm Gran Pct Auto 1.1 % (0.0-0.4); Lymphocytes Absolute Auto 3.8 X10*3/uL (1.2-4.9); Lymphocytes Percent Auto 29.3 % (20-40); Mean Corpuscular HGB Conc 32.3 g/dl (31.0-36.0); Mean Corpuscular Hemoglobin 30.3 pg (27.0-33.0); Mean Platelet Volume 9.3 fL (9.4-12.4); Monocytes Absolute Auto 0.9 X10*3/uL (0.1-1.2); Monocytes Percent Auto 7.1 % (2-11); Neutrophils Absolute Auto 7.5 X10*3/uL (2.0-8.3); Neutrophils Percent Auto 58.5 % (45-73); Platelet Count 330 X10*3/uL (160-400); Red Blood Count 4.02 X10*6/uL (4.60-5.80); Red Cell Distribution Width 13.2 % (11.0-16.0); White Blood Count 12.8 X10*3/uL (4.8-10.8)
[2021-04-21 15:33] LABS: INTERNATIONAL NORM RATIO 1.1 (0.9-1.1); Prothrombin Time 13.2 SEC (10.8-13.0)
[2021-04-21 15:35] LABS: Partial Thromboplastin Time 34.6 SEC (24.1-38.0)
[2021-04-21 16:00] LABS: Alanine Aminotransferase 38 U/L (0-40); Albumin Level 3.7 g/dL (3.5-5.0); Alkaline Phosphatase 102 U/L (39-117); Anion Gap 14 (12-20); Aspartate Amino Transferase 34 U/L (5-37); Bilirubin Total 0.3 mg/dL (0.0-1.0); Blood Urea Nitrogen 24 mg/dL (9-16); Carbon Dioxide 26 mmol/L (22-29); Chloride 102 mmol/L (96-108); Creatinine Clr Calc Pharmacy 93.6; Estimated Glomerular Filt Rate > 60; Glucose Random 114 mg/dL (60-115); Magnesium 2.1 mg/dL (1.6-2.6); Potassium 5.5 mmol/L (3.3-5.1); Sodium 136 mmol/L (135-145); Total Protein 7.8 g/dL (6.5-8.0)
[2021-04-21 16:03] LABS: B Type Natriuretic Peptide 11 pg/mL (<100); Troponin-I High Sensitivity < 3.5 ng/L (<3.5-35.0)
[2021-04-21] MEDS: iohexoL 350 MG/ML 100 ML INFUS..BTL 85 ML IV (16:17)
[2021-04-21 16:19] LABS: Influenza A PCR NEGATIVE (Negative); Influenza B PCR NEGATIVE (Negative); Resp Syncy Virus RNA Qual PCR NEGATIVE (Negative); SARS COV2 PCR INHOUSE NEGATIVE (Negative)
[2021-04-21 16:20] LABS: Thyroid Stimulating Hormone 4.39 uIU/mL (0.32-4.0)
--- NOTE | 2021-04-21 16:51 | ED_ITS ---
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 Per EMS, fdc said patient seemed off after leaving the bathroom. Patient reports that the dizziness has resolved and that he no longer has any symptoms. MD elicited complaint: dizziness and near syncope Pertinent past history: other (History of multiple CVAs) Onset (ago): minute(s) (Prior to arrival) Timing: sudden onset (Resolved at this time) Description: near-syncope Context: other (While attempting to have a bowel movement) History of similar symptoms: Yes Exacerbating factors: nothing Relieving factors: nothing Associated symptoms: denies other symptoms Related Data Home Medications Medication Instructions Recorded Confirmed Ponaris 3 applic INTRANASAL BID 09/13/20 04/21/21 artificial tears with lanolin 2 applic OPHTHALMIC (EYE) DAILY 09/13/20 04/21/21 guanfacine 2 mg PO DAILY 09/13/20 04/21/21 lamotrigine [Lamictal] 100 mg PO DAILY@0730 09/13/20 04/21/21 ketoconazole 1 appl TOPICAL DAILY PRN 12/17/20 04/21/21 lamotrigine 150 mg PO BEDTIME 12/17/20 04/21/21 alum-mag hydroxide-simeth 30 ml PO Q4H PRN 12/19/20 04/21/21 naproxen 500 mg PO BID PRN 12/19/20 04/21/21 levetiracetam 1,000 mg tablet 1,500 mg PO BID 01/05/21 04/21/21 phenytoin 150 mg PO DAILY@0730 01/24/21 04/21/21 valsartan 320 1 tab PO DAILY tab 02/06/21 04/21/21 mg-hydrochlorothiazide 25 mg tablet lorazepam 1 mg PO TID PRN 04/07/21 04/21/21 phenytoin 200 mg PO BEDTIME 04/07/21 04/21/21 risperidone [Risperdal] 2 mg PO BID 04/07/21 04/21/21 acetaminophen 650 mg PO Q6H PRN 04/21/21 04/21/21 calcium carbonate [Tums] 500 mg PO Q6H PRN 04/21/21 04/21/21 cyclobenzaprine 5 mg PO TID 04/21/21 04/21/21 gabapentin 400 mg PO TID 04/21/21 04/21/21 hydroxyzine HCl 20 mg PO BID 04/21/21 04/21/21 quetiapine [Seroquel XR] 50 mg PO BEDTIME 04/21/21 04/21/21 Previous Rx's Medication Instructions Recorded gabapentin 600 mg tablet 600 mg PO TID 90 Days #270 tab 12/05/20 omeprazole 20 mg capsule,delayed 20 mg PO DAILY #28 cap 02/06/21 release dextrose 40 % oral gel 15 g PO DIRECTED #112.5 g 02/16/21 aspirin 81 mg tablet,delayed 81 mg PO DAILY 90 Days #90 tab 02/22/21 release folic acid 1 mg tablet 1 mg PO BEDTIME 90 Days #90 tab 02/22/21 metoprolol tartrate 100 mg tablet 100 mg PO BID 90 Days #180 tab 02/22/21 spironolactone 25 mg tablet 25 mg PO DAILY 90 Days #90 tab 02/22/21 amitriptyline 25 mg tablet 25 mg PO BEDTIME #28 tab 04/05/21 magnesium oxide 400 mg (241.3 mg 400 mg PO QAM #28 tab 04/05/21 magnesium) tablet dulaglutide 0.75 mg/0.5 mL 0.75 mg SUBCUT TU@0900 #2 ml 04/21/21 subcutaneous pen injector insulin degludec 200 unit/mL (3 56 unit SUBCUT DAILY 90 Days #27 ml 04/21/21 mL) subcutaneous pen metformin 500 mg tablet,extended 500 mg PO BID 90 Days #180 tab 04/21/21 release 24 hr Allergies Allergy/AdvReac Type Severity Reaction Status Date / Time oxycodone [OXYCODONE] Allergy Unknown UNKNOWN Verified 04/05/21 10:02 Phenothiazines Allergy Unknown Unknown Verified 04/05/21 10:02 tetracycline Allergy Unknown Unknown Verified 04/05/21 10:02 tigecycline [TIGECYCLINE] Allergy Unknown UNKNOWN Verified 04/05/21 10:02 Review of Systems Review of Systems: Constitutional : No Fever, No Chills, No Night Sweats, No Fatigue, No Malaise ENT/Mouth : No Ear Pain, No Nasal Congestion, No Sinus Pain, No sore throat, No Rhinorrhea Eyes: No Eye Pain, No Swelling, No Redness, No Foreign Body, No Discharge, No Vision Changes Cardiovascular : No Chest Pain, No SOB, No Dyspnea on Exertion, No Orthopnea, No Palpitations Respiratory : No Cough, No Sputum, No Wheezing, No Dyspnea Gastrointestinal : No Nausea, No Vomiting, No Diarrhea, No Constipation, No abdominal Pain, No Hematochezia, No Melena Genitourinary : No Dysuria, No Urinary Frequency, No Urinary Incontinence, No Urgency, No Flank Pain Musculoskeletal : No joint pain, No Myalgias Skin : No lacerations Neuro : Positive dizziness/generalized weakness that has resolved, patient has residual left sided weakness from old CVA otherwise no additional Focal weakness, No Numbness, No Paresthesias, No Loss of Consciousness, No Headache Yes all other systems are reviewed and are negative [facility] Past Medical History Attestation statement: The following information was validated with the patient. Medical History Abnormal colonoscopy Anxiety Arm pain, left Bipolar disorder Chronic active hepatitis C Conversion disorder CVA (cerebral vascular accident) Dysphagia Essential hypertension GERD (gastroesophageal reflux disease) HTN (hypertension) Obstructive sleep apnea Psychotic disorder Seizure Type 2 diabetes mellitus with diabetic polyneuropathy Surgical History Hx of cholecystectomy Hx of colonoscopy Hx of surgical biopsy Family History Family History Sister Breast cancer in situ Social History Social History Household Members: Other Household Members Other:: fdc Housing: Other Housing Other:: fdc Unable to assess alcohol history related to: Refusing to respond Alcohol intake: former Smoking Status: Former smoker Use of substances other than those prescribed or required for medical reasons: No Advance Directives: Yes Advance Directives Information Provided: Yes Advance Directives on File: No service: No Current occupational status: disabled Physical Exam Vital Signs: Vital Signs: Last Vital Signs Temp 97.8 F 04/21/21 14:39 Pulse 83 04/21/21 14:39 Resp 14 04/21/21 14:39 BP 110/64 04/21/21 14:39 Pulse Ox 100 04/21/21 14:39 Body Mass Index 31.3 Vital signs have been reviewed as normal and appeared to be correct. Blood pressure normal. Heart rate normal. Respiration rate normal. Temperature normal. Oxygen saturation normal. Appearance: Alert. Oriented X3. No acute distress. Head: Normal external exam. Normocephalic. Atraumatic. Able to rotate head bilaterally. Eyes: PERRLA. EOMI. No nystagmus noted. Conjunctiva and sclera normal. Eyelids normal. Corneal reflex normal. ENT: EAC normal. TM's Normal. Hearing normal. Pharynx normal. Uvula midline. tongue midline. Moist mucous membranes. No trismus noted. No drooling noted. No muffled voice noted. No nystagmus noted. Neck: Normal inspection. Neck supple. FROM. No adenopathy. Trachea midline. Thyroid Normal. No meningeal signs. No neck mass noted. CVS: Normal heart rate and rhythm. Heart sound normal. No murmurs noted. Pulses normal throughout. Respiratory: No respiratory distress. Painless inspiration. Breath sounds normal. No wheezes/rales/rhonchi noted. Chest nontender. No accessory muscle usage noted or decreased air movement noted. Abdomen: Soft and nontender. Bowel sounds normal in all 4 quadrants. No distention noted. No organomegaly noted. No visible injury noted. Back: No CVA tenderness. Full range of motion noted. Skin: Skin warm and dry. Normal skin color. Normal skin turgor. No rashes/lesions/lacerations noted. Extremities: No lower extremity edema. Left upper extremity contracted with limited range of motion although patient reports this is his baseline otherwise Extremities exhibit normal range of motion and nontender. Able to shrug shoulders bilaterally and keep up against resistance. Neuro: Oriented X 3. Chronic motor deficit to left upper extremity otherwise No additional motor deficit at this time. No sensory deficit. Reflexes normal. Moving all extremities. Chronic left upper extremity deficit No other focal motor deficits. Cranial nerves II-XI intact bilaterally. Facial strength normal. Normal cognition. Speech normal. Decreased strength to left upper extremity otherwise Strength 5/5 throughout to all other extremities. No pronator drift. No tremor noted. No fasciculations noted. No rigidity noted. Muscle tone normal throughout. No asterixis noted. [id number] test normal. Rapid alternating movement upper extremity normal. Rapid alternating movement lower extremity normal. Hand drop from overhead Misses face. NIHSS score 0. NIH Stroke Scale Internal: Initial- Upon Arrival Time: 14:55 Level of Consciousness: Alert Level of Consciousness Questions: Answers both questions correctly Level of Consciousness Commands: Performs both tasks correctly Best Gaze: Normal Visual: No visual loss Facial Palsy: Normal Motor Arm (Right): No drift Motor Arm (Left): No drift Motor Leg (Right): No drift Motor Leg (Left): No drift Limb Ataxia: Absent Sensory: Normal Best Language: No aphasia Dysarthia: Normal Extinction and Inattention: No abnormality Score: 0 Course Course Course Narrative: 17pm - labs return and patient with an elevated white blood cell count at 12,000. Mild anemia with an H&H of 12.2/37.8. Potassium 5.5. BUN 24. TSH level 4.39. Otherwise all other labs are within normal limits including troponin. COVID/RSV/flu negative. EKG sinus rhythm with 1st degree AV block no acute ischemic changes are noted. And similar compared to prior EKG. Chest x-ray within normal limits no acute processes are noted. - will give 30 g of Kayexalate for the potassium - at this time waiting CT head and neck with IV contrast will re-evaluate. Reevaluation(s) Reevaluation #1: - CTA of head and neck processes noted. - I consulted with Dr. Yu Hsu's and both Dr. Lawler and they both reported that they agree that this is a vasovagal and that this is not a CVA therefore no further imaging such as MRI indicated at this time especially if the patient's symptoms resolved before arriving here and he continues to have no symptoms and is at baseline. - therefore if orthostatic vitals are within normal limits will DC home with instructions to return if any new or worsening symptoms to follow up with primary care provider. Patient understands agrees with this plan. Time: 18:01 MDM - Dizziness MDM Narrative Medical decision making narrative: 15pm - 66-year-old male with a past medical history of a CVA with left-sided upper extremity residual weakness/blanace d/o currently on a baby aspirin, seizure disorder, hypertension, diabetes type 2, psychotic disorder, bipolar disorder, anxiety, neuropathy, GERD, chronic active hepatitis-C, incontinence of urine and esophageal thrush currently at a [facility] presenting with dizziness, generalized weakness and felt like he was going to faint per patient that started approximately 13:00/13:30 after patient went to the bathroom and was bearing down hard to have a large bowel movement he reports. - On exam patient is alert and oriented x3. Not in any acute distress. Vital signs are stable within normal limits. Patient has a chronic left upper e xtremity weakness/contraction which he reports is at baseline when compared to prior otherwise no additional focal deficits are noted at this time. NIH SS score is 0 at this time as patient has non disabling symptoms and is at baseline. - Concern for CVA vs TIA vs orthostatic hypotension vs vasovagal - Plan:Labs, CT scan of brain, CTA of head and neck, EKG, chest x-ray, orthostatic vitals. Then re-evaluated Medical Records Attestation: I reviewed the patient's medical records. Lab Data Attestation: I reviewed the patient's lab results. Result diagrams: 04/21/21 15:19 04/21/21 15:18 Labs: Lab Results 04/21/21 04/21/21 04/21/21 Range/Units 15:17 15:18 15:18 WBC (4.8-10.8) X10*3/uL RBC (4.60-5.80) X10*6/uL Hgb (14.0-18.0) g/dl Hct (42-52) % MCV (80-98) fL MCH (27.0-33.0) pg MCHC (31.0-36.0) g/dl RDW (11.0-16.0) % Plt Count (160-400) X10*3/uL MPV (9.4-12.4) fL Immature Gran % (Auto) (0.0-0.4) % Neut % (Auto) (45-73) % Lymph % (Auto) (20-40) % Doddridge % (Auto) (2-11) % Eos % (Auto) (0-4) % Baso % (Auto) (0-2) % Lymph # (Auto) (1.2-4.9) X10*3/uL Dod[place]idge # (Auto) (0.1-1.2) X10*3/uL Eos # (Auto) (0.0-0.4) X10*3/uL Baso # (Auto) (0.0-0.2) X10*3/uL Abs Immat Gran (auto) (0.00-0.03) X10*3/uL Absolute Neuts (auto) (2.0-8.3) X10*3/uL Absolute Nucleated RBC (0.0-0.012) X10*3/uL Nucleated RBC % (auto) (0.0-0.2) /100WBC PT (10.8-13.0) SEC INR (0.9-1.1) APTT (24.1-38.0) SEC Sodium 136 (135-145) mmol/L Potassium 5.5 H (3.3-5.1) mmol/L Chloride 102 (96-108) mmol/L Carbon Dioxide 26 (22-29) mmol/L Anion Gap 14 (12-20) BUN 24 H (9-16) mg/dL Creatinine 0.90 (0.5-1.4) mg/dL Estim Creat Clear Calc 93.6 Estimated GFR > 60 Random Glucose 114 D (60-115) mg/dL Calcium 9.0 (8.4-10.2) mg/dL Magnesium 2.1 (1.6-2.6) mg/dL Total Bilirubin 0.3 (0.0-1.0) mg/dL AST 34 (5-37) U/L ALT 38 (0-40) U/L Alkaline Phosphatase 102 D (39-117) U/L Troponin I High Sens < 3.5 (<3.5-35.0) ng/L B-Natriuretic Peptide 11 (<100) pg/mL Total Protein 7.8 D (6.5-8.0) g/dL Albumin 3.7 D (3.5-5.0) g/dL TSH 4.39 H (0.32-4.0) uIU/mL Coronavirus (PCR) (Negative) Influenza Type A (PCR) (Negative) Influenza Type B (PCR) (Negative) RSV RNA Qual (PCR) (Negative) 04/21/21 04/21/21 04/21/21 Range/Units 15:18 15:19 15:19 WBC 12.8 H (4.8-10.8) X10*3/uL RBC 4.02 L (4.60-5.80) X10*6/uL Hgb 12.2 L (14.0-18.0) g/dl Hct 37.8 L (42-52) % MCV 94.0 (80-98) fL MCH 30.3 (27.0-33.0) pg MCHC 32.3 (31.0-36.0) g/dl RDW 13.2 (11.0-16.0) % Plt Count 330 D (160-400) X10*3/uL MPV 9.3 L (9.4-12.4) fL Immature Gran % (Auto) 1.1 H (0.0-0.4) % Neut % (Auto) 58.5 (45-73) % Lymph % (Auto) 29.3 (20-40) % Doddridge % (Auto) 7.1 (2-11) % Eos % (Auto) 3.5 (0-4) % Baso % (Auto) 0.5 (0-2) % Lymph # (Auto) 3.8 (1.2-4.9) X10*3/uL Doddridge # (Auto) 0.9 (0.1-1.2) X10*3/uL Eos # (Auto) 0.5 H (0.0-0.4) X10*3/uL Baso # (Auto) 0.1 (0.0-0.2) X10*3/uL Abs Immat Gran (auto) 0.14 H (0.00-0.03) X10*3/uL Absolute Neuts (auto) 7.5 (2.0-8.3) X10*3/uL Absolute Nucleated RBC 0.000 (0.0-0.012) X10*3/uL Nucleated RBC % (auto) 0.0 (0.0-0.2) /100WBC PT 13.2 H (10.8-13.0) SEC INR 1.1 (0.9-1.1) APTT 34.6 (24.1-38.0) SEC Sodium (135-145) mmol/L Potassium (3.3-5.1) mmol/L Chloride (96-108) mmol/L Carbon Dioxide (22-29) mmol/L Anion Gap (12-20) BUN (9-16) mg/dL Creatinine (0.5-1.4) mg/dL Estim Creat Clear Calc Estimated GFR Random Glucose (60-115) mg/dL Calcium (8.4-10.2) mg/dL Magnesium (1.6-2.6) mg/dL Total Bilirubin (0.0-1.0) mg/dL AST (5-37) U/L ALT (0-40) U/L Alkaline Phosphatase (39-117) U/L Troponin I High Sens (<3.5-35.0) ng/L B-Natriuretic Peptide (<100) pg/mL Total Protein (6.5-8.0) g/dL Albumin (3.5-5.0) g/dL TSH (0.32-4.0) uIU/mL Coronavirus (PCR) NEGATIVE (Negative) Influenza Type A (PCR) NEGATIVE (Negative) Influenza Type B (PCR) NEGATIVE (Negative) RSV RNA Qual (PCR) NEGATIVE (Negative) Imaging Data Chest x-ray: Attestation: I personally reviewed and interpreted this imaging study as follows: Radiologist's impression: FINDINGS: The cardiac and mediastinal contours are stable. There is slight elevation of the right hemidiaphragm similar to previous exams. The lungs are clear. There is no pleural effusion or pneumothorax. There are old left posterior lateral rib fractures. Bony structures are otherwise unremarkable. XR/XR chest 2V IMPRESSION: No evidence for acute disease in the chest. CT a of head and neck: Attestation: I personally reviewed and interpreted this imaging study as follows: Radiologist's impression: IMPRESSION: CT head and neck: 1. There are extensive areas of gliosis in the bifrontal lobes inferiorly and in the right parietal region consistent sequelae of chronic insult, which may be ischemic or posttraumatic. There is ex-vacuo dilatation of the posterior body and trigone of the right lateral ventricle. Overall, the ventricles and sulci are commensurately prominent consistent with diffuse volume loss, including the cerebellar hemisphere. 2. There are no acute bleeds or infarcts. No masses are demonstrated. There is no abnormal enhancement. 3. There are no acute findings in the cervical spinal or in the neck. CTA neck: 1. There are mild atheromatous calcification of the right carotid bifurcation. The carotid and vertebral arteries are patent throughout the neck bilaterally. 2. Intracranially there are no focal stenoses, aneurysms or vascular malformations. ECG Data Attestation: I personally reviewed and interpreted this ECG as follows: ECG interpretation date: 04/21/21 ECG interpretation time: 16:53 Interpretation: Sinus rhythm with first-degree AV block with a ventricular rate of 77 no acute ischemic changes are noted. Similar compared to prior EKG 04/08/2021 Critical Care Time Critical Care Time Critical Care Time: Yes Total Critical Care Time: 60 Attestation: I personally attest to this time spent taking care of the patient Discharge Plan Discharge Clinical Impression: Acute hyperkalemia, Vaso-vagal reaction Patient Disposition: Home, Self-Care Instructions: Hyperkalemia (ED) Prescriptions: No Action omeprazole 20 mg capsule,delayed release(DR/EC) 20 mg PO DAILY Qty: 28 RF: 6 dextrose [Glutose-15] 40 % gel 15 g PO DIRECTED Qty: 112.5 RF: 6 guanfacine 2 mg Tablet 2 mg PO DAILY RF: 0 lamotrigine [Lamictal] 100 mg Tablet 100 mg PO DAILY@0730 RF: 0 artificial tears with lanolin Ointment 2 applic OPHTHALMIC (EYE) DAILY RF: 0 Ponaris Solution 3 applic INTRANASAL BID RF: 0 levetiracetam 1,000 mg tablet 1,500 mg PO BID RF: 0 lamotrigine 150 mg Tablet 150 mg PO BEDTIME RF: 0 ketoconazole 2 % Cream 1 appl TOPICAL DAILY PRN (Reason: rash ) RF: 0 alum-mag hydroxide-simeth 200-200-20 mg/5 mL Suspension 30 ml PO Q4H PRN (Reason: Heartburn) RF: 0 naproxen 500 mg Tablet 500 mg PO BID PRN (Reason: Pain (Scale Score 4-6)) RF: 0 phenytoin 50 mg tablet,chewable 150 mg PO DAILY@0730 RF: 0 phenytoin 50 mg Tablet,Chewable 200 mg PO BEDTIME RF: 0 risperidone [Risperdal] 2 mg Tablet 2 mg PO BID RF: 0 lorazepam 1 mg tablet 1 mg PO TID PRN (Reason: Anxiety) RF: 0 acetaminophen 325 mg Tablet 650 mg PO Q6H PRN (Reason: Pain) RF: 0 calcium carbonate [Tums] 200 mg calcium (500 mg) Tablet,Chewable 500 mg PO Q6H PRN (Reason: Heartburn) RF: 0 hydroxyzine HCl 10 mg Tablet 20 mg PO BID RF: 0 gabapentin 400 mg Tablet 400 mg PO TID RF: 0 quetiapine [Seroquel XR] 50 mg Tablet Extended Release 24 Hr 50 mg PO BEDTIME RF: 0 cyclobenzaprine 5 mg tablet 5 mg PO TID RF: 0 aspirin [Adult Aspirin Regimen] 81 mg tablet,delayed release (DR/EC) 81 mg PO DAILY 90 Days Qty: 90 RF: 2 folic acid 1 mg tablet 1 mg PO BEDTIME 90 Days Qty: 90 RF: 2 metoprolol tartrate 100 mg tablet 100 mg PO BID 90 Days Qty: 180 RF: 2 spironolactone 25 mg tablet 25 mg PO DAILY 90 Days Qty: 90 RF: 2 gabapentin 600 mg tablet 600 mg PO TID 90 Days Qty: 270 RF: 2 amitriptyline 25 mg tablet 25 mg PO BEDTIME Qty: 28 RF: 5 magnesium oxide 400 mg (241.3 mg magnesium) tablet 400 mg PO QAM Qty: 28 RF: 5 Tresiba FlexTouch U-200 200 unit/mL (3 mL) insulin pen 56 unit subcut DAILY 90 Days Qty: 27 RF: 1 Trulicity 0.75 mg/0.5 mL pen injector 0.75 mg SUBCUT TU@0900 Qty: 2 RF: 3 metformin 500 mg tablet extended release 24 hr 500 mg PO BID 90 Days Qty: 180 RF: 1 valsartan-hydrochlorothiazide 320-25 mg tablet 1 tab PO DAILY RF: 0 Referrals: Andrei Coulter PA-C [Primary Care Provider] - 2 days Print Language: Romanian
[2021-04-21] MEDS: Sodium Polystyrene Sulfon/Sorb 15 GM/60 ML ORAL.SUSP 30 GM PO (17:27)
== END 2021-04-21 20:00 | disposition home or self-care (01) ==
PROVIDERS: Physician Assistant Medical; Emergency Provider Internal Medicine; PCP Physician Assistant
DX: R55 Syncope and collapse (principal); E87.5 Hyperkalemia; R42 Dizziness and giddiness; R53.1 Weakness; I10 Essential (primary) hypertension; E11.9 Type 2 diabetes mellitus without complications; Z20.822 Contact with and (suspected) exposure to COVID-19; Z86.73 Personal history of transient ischemic attack (TIA), and cerebral infarction without residual deficits; Z79.82 Long term (current) use of aspirin; Z79.899 Other long term (current) drug therapy; Z87.891 Personal history of nicotine dependence
CPT/HCPCS: 0241U; 36415; 70496; 70498; 71046; 80053; 82947; 83735; 83880; 84443; 84484; 85025; 85610; 85730; 93005; 99212; 99284; Q9967

== ENCOUNTER → 2021-04-24 08:43 | Outpatient (BNVA) | payer MEDICARE, MEDICAID, SELFPAY | PROVIDERS: PCP Internal Medicine; Visit Provider Internal Medicine Gastroenterology | CPT/HCPCS: Q3014 ==

== ENCOUNTER → 2021-05-08 08:15 | Outpatient (BNVA) | payer MEDICARE, MEDICAID, SELFPAY | PROVIDERS: PCP Physician Assistant; Visit Provider Nurse Practitioner Gerontology | DX: E11.649 Type 2 diabetes mellitus with hypoglycemia without coma (principal); E11.42 Type 2 diabetes mellitus with diabetic polyneuropathy; I10 Essential (primary) hypertension; R79.89 Other specified abnormal findings of blood chemistry | CPT/HCPCS: 82947; 99212 ==

== ENCOUNTER 2021-05-17 13:30 | Outpatient (REF) | payer MEDICARE, MEDICAID, SELFPAY ==
--- NOTE | ~2021-05-17 | US_ITS ---
EXAMINATION: US VENOUS ULTRASOUND WITH DOPPLER LOWER EXTREMITY, RIGHT CLINICAL INFORMATION: Swelling COMPARISON: None TECHNIQUE: Ultrasound of the deep veins is performed from the hip to the calf with compression sonography and color and pulse Doppler assessment. Spectral analysis with color-flow imaging is performed. FINDINGS: There is normal venous compression and respiratory variation and augmented flow. The visualized common femoral vein, superficial femoral vein, profunda femoral vein, popliteal vein, and the trifurcation region shows no evidence of deep venous thrombosis. There is no popliteal fossa cyst. US/US venous duplex LE RT IMPRESSION: No DVT demonstrated in the right lower extremity.
[2021-05-17 15:52] LABS: Hematocrit 39.1 % (42-52); Hemoglobin 12.3 g/dl (14.0-18.0); Mean Corpuscular HGB Conc 31.5 g/dl (31.0-36.0); Mean Corpuscular Hemoglobin 30.2 pg (27.0-33.0); Mean Corpuscular Volume 96.1 fL (80-98); Mean Platelet Volume 10.2 fL (9.4-12.4); Platelet Count 234 X10*3/uL (160-400); Red Blood Count 4.07 X10*6/uL (4.60-5.80); Red Cell Distribution Width 12.8 % (11.0-16.0); White Blood Count 8.5 X10*3/uL (4.8-10.8)
[2021-05-17 16:09] LABS: Estimated Average Glucose 148 mg/dL; Hemoglobin A1c % 6.8 %
[2021-05-17 16:10] LABS: Anion Gap 15 (12-20); Blood Urea Nitrogen 12 mg/dL (9-16); Calcium 9.2 mg/dL (8.4-10.2); Carbon Dioxide 24 mmol/L (22-29); Chloride 102 mmol/L (96-108); Cholesterol 137 mg/dL; Estimated Glomerular Filt Rate > 60; Glucose Random 113 mg/dL (60-115); HDL Cholesterol 45 mg/dL; LDL Cholesterol Calculated 62 mg/dl; Potassium 4.6 mmol/L (3.3-5.1); Sodium 136 mmol/L (135-145); Triglycerides 153 mg/dL
[2021-05-17 16:23] LABS: INTERNATIONAL NORM RATIO 1.1 (0.9-1.1)
[2021-05-17 16:31] LABS: Prostate Specific Antigen Scr 0.16 ng/mL (<0.05-4.0); TSH reflex Free T4 2.05 uIU/mL (0.32-4.0)
[2021-05-18 03:43] LABS: HIV AB/AG Nonreactive (Nonreactive); HIV Num 1 0.09 S/CO (0.00-0.99)
[2021-05-22 12:16] LABS: Alpha Fetoprotein 9.2 ng/mL (<6.1)
== END 2021-05-17 13:31 | disposition home or self-care (01) ==
LOC: HO.US 13:30
PROVIDERS: Internal Medicine Gastroenterology; Visit Provider Physician Assistant
DX: Z12.5 Encounter for screening for malignant neoplasm of prostate (principal); Z11.4 Encounter for screening for human immunodeficiency virus [HIV]; I73.9 Peripheral vascular disease, unspecified; E11.42 Type 2 diabetes mellitus with diabetic polyneuropathy; I10 Essential (primary) hypertension; E87.5 Hyperkalemia; B18.2 Chronic viral hepatitis C
CPT/HCPCS: 36415; 80048; 80061; 82105; 83036; 84153; 84443; 85027; 85610; 87389; 87902; 93971

== ENCOUNTER 2021-06-30 08:11 | Outpatient (REF) | payer MEDICARE, MEDICAID, SELFPAY ==
[2021-06-30 09:25] LABS: Hematocrit 40.4 % (42-52); Hemoglobin 12.7 g/dl (14.0-18.0); Mean Corpuscular HGB Conc 31.4 g/dl (31.0-36.0); Mean Corpuscular Hemoglobin 30.1 pg (27.0-33.0); Mean Corpuscular Volume 95.7 fL (80-98); Mean Platelet Volume 10.6 fL (9.4-12.4); Platelet Count 209 X10*3/uL (160-400); Red Blood Count 4.22 X10*6/uL (4.60-5.80); Red Cell Distribution Width 12.5 % (11.0-16.0); White Blood Count 10.1 X10*3/uL (4.8-10.8)
[2021-06-30 09:51] LABS: Alanine Aminotransferase 49 U/L (0-40); Albumin Level 4.1 g/dL (3.5-5.0); Alkaline Phosphatase 123 U/L (39-117); Anion Gap 16 (12-20); Aspartate Amino Transferase 43 U/L (5-37); Bilirubin Total 0.5 mg/dL (0.0-1.0); Blood Urea Nitrogen 11 mg/dL (9-16); Calcium 9.6 mg/dL (8.4-10.2); Carbon Dioxide 24 mmol/L (22-29); Chloride 100 mmol/L (96-108); Cholesterol 151 mg/dL; Estimated Glomerular Filt Rate > 60; Glucose Fasting 111 mg/dL (60-99); HDL Cholesterol 49 mg/dL; LDL Cholesterol Calculated 73 mg/dl; Potassium 5.2 mmol/L (3.3-5.1); Sodium 135 mmol/L (135-145); Total Protein 9.6 g/dL (6.5-8.0); Triglycerides 149 mg/dL
[2021-06-30 10:13] LABS: Thyroid Stimulating Hormone 3.59 uIU/mL (0.32-4.0)
[2021-06-30 10:18] LABS: Prostate Specific Antigen Scr 0.22 ng/mL (<0.05-4.0)
[2021-07-03 17:27] LABS: Thyroglobulin Antibodies <1 IU/mL (< or = 1); Thyroid Peroxidase Antibodies 2 IU/mL (<9)
== END 2021-06-30 08:12 | disposition home or self-care (01) ==
LOC: HO.LAB 08:11
PROVIDERS: Nurse Practitioner Gerontology; PCP Physician Assistant; Visit Provider Physician Assistant
DX: Z12.5 Encounter for screening for malignant neoplasm of prostate (principal); E11.42 Type 2 diabetes mellitus with diabetic polyneuropathy; I10 Essential (primary) hypertension; E87.5 Hyperkalemia; I95.9 Hypotension, unspecified; R79.89 Other specified abnormal findings of blood chemistry
CPT/HCPCS: 36415; 80053; 80061; 84153; 84443; 85027; 86376; 86800

== ENCOUNTER → 2021-07-06 09:35 | Outpatient (BNVA) | payer MEDICARE, MEDICAID, SELFPAY | PROVIDERS: PCP Physician Assistant; Visit Provider Nurse Practitioner Gerontology | DX: E11.649 Type 2 diabetes mellitus with hypoglycemia without coma (principal); E11.42 Type 2 diabetes mellitus with diabetic polyneuropathy; I10 Essential (primary) hypertension; R79.89 Other specified abnormal findings of blood chemistry | CPT/HCPCS: 82947; 99212 ==

== ENCOUNTER 2021-08-01 11:41 | Emergency (ER) | payer MEDICARE, MEDICAID, SELFPAY ==
--- NOTE | 2021-08-01 11:57 | ECG_ITS ---
Test Reason : CHEST PAIN Blood Pressure : / mmHG Vent. Rate : 078 BPM Atrial Rate : 078 BPM P-R Int : 220 ms QRS Dur : 084 ms QT Int : 396 ms P-R-T Axes : 046 011 037 degrees QTc Int : 451 ms Sinus rhythm with 1st degree A-V block Otherwise normal ECG When compared with ECG of 21-APR-2021 16:53, No significant change was found Referred By: Yu Salazar Electronically Signed By:SHARON HEARD
--- NOTE | 2021-08-01 11:57 | ED.CHESTPAIN ---
HPI - Chest Pain General Chief Complaint: Chest Pain Stated Complaint: chest pain d/t yelling at house Time Seen by Provider: 08/01/21 11:47 Source: patient and EMS Mode of arrival: EMS Limitations: no limitations History of Present Illness HPI narrative: Patient comes emergency room complaining of chest pain. Per EMS and per [facility] staff, the chest pain starts when people at the [facility] started yelling. Patient states that the pain started around 06:00, resolve within an hour. It has been now over 6 hours since patient had the symptoms. this time, patient is asymptomatic. Patient states that yesterday the same thing happened, there was some yelling at the [facility], patient complained of chest pain, he was sent to [facility], discharged home. Patient denies coughing, fever, no chills Related Data Home Medications Medication Instructions Recorded Confirmed artificial tears with lanolin eye 2 applic OPHTHALMIC (EYE) DAILY 09/13/20 07/06/21 ointment eucalyptus-peppermint oil in a 3 applic INTRANASAL BID 09/13/20 07/06/21 nasal solution (Ponaris) guanfacine 2 mg tablet 2 mg PO DAILY 09/13/20 07/06/21 lamotrigine 100 mg tablet 100 mg PO DAILY@0709/13/20 07/06/21 (Lamictal) ketoconazole 2 % topical cream 1 appl TOPICAL DAILY PRN 12/17/20 07/06/21 lamotrigine 150 mg tablet 150 mg PO BEDTIME 12/17/20 07/06/21 aluminum-mag hydroxide-simethicone 30 ml PO Q4H PRN 12/19/20 07/06/21 200 mg-200 mg-20 mg/5 mL oral susp naproxen 500 mg tablet 500 mg PO BID PRN 12/19/20 07/06/21 levetiracetam 1,000 mg tablet 1,500 mg PO BID 01/05/21 07/06/21 phenytoin 50 mg chewable tablet 150 mg PO DAILY@0730 01/24/21 07/06/21 risperidone 2 mg tablet (Risperdal) 2 mg PO BID 04/07/21 07/06/21 acetaminophen 325 mg tablet 650 mg PO Q6H PRN 04/21/21 07/06/21 calcium carbonate 200 mg calcium 500 mg PO Q6H PRN 04/21/21 07/06/21 (500 mg) chewable tablet (Tums) Previous Rx's Medication Instructions Recorded gabapentin 600 mg tablet 600 mg PO TID 90 Days #270 tab 12/05/20 omeprazole 20 mg capsule,delayed 20 mg PO DAILY #28 cap 02/06/21 release dextrose 40 % oral gel (Glutose-15) 15 g PO DIRECTED #112.5 g 02/16/21 aspirin 81 mg tablet,delayed 81 mg PO DAILY 90 Days #90 tab 02/22/21 release (Adult Aspirin Regimen) folic acid 1 mg tablet 1 mg PO BEDTIME 90 Days #90 tab 02/22/21 metoprolol tartrate 100 mg tablet 100 mg PO BID 90 Days #180 tab 02/22/21 spironolactone 25 mg tablet 25 mg PO DAILY 90 Days #90 tab 02/22/21 amitriptyline 25 mg tablet 25 mg PO BEDTIME #28 tab 04/05/21 magnesium oxide 400 mg (241.3 mg 400 mg PO QAM #28 tab 04/05/21 magnesium) tablet dulaglutide 0.75 mg/0.5 mL 0.75 mg SUBCUT TU@0900 #2 ml 04/21/21 subcutaneous pen injector (Trulicity) metformin 500 mg tablet,extended 500 mg PO BID 90 Days #180 tab 04/21/21 release 24 hr lorazepam 0.5 mg tablet 0.5 mg PO BID 30 Days #60 tab 04/25/21 lorazepam 1 mg tablet 1 mg PO TID 30 Days #90 tab 04/25/21 blood sugar diagnostic (FreeStyle #300 ea 05/08/21 Lite Strips) blood-glucose meter (FreeStyle #1 ea 05/08/21 Lite Meter) lancets 28 gauge (FreeStyle #300 ea 05/08/21 Lancets) CPAP (CPAP Machine/Device) #1 ea 05/17/21 disposable gloves (Nitrile Exam #1000 ea 05/17/21 Gloves) disposable gloves (Vinyl Gloves) #1000 ea 05/23/21 valsartan 320 0.5 tab PO DAILY #15 tab 05/29/21 mg-hydrochlorothiazide 25 mg tablet phenytoin 50 mg chewable tablet 50 mg PO BID 28 Days #196 ea 05/30/21 pen needle, diabetic 32 gauge x #100 ea 06/17/21 (BD Helene 2nd Gen Pen Needle) insulin degludec 200 unit/mL (3 40 unit SUBCUT DAILY 90 Days #18 ml 07/06/21 mL) subcutaneous pen (Tresiba FlexTouch U-200 insulin) varicella-zoster gE vac,2 of 2 50 0.5 ml IM ONCE 1 Days #1 ea 07/06/21 mcg IM suspension cyclobenzaprine 5 mg tablet 5 mg PO Q8H #84 tab 07/24/21 Allergies Allergy/AdvReac Type Severity Reaction Status Date / Time oxycodone [OXYCODONE] Allergy Unknown UNKNOWN Verified 07/06/21 10:47 Phenothiazines Allergy Unknown Unknown Verified 07/06/21 10:47 tetracycline Allergy Unknown Unknown Verified 07/06/21 10:47 tigecycline [TIGECYCLINE] Allergy Unknown UNKNOWN Verified 07/06/21 10:47 Review of Systems Review of Systems: Constitutional : No Weight loss, No Fever, No Chills, No Night Sweats, No Fatigue, No Malaise ENT/Mouth : No Hearing loss, No Ear Pain, No Nasal Congestion, No Sinus Pain, No Hoarseness, No sore throat, No Rhinorrhea, No Swallowing Difficulty Eyes: No Eye Pain, No Swelling, No Redness, No Foreign Body, No Discharge, No Vision Changes Cardiovascular : Chest pain earlier today that subsided No SOB, No Dyspnea on Exertion, No Orthopnea, No Edema, No Palpitations Respiratory : No Cough, No Sputum, No Wheezing, No Smoke Exposure, No Dyspnea Gastrointestinal : No Nausea, No Vomiting, No Diarrhea, No Constipation, No abdominal Pain, No Hematochezia, No Melena Genitourinary : no irregular bleeding, No Dysuria, No Urinary Frequency, No Hematuria, No Urinary Incontinence, No Urgency, No Flank Pain, No Urinary Flow Changes, No Hesitancy Musculoskeletal : No joint pain, No Myalgias, No Joint Swelling Skin : No Skin Lesions, No rash Neuro : No Weakness, No Numbness, No Paresthesias, No Loss of Consciousness, No Dizziness, No Headache Psych : Complaining of anxiety with yelling, No Depression, No SI/HI/AH/VH, No Social Issues, Heme/Lymph: No Bruising, No Bleeding,No Lymphadenopathy Endocrine : No Polyuria, No Polydipsia, No Temperature Intolerance PMFSH Past Medical History Medical History Abnormal colonoscopy Anxiety Arm pain, left Bipolar disorder Chronic active hepatitis C Conversion disorder CVA (cerebral vascular accident) Dysphagia Essential hypertension GERD (gastroesophageal reflux disease) HTN (hypertension) Obstructive sleep apnea Psychotic disorder Seizure Type 2 diabetes mellitus with diabetic polyneuropathy Uncontrolled type 2 diabetes mellitus with hypoglycemia Surgical History History of esophagogastroduodenoscopy (EGD) Hx of cholecystectomy Hx of colonoscopy Hx of surgical biopsy Family History Family History Sister Breast cancer in situ Social History Social History Household Members: Other Household Members Other:: pen[facility]iary Housing: Other Housing Other:: penitentiary Are you a primary wound care coordinator to a significant other at home: No Do you presently have visiting nurse or other home services: Yes Unable to assess alcohol history related to: Refusing to respond Alcohol intake: former Patient Tobacco Use Status: Never used Tobacco Second Hand Smoke Exposure: No Advance Directives: No Advance Directives Information Provided: No service: No Current occupational status: disabled Physical Exam Vital Signs: Vital Signs: Last Vital Signs Temp 97.8 F 08/01/21 11:58 Pulse 79 08/01/21 11:58 Resp 13 08/01/21 11:58 BP 97/61 08/01/21 11:58 Pulse Ox 95 08/01/21 11:58 Body Mass Index 35.0 Const: Other: Appearance: Alert. Oriented X3. No acute distress. Eyes: Pupils equal, round and reactive to light. ENT: Pharynx normal. Neck: Normal inspection. Neck supple. No lymph nodes noted. No crepitus CVS: Normal heart rate and rhythm. Pulses normal. Normal S1 and S2 Respiratory: No respiratory distress. Breath sounds normal. No Wheezing. No rales Abdomen: Soft and nontender. No rigidity. No distention. Skin: Skin warm and dry. Normal skin color. Normal skin turgor. Extremities: trace pitting edema bilaterally, left arm chronic contracture Neuro: Oriented X 3. No motor deficit. No sensory deficit. Moving all extermities. No slurred speech. Course Course Course Narrative: Patient is asymptomatic. EKG and troponin within normal limits, patient's symptoms likely related to anxiety. [facility] MDM - Chest Pain Lab Data Result diagrams: 08/01/21 12:12 08/01/21 12:12 Labs: Lab Results 08/01/21 08/01/21 08/01/21 Range/Units 12:12 12:12 12:12 WBC 13.4 H (4.8-10.8) X10*3/uL RBC 4.45 L (4.60-5.80) X10*6/uL Hgb 13.8 L (14.0-18.0) g/dl Hct 42.3 (42-52) % MCV 95.1 (80-98) fL MCH 31.0 (27.0-33.0) pg MCHC 32.6 (31.0-36.0) g/dl RDW 12.8 (11.0-16.0) % Plt Count 234 (160-400) X10*3/uL MPV 10.1 (9.4-12.4) fL Immature Gran % (Auto) 0.7 H (0.0-0.4) % Neut % (Auto) 72.1 (45-73) % Lymph % (Auto) 17.2 L (20-40) % [place] % (Auto) 6.6 (2-11) % Eos % (Auto) 3.2 (0-4) % Baso % (Auto) 0.2 (0-2) % Lymph # (Auto) 2.3 (1.2-4.9) X10*3/uL [place] # (Auto) 0.9 (0.1-1.2) X10*3/uL Eos # (Auto) 0.4 (0.0-0.4) X10*3/uL Baso # (Auto) 0.0 (0.0-0.2) X10*3/uL Abs Immat Gran (auto) 0.10 H (0.00-0.03) X10*3/uL Absolute Neuts (auto) 9.6 H (2.0-8.3) X10*3/uL Absolute Nucleated RBC 0.000 (0.0-0.012) X10*3/uL Nucleated RBC % (auto) 0.0 (0.0-0.2) /100WBC Sodium 136 (135-145) mmol/L Potassium 4.6 (3.3-5.1) mmol/L Chloride 104 (96-108) mmol/L Carbon Dioxide 22 (22-29) mmol/L Anion Gap 15 (12-20) BUN 17 H D (9-16) mg/dL Creatinine 1.11 (0.5-1.4) mg/dL Estim Creat Clear Calc 72.8 Estimated GFR > 60 Random Glucose 166 H D (60-115) mg/dL Calcium 9.3 (8.4-10.2) mg/dL Troponin I High Sens < 3.5 (<3.5-35.0) ng/L ECG Data ECG #1: Attestation: I personally reviewed and interpreted this ECG as follows: (Sinus rhythm, heart rate 70, 1st degree block, no ST depression or elevation, no T-wave inversion, QTC 451) Discharge Plan Discharge Clinical Impression: Atypical chest pain Patient Disposition: Home, Self-Care Instructions: Chest Pain (ED) Additional Instructions: Please follow-up with your primary care physician tomorrow. If you have any worsening or new symptoms, please return to the emergency room or call 911 Prescriptions: No Action omeprazole 20 mg capsule,delayed release(DR/EC) 20 mg PO DAILY Qty: 28 RF: 6 dextrose [Glutose-15] 40 % gel 15 g PO DIRECTED Qty: 112.5 RF: 6 lorazepam 1 mg tablet 1 mg PO TID 30 Days Qty: 90 RF: 3 lorazepam 0.5 mg tablet 0.5 mg PO BID 30 Days Qty: 60 RF: 3 (DME) disposable gloves [Vinyl Gloves] Misc See Rx Instructions .ROUTE .MEDSUPPLY Qty: 1000 RF: 1 valsartan-hydrochlorothiazide 320-25 mg tablet 0.5 tab PO DAILY Qty: 15 RF: 3 phenytoin 50 mg tablet,chewable 50 mg PO BID 28 Days Qty: 196 RF: 3 (DME) pen needle, diabetic [BD Helene 2nd Gen Pen Needle] 32 gauge x 5/32 needle See Rx Instructions .ROUTE .MEDSUPPLY Qty: 100 RF: 3 cyclobenzaprine 5 mg tablet 5 mg PO Q8H Qty: 84 RF: 0 guanfacine 2 mg Tablet 2 mg PO DAILY RF: 0 lamotrigine [Lamictal] 100 mg Tablet 100 mg PO DAILY@0730 RF: 0 artificial tears with lanolin Ointment 2 applic OPHTHALMIC (EYE) DAILY RF: 0 Ponaris Solution 3 applic INTRANASAL BID RF: 0 levetiracetam 1,000 mg tablet 1,500 mg PO BID RF: 0 lamotrigine 150 mg Tablet 150 mg PO BEDTIME RF: 0 ketoconazole 2 % Cream 1 appl TOPICAL DAILY PRN (Reason: rash ) RF: 0 alum-mag hydroxide-simeth 200-200-20 mg/5 mL Suspension 30 ml PO Q4H PRN (Reason: Heartburn) RF: 0 naproxen 500 mg Tablet 500 mg PO BID PRN (Reason: Pain (Scale Score 4-6)) RF: 0 phenytoin 50 mg tablet,chewable 150 mg PO DAILY@0730 RF: 0 risperidone [Risperdal] 2 mg Tablet 2 mg PO BID RF: 0 acetaminophen 325 mg Tablet 650 mg PO Q6H PRN (Reason: Pain) RF: 0 calcium carbonate [Tums] 200 mg calcium (500 mg) Tablet,Chewable 500 mg PO Q6H PRN (Reason: Heartburn) RF: 0 aspirin [Adult Aspirin Regimen] 81 mg tablet,delayed release (DR/EC) 81 mg PO DAILY 90 Days Qty: 90 RF: 2 folic acid 1 mg tablet 1 mg PO BEDTIME 90 Days Qty: 90 RF: 2 metoprolol tartrate 100 mg tablet 100 mg PO BID 90 Days Qty: 180 RF: 2 spironolactone 25 mg tablet 25 mg PO DAILY 90 Days Qty: 90 RF: 2 Hold Instructions: Doctor's Order varicella-zoster gE vac,2 of 2 50 mcg suspension for reconstitution 0.5 ml IM ONCE 1 Days Qty: 1 RF: 0 gabapentin 600 mg tablet 600 mg PO TID 90 Days Qty: 270 RF: 2 amitriptyline 25 mg tablet 25 mg PO BEDTIME Qty: 28 RF: 5 magnesium oxide 400 mg (241.3 mg magnesium) tablet 400 mg PO QAM Qty: 28 RF: 5 (DME) disposable gloves [Nitrile Exam Gloves] Misc See Rx Instructions .ROUTE .MEDSUPPLY Qty: 1000 RF: 3 (DME) CPAP Machine/Device Device See Rx Instructions .ROUTE .MEDSUPPLY Qty: 1 RF: 0 (DME) blood-glucose meter [FreeStyle Lite Meter] Kit See Rx Instructions .ROUTE .MEDSUPPLY Qty: 1 RF: 0 (DME) FreeStyle Lite Strips Strip See Rx Instructions .ROUTE .MEDSUPPLY Qty: 300 RF: 3 (DME) lancets [FreeStyle Lancets] 28 gauge misc See Rx Instructions .ROUTE .MEDSUPPLY Qty: 300 RF: 3 Trulicity 0.75 mg/0.5 mL pen injector 0.75 mg SUBCUT TU@0900 Qty: 2 RF: 3 metformin 500 mg tablet extended release 24 hr 500 mg PO BID 90 Days Qty: 180 RF: 1 Tresiba FlexTouch U-200 200 unit/mL (3 mL) insulin pen 40 unit subcut DAILY 90 Days Qty: 18 RF: 1
[2021-08-01 11:58] VITALS: BP 122/97; BP 97/61; PULSE 79; PULSE 88; RESP 13; TEMP 36.6; O2SAT 95; BMI 35.0
[2021-08-01 12:21] LABS: MANUAL DIFF FLAG NO
[2021-08-01 12:23] LABS: Basophils Percent Auto 0.2 % (0-2); Eosinophils Absolute Auto 0.4 X10*3/uL (0.0-0.4); Eosinophils Percent Auto 3.2 % (0-4); Hematocrit 42.3 % (42-52); Hemoglobin 13.8 g/dl (14.0-18.0); Imm Gran Pct Auto 0.7 % (0.0-0.4); Lymphocytes Absolute Auto 2.3 X10*3/uL (1.2-4.9); Lymphocytes Percent Auto 17.2 % (20-40); Mean Corpuscular HGB Conc 32.6 g/dl (31.0-36.0); Mean Corpuscular Volume 95.1 fL (80-98); Mean Platelet Volume 10.1 fL (9.4-12.4); Monocytes Absolute Auto 0.9 X10*3/uL (0.1-1.2); Monocytes Percent Auto 6.6 % (2-11); Neutrophils Absolute Auto 9.6 X10*3/uL (2.0-8.3); Neutrophils Percent Auto 72.1 % (45-73); Platelet Count 234 X10*3/uL (160-400); Red Blood Count 4.45 X10*6/uL (4.60-5.80); Red Cell Distribution Width 12.8 % (11.0-16.0); White Blood Count 13.4 X10*3/uL (4.8-10.8)
[2021-08-01 12:43] LABS: Troponin-I High Sensitivity < 3.5 ng/L (<3.5-35.0)
[2021-08-01 12:45] LABS: Anion Gap 15 (12-20); Blood Urea Nitrogen 17 mg/dL (9-16); Calcium 9.3 mg/dL (8.4-10.2); Carbon Dioxide 22 mmol/L (22-29); Chloride 104 mmol/L (96-108); Creatinine Clr Calc Pharmacy 72.8; Estimated Glomerular Filt Rate > 60; Glucose Random 166 mg/dL (60-115); Potassium 4.6 mmol/L (3.3-5.1); Sodium 136 mmol/L (135-145)
[2021-08-01 13:27] VITALS: PULSE 77
[2021-08-01 13:38] VITALS: BP 100/62; PULSE 76; RESP 15; O2SAT 96
--- NOTE | 2021-08-01 13:44 | PC.NURSE ---
report given to ricardo ([phone]) from pt's [facility]. pt to return to group via ambulance. pt is aware of plan of care.
== END 2021-08-01 13:46 | disposition home or self-care (01) ==
PROVIDERS: Emergency Provider Emergency Medicine; PCP Physician Assistant
DX: R07.89 Other chest pain (principal); E11.9 Type 2 diabetes mellitus without complications; I10 Essential (primary) hypertension; Z79.4 Long term (current) use of insulin; Z86.73 Personal history of transient ischemic attack (TIA), and cerebral infarction without residual deficits
CPT/HCPCS: 36415; 80048; 84484; 85025; 93005; 99283; 99284

== ENCOUNTER → 2021-10-09 14:45 | Outpatient (BNVA) | payer MEDICARE, MEDICAID, SELFPAY | PROVIDERS: PCP Physician Assistant; Referring Provider Physician Assistant; Visit Provider Internal Medicine Cardiovascular Disease | DX: R07.9 Chest pain, unspecified (principal) | CPT/HCPCS: 99202 ==

== ENCOUNTER → 2021-12-11 14:57 | Outpatient (BNVA) | payer MEDICARE, MEDICAID, SELFPAY | PROVIDERS: PCP Physician Assistant; Referring Provider Physician Assistant; Visit Provider Internal Medicine Gastroenterology | DX: K59.04 Chronic idiopathic constipation (principal); R14.0 Abdominal distension (gaseous); B18.2 Chronic viral hepatitis C; Z86.73 Personal history of transient ischemic attack (TIA), and cerebral infarction without residual deficits | CPT/HCPCS: 99212 ==

== ENCOUNTER 2021-12-11 16:48 | Outpatient (REF) | payer MEDICARE, MEDICAID, SELFPAY ==
[2021-12-11 18:17] LABS: Alanine Aminotransferase 49 U/L (0-40); Albumin Level 3.5 g/dL (3.5-5.0); Alkaline Phosphatase 110 U/L (39-117); Anion Gap 12 (12-20); Aspartate Amino Transferase 34 U/L (5-37); Bilirubin Total < 0.2 mg/dL (0.0-1.0); Blood Urea Nitrogen 9 mg/dL (9-16); Calcium 9.2 mg/dL (8.4-10.2); Carbon Dioxide 27 mmol/L (22-29); Chloride 107 mmol/L (96-108); Estimated Glomerular Filt Rate > 60; Glucose Random 89 mg/dL (60-115); Sodium 141 mmol/L (135-145); Total Protein 8.1 g/dL (6.5-8.0)
[2021-12-12 13:35] LABS: Alpha Fetoprotein 6.8 ng/mL (<6.1)
== END 2021-12-11 16:49 | disposition home or self-care (01) ==
LOC: HO.LAB 16:48
PROVIDERS: PCP Physician Assistant; Visit Provider Internal Medicine Gastroenterology
DX: B18.2 Chronic viral hepatitis C (principal)
CPT/HCPCS: 36415; 80053; 82105

== ENCOUNTER 2021-12-13 14:53 | Outpatient (REF) | payer MEDICARE, MEDICAID, SELFPAY | END 2021-12-13 14:54 | disposition home or self-care (01) | LOC: HO.LAB 14:53 | PROVIDERS: Absent Provider Physician Assistant; PCP Physician Assistant; Visit Provider Internal Medicine Gastroenterology | DX: Z13.89 Encounter for screening for other disorder (principal) ==

== ENCOUNTER 2021-12-19 10:53 | Outpatient (REF) | payer MEDICARE, MEDICAID, SELFPAY ==
--- NOTE | ~2021-12-19 | MR_ITS ---
EXAMINATION: MR ABDOMEN WITHOUT CONTRAST CLINICAL INFORMATION: Chronic viral hepatitis C. COMPARISON: Previous CT scans of the abdomen and pelvis most recent April 2021, previous abdominal ultrasounds most recent May 2020 and MRI of the abdomen December 2019. TECHNIQUE: MR abdomen is performed without gadolinium contrast. IV access could not be obtained. FINDINGS: LUNG BASES: There is subsegmental atelectasis at the right lung base. There is bilateral gynecomastia. LIVER, GALLBLADDER, AND BILIARY TREE: The liver is upper normal in size, right lobe measuring 18 cm in length. The contour of the liver is normal. There is no evidence of fatty infiltration. The low-attenuation or cystic area in the left lobe of the liver is not definitely appreciated without contrast. There is definitely no signal abnormality on T2-weighted sequences in this region and there is question of a slight area of low signal on T1-weighted sequences for example axial image 42 series 9. The gallbladder has been removed. There is no intrahepatic or extrahepatic biliary duct dilatation. The common bile duct measures 2 mm. No common bile duct stone is seen. PANCREAS: Pancreas is normal in signal. The main pancreatic duct does not appear dilated. SPLEEN: Unremarkable. ADRENAL GLANDS: Unremarkable. KIDNEYS AND URETERS: The kidneys are normal in size and shape. No hydronephrosis. No perinephric stranding. GASTROINTESTINAL TRACT: No bowel obstruction. No ascites or fluid collection. ABDOMINAL WALL: No significant hernia is appreciated. LYMPH NODES: No lymphadenopathy. No ascites. VASCULAR: Unremarkable. The main portal vein is normal in size. No varices are seen. OSSEOUS STRUCTURES: Marrow signal normal. MR/MR abdomen wo con IMPRESSION: Slightly enlarged liver. No changes of cirrhosis or portal hypertension. Lesion in the left lobe of the liver seen on prior contrast-enhanced exams is poorly characterized in the absence of IV contrast.
[2021-12-19 13:28] LABS: Basophils Percent Auto 0.2 % (0-2); Eosinophils Absolute Auto 0.3 X10*3/uL (0.0-0.4); Eosinophils Percent Auto 2.8 % (0-4); Hematocrit 38.2 % (42.0-52.0); Hemoglobin 12.2 g/dl (14.0-18.0); Imm Gran Abs Auto 0.04 X10*3/uL (0.00-0.03); Imm Gran Pct Auto 0.4 % (0.0-0.4); Lymphocytes Absolute Auto 3.8 X10*3/uL (1.2-4.9); MANUAL DIFF FLAG SCAN; Mean Corpuscular HGB Conc 31.9 g/dl (31.0-36.0); Mean Corpuscular Hemoglobin 30.3 pg (27.0-33.0); Mean Platelet Volume 10.4 fL (9.4-12.4); Monocytes Absolute Auto 0.9 X10*3/uL (0.1-1.2); Monocytes Percent Auto 7.6 % (2-11); Neutrophils Absolute Auto 6.2 x10*3/uL (2.0-8.3); PLT CLUMP 1; Red Blood Count 4.02 X10*6/uL (4.60-5.80); Red Cell Distribution Width 12.3 % (11.0-16.0); SCAN SMEAR FLAG 1
[2021-12-19 13:35] LABS: Prothrombin Time 11.9 SEC (9.9-13.0)
[2021-12-19 13:56] LABS: Platelet Count 268 X10*3/uL (160-400); SLIDE REVIEW VERIFIED; White Blood Count 11.3 X10*3/uL (4.8-10.8)
[2021-12-19 14:00] LABS: Alanine Aminotransferase 55 U/L (0-40); Albumin Level 3.7 g/dL (3.5-5.0); Alkaline Phosphatase 128 U/L (39-117); Aspartate Amino Transferase 45 U/L (5-37); Bilirubin Direct 0.2 mg/dL (0.0-0.5); Bilirubin Total 0.3 mg/dL (0.0-1.0); Estimated Glomerular Filt Rate > 60; Total Protein 8.3 g/dL (6.5-8.0)
[2021-12-20 04:42] LABS: HIV AB/AG Nonreactive (Nonreactive); HIV Num 1 0.11 S/CO (0.00-0.99)
== END 2021-12-19 10:54 | disposition home or self-care (01) ==
LOC: HO.MRI 10:53
PROVIDERS: PCP Physician Assistant; Visit Provider Internal Medicine Gastroenterology
DX: Z11.4 Encounter for screening for human immunodeficiency virus [HIV] (principal); B18.2 Chronic viral hepatitis C
CPT/HCPCS: 36415; 74181; 80076; 82565; 85025; 85610; 87389; 87522

== ENCOUNTER → 2021-12-20 11:03 | Outpatient (BNVA) | payer MEDICARE, MEDICAID, SELFPAY | PROVIDERS: PCP Physician Assistant; Visit Provider Nurse Practitioner Gerontology | DX: E11.649 Type 2 diabetes mellitus with hypoglycemia without coma (principal); E11.42 Type 2 diabetes mellitus with diabetic polyneuropathy; I10 Essential (primary) hypertension; R23.4 Changes in skin texture; Z79.4 Long term (current) use of insulin | CPT/HCPCS: 82947; 99212 ==

== ENCOUNTER → 2021-12-25 10:22 | Outpatient (BNVA) | payer MEDICARE, MEDICAID, SELFPAY | PROVIDERS: PCP Physician Assistant; Referring Provider Physician Assistant; Visit Provider Internal Medicine Cardiovascular Disease | DX: I73.9 Peripheral vascular disease, unspecified (principal); I10 Essential (primary) hypertension | CPT/HCPCS: 99212 ==

== ENCOUNTER 2022-01-10 10:59 | Outpatient (REF) | payer MEDICARE, MEDICAID, SELFPAY ==
[2022-01-13 14:06] LABS: HCV Log PCR 5.41 log IU/mL; HepC Viral Load 256000 IU/mL
== END 2022-01-10 11:00 | disposition home or self-care (01) ==
LOC: HO.LAB 10:59
PROVIDERS: Internal Medicine Gastroenterology; PCP Physician Assistant; Visit Provider Physician Assistant
DX: B18.2 Chronic viral hepatitis C (principal)
CPT/HCPCS: 36415; 87522

== ENCOUNTER → 2022-02-01 10:50 | Outpatient (BNVA) | payer MEDICARE, MEDICAID, SELFPAY | PROVIDERS: PCP Physician Assistant; Referring Provider Physician Assistant; Visit Provider Internal Medicine Gastroenterology | DX: Z12.11 Encounter for screening for malignant neoplasm of colon (principal); K59.09 Other constipation; R13.12 Dysphagia, oropharyngeal phase; B18.2 Chronic viral hepatitis C | CPT/HCPCS: 99212 ==

== ENCOUNTER 2022-02-17 09:19 | Outpatient (REF) | payer MEDICARE, MEDICAID, SELFPAY ==
[2022-02-17 10:01] LABS: MANUAL DIFF FLAG NO
[2022-02-17 10:48] LABS: Basophils Percent Auto 0.2 % (0-2); Eosinophils Absolute Auto 0.2 X10*3/uL (0.0-0.4); Eosinophils Percent Auto 1.8 % (0-4); Hematocrit 38.4 % (42.0-52.0); Hemoglobin 12.3 g/dl (14.0-18.0); Imm Gran Abs Auto 0.03 X10*3/uL (0.00-0.03); Imm Gran Pct Auto 0.3 % (0.0-0.4); Lymphocytes Absolute Auto 2.7 X10*3/uL (1.2-4.9); Lymphocytes Percent Auto 24.7 % (20-40); Mean Corpuscular Volume 93.7 fL (80.0-98.0); Mean Platelet Volume 10.2 fL (9.4-12.4); Monocytes Absolute Auto 0.8 X10*3/uL (0.1-1.2); Monocytes Percent Auto 7.3 % (2-11); Neutrophils Absolute Auto 7.1 x10*3/uL (2.0-8.3); Neutrophils Percent Auto 65.7 % (45-73); Platelet Count 232 X10*3/uL (160-400); Red Cell Distribution Width 12.2 % (11.0-16.0); White Blood Count 10.8 X10*3/uL (4.8-10.8)
[2022-02-17 11:02] LABS: Estimated Average Glucose 128 mg/dL; Hemoglobin A1c % 6.1 %
[2022-02-17 11:31] LABS: Alanine Aminotransferase 20 U/L (0-40); Albumin Level 3.7 g/dL (3.5-5.0); Alkaline Phosphatase 104 U/L (39-117); Anion Gap 15 (12-20); Aspartate Amino Transferase 17 U/L (5-37); Bilirubin Total 0.2 mg/dL (0.0-1.0); Blood Urea Nitrogen 11 mg/dL (9-16); Calcium 9.3 mg/dL (8.4-10.2); Carbon Dioxide 24 mmol/L (22-29); Chloride 104 mmol/L (96-108); Cholesterol 140 mg/dL; Estimated Glomerular Filt Rate > 60; Glucose Fasting 146 mg/dL (60-99); HDL Cholesterol 48 mg/dL; LDL Cholesterol Calculated 71 mg/dl; Potassium 4.1 mmol/L (3.3-5.1); Sodium 139 mmol/L (135-145); Total Protein 8.1 g/dL (6.5-8.0); Triglycerides 107 mg/dL
[2022-02-17 11:52] LABS: TSH reflex Free T4 2.85 uIU/mL (0.32-4.0)
[2022-02-21 12:11] LABS: HCV Log PCR <1.18 NOT DETECTED Log IU/mL (NOT DETECTED); HepC Viral Load <15 NOT DETECTED IU/mL (NOT DETECTED)
== END 2022-02-17 09:20 | disposition home or self-care (01) ==
LOC: HO.LAB 09:19
PROVIDERS: PCP Physician Assistant; Visit Provider Internal Medicine Gastroenterology
DX: I10 Essential (primary) hypertension (principal); E11.42 Type 2 diabetes mellitus with diabetic polyneuropathy; B18.2 Chronic viral hepatitis C
CPT/HCPCS: 36415; 80053; 80061; 83036; 84443; 85025; 85027; 87522

== ENCOUNTER 2022-02-22 08:58 | Outpatient (REF) | payer MEDICARE, MEDICAID, SELFPAY ==
[2022-02-22 09:21] LABS: MANUAL DIFF FLAG NO
[2022-02-22 10:05] LABS: Basophils Percent Auto 0.5 % (0-2); Eosinophils Absolute Auto 0.3 X10*3/uL (0.0-0.4); Eosinophils Percent Auto 2.9 % (0-4); Hematocrit 40.4 % (42.0-52.0); Hemoglobin 12.4 g/dl (14.0-18.0); Imm Gran Abs Auto 0.02 X10*3/uL (0.00-0.03); Imm Gran Pct Auto 0.2 % (0.0-0.4); Lymphocytes Absolute Auto 3.1 X10*3/uL (1.2-4.9); Lymphocytes Percent Auto 35.3 % (20-40); Mean Corpuscular HGB Conc 30.7 g/dl (31.0-36.0); Mean Corpuscular Hemoglobin 29.2 pg (27.0-33.0); Mean Corpuscular Volume 95.3 fL (80.0-98.0); Mean Platelet Volume 10.4 fL (9.4-12.4); Monocytes Absolute Auto 0.7 X10*3/uL (0.1-1.2); Monocytes Percent Auto 7.8 % (2-11); Neutrophils Absolute Auto 4.7 x10*3/uL (2.0-8.3); Neutrophils Percent Auto 53.3 % (45-73); Platelet Count 236 X10*3/uL (160-400); Red Blood Count 4.24 X10*6/uL (4.60-5.80); Red Cell Distribution Width 12.4 % (11.0-16.0); White Blood Count 8.8 X10*3/uL (4.8-10.8)
[2022-02-22 10:57] LABS: Alanine Aminotransferase 19 U/L (0-40); Albumin Level 3.7 g/dL (3.5-5.0); Alkaline Phosphatase 106 U/L (39-117); Anion Gap 18 (12-20); Aspartate Amino Transferase 15 U/L (5-37); Bilirubin Total 0.3 mg/dL (0.0-1.0); Blood Urea Nitrogen 7 mg/dL (9-16); Calcium 9.2 mg/dL (8.4-10.2); Carbon Dioxide 20 mmol/L (22-29); Chloride 105 mmol/L (96-108); Estimated Glomerular Filt Rate > 60; Glucose Random 107 mg/dL (60-115); Potassium 4.4 mmol/L (3.3-5.1); Sodium 139 mmol/L (135-145); Total Protein 8.1 g/dL (6.5-8.0)
[2022-02-26 10:27] LABS: HCV Log PCR <1.18 NOT DETECTED Log IU/mL (NOT DETECTED); HepC Viral Load <15 NOT DETECTED IU/mL (NOT DETECTED)
== END 2022-02-22 08:59 | disposition home or self-care (01) ==
LOC: HO.LAB 08:58
PROVIDERS: PCP Physician Assistant; Visit Provider Internal Medicine Gastroenterology
DX: B18.2 Chronic viral hepatitis C (principal)
CPT/HCPCS: 36415; 80053; 85025; 87522

== ENCOUNTER 2022-08-15 14:59 | Outpatient (REF) | payer MEDICARE, MEDICAID, SELFPAY ==
[2022-08-15 16:04] LABS: Alanine Aminotransferase 38 U/L (0-40); Albumin Level 4.1 g/dL (3.5-5.0); Alkaline Phosphatase 144 U/L (39-117); Aspartate Amino Transferase 19 U/L (5-37); Bilirubin Direct < 0.2 mg/dL (0.0-0.5); Bilirubin Total 0.2 mg/dL (0.0-1.0); Total Protein 8.7 g/dL (6.5-8.0)
[2022-08-15 16:17] LABS: Phenytoin Dilantin 16.8 ug/mL (10.0-20.0)
== END 2022-08-15 15:00 | disposition home or self-care (01) ==
LOC: HO.LAB 14:59
PROVIDERS: PCP Physician Assistant; Visit Provider Psychiatry & Neurology Neurology
DX: G40.909 Epilepsy, unspecified, not intractable, without status epilepticus (principal)
CPT/HCPCS: 36415; 80076; 80185